=== PATIENT | female | born 1960 | race Caucasian/White ===

== ENCOUNTER 2022-10-01 21:55 | Outpatient (OUT) | payer BC, SELFPAY ==
[2022-10-05 15:10] LABS: Age Gdln ACOG Testing Note (.); HPV Aptima Negative (Negative); IGP, Aptima HPV, rfx 16/18,45 Note (.)
== END 2022-10-01 21:56 | disposition home or self-care (01) ==
LOC: LAB 21:59
PROVIDERS: Visit Provider Obstetrics & Gynecology
DX: Z12.4 Encounter for screening for malignant neoplasm of cervix (principal); Z11.51 Encounter for screening for human papillomavirus (HPV)
CPT/HCPCS: 87624; G0145

== ENCOUNTER 2022-10-26 11:58 | Outpatient (OUT) | payer BC, SELFPAY ==
--- NOTE | 2022-10-26 12:52 | XR_ITS ---
The [address] [address] Patient Name: RUBÉN APARICIO MRN: [id number] date: 1960 Sex: F Assigned Patient Location: [facility] Current Patient Location: [facility] Accession/Order Number: [id number] Exam Date: 10/26/2022 13:15 Report Date: 10/26/2022 13:29 At the request of: THOMAS MUNOZ Procedure: XR chest 2V EXAM: XR chest 2V HISTORY: PRE OP EXAM COMPARISON: None. TECHNIQUE: PA and lateral views of the chest. FINDINGS: The cardiomediastinal silhouette is normal. No focal consolidation is identified. There is no pneumothorax. No pleural effusion is noted. The osseous structures are intact. XR/XR chest 2V IMPRESSION: No acute cardiopulmonary process. Electronically authenticated by: LEXIE GARCIA Date: 10/26/2022 13:29
--- NOTE | 2022-10-26 12:52 | ECG_ITS ---
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
[2022-10-26 13:28] LABS: Basophils Absolute Auto 0.1 10^3/uL (0.0-0.1); Basophils Percent Auto 0.7 % (0.2-2.0); Eosinophils Absolute Auto 0.2 10^3/uL (0.0-0.7); Eosinophils Percent Auto 2.4 % (0.9-7.0); Hematocrit 40.9 % (36.0-48.0); Hemoglobin 13.7 g/dL (12.0-16.0); Immature Granulocytes Abs Auto 0.02 10^3/uL (0.00-0.03); Immature Granulocytes Pct Auto 0.2 % (0.0-0.5); Lymphocytes Absolute Auto 3.8 10^3/uL (1.2-3.8); Lymphocytes Percent Auto 45.9 % (20.5-60.0); Mean Corpuscular HGB Conc 33.5 g/dL (29.9-35.2); Mean Corpuscular Hemoglobin 32.9 pg (26.7-34.0); Mean Corpuscular Volume 98.3 fL (81.0-99.0); Mean Platelet Volume 9.3 fL (9.5-13.5); Monocytes Absolute Auto 0.6 10^3/uL (0.3-0.8); Monocytes Percent Auto 7.5 % (1.7-12.0); Neutrophils Absolute Auto 3.5 10^3/uL (1.4-6.5); Neutrophils Percent Auto 43.3 % (43.0-75.0); Platelet Count 286 10^3/uL (150-450); Red Blood Count 4.16 10^6/uL (4.20-5.40); Red Cell Distribution Width 13.1 % (11.0-15.0); White Blood Count 8.2 10^3/uL (4.0-11.0)
[2022-10-26 13:42] LABS: Anion Gap 11.1; BUN Creatinine Ratio 21.1; Calcium 8.6 mg/dL (8.5-10.1); Chloride 105 mmol/L (98-107); Estimated GFR (African America >60 (>=60); Estimated GFR (Non-African Ame >60 (>=60); Glucose 89 mg/dL (74-106); Potassium 4.1 mmol/L (3.5-5.1); Sodium 142 mmol/L (136-145)
[2022-10-26 13:45] LABS: INR 0.97; Partial Thromboplastin Time 27.9 sec (22.3-36.2); Prothrombin Time 10.3 sec (9.0-11.6)
== END 2022-10-26 11:59 | disposition home or self-care (01) ==
PROVIDERS: PCP Family Medicine; Visit Provider Obstetrics & Gynecology
DX: Z01.810 Encounter for preprocedural cardiovascular examination (principal); Z01.812 Encounter for preprocedural laboratory examination; Z01.811 Encounter for preprocedural respiratory examination; R87.613 High grade squamous intraepithelial lesion on cytologic smear of cervix (HGSIL); Z79.01 Long term (current) use of anticoagulants; D64.9 Anemia, unspecified; J44.9 Chronic obstructive pulmonary disease, unspecified
CPT/HCPCS: 71046; 80048; 85025; 85610; 85730; 93005

== ENCOUNTER 2022-11-09 06:03 | Day surgery (SDC) | payer BC, SELFPAY ==
[2022-10-26 12:49] VITALS: BP 147/77; PULSE 74; RESP 16; TEMP 36.2; O2SAT 97; BMI 26.0
[2022-11-09] VITALS (10 sets, daily range): BP systolic 134–169; BP diastolic 75–105; PULSE 76–93; RESP 12–20; TEMP 36.1–36.6; O2SAT 90–97
[2022-11-09 06:24] LABS: Basophils Absolute Auto 0.1 10^3/uL (0.0-0.1); Basophils Percent Auto 0.7 % (0.2-2.0); Eosinophils Absolute Auto 0.2 10^3/uL (0.0-0.7); Eosinophils Percent Auto 2.5 % (0.9-7.0); Hematocrit 43.3 % (36.0-48.0); Hemoglobin 14.4 g/dL (12.0-16.0); Immature Granulocytes Abs Auto 0.03 10^3/uL (0.00-0.03); Immature Granulocytes Pct Auto 0.3 % (0.0-0.5); Lymphocytes Absolute Auto 3.3 10^3/uL (1.2-3.8); Lymphocytes Percent Auto 36.3 % (20.5-60.0); Mean Corpuscular HGB Conc 33.3 g/dL (29.9-35.2); Mean Corpuscular Hemoglobin 33.2 pg (26.7-34.0); Mean Corpuscular Volume 99.8 fL (81.0-99.0); Mean Platelet Volume 9.1 fL (9.5-13.5); Monocytes Absolute Auto 0.7 10^3/uL (0.3-0.8); Monocytes Percent Auto 7.3 % (1.7-12.0); Neutrophils Absolute Auto 4.9 10^3/uL (1.4-6.5); Neutrophils Percent Auto 52.9 % (43.0-75.0); Platelet Count 291 10^3/uL (150-450); Red Blood Count 4.34 10^6/uL (4.20-5.40); Red Cell Distribution Width 12.8 % (11.0-15.0); White Blood Count 9.2 10^3/uL (4.0-11.0)
[2022-11-09 06:40] LABS: HCG Quantitative <1 mIU/mL
[2022-11-09] MEDS: LACTATED RINGER'S SOLUTION 1,000 ML 50 ML IV (06:56)
[2022-11-09] MEDS: IODINE/POTASSIUM IODIDE 8 ML SOLUTION TOPICAL (07:56)
[2022-11-09] MEDS: FERRIC SUBSULFATE 8 ML SOLUTION TOPICAL (08:04)
--- NOTE | 2022-11-09 08:09 | P.ON_ITS ---
Brief Operative Note Date of procedure: 11/09/22 Pre-op diagnosis: cervical dysplasia Post-op diagnosis: same as pre-op Procedure: NAME OF PROCEDURE: [leep ] PROCEDURE: Patient was taken back to the Operating Room where she was given general anesthesia without difficulty. She was then placed in the dorsal lithotomy position. She was then prepped and draped in the normal sterile fashion. A weighted speculum was placed into the patient's vagina. The anterior lip of the cervix was identified and grasped with a single-tooth tenaculum. The patient's cervix was then copiously irrigated using vinegar.? Then, a Lugol Solution was also placed onto the patient's cervix which demonstrated increased uptake of the Lugol solution at the [?3 ] o?clock and [7? ] o?clock positions.? At that time, the LEEP portion of the procedure was performed, including both the [3? ] o?clock and [? 7] o?clock positions. [facility] performed The ectocervix and endocervical tissue was sent out to Pathology. The patient's cervix was then coagulated using suction cautery. Excellent hemostasis was assured.? Monsel Solution was then placed onto the patient's cervix to help maintain adequate hemostasis. All instruments were removed from the patient's vagina. The anterior lip of the cervix demonstrated excellent hemostasis.? The patient tolerated the procedure well. Sponge, lap, and needle counts were correct x 2. The patient was taken to Recovery Room in stable condition. Anesthesia: CANDYA Surgeon: Harvinder Marx Estimated blood loss (mL): 5 Pathology: other (endo and ectocervical tissue) Condition: stable Disposition: PACU
--- NOTE | 2022-11-09 09:32 | PC.NURSE ---
Up to bathroom and voided clear yellow without difficulty
== END 2022-11-09 09:25 ==
PROVIDERS: PCP Family Medicine; Visit Provider Obstetrics & Gynecology
PROC: (CPT 57522; principal; 2022-11-09 07:30)
DX: R87.613 High grade squamous intraepithelial lesion on cytologic smear of cervix (HGSIL) (principal); Z79.01 Long term (current) use of anticoagulants; D64.9 Anemia, unspecified; J44.9 Chronic obstructive pulmonary disease, unspecified; F17.210 Nicotine dependence, cigarettes, uncomplicated
CPT/HCPCS: 57522; 36415; 84702; 85025; 88305; J2704

== ENCOUNTER 2023-04-09 20:51 | Outpatient (REF) | payer BC, SELFPAY ==
[2023-04-12 17:08] LABS: HPV Aptima Negative (Negative); Pap IG (Image Guided) Note (.)
== END 2023-04-09 20:52 | disposition home or self-care (01) ==
LOC: LAB 20:51
PROVIDERS: PCP Family Medicine; Visit Provider Obstetrics & Gynecology
DX: R87.610 Atypical squamous cells of undetermined significance on cytologic smear of cervix (ASC-US) (principal); R87.613 High grade squamous intraepithelial lesion on cytologic smear of cervix (HGSIL)
CPT/HCPCS: 87624

== ENCOUNTER 2023-05-16 08:28 | Outpatient (OUT) | payer MEDICARE, BC, SELFPAY ==
--- OUTSIDE RECORDS SUMMARY | 2023-05-16 08:31 | XMS_ITS | CCD ---
Author Name Unknown Address [address] [place] [address] Organization [facility] Care Team Providers Care Newsroom Intern Name Role Phone PHYSICIAN, DEFAULT Unavailable Unavailable PHYSICIAN, DEFAULT Unavailable Unavailable Cesar Paulino Primary Care Provider Cesar Paulino MD Primary Care Provider [phone] CESAR PAULINO Primary Care Unavailable SAMY HUNTLEY Referring Unavailable CESAR PAULINO Primary Care Unavailable JEFFERSON ., DR GUERRERO Consulting Unavailable HOY ., DR GUERRERO Primary Care Unavailable HOY ., DR GUERRERO Admitting Unavailable HOY ., DR GUERRERO Attending Unavailable [place], DR RAMA Liang Consulting Unavailable HOY ., DR GUERRERO Consulting Unavailable HOY ., DR GUERRERO Primary Care Unavailable HOY ., DR GUERRERO Admitting Unavailable HOY ., DR GUERRERO Attending Unavailable HOY ., DR GUERRERO Primary Care Unavailable HAY ., DR GARCES Admitting Unavailable HAY ., DR GARCES Attending Unavailable HAY ., DR GARCES Consulting Unavailable HOY ., DR GUERRERO Consulting Unavailable HOY ., DR GUERRERO Primary Care Unavailable HOY ., DR GUERRERO Admitting Unavailable HOY ., DR GUERRERO Attending Unavailable HOY ., DR GUERRERO Consulting Unavailable HOY ., DR GUERRERO Primary Care Unavailable HOY ., DR GUERRERO Admitting Unavailable HOY ., DR GUERRERO Attending Unavailable THOMAS MUNOZ Attending Unavailable Medications Current Medications Medication Drug Class(es) Dates Sig (Normalized) Sig (Original) acetaminophen 325 mg oral tablet (2 sources) Start: 05-21-2019 650 mg, Rectal, EVERY 6 HOURS PRN, Pain Mild (1-3), Fever, For temp greater than 100.5 F (38 C), Starting [facility] 05/21/19 at 1312 Administer if oral route cannot be used. Start: 05-21-2019 650 mg, Oral, EVERY 6 HOURS PRN, Pain Mild (1-3), Fever, For temp greater than 100.5 F (38 C), Starting [facility] 05/21/19 at 1312 Maximum dose of acetaminophen is 4000 mg from all sources in 24 hours. acetaminophen 250 mg / aspirin 250 mg / caffeine 65 mg oral tablet (3 sources) Platelet Aggregation Inhibitor, Nonsteroidal Anti-inflammatory Drug, Central Nervous System Stimulant, Methylxanthine take 2 tablets by mouth every six hours as needed for headache jbwsrzw-vtomycxrpgsdj-xnpantck (EXCEDRIN MIGRAINE) 250-250-65 MG per tablet Take 2 tablets by mouth every 6 hours as needed for Headaches (Migraine) 0 Active acetaminophen 300 mg / codeine phosphate 30 mg oral tablet (3 sources) Opioid Agonist take 1 tablet by mouth every six hours as needed for pain acetaminophen-codeine (TYLENOL/CODEINE #3) 300-30 MG per tablet Take 1 tablet by mouth every 6 hours as needed for Pain.. 0 Active ARIPiprazole 5 mg oral tablet (4 sources) Atypical Antipsychotic Sta rt: 0 take 5 mg by mouth once daily 5 mg, Oral, DAILY, First dose on Sat05/22/19 at 0900 aspirin 81 mg chewable tablet (5 sources) Platelet Aggregation Inhibitor, Nonsteroidal Anti-inflammatory Drug Sta rt: 0 take 1 tablet by mouth once daily aspirin 81 MG chewable tablet Take 1 tablet by mouth daily 30 tablet 3 05/23/2019 Active Start: 05-21-2019 aspirin tablet 325 mg atorvastatin 40 mg oral tablet (4 sources) HMG-CoA Reductase Inhibitor Start: 05-21-2019 take 1 tablet by mouth once daily atorvastatin (LIPITOR) 40 MG tablet Take 1 tablet by mouth nightly 30 tablet 3 05/22/2019 Active 24 hr desvenlafaxine succinate 25 mg extended release oral tablet (4 sources) Serotonin and Norepinephrine Reuptake Inhibitor Start: 05-22-2019 take 25 mg by mouth once daily 25 mg, Oral, DAILY, First dose on Sat05/22/19 at 0900 Do not crush or break. 0.4 ml enoxaparin sodium 100 mg/ml prefilled syringe (1 source) Low Molecular Weight Heparin Start: 05-21-2019 inject 40 mg by subcutaneous injection once daily 40 mg, Subcutaneous, DAILY, First dose on [facility] 05/21/19 at 1330 famotidine 10 mg oral tablet (1 source) Histamine-2 Receptor Antagonist Start: 05-21-2019 take 20 mg by mouth twice daily 20 mg, Oral, 2 TIMES DAILY, First dose on [facility] 05/21/19 at 2100 meclizine hydrochloride 25 mg oral tablet (1 source) Antiemetic Start: 11-11-2020 End: 11-21-2020 take 1 tablet by mouth three times daily as needed for dizziness meclizine (ANTIVERT) 25 MG tablet Take 1 tablet by mouth 3 times daily as needed for Dizziness 15 tablet 0 11/11/2020 11/21/2020 Active metoprolol tartrate 25 mg oral tablet (4 sources) beta-Adrenergic Vijay Start: 05-21-2019 take 1 tablet by mouth twice daily metoprolol tartrate (LOPRESSOR) 25 MG tablet Take 1 tablet by mouth 2 times daily 60 tablet 3 05/22/2019 Active 24 hr nicotine 0.875 mg/hr transdermal system (1 source) Cholinergic Nicotinic Agonist Start: 05-21-2019 nicotine (NICODERM CQ) 21 MG/24HR 1 patch nitroglycerin 0.4 mg sublingual tablet (1 source) Nitrate Vasodilator Start: 05-21-2019 0.4 mg, Sublingual, EVERY 5 MIN PRN, Chest pain, Starting [facility] 05/21/19 at 1312, For [address] 1 tablet under tongue upon chest pain, wait 5 minutes and may repeat up to 3 doses in 15 minutes. Do not crush or break. omeprazole 20 mg delayed release oral capsule (3 sources) Proton Pump Inhibitor Start: 05-22-2019 take 1 capsule by mouth twice daily before mealtime omeprazole (PRILOSEC) 20 MG delayed release capsule Take 1 capsule by mouth 2 times daily (before meals) 60 capsule 5 05/22/2019 Active polyethylene glycol 3350 18533 mg powder for oral solution (1 source) Osmotic Laxative Start: 05-21-2019 17 g, Oral, DAILY PRN, Constipation, Starting [facility] 05/21/19 at 1312 First line therapy for constipation promethazine hydrochloride 25 mg oral tablet (1 source) Phenothiazine Start: 05-21-2019 take 12.5 mg by mouth every six hours as needed for nausea 12.5 mg, Oral, EVERY 6 HOURS PRN, Nausea, Vomiting, Starting [facility] 05/21/19 at 1312 1000 ml sodium chloride 9 mg/ml injection (5 sources) Start: 11-11-2020 0.9 % sodium chloride infusion Start: 05-21-2019 10 mL, Intrave nous, EVERY 12 HOURS SCHEDULED (2 times per day), First dose on [facility] 05/21/19 at 2100 Start: 05-21-2019 Intravenous, a t 75 mL/hr, CONTINUOUS, Starting [facility] 05/21/19 at 1330 Start: 05-21-2019 take 10 mL intraveno us route once as needed 10 mL, Intravenous, PRN, Line Care, After every IV line use, Starting [facility] 05/21/19 at 1312 Start: 05-21-2019 End: 05-21-2019 0.9 % sodium chloride bolus Completed/Discontinued Medications Medication Drug Class(es) Dates Sig (Normalized) Sig (Original) aluminum & magnesium hydroxide-simethicone (MAALOX) 30 mL, lidocaine viscous hcl (XYLOCAINE) 5 mL (GI COCKTAIL) (1 source) Start: 05-21-2019 End: 05-21-2019 aluminum & magnesium hydroxide-simethic one (MAALOX) 30 mL, lidocaine viscous hcl (XYLOCAINE) 5 mL (GI COCKTAIL) diazePAM 5 mg oral tablet (1 source) Benzodiazepine Start: 11-11-2020 End: 11-11-2020 diazePAM (VALIUM) tablet 5 mg iopamidol (ISOVUE-370) 76 % injection 75 mL (1 source) Start: 11-11-2020 End: 11-11-2020 iopamidol (ISOVUE-370) 76 % injection 75 mL loperamide hydrochloride 2 mg oral capsule (1 source) Opioid Agonist Start: 05-22-2019 End: 05-22-2019 loperamide (IMODIUM) capsule 2 mg Start: 05-22-2019 End: 05-22-2019 loperamide (IMODIUM) capsule 2 mg 2 ml ondansetron 2 mg/ml injection (2 sources) Serotonin-3 Receptor Antagonist Start: 11-11-2020 End: 11-11-2020 ondansetron (ZOFRAN) injection 4 mg Start: 05-21-2019 take 4 mg by mouth e very six hours as needed for nausea 4 mg, Intravenous, EVERY 6 HOURS PRN, Nausea, Vomiting, Starting [facility] 05/21/19 at 1312 Administer if oral route cannot be used. technetium sestamibi (CARDIOLITE) injection 10 millicurie (1 source) Start: 05-22-2019 End: 05-22-2019 technetium sestamibi (CARDIOLITE) injection 10 millicurie technetium sestamibi (CARDIOLITE) injection 30 millicurie (1 source) Start: 05-22-2019 End: 05-22-2019 technetium sestamibi (CARDIOLITE) injection 30 millicurie Problems Active Problems Problem Classification Problem Date Documented Da te Episodic/Chronic Coronary atherosclerosis and other heart disease (4 sources) Acute coronary syndrome; Translations: [Acute ischemic heart disease, unspecified] Onset: 05-21-2019 05-21-2019 Chronic Mood disorders (4 sources) Depressive disorder; Translations: [Major depressive disorder, single episode, unspecified] Onset: 05-21-2019 05-21-2019 Chronic Nonspecific chest pain (2 sources) Chest pain; Translations: [Chest pain, unspecified] 05-22-2019 Episodic Nutritional deficiencies (1 source) Vitamin D deficiency, unspecified; Translations: [VITAMIN D DEFICIENCY UNSPECIFIED] Onset: 09-20-2021 Chronic Residual codes; unclassified (2 sources) Tobacco user; Translations: [Tobacco abuse disorder] Onset: 05-21-2019 05-21-2019 Chronic Viral infection (1 source) COVID-19; Translations: [COVID-19] Onset: 09-18-2021 Past or Other Problems Problem Classification Problem Date Documented Da te Episodic/Chronic Abdominal pain (4 sources) Epigastric pain; Translations: [Epigastric pain] Onset: 05-21-2019 05-21-2019 Episodic Conditions associated with dizziness or vertigo (5 sources) Vertigo; Translations: [Dizziness and giddiness] Onset: 09-17-2021 Episodic E Codes: Natural/environment (1 source) Bitten or stung by nonvenomous insect and other nonvenomous arthropods, initial encounter; Translations: [BITTEN NONVENOM INSCT OTH ARTH INIT] Onset: 09-18-2021 Episodic Fever of unknown origin (1 source) Fever, unspecified; Translations: [FEVER UNSPECIFIED] Onset: 09-18-2021 Episodic Other aftercare (2 sources) Post-discharge follow-up; Translations: [Encounter for follow-up examination after completed treatment for conditions other than malignant neoplasm] Onset: 06-15-2019 Resolved: 07-15-2019 07-15-2019 Episodic Other aftercare (1 source) 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; Translations: [[employer] CURRENT DRUG THERAPY] Onset: 09-20-2021 Episodic Other injuries and conditions due to external causes (1 source) Other injury of unspecified body region, initial encounter; Translations: [OTHER INJURY UNS BODY REGION INIT] Onset: 09-18-2021 Episodic Other screening for suspected conditions (not mental disorders or infectious disease) (8 sources) Encounter for screening for malignant neoplasm of cervix; Translations: [Encounter for screening mammogram for malignant neoplasm of breast] Onset: 12-29-2021 Episodic Residual codes; unclassified (2 sources) Tobacco user; Translations: [Tobacco use] Onset: 05-21-2019 05-21-2019 Episodic Results Test Name Value Interpretation Reference Range Facility CBC AUTO DIFFon 08-21-2022 BASO # 0.1 103/ul Normal 0.0-0.1 [facility] Comment on above: Performed By: #### C BC #### [facility] [address] [place] [address] Dr. Georgia Rhoades Basophils/100 WBC (Bld) 0.8 % Normal 0.2-2.0 [facility] Comment on above: Performed By: #### C BC #### [facility] [address] [place] [address] Dr. Georgia Rhoades EO # 0.3 103/ul Normal 0.0-0.7 [facility] Comment on above: Performed By: #### C BC #### [facility] [address] [place] [address] Dr. Georgia Rhoades Eosinophils/100 WBC (Bld) 3.1 % Normal 0.9-7.0 [facility] Comment on above: Performed By: #### C BC #### [facility] [address] [place] [address] Dr. Georgia Rhoades Erythrocyte distribution width (RBC) [Ratio] 13.2 % Normal 11.0-15.0 [facility] Comment on above: Performed By: #### C BC #### [facility] [address] [place] [address] Dr. Georgia Rhoades Hematocrit (Bld) [Volume fraction] 45.8 % Normal 36.0-48.0 [facility] Comment on above: Performed By: #### C BC #### [facility] [address] [place] [address] Dr. Georgia Rhoades Hemoglobin (Bld) [Mass/Vol] 15.1 g/dL Normal 12.0-16.0 [facility] Comment on above: Performed By: #### C BC #### [facility] [address] [place] [address] Dr. Georgia Rhoades IG # 0.02 10e3/ul Normal 0.00-0.03 [facility] Comment on above: Performed By: #### C BC #### [facility] [address] [place] [address] Dr. Georgia Rhoades IG % 0.2 % Normal 0.0-0.5 [facility] Comment on above: Performed By: #### C BC #### [facility] [address] [place] [address] Dr. Georgia Rhoades LYMPH # 3.6 103/ul Normal 1.2-3.8 [facility] Comment on above: Performed By: #### C BC #### [facility] [address] [place] [address] Dr. Georgia Rhoades Lymphocytes/100 WBC (Bld) 37.1 % Normal 20.5-60.0 [facility] Comment on above: Performed By: #### C BC #### [facility] [address] [place] [address] Dr. Georgia Rhoades MANUAL DIFF REQ NO Normal [facility] Comment on above: Performed By: #### C BC #### [facility] [address] [place] [address] Dr. Georgia Rhoades MCH (RBC) [Entitic mass] 32.8 pg Normal 26.7-34.0 [facility] Comment on above: Performed By: #### C BC #### [facility] [address] [address] [address] Georgia Rhoades MCHC (RBC) [Mass/Vol] 33.0 g/dL Normal 29.9-35.2 [facility] Comment on above: Performed By: #### C BC #### [facility] [address] [address] [address] Georgia Rhoades MCV (RBC) [Entitic vol] 99.3 fL Critically high 81.0-99.0 [facility] Comment on above: Performed By: #### C BC #### [facility] [address] [address] [address] Georgia Rhoades MONO # 0.8 103/ul Normal 0.3-0.8 [facility] Comment on above: Performed By: #### C BC #### [facility] [address] [place] [address] Dr. Georgia Rhoades Monocytes/100 WBC (Bld) 8.3 % Normal 1.7-12.0 [facility] Comment on above: Performed By: #### C BC #### [facility] [address] [place] [address] Dr. Georgia Rhoades NEUT # 4.9 103/ul Normal 1.4-6.5 [facility] Comment on above: Performed By: #### C BC #### [facility] [address] [place] [address] Dr. Georgia Rhoades Neutrophils/100 WBC (Bld) 50.5 % Normal 43.0-75.0 [facility] Comment on above: Performed By: #### C BC #### [facility] [address] [place] [address] Dr. Georgia Rhoades Platelet mean volume (Bld) [Entitic vol] 9.3 fL Critically low 9.5-13.5 [facility] Comment on above: Performed By: #### C BC #### [facility] [address] [place] [address] Dr. Georgia Rhoades PLT 313 103/ul Normal 150-450 [facility] Comment on above: Performed By: #### C BC #### [facility] [address] [address] [address] Georgia Rhoades RBC 4.61 106/ul Normal 4.20-5.40 [facility] Comment on above: Performed By: #### C BC #### [facility] [address] [address] [address] Georgia Rhoades WBC 9.7 103/ul Normal 4.0-11.0 [facility] Comment on above: Performed By: #### C BC #### [facility] [address] [address] [address] Georgia Rhoades FREE T3on 08-21-2022 FREE T3 2.96 pg/mlL Normal 2.18-3.98 [facility] Comment on above: Performed By: #### F T3, CMP, T4, TSH, LIPID ####[facility] [address] [address]DrMalorie Rhoades GLYCOHEMOGLOBIN A1Con 2022 ADA RECOMMENDATION SEE BELOW Normal [facility] Comment on above: Result Comment: ADA RECOMMENDED LIMIT 4.0 - 6.0 ADA THERAPEUTIC TARGET < 7.0 ACTION SUGGESTED > 7.0 Performed By: #### A 1C ####[facility] [address] [address]Dr. Georgia Rhoades Glucose [Mass/Vol] 114 mg/dL Normal [facility] Comment on above: Performed By: #### A 1C ####[facility] [address] [address]DrMalorie Rhoades HbA1c (Bld) [Mass fraction] 5.6 % Normal 4.5-6.2 [facility] Comment on above: Performed By: #### A 1C ####[facility] [address] [address]Dr. Georgia Rhoades IRONon 08-21-2022 Iron [Mass/Vol] 66.0 ug/dL Normal 50.0-170.0 [facility] Comment on above: Performed By: #### V ITAD, IRON #### [facility] [address] [address] [address] Georgia Rhoades LIPID PROFILEon 08-21-2022 CHOL-HDL RATIO NORM SEE BELOW Normal [facility] Comment on above: Result Comment: 3.3 - 4.4 LOW RISK 4.4 - 7.1 AVERAGE RISK 7.1 - 11.0 MODERATE RISK >11.0 HIGH RISK Performed By: #### F T3, CMP, T4, TSH, LIPID ####[facility] [address] [address]Dr. Georgia Rhoades Cholesterol [Mass/Vol] 120 mg/dL Normal <=200 [facility] Comment on above: Performed By: #### F T3, CMP, T4, TSH, LIPID ####[facility] [address] [address]Dr. Georgia Rhoades Cholesterol in HDL [Mass/Vol] 57 mg/dL Normal 40-60 [facility] Comment on above: Performed By: #### F T3, CMP, T4, TSH, LIPID ####[facility] [address] [address]Dr. Georgia Rhoades Cholesterol in LDL [Mass/Vol] 46.2 mg/dL Normal [facility] Comment on above: Performed By: #### F T3, CMP, T4, TSH, LIPID ####[facility] [address] [address]Dr. Georgia Rhoades Cholesterol.total/Chol esterol in HDL [Mass ratio] 2.1 {ratio} Normal [facility] Comment on above: Performed By: #### F T3, CMP, T4, TSH, LIPID ####[facility] [address] [address]Dr. Georgia Rhoades HDL NORMAL > or = 60 mg/dl - LO W CARDIOVASCULAR RISK <40 mg/dl - HIGH CARDIOVASCULAR RISK Normal [facility] Comment on above: Performed By: #### F T3, CMP, T4, TSH, LIPID ####[facility] [address] [address]Dr. Georgia Rhoades LDL CALC NORMAL SEE BELOW Normal [facility] Comment on above: Result Comment: <100 mg/dl OPTIMAL 100 - 129 mg/dl NEAR OR ABOVE OPTIMAL 130 - 159 mg/dl BORDERLINE HIGH 160 - 189 mg/dl HIGH >190 mg/dl VERY HIGH Performed By: #### F T3, CMP, T4, TSH, LIPID ####[facility] [address] [address]Dr. Georgia Rhoades Triglyceride [Mass/Vol] 84 mg/dL Normal <=150 [facility] Comment on above: Performed By: #### F T3, CMP, T4, TSH, LIPID ####[facility] [address] [address]Dr. Georgia Rhoades VLDL CALC 16.8 mg/dL Normal [facility] Comment on above: Performed By: #### F T3, CMP, T4, TSH, LIPID ####[facility] [address] [address]Dr. Georgia Rhoades PROF 14(COMP METB)on 023 Albumin [Mass/Vol] 3.9 g/dL Normal 3.4-5.0 [facility] Comment on above: Performed By: #### F T3, CMP, T4, TSH, LIPID ####[facility] [address] [address]Dr. Georgia Rhoades Albumin/Globulin [Mass ratio] 1.1 {ratio} Normal [facility] Comment on above: Performed By: #### F T3, CMP, T4, TSH, LIPID ####[facility] [address] [address]Dr. Georgia Rhoades ALP [Catalytic activity/Vol] 44 U/L Critically low 46-116 [facility] Comment on above: Performed By: #### F T3, CMP, T4, TSH, LIPID ####[facility] [address] [address]Dr. Georgia Rhoades ALT [Catalytic activity/Vol] 35 U/L Normal 14-59 [facility] Comment on above: Performed By: #### F T3, CMP, T4, TSH, LIPID ####[facility] [address] [address]Dr. Georgia Rhoades Anion gap [Moles/Vol] 12.6 mmol/L Normal [facility] Comment on above: Performed By: #### F T3, CMP, T4, TSH, LIPID ####[facility] [address] [address]Dr. Georgia Rhoades AST [Catalytic activity/Vol] 18 U/L Normal 15-37 [facility] Comment on above: Performed By: #### F T3, CMP, T4, TSH, LIPID ####[facility] [address] [address]Dr. Georgia Rhoades Bilirubin [Mass/Vol] 0.3 mg/dL Normal 0.2-1.0 [facility] Comment on above: Performed By: #### F T3, CMP, T4, TSH, LIPID ####[facility] [address] [address]Dr. Georgia Rhoades Calcium [Mass/Vol] 8.9 mg/dL Normal 8.5-10.1 [facility] Comment on above: Performed By: #### F T3, CMP, T4, TSH, LIPID ####[facility] [address] [address]Dr. Georgia Rhoades Chloride [Moles/Vol] 105 mmol/L Normal 98-107 [facility] Comment on above: Performed By: #### F T3, CMP, T4, TSH, LIPID ####[facility] [address] [address]Dr. Georgia Rhoades CO2 [Moles/Vol] 29.3 mmol/L Normal 21.0-32.0 [facility] Comment on above: Performed By: #### F T3, CMP, T4, TSH, LIPID ####[facility] [address] [address]Dr. Georgia Rhoades Creatinine [Mass/Vol] 0.88 mg/dL Normal 0.55-1.02 [facility] Comment on above: Performed By: #### F T3, CMP, T4, TSH, LIPID ####[facility] [address] [address]Dr. Georgia Rhoades EGFR-AF LATVIAN >60 Normal >=60 [facility] Comment on above: Performed By: #### F T3, CMP, T4, TSH, LIPID ####[facility] [address] [address]Dr. Georgia Rhoades EGFR-NON AF LATVIAN >60 Normal >=60 [facility] Comment on above: Performed By: #### F T3, CMP, T4, TSH, LIPID ####[facility] [address] [address]Dr. Georgia Rhoades Globulin (S) [Mass/Vol] 3.5 g/dL Normal [facility] Comment on above: Performed By: #### F T3, CMP, T4, TSH, LIPID ####[facility] [address] [address]Dr. Georgia Rhoades Glucose [Mass/Vol] 95 mg/dL Normal 74-106 [facility] Comment on above: Performed By: #### F T3, CMP, T4, TSH, LIPID ####[facility] [address] [place], [place] [address]Dr. Georgia Rhoades Potassium [Moles/Vol] 3.9 mmol/L Normal 3.5-5.1 [facility] Comment on above: Performed By: #### F T3, CMP, T4, TSH, LIPID ####[facility] [address] [address]Dr. Georgia Rhoades Protein [Mass/Vol] 7.4 g/dL Normal 6.4-8.2 [facility] Comment on above: Performed By: #### F T3, CMP, T4, TSH, LIPID ####[facility] [address] [address]Dr. Georgia Rhoades Sodium [Moles/Vol] 143 mmol/L Normal 136-145 [facility] Comment on above: Performed By: #### F T3, CMP, T4, TSH, LIPID ####[facility] [address] [place], [place] [address]Dr. Georgia Rhoades Urea nitrogen [Mass/Vol] 16.0 mg/dL Normal 7.0-18.0 [facility] Comment on above: Performed By: #### F T3, CMP, T4, TSH, LIPID ####[facility] [address] [place], [place] [address]Dr. Yilan Rhoades Urea nitrogen/Creatinine [Mass ratio] 18.2 mg/mg Normal [facility] Comment on above: Performed By: #### F T3, CMP, T4, TSH, LIPID ####[facility] [address] [address]Dr. Georgia Rhoades T4on 08-21-2022 T4 [Mass/Vol] 7.30 ug/dL Normal 4.80-13.90 [facility] Comment on above: Performed By: #### F T3, CMP, T4, TSH, LIPID ####[facility] [address] [address]Dr. Georgia Rhoades TSHon 08-21-2022 TSH 1.824 uIU/mL Normal 0.358-3.740 [facility] Comment on above: Performed By: #### F T3, CMP, T4, TSH, LIPID ####[facility] [address] [place] [address]DrMalorie Rhoades VITAMIN D 25 OHon 08-21-2022 VIT D 25-OH 35.9 ng/mL Normal [facility] Comment on above: Performed By: #### V BINU, IRON #### [facility] [address] [place] [address] Dr. Georgia Rhoades VIT D RANGES SEE BELOW [facility] Comment on above: Result Comment: <20 ng/mL Vit D deficient 20 - <30 ng/mL Vit D insufficient 30 - 100 ng/mL Vit D sufficient >100 ng/mL Potential Toxicity Performed By: #### V BINU, IRON #### [facility] [address] [place] [address] Dr. Georgia Rhoades PAP ACOG PANEL 2: 30 to 65on 01-19-2022 . . Normal [facility] Comment on above: Result Comment: Perf ormed at: WB Performed By: #### [id number] ####[facility] [address] [address]DrMalorie Rhoades Age Gdln ACOG Testing 30-65 Normal [facility] Comment on above: Performed By: #### 4 [id number] ####[facility] [address] [place], [place] [id number]. Georgia Rhoades DIAGNOSIS: Comment Abnormal [facility] Comment on above: Result Comment: EPIT HELIAL CELL ABNORMALITY. ATYPICAL SQUAMOUS CELLS OF UNDETERMINED SIGNIFICANCE (ASC-US). Performed at: WB Performed By: #### [id number] ####[facility] [address] [place] [id number]. Georgia Rhoades Electronically signed by: Comment Normal [facility] Comment on above: Result Comment: Humera Bingham MD, Pathologist Performed at: WB Performed By: #### 4 [id number] ####[facility] [address] [place], [place] [address]Dr. Georgia Rhoades HPV Aptima Positive Abnormal Negative [facility] Comment on above: Result Comment: This nucleic acid amplification test detects fourteen high-risk HPV types (16,18,31,33,35,39,45,51,52,56,58,59,66,68) without differentiation. Performed at: =G Performed By: #### 4 [id number] ####[facility] [address] [place], [place] [address]Dr. Georgia Rhoades HPV Genotype Reflex Comment Normal [facility] Comment on above: Result Comment: Crit erarcadio not met, HPV Genotype not performed. Performed at: WB Performed By: #### 4 [id number] ####[facility] [address] [place], [place] [id number]. Georgia Rhoades Methodology: Comment Normal [facility] Comment on above: Result Comment: This liquid based ThinPrep(R) pap test was screened with the use of an image guided system. Performed at: WB Performed By: #### [id number] ####[facility] [address] [place], [place] [id number]. Georgia Rhoades Note: Comment Normal [facility] Comment on above: Result Comment: The Pap smear is a screening test designed to aid in the detection of premalignant and malignant conditions of the uterine cervix. It is not a diagnostic procedure and should not be used as the sole means of detecting cervical cancer. Both false-positive and false-negative reports do occur. . Performed at: WB Performed By: #### [id number] ####[facility] [address] [address]Dr. Georgia Rhoades Pathologist Provided ICD10 Comment Normal [facility] Comment on above: Result Comment: [id number]. [id number] Performed at: WB Performed By: #### 4 [id number] ####[facility] [address] [address]Dr. Georgia Rhoades Performed by: Comment Normal [facility] Comment on above: Result Comment: Kandice Patten, Eyeletter (ASCP) Performed at: WB Performed By: #### 4 [id number] ####[facility] [address] [address]Dr. Georgia Rhoades Recommendation: Comment Abnormal [facility] Comment on above: Result Comment: Sugg est follow up as clinically appropriate. Performed at: WB Performed By: #### 4 [id number] ####[facility] [address] [address]Dr. Georgia Rhoades Specimen adequacy: Comment Normal [facility] Comment on above: Result Comment: Sati sfactory for evaluation. Endocervical and/or squamous metaplastic cells (endocervical component) are present. Performed at: WB Performed By: #### 4 [id number] ####[facility] [address] [place] [address]Dr. Georgia Rhoades MG MAMM SCREEN 3D SHELLY CADon 12-29-2021 MG MAMM SCREEN 3D SHELLY CAD Patient: RUBÉN APARICIO Exam Date: 12/29/2021 : 1960 Gender:F Ordering : DR CESAR PAULINO . Admission #: [id number] Family : Order #: [id number] CLICK HERE TO VIEW EXAM RADIOLOGY REPORT PROCEDURE: MAMMOGRAM SCREENING 3D BILATERAL CAD COMPARISON: None. INDICATIONS: Screening mammography Calculator Name NCI Breast Cancer Risk Assessment Tool 5 Year Breast Cancer Risk 1.00% Lifetime Breast Cancer Risk 4.40% Personal Breast Cancer No Personal Ovarian Cancer No Treatments None Family Cancers None LOCATION: [facility] BREAST COMPOSITION: Scattered areas fibroglandular density. FINDINGS: DIAGNOSTIC CATEGORY 2--BENIGN FINDING: Scattered benign-appearing calcifications are present. RIGHT BREAST: No significant suspicious finding. LEFT BREAST: No significant suspicious finding. RECOMMENDATIONS: ROUTINE MAMMOGRAM AND CLINICAL EVALUATION IN 12 MONTHS. PLEASE NOTE: A NORMAL MAMMOGRAM DOES NOT EXCLUDE THE POSSIBILITY OF BREAST CANCER. A CLINICALLY SUSPICIOUS PALPABLE LUMP SHOULD BE BIOPSIED. Dictated by: Rama Coleman MD on 12/29/2021 at 09:20 Approved by: Rama Coleman MD on 12/29/2021 at 09:21 Normal [facility] Covid-19 PCR (CVDTBH)on 08-24 SARS-CoV-2 (COVID-19) RNA YAMINI+probe Ql (Unsp spec) Detected Critically abnormal NOT DETECTED [facility] Comment on above: Result Comment: This test is not yet approved or cleared by the [place] FDA. When there are no FDA-approved or cleared tests available, and other criteria are met, FDA can make tests available under an emergency access mechanism called an Emergency Use Authorization (EUA). The EUA for this test is supported by the Vice President Education of Health and Human Service's declaration that circumstances exist to justify the emergency use of in vitro diagnostics for the detection and/or diagnosis of the virus that causes COVID-19. This EUA will remain in effect for the duration of the COVID-19 declaration justifying emergency of IVDs, unless it is terminated or revoked by the FDA (after which the test may no longer be used). Performed By: #### C VDTBH #### [facility] [address] [place] [address] Dr. Georgia Rhoades CBC AUTO DIFFon 09-16-2021 BASO # 0.1 103/ul Normal 0.0-0.1 [facility] Comment on above: Performed By: #### C BC #### [facility] [address] [place] [address] Dr. Georgia Rhoades Basophils/100 WBC (Bld) 0.7 % Normal 0.2-2.0 [facility] Comment on above: Performed By: #### C BC #### [facility] [address] [place] [address] Dr. Georgia Rhoades EO # 0.3 103/ul Normal 0.0-0.7 [facility] Comment on above: Performed By: #### C BC #### [facility] [address] [place] [address] Dr. Georgia Rhoades Eosinophils/100 WBC (Bld) 2.8 % Normal 0.9-7.0 [facility] Comment on above: Performed By: #### C BC #### [facility] [address] [place] [address] Dr. Georgia Rhoades Erythrocyte distribution width (RBC) [Ratio] 13.0 % Normal 11.0-15.0 [facility] Comment on above: Performed By: #### C BC #### [facility] [address] [place] [address] Dr. Georgia Rhoades Hematocrit (Bld) [Volume fraction] 42.3 % Normal 36.0-48.0 [facility] Comment on above: Performed By: #### C BC #### [facility] [address] [place] [address] Dr. Georgia Rhoades Hemoglobin (Bld) [Mass/Vol] 13.9 g/dL Normal 12.0-16.0 [facility] Comment on above: Performed By: #### C BC #### [facility] [address] [place] [address] Dr. Georgia Rhoades IG # 0.03 10e3/ul Normal 0.00-0.03 [facility] Comment on above: Performed By: #### C BC #### [facility] [address] [place] [address] Dr. Georgia Rhoades IG % 0.3 % Normal 0.0-0.5 [facility] Comment on above: Performed By: #### C BC #### [facility] [address] [place] [address] Dr. Georgia Rhoades LYMPH # 2.4 103/ul Normal 1.2-3.8 [facility] Comment on above: Performed By: #### C BC #### [facility] [address] [place] [address] Dr. Georgia Rhoades Lymphocytes/100 WBC (Bld) 24.2 % Normal 20.5-60.0 [facility] Comment on above: Performed By: #### C BC #### [facility] [address] [place] [address] Dr. Georgia Rhoades MANUAL DIFF REQ NO Normal [facility] Comment on above: Performed By: #### C BC #### [facility] [address] [place] [address] Dr. Georgia Rhoades MCH (RBC) [Entitic mass] 33.1 pg Normal 26.7-34.0 [facility] Comment on above: Performed By: #### C BC #### [facility] [address] [place] [address] Dr. Georgia Rhoades MCHC (RBC) [Mass/Vol] 32.9 g/dL Normal 29.9-35.2 [facility] Comment on above: Performed By: #### C BC #### [facility] [address] [place] [address] Dr. Georgia Rhoades MCV (RBC) [Entitic vol] 100.7 fL Critically high 81.0-99.0 [facility] Comment on above: Performed By: #### C BC #### [facility] [address] [place] [address] Dr. Georgia Rhoades MONO # 0.7 103/ul Normal 0.3-0.8 [facility] Comment on above: Performed By: #### C BC #### [facility] [address] [place] [address] Dr. Georgia Rhoades Monocytes/100 WBC (Bld) 7.3 % Normal 1.7-12.0 [facility] Comment on above: Performed By: #### C BC #### [facility] [address] [place] [address] Dr. Georgia Rhoades NEUT # 6.3 103/ul Normal 1.4-6.5 [facility] Comment on above: Performed By: #### C BC #### [facility] [address] [place] [address] Dr. Georgia Rhoades Neutrophils/100 WBC (Bld) 64.7 % Normal 43.0-75.0 [facility] Comment on above: Performed By: #### C BC #### [facility] [address] [place] [address] Dr. Georgia Rhoades Platelet mean volume (Bld) [Entitic vol] 9.1 fL Critically low 9.5-13.5 [facility] Comment on above: Performed By: #### C BC #### [facility] [address] [place] [address] Dr. Georgia Rhoades PLT 269 103/ul Normal 150-450 [facility] Comment on above: Performed By: #### C BC #### [facility] [address] [address] [address] Georgia Rhoades RBC 4.20 106/ul Normal 4.20-5.40 [facility] Comment on above: Performed By: #### C BC #### [facility] [address] [place] [address] Dr. Georgia Rhoades WBC 9.8 103/ul Normal 4.0-11.0 [facility] Comment on above: Performed By: #### C BC #### [facility] [address] [place] [address] Dr. Georgia Rhoades FREE T3on 09-16-2021 FREE T3 2.90 pg/mlL Normal 2.18-3.98 [facility] Comment on above: Performed By: #### T 4, LIPID, FT3, TSH, CMP #### [facility] [address] [place] [address] Dr. Georgia Rhoades GLYCOHEMOGLOBIN A1Con 2021 ADA RECOMMENDATION SEE BELOW Normal [facility] Comment on above: Result Comment: ADA RECOMMENDED LIMIT 4.0 - 6.0 ADA THERAPEUTIC TARGET < 7.0 ACTION SUGGESTED > 7.0 Performed By: #### A 1C ####[facility] [address] [place] [address]Dr. Georgia Rhoades Glucose [Mass/Vol] 117 mg/dL Normal [facility] Comment on above: Performed By: #### A 1C ####[facility] [address] [place] [address]Dr. Georgia Rhoades HbA1c (Bld) [Mass fraction] 5.7 % Normal 4.5-6.2 [facility] Comment on above: Performed By: #### A 1C ####[facility] [address] [place] [address]Dr. Georgia Rhoades LIPID PROFILEon 09-16-2021 CHOL-HDL RATIO NORM SEE BELOW Normal [facility] Comment on above: Result Comment: 3.3 - 4.4 LOW RISK 4.4 - 7.1 AVERAGE RISK 7.1 - 11.0 MODERATE RISK >11.0 HIGH RISK Performed By: #### T 4, LIPID, FT3, TSH, CMP #### [facility] [address] [address] [address] Georgia Rhoades Cholesterol [Mass/Vol] 116 mg/dL Normal <=200 Th [facility] Comment on above: Performed By: #### T 4, LIPID, FT3, TSH, CMP #### [facility] [address] [address] [address] Georgia Rhoades Cholesterol in HDL [Mass/Vol] 55 mg/dL Normal 40-60 [facility] Comment on above: Performed By: #### T 4, LIPID, FT3, TSH, CMP #### [facility] [address] [address] [address] Georgia Rhoades Cholesterol in LDL [Mass/Vol] 45.8 mg/dL Normal [facility] Comment on above: Performed By: #### T 4, LIPID, FT3, TSH, CMP #### [facility] [address] [address] [address] Georgia Rhoades Cholesterol.total/Chol esterol in HDL [Mass ratio] 2.1 {ratio} Normal [facility] Comment on above: Performed By: #### T 4, LIPID, FT3, TSH, CMP #### [facility] [address] [address] [address] Georgia Rhoades HDL NORMAL > or = 60 mg/dl - LO W CARDIOVASCULAR RISK <40 mg/dl - HIGH CARDIOVASCULAR RISK Normal [facility] Comment on above: Performed By: #### T 4, LIPID, FT3, TSH, CMP #### [facility] [address] [address] [address] Georgia Rhoades LDL CALC NORMAL SEE BELOW Normal [facility] Comment on above: Result Comment: <100 mg/dl OPTIMAL 100 - 129 mg/dl NEAR OR ABOVE OPTIMAL 130 - 159 mg/dl BORDERLINE HIGH 160 - 189 mg/dl HIGH >190 mg/dl VERY HIGH Performed By: #### T 4, LIPID, FT3, TSH, CMP #### [facility] [address] [place] [address] Dr. Georgia Rhoades Triglyceride [Mass/Vol] 76 mg/dL Normal <=150 [facility] Comment on above: Performed By: #### T 4, LIPID, FT3, TSH, CMP #### [facility] [address] [address] [address] Georgia Rhoades VLDL CALC 15.2 mg/dL Normal [facility] Comment on above: Performed By: #### T 4, LIPID, FT3, TSH, CMP #### [facility] [address] [place] [address] Dr. Georgia Rhoades PROF 14(COMP METB)on 022 Albumin [Mass/Vol] 3.7 g/dL Normal 3.4-5.0 [facility] Comment on above: Performed By: #### T 4, LIPID, FT3, TSH, CMP #### [facility] [address] [place] [address] Dr. Georgia Rhoades Albumin/Globulin [Mass ratio] 1.2 {ratio} Normal [facility] Comment on above: Performed By: #### T 4, LIPID, FT3, TSH, CMP #### [facility] [address] [place] [address] Dr. Georgia Rhoades ALP [Catalytic activity/Vol] 54 U/L Normal 46-116 [facility] Comment on above: Performed By: #### T 4, LIPID, FT3, TSH, CMP #### [facility] [address] [place] [address] Dr. Georgia Rhoades ALT [Catalytic activity/Vol] 52 U/L Normal 14-59 [facility] Comment on above: Performed By: #### T 4, LIPID, FT3, TSH, CMP #### [facility] [address] [place] [address] Dr. Georgia Rhoades Anion gap [Moles/Vol] 10.7 mmol/L Normal Th e [facility] Comment on above: Performed By: #### T 4, LIPID, FT3, TSH, CMP #### [facility] [address] [place] [address] Dr. Georgia Rhoades AST [Catalytic activity/Vol] 21 U/L Normal 15-37 [facility] Comment on above: Performed By: #### T 4, LIPID, FT3, TSH, CMP #### [facility] [address] [place] [address] Dr. Georgia Rhoades Bilirubin [Mass/Vol] 0.4 mg/dL Normal 0.2-1.0 [facility] Comment on above: Performed By: #### T 4, LIPID, FT3, TSH, CMP #### [facility] [address] [place] [address] Dr. Georgia Rhoades Calcium [Mass/Vol] 8.8 mg/dL Normal 8.5-10.1 [facility] Comment on above: Performed By: #### T 4, LIPID, FT3, TSH, CMP #### [facility] [address] [place] [address] Dr. Georgia Rhoades Chloride [Moles/Vol] 104 mmol/L Normal 98-107 [facility] Comment on above: Performed By: #### T 4, LIPID, FT3, TSH, CMP #### [facility] [address] [place] [address] Dr. Georgia Rhoades CO2 [Moles/Vol] 30.5 mmol/L Normal 21.0-32.0 [facility] Comment on above: Performed By: #### T 4, LIPID, FT3, TSH, CMP #### [facility] [address] [place] [address] Dr. Georgia Rhoades Creatinine [Mass/Vol] 0.81 mg/dL Normal 0.55-1.02 [facility] Comment on above: Performed By: #### T 4, LIPID, FT3, TSH, CMP #### [facility] [address] [place] [address] Dr. Georgia Rhoades EGFR-AF LATVIAN >60 Normal >=60 [facility] Comment on above: Performed By: #### T 4, LIPID, FT3, TSH, CMP #### [facility] [address] [place] [address] Dr. Georgia Rhoades EGFR-NON AF LATVIAN >60 Normal >=60 [facility] Comment on above: Performed By: #### T 4, LIPID, FT3, TSH, CMP #### [facility] [address] [place] [address] Dr. Georgia Rhoades Globulin (S) [Mass/Vol] 3.0 g/dL Normal [facility] Comment on above: Performed By: #### T 4, LIPID, FT3, TSH, CMP #### [facility] [address] [place] [address] Dr. Georgia Rhoades Glucose [Mass/Vol] 95 mg/dL Normal 74-106 [facility] Comment on above: Performed By: #### T 4, LIPID, FT3, TSH, CMP #### [facility] [address] [place] [address] Dr. Georgia Rhoades Potassium [Moles/Vol] 4.2 mmol/L Normal 3.5-5.1 [facility] Comment on above: Performed By: #### T 4, LIPID, FT3, TSH, CMP #### [facility] [address] [place] [address] Dr. Georgia Rhoades Protein [Mass/Vol] 6.7 g/dL Normal 6.4-8.2 [facility] Comment on above: Performed By: #### T 4, LIPID, FT3, TSH, CMP #### [facility] [address] [place] [address] Dr. Georgia Rhoades Sodium [Moles/Vol] 141 mmol/L Normal 136-145 [facility] Comment on above: Performed By: #### T 4, LIPID, FT3, TSH, CMP #### [facility] [address] [place] [address] Dr. Georgia Rhoades Urea nitrogen [Mass/Vol] 16.0 mg/dL Normal 7.0-18.0 [facility] Comment on above: Performed By: #### T 4, LIPID, FT3, TSH, CMP #### [facility] [address] [address] [address] Georgia Rhoades Urea nitrogen/Creatinine [Mass ratio] 19.8 mg/mg Normal [facility] Comment on above: Performed By: #### T 4, LIPID, FT3, TSH, CMP #### [facility] [address] [address] [address] Georgia Rhoades T4on 09-16-2021 T4 [Mass/Vol] 8.50 ug/dL Normal 4.80-13.90 [facility] Comment on above: Performed By: #### T 4, LIPID, FT3, TSH, CMP ####[facility] [address] [place] [address]Dr. Georgia Rhoades TSHon 09-16-2021 TSH 1.011 uIU/mL Normal 0.358-3.740 [facility] Comment on above: Performed By: #### T 4, LIPID, FT3, TSH, CMP #### [facility] [address] [address] [address] Georgia Rhoades VITAMIN D 25 OHon 09-16-2021 VIT D 25-OH 40.1 ng/mL Normal [facility] Comment on above: Performed By: #### V ITAD ####[facility] [address] [place] [address]Dr. Georgia Rhoades VIT D RANGES SEE BELOW Normal [facility] Comment on above: Result Comment: <20 ng/mL Vit D deficient 20 - <30 ng/mL Vit D insufficient 30 - 100 ng/mL Vit D sufficient >100 ng/mL Potential Toxicity Performed By: #### V ITAD ####[facility] [address] [place] [address]DrMalorie Rhoades CBC Auto DifferentialOrdered By: Abimael Peace on 11-11-2020 Absolute Eos # 0.08 [employer] Phone: Absolute Immature Granulocyte 0.04 [employer] Phone: Absolute Lymph # 1.96 [employer] Phone: Absolute [place] # 0.37 [employer] Phone: Basophils (Bld) [#/Vol] 0.07 10*3/uL [employer] Phone: Basophils/100 WBC (Bld) 1 % 0 - 2 % [employer] Phone: Differential Type NOT REPORTED [employer] Phone: Eosinophils/100 WBC (Bld) 1 % 1 - 4 % [employer] Phone: Hematocrit (Bld) [Volume fraction] 45.4 % 36.3 - 47.1 % [employer] Phone: Hemoglobin.gastrointes tinal spec 1 Ql (Stl) 14.5 g/dL 11.9 - 15.1 g/dL [employer] Phone: Immature granulocytes/100 WBC (Bld) 0 % 0 [employer] Phone: Interpretation and review of laboratory results Abnormal [employer] Phone: Lymphocytes/100 WBC (Bld) 21 % Low 24 - 43 % [employer] Phone: MCH (RBC) [Entitic mass] 32.0 pg 25.2 - 33.5 pg [employer] Phone: MCHC (RBC) [Mass/Vol] 31.9 g/dL 28.4 - 34.8 g/dL [employer] Phone: MCV (RBC) [Entitic vol] 100.2 fL 82.6 - 102.9 fL [employer] Phone: Monocytes/100 WBC (Bld) 4 % 3 - 12 % [employer] Phone: NRBC Automated 0.0 0.0 per 100 WBC [employer] Phone: Platelet distribution width (Bld) [Ratio] 13.0 % 11.8 - 14.4 % [employer] Phone: Platelet Estimate NOT REPORTED [employer] Phone: Platelet mean volume (Bld) [Entitic vol] 9.1 fL 8.1 - 13.5 fL [employer] Phone: Platelets (Bld) [#/Vol] 339 10*3/uL [employer] Phone: RBC (Bld) [#/Vol] 4.53 10*6/uL 3.95 - 5.1 1 m/uL [employer] Phone: RBC (Bld) [#/Vol] NOT REPORTED [employer] Phone: Segmented neutrophils/100 WBC (Bld) 73 % High 36 - 65 % [employer] Phone: Segs Absolute 7.03 [employer] Phone: WBC (Bld) [#/Vol] 9.6 10*3/uL [employer] Phone: WBC (Bld) [#/Vol] NOT REPORTED [employer] Phone: [employer] Phone: CBC with Diffon 11-11-2020 Abs. Basophil 0.07 k/uL Normal 0.00-0.[address] [facility] Comment on above: Performed By: #### C AKI WALTERS, TROPI #### [facility] [address] [place] [address] [place] [address] Biomedical Analytical Scientist: Rama Givens MD Abs.Imm.Granulocyte 0.04 k/uL Normal 0.00-0.[address] [facility] Comment on above: Performed By: #### C AKI WALTERS, TROPI #### [facility] [address] [place] [address] Biomedical Analytical Scientist: Rama Givens MD Abs.Neutrophil (Seg) 7.03 k/uL Normal 1.50-8.10 [facility] Comment on above: Performed By: #### C DP, CP, TROPI #### [facility] [address] [place] [address] Dr. [place], [place] [address] Biomedical Analytical Scientist: Rama Givens MD Basophils/100 WBC (Bld) 1 % Normal 0-[address] [facility] Comment on above: Performed By: #### C DP, CP, TROPI #### [address] [place], [place] [address] Biomedical Analytical Scientist: Rama Givens MD Eosinophils (Bld) [#/Vol] 0.08 10*3/uL Normal 0.00-0.[address] [facility] Comment on above: Performed By: #### C DP, CP, TROPI #### [address] [place] [address] Biomedical Analytical Scientist: Rama Givens MD Eosinophils/100 WBC (Bld) 1 % Normal 1-[address] [facility] Comment on above: Performed By: #### C DP, CP, TROPI #### [address] [place], [place] [address] Biomedical Analytical Scientist: Rama Givens MD Erythrocyte distribution width (RBC) [Ratio] 13.0 % Normal 11.8-14.[address] [facility] Comment on above: Performed By: #### C DP, CP, TROPI #### [address] [place], [place] [address] Biomedical Analytical Scientist: Rama Givens MD Hematocrit (Bld) [Volume fraction] 45.4 % Normal 36.3-47.[address] [facility] Comment on above: Performed By: #### C DP, CP, TROPI #### [address] [place], [facility] Biomedical Analytical Scientist: Rama Givens MD Hemoglobin (Bld) [Mass/Vol] 14.5 g/dL Normal 11.9-15.[address] [facility] Comment on above: Performed By: #### C DP, CP, TROPI #### [address] [place], [place] [address] Biomedical Analytical Scientist: Rama Givens MD Immature granulocytes/100 WBC (Bld) 0 % Normal [address] [facility] Comment on above: Performed By: #### C DP, CP, TROPI #### [address] [place], [place] [address] Biomedical Analytical Scientist: Rama Givens MD Lymphocytes (Bld) [#/Vol] 1.96 10*3/uL Normal 1.10-3.[address] [facility] Comment on above: Performed By: #### C DP CP, TROPI #### [address] [place] [address] Biomedical Analytical Scientist: Rama Givens MD Lymphocytes/100 WBC (Bld) 21 % Low 24-[address] [facility] Comment on above: Performed By: #### C DP, CP, TROPI #### [address] [place], [place] [address] Biomedical Analytical Scientist: Rama Givens MD MCH (RBC) [Entitic mass] 32.0 pg Normal 25.2-33.[address] [facility] Comment on above: Performed By: #### C DP CP, TROPI #### [address] [place], [place] [address] Biomedical Analytical Scientist: Rama Givens MD MCHC (RBC) [Mass/Vol] 31.9 g/dL Normal 28.4-34.8 [facility] Comment on above: Performed By: #### C DP, CP, TROPI #### [address] [place], [facility] Biomedical Analytical Scientist: Rama Givens MD MCV (RBC) [Entitic vol] 100.2 fL Normal 82.6-102.[address] [facility] Comment on above: Performed By: #### C DP, CP, TROPI #### [facility] [address] [place] [address] Biomedical Analytical Scientist: Rama Givens MD Monocytes (Bld) [#/Vol] 0.37 10*3/uL Normal 0.10-1.[address] [facility] Comment on above: Performed By: #### C DP, CP, TROPI #### [facility] [address] [place] [address] Biomedical Analytical Scientist: Rama Givens MD Monocytes/100 WBC (Bld) 4 % Normal 3-[address] [facility] Comment on above: Performed By: #### C DP, CP, TROPI #### [address] [place], [facility] Biomedical Analytical Scientist: Rama Givens MD Neutrophil (Seg) 73 % High 36-[address] [facility] Comment on above: Performed By: #### C DP, CP, TROPI #### [address] [place] [address] Biomedical Analytical Scientist: Rama Givens MD NRBC Automated 0.0 per 100 WBC Normal 0.[address] [facility] Comment on above: Performed By: #### C DP, CP, TROPI #### [address] [place], [facility] Biomedical Analytical Scientist: Rama Givens MD Platelet mean volume (Bld) [Entitic vol] 9.1 fL Normal 8.1-13.[address] [facility] Comment on above: Performed By: #### C DP, CP, TROPI #### [address] [place], [place] [address] Biomedical Analytical Scientist: Rama Givens MD Platelets (Bld) [#/Vol] 339 10*3/uL Normal 138-[address] [facility] Comment on above: Performed By: #### C DP, CP, TROPI #### [address] [place] [address] Biomedical Analytical Scientist: Rama Givens MD RBC (Bld) [#/Vol] 4.53 10*6/uL Normal 3.95-5.[address] [facility] Comment on above: Performed By: #### C DP, CP, TROPI #### [address] [place], [place] [id number] Biomedical Analytical Scientist: Rama Givens MD WBC (Bld) [#/Vol] 9.6 10*3/uL Normal 3.5-11.[address] [facility] Comment on above: Performed By: #### C DP, CP, TROPI #### [address] [place], [place] [id number] Biomedical Analytical Scientist: Rama Givens MD Auto Diff Performed NOT REPORTED Normal [facility] Comment on above: Performed By: #### C DP, CP, TROPI #### [address] [place], [place] [address]483 Biomedical Analytical Scientist: Rama Givens MD Platelet Estimate NOT REPORTED Normal [facility] Comment on above: Performed By: #### C DP, CP, TROPI #### [address] [place], [place] [address]83 Biomedical Analytical Scientist: Rama Givens MD RBC morphology finding Nom (Bld) NOT REPORTED Normal [facility] Comment on above: Performed By: #### C DP, CP, TROPI #### [address] [place], [place] [address]83 Biomedical Analytical Scientist: Rama Givens MD WBC Morphology NOT REPORTED Normal [facility] Comment on above: Performed By: #### C DP, CP, TROPI #### [address] [place], [place] [id number] Biomedical Analytical Scientist: Rama Givens MD CT HEAD WO CONTRASTon 2020 CT HEAD WO CONTRAST EXAMINATION: CT OF THE HEAD WITHOUT CONTRAST 11/11/2020 12:24 pm TECHNIQUE: CT of the head was performed without the administration of intravenous contrast. Dose modulation, iterative reconstruction, and/or weight based adjustment of the mA/kV was utilized to reduce the radiation dose to as low as reasonably achievable. COMPARISON: None. HISTORY: ORDERING SYSTEM PROVIDED HISTORY: dizziness TECHNOLOGIST PROVIDED HISTORY: dizziness Decision Support Exception - unselect if not a suspected or confirmed emergency medical condition->Emergency Medical Condition (MA) FINDINGS: BRAIN/VENTRICLES: There is no acute intracranial hemorrhage, mass effect or midline shift. No abnormal extra-axial fluid collection. The blanco-white differentiation is maintained without evidence of an acute infarct. Ill-defined hypodensity in the left frontal lobe is suggestive of a subacute to remote infarct. Old infarct is noted in the left thalamus and adjacent centrum semiovale. There is no evidence of hydrocephalus. ORBITS: The bilateral globes are intact. SINUSES: Paranasal sinuses and mastoid air cells are clear. SOFT TISSUES/SKULL: No acute abnormality of the visualized skull or soft tissues. IMPRESSION: No acute intracranial hemorrhage. Findings suggestive of subacute to remote infarct involving the left frontal lobe. MRI may be obtained for further evaluation if clinically indicated. 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 Interpreted by: Mohinder Gonzalez MD Signed by: Mohinder Gonzalez MD 11/11/20 Final result Normal [facility] CT Head WO ContrastOrdered B y: Jose Iqbal on 11-11-2020 No acute intracrania l hemorrhage. Findings suggestive of subacute to remote infarct involving the left frontal lobe. MRI may be obtained for further evaluation if clinically indicated. 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 [facility] Work Phone: EXAMINATION: CT OF T HE HEAD WITHOUT CONTRAST 11/11/2020 12:24 pm TECHNIQUE: CT of the head was performed without the administration of intravenous contrast. Dose modulation, iterative reconstruction, and/or weight based adjustment of the mA/kV was utilized to reduce the radiation dose to as low as reasonably achievable. COMPARISON: None. HISTORY: ORDERING SYSTEM PROVIDED HISTORY: dizziness TECHNOLOGIST PROVIDED HISTORY: dizziness Decision Support Exception - unselect if not a suspected or confirmed emergency medical condition->Emergency Medical Condition (MA) FINDINGS: BRAIN/VENTRICLES: There is no acute intracranial hemorrhage, mass effect or midline shift. No abnormal extra-axial fluid collection. The blanco-white differentiation is maintained without evidence of an acute infarct. Ill-defined hypodensity in the left frontal lobe is suggestive of a subacute to remote infarct. Old infarct is noted in the left thalamus and adjacent centrum semiovale. There is no evidence of hydrocephalus. ORBITS: The bilateral globes are intact. SINUSES: Paranasal sinuses and mastoid air cells are clear. SOFT TISSUES/SKULL: No acute abnormality of the visualized skull or soft tissues. [employer] Phone: Levon, pn Incoming R adiant Results From [employer] - 11/11/2020 12:54 PM EDT EXAMINATION: CT OF THE HEAD WITHOUT CONTRAST 11/11/2020 12:24 pm TECHNIQUE: CT of the head was performed without the administration of intravenous contrast. Dose modulation, iterative reconstruction, and/or weight based adjustment of the mA/kV was utilized to reduce the radiation dose to as low as reasonably achievable. COMPARISON: None. HISTORY: ORDERING SYSTEM PROVIDED HISTORY: dizziness TECHNOLOGIST PROVIDED HISTORY: dizziness Decision Support Exception - unselect if not a suspected or confirmed emergency medical condition->Emergency Medical Condition (MA) FINDINGS: BRAIN/VENTRICLES: There is no acute intracranial hemorrhage, mass effect or midline shift. No abnormal extra-axial fluid collection. The blanco-white differentiation is maintained without evidence of an acute infarct. Ill-defined hypodensity in the left frontal lobe is suggestive of a subacute to remote infarct. Old infarct is noted in the left thalamus and adjacent centrum semiovale. There is no evidence of hydrocephalus. ORBITS: The bilateral globes are intact. SINUSES: Paranasal sinuses and mastoid air cells are clear. SOFT TISSUES/SKULL: No acute abnormality of the visualized skull or soft tissues. IMPRESSION: No acute intracranial hemorrhage. Findings suggestive of subacute to remote infarct involving the left frontal lobe. MRI may be obtained for further evaluation if clinically indicated. 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 [employer] Phone: [employer] Phone: CTA HEAD NECK W CONTRASTon 0 11-11-2020 CTA HEAD NECK W CONTRAST EXAMINATION: CTA OF THE HEAD AND NECK WITH CONTRAST 11/11/2020 12:22 pm: TECHNIQUE: CTA of the head and neck was performed with the administration of intravenous contrast. Multiplanar reformatted images are provided for review. MIP images are provided for review. Stenosis of the internal carotid arteries measured using NASCET criteria. Dose modulation, iterative reconstruction, and/or weight based adjustment of the mA/kV was utilized to reduce the radiation dose to as low as reasonably achievable. COMPARISON: 07/17/2018 HISTORY: ORDERING SYSTEM PROVIDED HISTORY: dizziness and vomiting, had recent cva TECHNOLOGIST PROVIDED HISTORY: dizziness and vomiting, had recent cva Decision Support Exception - unselect if not a suspected or confirmed emergency medical condition->Emergency Medical Condition (MA) Initial evaluation FINDINGS: CTA NECK: AORTIC ARCH/ARCH VESSELS: There is mild atherosclerotic calcification in the region of the aortic arch. There is no abnormality of the vessels as they originate from the aortic arch. CAROTID ARTERIES: The right common carotid artery is patent bilaterally without any narrowing or stenosis. There is mild calcification near the origin of the left common carotid artery without any significant stenosis. The left common carotid artery is patent. There is minimal atherosclerotic calcification near the right internal carotid artery bulb without any significant narrowing of the vessel. The right internal carotid artery is patent through the skull base. The left internal carotid artery is patent without narrowing or stenosis. VERTEBRAL ARTERIES: The right vertebral artery is dominant and patent in its visualized course without narrowing or stenosis. The left vertebral artery is congenitally smaller in caliber but patent in its visualized course. SOFT TISSUES: There is no acute abnormality of the soft tissues of the neck. 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 There are few small nodules in the thyroid. These are unchanged from the prior study. BONES: No acute osseous abnormality. CTA HEAD: ANTERIOR CIRCULATION: There is mild atherosclerotic calcification in the region of the cavernous carotid arteries bilaterally without any significant narrowing of the vessels. There is a small aneurysm versus infundibulum off the inferior surface of the left internal carotid artery distally. This is similar to the prior study. There is no other abnormality of the intracranial circulation. The anterior communicating artery is not well visualized. POSTERIOR CIRCULATION: The distal vertebral arteries are patent. The basilar artery is patent. Posterior cerebral arteries are patent bilaterally without narrowing or stenosis. No obvious aneurysm is identified. OTHER: No dural venous sinus thrombosis on this non-dedicated study. BRAIN: Refer to the CT head of the same date. IMPRESSION: No significant narrowing or stenosis in the neck. No significant atherosclerotic disease in the neck. No significant abnormality of the intracranial circulation. Interpreted by: Sondra Dixon MD Signed by: Sondra Dixon MD 11/11/20 Final result Normal [facility] Comp Metabolic Profon 2020 (cont.) Normal [facility] Comment on above: Result Comment: Aver age GFR for 60-69 years old: 85 mL/min/1.73sq m Chronic Kidney Disease: <60 mL/min/1.73sq m Kidney failure: <15 mL/min/1.73sq m eGFR calculated using average adult body mass. Additional eGFR calculator available at: http://www.WiDaPeople/multiple_crcl_2011.htm Performed By: #### C AKI WALTERS, TROPI #### [facility] [address] [place] [address] [place] [address] Biomedical Analytical Scientist: Rama Givens MD Albumin [Mass/Vol] 4.6 g/dL Normal 3.5-5.[address] [facility] Comment on above: Performed By: #### C AKI WALTERS, TROPI #### [address] [place], [place] [id number] Biomedical Analytical Scientist: Rama Givens MD Albumin/Glob Ratio 1.7 Normal 1.0-2.[address] [facility] Comment on above: Performed By: #### C AKI WALTERS, TROPI #### [facility] [address] [place], [place] [id number] Biomedical Analytical Scientist: Rama Givens MD Alkaline Phos 67 U/L Normal 35-[address] [facility] Comment on above: Performed By: #### C AKI WALTERS, TROPI #### [facility] [address] [place] [address] Biomedical Analytical Scientist: Rama Givens MD ALT [Catalytic activity/Vol] 18 U/L Normal 5-[address] [facility] Comment on above: Performed By: #### C DP, CP, TROPI #### [facility] [address] [place], [place] [id number] Biomedical Analytical Scientist: Rama Givens MD Anion gap [Moles/Vol] 11 mmol/L Normal 9-17 [facility] Comment on above: Performed By: #### C DP, CP, TROPI #### [facility] [address] [place], [place] [address] Biomedical Analytical Scientist: Rama Givens MD AST [Catalytic activity/Vol] 18 U/L Normal <[address] [facility] Comment on above: Performed By: #### C DP, CP, TROPI #### [facility] [address] [place], [place] [address]83 Biomedical Analytical Scientist: Rama Givens MD Bilirubin [Mass/Vol] 0.41 mg/dL Normal 0.3-1.2 [facility] Comment on above: Performed By: #### C DP, CP, TROPI #### [address] [place], [place] [address]83 Biomedical Analytical Scientist: Rama Givens MD BUN/CRE Ratio 29 High 9-[address] [facility] Comment on above: Performed By: #### C DP, CP, TROPI #### [address] [place], [place] [address]40283 Biomedical Analytical Scientist: Rama Givens MD Calcium [Mass/Vol] 9.5 mg/dL Normal 8.6-10.[address] [facility] Comment on above: Performed By: #### C DP, CP, TROPI #### [facility] [address] [place], [place] [address]83 Biomedical Analytical Scientist: Rama Givens MD Chloride [Moles/Vol] 104 mmol/L Normal 98-107 [facility] Comment on above: Performed By: #### C DP, CP, TROPI #### [facility] [address] [place], [place] [phone] Biomedical Analytical Scientist: Rama Givens MD CO2 [Moles/Vol] 26 mmol/L Normal 20-[address] [facility] Comment on above: Performed By: #### C DP, CP, TROPI #### [facility] [address] [place], [place] [address] Biomedical Analytical Scientist: Rama Givens MD Creatinine [Mass/Vol] 0.52 mg/dL Normal 0.50-0.90 [facility] Comment on above: Performed By: #### C DP, CP, TROPI #### [facility] [address] [place], [place] [address] Biomedical Analytical Scientist: Rama Givens MD GFR, Amer >60 Normal >[address] [facility] Comment on above: Performed By: #### C DP, CP, TROPI #### [facility] [address] [place], [place] [id number] Biomedical Analytical Scientist: Rama Givens MD GFR,non Amer >60 Normal >60 [facility] Comment on above: Performed By: #### C DP, CP, TROPI #### [facility] [address] [place], [place] [address] Biomedical Analytical Scientist: Rama Givens MD Glucose [Mass/Vol] 99 mg/dL Normal 70-[address] [facility] Comment on above: Performed By: #### C DP, CP, TROPI #### [facility] [address] [place], [place] [address] Biomedical Analytical Scientist: Rama Givens MD Potassium [Moles/Vol] 4.3 mmol/L Normal 3.7-5.3 [facility] Comment on above: Performed By: #### C DP, CP, TROPI #### [facility] [address] [place], [place] [phone] Biomedical Analytical Scientist: Rama Givens MD Protein [Mass/Vol] 7.3 g/dL Normal 6.4-8.[address] [facility] Comment on above: Performed By: #### C AKI WALTERS, TROPI #### [facility] [address] [place] [address] Biomedical Analytical Scientist: Rama Givens MD Sodium [Moles/Vol] 141 mmol/L Normal 135-[address] [facility] Comment on above: Performed By: #### C SELENA CP, TROPI #### [facility] [address] [place] [address] Biomedical Analytical Scientist: Rama Givens MD Staging: Normal [facility] Comment on above: Result Comment: Stag e 1: Some kidney damage normal GFR Stage 2: Mild kidney damage GFR 60-89 Stage 3: Moderate kidney damage GFR 30-59 Stage 4: Severe kidney damage GFR 15-29 Stage 5: Severe kidney damage GFR <15 ESRD - chronic treatment by dialysis or transplant Performed By: #### C AKI WALTERS, TROPI #### [facility] [address] [place] [address] Biomedical Analytical Scientist: Rama Givens MD Urea nitrogen [Mass/Vol] 15 mg/dL Normal 8-[address] [facility] Comment on above: Performed By: #### C AKI WALTERS, TROPI #### [facility] [address] [place] [address] Biomedical Analytical Scientist: Rama Givens MD Comprehensive Metabolic Pane lOrdered By: Abimael Peace on 11-11-2020 Albumin [Mass/Vol] 4.6 g/dL 3.5 - 5.2 g/dL [employer] [facility] [employer] Phone: Albumin/Globulin [Mass ratio] 1.7 {ratio} [employer] Phone: ALP (Bld) [Catalytic activity/Vol] 67 U/L 35 - 104 U/L [employer] Phone: ALT [Catalytic activity/Vol] 18 U/L 5 - 33 U/L [employer] Phone: Anion gap [Moles/Vol] 11 mmol/L 9 - 17 mmol/L [employer] Phone: AST [Catalytic activity/Vol] 18 U/L <32 [employer] Phone: Bilirubin [Mass/Vol] 0.41 mg/dL 0.3 - 1 .2 mg/dL [employer] Phone: Calcium [Mass/Vol] 9.5 mg/dL 8.6 - 10. 4 mg/dL [employer] Phone: Chloride [Moles/Vol] 104 mmol/L 98 - 10 7 mmol/L [employer] Phone: CO2 [Moles/Vol] 26 mmol/L 20 - 31 mmol/L [employer] Phone: Creatinine [Mass/Vol] 0.52 mg/dL 0.50 - 0.90 mg/dL [employer] Phone: Free PSA/Total PSA [Mass fraction] 7.3 g/dL 6.4 - 8.3 g/dL [employer] Phone: GFR >60 >60 mL/min [facility] Phone: GFR Non- >60 >60 mL/min [employer] Phone: Glucose [Mass/Vol] 99 mg/dL 70 - 99 mg/dL [employer] Phone: Interpretation and review of laboratory results Abnormal [employer] Phone: Potassium [Moles/Vol] 4.3 mmol/L 3.7 - 5.3 mmol/L [employer] Phone: Sodium [Moles/Vol] 141 mmol/L 135 - 144 mmol/L [employer] Phone: Urea nitrogen (BldV) [Mass/Vol] 15 mg/dL 8 - 23 mg/dL [employer] Phone: Urea nitrogen/Creatinine (Bld) [Mass ratio] 29 High [employer] Phone: [employer] Phone: EKG Rhythm StripOrdered By: Unknown Result on 11-11-2020 re-labeled to Sinus Rhythm [employer] Phone: [employer] Phone: Laboratory - Chemistry and C hemistry - challengeOrdered By: Abimael Peace on 11-11-2020 GFR/1.73 sq M.predicted MDRD (S/P/Bld) [Vol rate/Area] [employer] Phone: Comment on above: Average GFR for 60-6 9 years old: 85 mL/min/1.73sq m Chronic Kidney Disease: <60 mL/min/1.73sq m Kidney failure: <15 mL/min/1.73sq m eGFR calculated using average adult body mass. Additional eGFR calculator available at: http://www.[employer]DaPeople/multiple_crcl_2012.htm Stage 1: Some kidney damage normal GFR Stage 2: Mild kidney damage GFR 60-89 Stage 3: Moderate kidney damage GFR 30-59 Stage 4: Severe kidney damage GFR 15-29 Stage 5: Severe kidney damage GFR <15 ESRD - chronic treatment by dialysis or transplant Lactic Acidon 11-11-2020 Lactate [Moles/Vol] 0.8 mmol/L Normal 0.5-2.[address] [facility] Comment on above: Performed By: #### L AC #### [facility] [address] [place] [address] Biomedical Analytical Scientist: Rama Givens MD Lactic AcidOrdered By: Barney Iqbal on 11-11-2020 Lactate [Moles/Vol] 0.8 mmol/L 0.5 - 2. 2 mmol/L [employer] Phone: [employer] Phone: Microscopic UrinalysisOrdere d By: Jose Iqbal on 11-11-2020 - [employer] Phone: Amorphous, UA NOT REPORTED None [employer] Work Phone: Bacteria, UA NOT REPORTED None [employer] Work Phone: Casts UA NOT REPORTED /LPF [employer] Work Phone: Crystals, UA NOT REPORTED None /HPF [employer] Work Phone: Epithelial Cells UA None [employer] Work Phone: Mucus, UA NOT REPORTED None [employer] Work Phone: Other Observations UA NOT REPORTED NOT REQ. [facility] Work Phone: RBC, UA 0 TO 2 [employer] Work Phone: Renal Epithelial, UA NOT REPORTED 0 /HPF Me [facility] [employer] Work Phone: Trichomonas, UA NOT REPORTED None [employer] Work Phone: WBC, UA 0 TO 2 [employer] Work Phone: Yeast, UA NOT REPORTED None [employer] Phone: [employer] Phone: PTon 11-11-2020 INR Coag (PPP) [Relative time] 0.9 {INR} Normal [facility] Comment on above: Result Comment: Non-therapeutic Range: INR = 0.9-1.2 Therapeutic Range: Moderate Anticoagulant Intensity: INR = 2.0-3.0 High Anticoagulant Intensity: INR = 2.5-3.5 Performed By: #### P T #### [facility] [address] [place] [address] [place] [address] Biomedical Analytical Scientist: Rama Givens MD PT Coag (PPP) [Time] 12.4 s Normal 11.5-14.2 [facility] Comment on above: Performed By: #### P T #### [facility] [address] [place] [address] Biomedical Analytical Scientist: Rama Givens MD Protime-INROrdered By: Barney Iqbal on 11-11-2020 INR Coag (Bld) [Relative time] 0.9 {INR} [facility] Phone: Comment on above: Non-therapeutic Range: INR = 0.9-1.2 Therapeutic Range: Moderate Anticoagulant Intensity: INR = 2.0-3.0 High Anticoagulant Intensity: INR = 2.5-3.5 PT Coag (PPP) [Time] 12.4 s [facility] Phone: [facility] Phone: Troponinon 11-11-2020 Troponin, High Sens <6 Normal 0-[address] [facility] Comment on above: Result Comment: High Sensitivity Troponin values cannot be compared with other Troponin methodologies. Patients with high levels of Biotin oral intake (i.e >5mg/day) may have falsely decreased Troponin levels. Samples collected within 8 hours of biotin intake may require additional information for diagnosis. Performed By: #### C DP, CP, TROPI #### [facility] [address] [place] [address] [place] [address] Biomedical Analytical Scientist: Rama Givens MD Troponin Interp. NOT REPORTED Normal [facility] Comment on above: Performed By: #### C DP, CP, TROPI #### [facility] [address] [place] [address] [place] [address] Biomedical Analytical Scientist: Rama Givens MD Troponin T NOT REPORTED Normal <0.[address] [facility] Comment on above: Performed By: #### C DP, CP, TROPI #### [facility] [address] [place] [address] Biomedical Analytical Scientist: Rama Givens MD TroponinOrdered By: Abimael Peace on 11-11-2020 Troponin Interp NOT REPORTED [facility] Phone: Troponin T NOT REPORTED <0.03 ng/mL [facility] Phone: Troponin, High Sensitivity <6 0 - 14 ng/L [employer] [facility] [employer] Phone: Comment on above: High Sensitivity Troponin values cannot be compared with other Troponin methodologies. Patients with high levels of Biotin oral intake (i.e >5mg/day) may have falsely decreased Troponin levels. Samples collected within 8 hours of biotin intake may require additional information for diagnosis. [employer] Phone: UA w/Reflex Cultureon 2020 Bilirubin, SemiQt,Ur Negative Normal NEG [facility] Comment on above: Performed By: #### U AX, UMICAO #### [facility] [address] [place] [id number] Biomedical Analytical Scientist: Rama Givens MD Blood, Urine Negative Normal NEG [facility] Comment on above: Performed By: #### U AX, UMICAO #### [facility] [address] [place], [facility] Biomedical Analytical Scientist: Rama Givens MD Clarity (U) CLEAR Normal CLEAR [facility] Comment on above: Performed By: #### U AX, UMICAO #### [facility] [address] [place], [facility] Biomedical Analytical Scientist: Rama Givens MD Color (U) YELLOW Normal YEL [facility] Comment on above: Performed By: #### U AX, UMICAO #### [facility] [address] [place], [facility] Biomedical Analytical Scientist: Rama Givens MD Glucose Ql (U) Negative Normal NEG [facility] Comment on above: Performed By: #### U AX, UMICAO #### [facility] [address] [place] [address] Biomedical Analytical Scientist: Rama Givens MD Ketones Ql (U) Negative Normal NEG [facility] Comment on above: Performed By: #### U AX, UMICAO #### [facility] [address] [place], [facility] Biomedical Analytical Scientist: Rama Givens MD Leukocyte esterase Test strip Ql (U) Negative Normal NEG [facility] Comment on above: Performed By: #### U AX, UMICAO #### [facility] [address] [place], [place] [id number] Biomedical Analytical Scientist: Rama Givens MD Nitrite,Ur Negative Normal NEG [facility] Comment on above: Performed By: #### U AX, UMICAO #### [facility] [address] [place], [facility] Biomedical Analytical Scientist: Rama Givens MD PH,Ur 7.0 Normal 5.0-9.[address] [facility] Comment on above: Performed By: #### U AX, UMICAO #### [address] [place], [facility] Biomedical Analytical Scientist: Rama Givens MD Protein Ql (U) Negative Normal NEG [facility] Comment on above: Performed By: #### U AX, UMICAO #### [address] [place], [place] [address] Biomedical Analytical Scientist: Rama Givens MD Spec. [place],Ur <1.005 Low 1.010-1.[address] [facility] Comment on above: Performed By: #### U AX, UMICAO #### [facility] [address] [place], [place] [address] Biomedical Analytical Scientist: Rama Givens MD Urobilinogen,Ur Normal Normal NORM [facility] Comment on above: Performed By: #### U AX, UMICAO #### [facility] [address] [place], [facility] Biomedical Analytical Scientist: Rama Givens MD Comment NOT REPORTED Normal [facility] Comment on above: Performed By: #### U AX, UMICAO #### [facility] [address] [place] [address] Biomedical Analytical Scientist: aRma Givens MD Urinalysis Reflex to Culture Ordered By: Jose Iqbal on 11-11-2020 Bilirubin Urine Negative NEGATIVE [employer] Phone: Color, UA YELLOW YELLOW [employer] Phone: Glucose, Ur Negative NEGATIVE [employer] Phone: Interpretation and review of laboratory results Abnormal [employer] Phone: Ketones Ql (U) Negative NEGATIVE [employer] Phone: Leukocyte esterase Test strip Ql (U) Negative NEGATIVE [employer] Phone: Nitrite, Urine Negative NEGATIVE [employer] Phone: pH, UA 7.0 [facility] Phone: Protein, UA Negative NEGATIVE [employer] Phone: Specific [place], UA <1.005 Low [facility] Phone: Turbidity UA CLEAR CLEAR [employer] Phone: Urinalysis Comments NOT REPORTED [facility] [employer] Work Phone: Urine Hgb Negative NEGATIVE [employer] Phone: Urobilinogen, Urine Normal Normal [facility] Phone: [facility] Phone: Urinalysis,Microon 1 ----- Normal [facility] Comment on above: Performed By: #### U TRUNG DINERO #### [facility] [address] [place] [address] Biomedical Analytical Scientist: Rama Givens MD Epithelial cells LM Ql (Urine sed) None Normal 0-[address] [facility] Comment on above: Performed By: #### U TRUNG DINERO #### [facility] [address] [place] [address] Biomedical Analytical Scientist: Rama Givens MD Urine RBC's 0 TO 2 Normal 0-[address] [facility] Comment on above: Performed By: #### U AX, UMICAO #### [facility] [address] [place] [address] Biomedical Analytical Scientist: Rama Givens MD Urine WBC's 0 TO 2 Normal 0-[address] [facility] Comment on above: Performed By: #### U AX, UMICAO #### [facility] [address] [place] [address] Biomedical Analytical Scientist: Rama Givens MD Amorphous sediment LM Ql (Urine sed) NOT REPORTED Normal NONE [facility] Comment on above: Performed By: #### U AX, UMICAO #### [address] [place] [id number] Biomedical Analytical Scientist: Rama Givens MD Bacteria NOT REPORTED Normal NONE [facility] Comment on above: Performed By: #### U AX, UMICAO #### [address] [place] [address] Biomedical Analytical Scientist: Rama Givens MD Casts NOT REPORTED Normal [facility] Comment on above: Performed By: #### U AX, UMICAO #### [facility] [address] [place], [facility] Biomedical Analytical Scientist: Rama Givens MD Crystals LM Nom (Urine sed) NOT REPORTED Normal NONE [facility] Comment on above: Performed By: #### U AX, UMICAO #### [facility] [address] [place] [address] Biomedical Analytical Scientist: Rama Givens MD Epithelial, Renal NOT REPORTED Normal [address] [facility] Comment on above: Performed By: #### U AX, UMICAO #### [facility] [address] [place], [place] [id number] Biomedical Analytical Scientist: Rama Givens MD Mucus Strands NOT REPORTED Normal NONE [facility] Comment on above: Performed By: #### U AX, UMICAO #### [facility] [address] [place], [place] [id number] Biomedical Analytical Scientist: Rama Givens MD Other Observations NOT REPORTED Normal NREQ [facility] Comment on above: Performed By: #### U AX, UMICAO #### [facility] [address] [place], [place] [address]83 Biomedical Analytical Scientist: Rama Givens MD Trichomonas NOT REPORTED Normal NONE [facility] Comment on above: Performed By: #### U AX, UMICAO #### [facility] [address] [place], [place] [id number] Biomedical Analytical Scientist: Rama Givens MD Yeast NOT REPORTED Normal NONE [facility] Comment on above: Performed By: #### U AX, UMICAO #### [facility] [address] [place] [address] Biomedical Analytical Scientist: Rama Givens MD XR CHEST PORTABLEon 11-12-19 XR CHEST PORTABLE EXAMINATION: ONE XRAY VIEW OF THE CHEST 11/11/2020 11:56 am COMPARISON: May 21, 2019 chest examination HISTORY: ORDERING SYSTEM PROVIDED HISTORY: dizziness and vomiting TECHNOLOGIST PROVIDED HISTORY: dizziness and vomiting FINDINGS: Stable normal cardiopericardial silhouette/mild tortuosity of the thoracic aorta There is stable mild prominence of interstitial markings with minimal streaky bibasilar density stable findings suggest mild interstitial fibrosis. There are no acute pleural, parenchymal or mediastinal findings IMPRESSION: No acute cardiopulmonary findings Interpreted by: Fallon Weinstein MD Signed by: Fallon Weinstein MD 11/11/20 Final result Normal [facility] XR CHEST PORTABLEOrdered By: Jose Iqbal on 11-11-2020 No acute cardiopulmo nary findings [facility] Work Phone: EXAMINATION: ONE XRA Y VIEW OF THE CHEST 11/11/2020 11:56 am COMPARISON: May 21, 2019 chest examination HISTORY: ORDERING SYSTEM PROVIDED HISTORY: dizziness and vomiting TECHNOLOGIST PROVIDED HISTORY: dizziness and vomiting FINDINGS: Stable normal cardiopericardial silhouette/mild tortuosity of the thoracic aorta There is stable mild prominence of interstitial markings with minimal streaky bibasilar density stable findings suggest mild interstitial fibrosis. There are no acute pleural, parenchymal or mediastinal findings [employer] Phone: Levon, Mh[employer] Incoming R adiant Results From [employer] - 11/11/2020 12:06 PM EDT EXAMINATION: ONE XRAY VIEW OF THE CHEST 11/11/2020 11:56 am COMPARISON: May 21, 2019 chest examination HISTORY: ORDERING SYSTEM PROVIDED HISTORY: dizziness and vomiting TECHNOLOGIST PROVIDED HISTORY: dizziness and vomiting FINDINGS: Stable normal cardiopericardial silhouette/mild tortuosity of the thoracic aorta There is stable mild prominence of interstitial markings with minimal streaky bibasilar density stable findings suggest mild interstitial fibrosis. There are no acute pleural, parenchymal or mediastinal findings IMPRESSION: No acute cardiopulmonary findings [employer] Phone: [employer] Phone: Lipid PanelOrdered By: Samy Huntley on 09-20-2020 Cholesterol [Mass/Vol] 179 mg/dL <200 [facility] [employer] Phone: Comment on above: Cholesterol Guidelines: <200 Desirable 200-240 Borderline >240 Undesirable Cholesterol in HDL [Mass/Vol] 50 mg/dL >40 [employer] Phone: Comment on above: HDL Guidelines: <40 Undesirable 40-59 Borderline >59 Desirable Cholesterol in LDL [Mass/Vol] 112 mg/dL 0 - 130 mg/dL [employer] Phone: Comment on above: LDL Guidelines: <100 Desirable 100-129 Near to/above Desirable 130-159 Borderline >159 Undesirable Direct (measured) LDL and calculated LDL are not interchangeable tests. Cholesterol in VLDL [Mass/Vol] NOT REPORTED 1 - 30 mg/dL [employer] Phone: Cholesterol.total/Chol esterol in HDL [Mass ratio] 3.6 {ratio} <5 [facility] [employer] Phone: Triglyceride [Mass/Vol] 87 mg/dL <[facility] [employer] [facility] [employer] Phone: Comment on above: Triglyceride Guidelines: <150 Desirable 150-199 Borderline 200-499 High >499 Very high Based on AHA Guidelines for fasting triglyceride, December 2011. [employer] Phone: Lipid Profileon 09-20-2020 Cholesterol [Mass/Vol] 179 mg/dL Normal <200 [facility] Comment on above: Result Comment: Cholesterol Guidelines: <200 Desirable 200-240 Borderline >240 Undesirable Performed By: #### L IPR #### [facility] [employer] [address] [place] [address] [id number] Biomedical Analytical Scientist: Marv Gillis MD Cholesterol in HDL [Mass/Vol] 50 mg/dL Normal >[address] [facility] Comment on above: Result Comment: HDL Guidelines: <40 Undesirable 40-59 Borderline >59 Desirable Performed By: #### L IPR #### [facility] [employer] [address] [place] [id number] Biomedical Analytical Scientist: Marv Gillis MD Cholesterol in LDL [Mass/Vol] 112 mg/dL Normal 0-[address] [facility] Comment on above: Result Comment: LDL Guidelines: <100 Desirable 100-129 Near to/above Desirable 130-159 Borderline >159 Undesirable Direct (measured) LDL and calculated LDL are not interchangeable tests. Performed By: #### L IPR #### [facility] [employer] [address] [place] [id number] Biomedical Analytical Scientist: Marv Gillis MD Cholesterol.total/Chol esterol in HDL [Mass ratio] 3.6 {ratio} Normal <[address] [facility] Comment on above: Performed By: #### L IPR #### [facility] [employer] [address] [place] [address] [id number] Biomedical Analytical Scientist: Marv Gillis MD Triglyceride [Mass/Vol] 87 mg/dL Normal <[address] [facility] Comment on above: Result Comment: Triglyceride Guidelines: <150 Desirable 150-199 Borderline 200-499 High >499 Very high Based on AHA Guidelines for fasting triglyceride, December 2011. Performed By: #### L IPR #### [facility] [employer] [address] [place], [place] [id number] Biomedical Analytical Scientist: Marv Gillis MD Cholesterol,VLDL NOT REPORTED Normal 1-[address] [facility] Comment on above: Performed By: #### L IPR #### [facility] [employer] [address] [place], [place] [id number] Biomedical Analytical Scientist: Marv Gillis MD Provider Letteron 02-24-2020 Provider Letter (Inserted Image. Lynn ble to display) February 24, 2020 RUBÉN APARICIO [address] [place] [id number] RUBÉN APARICIO 1960 To Whom It May Concern, Please excuse above patient from work. Date of Illness: From: _01/11/2020 To: _03/05/2020 May Return to Work On: 03/05/2020 Restrictions: _ Comments: _ Sincerely, Abimael Mcdermott MD General Surgery Normal [facility] Ambulatory Clinical Summaryo n 02-16-2020 Ambulatory Clinical Summary {[id number]}CD: [id number] Normal [facility] General Surgery Office/Clini c Noteon 02-16-2020 General Surgery Office/Clinic Note Chief Complaint post operative follow up HPI Staff 4 week post operative follow up post robotic assisted epigastric hernia repair with mesh. Wearing abdominal binder. Has been experiencing nausea, vomiting and diarrhea as well as headache since yesterday. Believes this is stress related. Denies bleeding or drainage from incision sites. No pain or use of pain medication. History of Present Illness 5 weeks s/p robotic-assisted epigastric hernia repair with mesh; doing well; no problems with incisions; starting to increase activity, still wearing abdominal binder, no swelling at hernia site; some vague symptoms, discussed possible COVID; denies ill contacts; recommended testing/quarantine if symptoms persist. Review of Systems ROS - Provider Constitutional: no fever, no sweats, no weight loss. Eyes: no glasses, no blurred vision, no visual loss. ENMT: no dentures, no hoarseness, no swallowing difficulties, no hearing loss, no ear infection(s), no nose bleeds. Cardiovascular: normal blood pressure, no chest pain, regular heartbeat, no heart murmur. Respiratory: no shortness of breath, no cough, no asthma, no wheezing. Gastrointestinal: no nausea, no vomiting, no diarrhea, no constipation, no blood in stool, no change in bowel habits, no abdominal pain, no hepatitis. Genitourinary: no kidney stones, no urine infection, no dysuria. Musculoskeletal: no pain, no weakness. Skin: no changing moles, no rash, no skin lumps. Neurologic: no seizures, no epilepsy, no headache. Psychiatric: no emotional or psychiatric problem. Heme/Lymph: no bleeding problems, no anemia, no blood clots, no transfusions. Allergy/Immunologic: no swollen lymph nodes/glands, no IV drug abuse. Other: Additional ROS info: Except as noted in the above Review of Systems and in the History of Present Illness, all other systems have been reviewed and are negative or noncontributory. Physical Exam Vitals & Measurements T: 36.4 ?C (Tympanic) abd: soft, normal bs, nontender, nondistended, incisions well-healed; hernia site without seroma or induration. Assessment/Plan 1. Incarcerated epigastric hernia (K43.6: Other and unspecified ventral hernia with obstruction, without gangrene) doing well, gradually resume regular activities; wear binder for comfort or when lifting; return to work 03/07/20, call sooner if problems/questions. 2. Smoker (F17.200: Nicotine dependence, unspecified, uncomplicated) We strongly recommend to quit tobacco use. Cigarette smoking harms nearly every organ of the body, causes many diseases, and reduces the health of smokers in general. Quitting smoking lowers your risk for smoking-related diseases and can add years to your life. We encourage you to visit www.smokefree.gov access to helpful resources including free telephone support. If you decide on prescription treatment to help you quit, your family doctor would be happy to provide these. Follow-up With When Contact Information BALDEMAR GARZA, Abimael Celestin if needed [address] [place] [address]- Additional Instructions: Problem List/Past Medical History Ongoing Abdominal pain, right upper quadrant Anxiety and depression Cholelithiasis COPD type A Diarrhea Diastasis recti Epigastric pain Fibrocystic breast Hernia, epigastric Hiatal hernia IBS (irritable bowel syndrome) Incarcerated epigastric hernia Insomnia Nausea FRANCOIS (obstructive sleep apnea) Smoker Tobacco use Historical No qualifying data Procedure/Surgical History Repair of epigastric hernia using surgical mesh (01/11/2020), Skin lesion. Medications Abilify 10 mg Tab, 10 mg= 1 tab(s), Oral, Daily alprazolam 0.25 mg Tab, 0.25 mg= 1 tab(s), Oral, TID, PRN aspirin 81 mg Chew Tab, 81 mg= 1 tab(s), Chewed, Daily atorvastatin 40 mg Tab, 40 mg= 1 tab(s), Oral, Daily Carafate 1 gram Tab, 1 gm= 1 tab(s), Oral, QIDACHS Centrum Silver oral tablet, 1 tab(s), Oral, Daily desvenlafaxine 100 mg Tab-, 100 mg= 1 tab(s), Oral, Daily Excedrin Migraine, 2 tab(s), Oral, q6hr, PRN Levsin 0.125 mg SL Tab, 0.125 mg= 1 tab(s), Oral, q6hr, PRN Metoprolol tartrate 25 mg Tab, 25 mg= 1 tab(s), Oral, BID Prilosec OTC, 20 mg, Oral, Daily Protonix 40 mg Tab-DR, 40 mg= 1 tab(s), Oral, Daily Trelegy Ellipta, 1 puff(s), Inhalation, Daily Trokendi XR 25 mg oral capsule, extended release, 25 mg= 1 cap(s), Oral, Daily Ventolin HFA 90 mcg/inh Aerosol, 2 puff(s), Inhalation, QID, PRN Zofran 4 mg Tab, 4 mg= 1 tab(s), Oral, q6hr, PRN Allergies No Known Allergies No Known Medication Allergies Social History Alcohol - Denies Alcohol Use, 12/15/2019 Substance Abuse - Denies Substance Abuse, 12/15/2019 Tobacco - High Risk, 12/30/2019 10 or more cigarettes (1/2 pack or more)/day in last 30 days Tobacco Use:. Never Smokeless Tobacco Use:. Cigarettes, Ready to change: No. Household tobacco concerns: No. Yes, 02/02/2020 Family History Cardiac arrest: Mother and Father. Hyperlipidemia: Mother and Father. Stroke: Mother and Father. Normal [facility] Comment on above: Result Comment: Elec tronically Signed By: BALDEMAR GARZA, Abimael Metcalf\Date and Time Signed: 02/16/20 16:58 EST Ambulatory Clinical Summaryo n 02-02-2020 Ambulatory Clinical Summary {[id number]}CD: [id number] Normal [facility] General Surgery Office/Clini c Noteon 02-02-2020 General Surgery Office/Clinic Note HPI Staff 3 week post operative visit following robot assisted epigastric hernia repair. Denies incision drainage, fever or pain. History of Present Illness 3weeks s/p robotic-assisted epigastric hernia repair with mesh; doing well, denies pain, no drainage from incisions, wearing abdominal binder, no lifting. Review of Systems ROS - Provider Constitutional: no fever, no sweats, no weight loss. Eyes: no glasses, no blurred vision, no visual loss. ENMT: no dentures, no hoarseness, no swallowing difficulties, no hearing loss, no ear infection(s), no nose bleeds. Cardiovascular: normal blood pressure, no chest pain, regular heartbeat, no heart murmur. Respiratory: no shortness of breath, mild cough, no asthma, no wheezing. Gastrointestinal: no nausea, no vomiting, no diarrhea, no constipation, no blood in stool, no change in bowel habits, no abdominal pain, no hepatitis. Genitourinary: no kidney stones, no urine infection, no dysuria. Musculoskeletal: no pain, no weakness. Skin: no changing moles, no rash, no skin lumps. Neurologic: no seizures, no epilepsy, no headache. Psychiatric: no emotional or psychiatric problem. Heme/Lymph: no bleeding problems, no anemia, no blood clots, no transfusions. Allergy/Immunologic: no swollen lymph nodes/glands, no IV drug abuse. Other: Additional ROS info: Except as noted in the above Review of Systems and in the History of Present Illness, all other systems have been reviewed and are negative or noncontributory. Physical Exam Vitals & Measurements T: 36.0 ?C (Tympanic) RR: 12 BP: 126/72 HT: 152 cm HT: 152.0 cm WT: 60.3 kg WT: 60.3 kg BMI: 26.1 abd: soft, normal bs, incisions without erythema or drainage, no ecchymoses, no seroma at hernia site. Assessment/Plan 1. Incarcerated epigastric hernia (K43.6: Other and unspecified ventral hernia with obstruction, without gangrene) doing well, continue no lifting > 10 lbs for 1 week, then gradually increase activity; follow up in 2 weeks, call sooner if problems/questions. 2. Tobacco use (Z72.0: Tobacco use) We strongly recommend to quit tobacco use. Cigarette smoking harms nearly every organ of the body, causes many diseases, and reduces the health of smokers in general. Quitting smoking lowers your risk for smoking-related diseases and can add years to your life. We encourage you to visit www.smokefree.gov access to helpful resources including free telephone support. If you decide on prescription treatment to help you quit, your family doctor would be happy to provide these. Follow-up No qualifying data available Problem List/Past Medical History Ongoing Abdominal pain, right upper quadrant Anxiety and depression Cholelithiasis COPD type A Diarrhea Diastasis recti Epigastric pain Fibrocystic breast Hernia, epigastric Hiatal hernia IBS (irritable bowel syndrome) Incarcerated epigastric hernia Insomnia Nausea FRANCOIS (obstructive sleep apnea) Smoker Tobacco use Historical No qualifying data Procedure/Surgical History Repair of epigastric hernia using surgical mesh (01/11/2020), Skin lesion. Medications Abilify 10 mg Tab, 10 mg= 1 tab(s), Oral, Daily alprazolam 0.25 mg Tab, 0.25 mg= 1 tab(s), Oral, TID, PRN aspirin 81 mg Chew Tab, 81 mg= 1 tab(s), Chewed, Daily atorvastatin 40 mg Tab, 40 mg= 1 tab(s), Oral, Daily Carafate 1 gram Tab, 1 gm= 1 tab(s), Oral, QIDACHS Centrum Silver oral tablet, 1 tab(s), Oral, Daily desvenlafaxine 100 mg Tab-, 100 mg= 1 tab(s), Oral, Daily Excedrin Migraine, 2 tab(s), Oral, q6hr, PRN Levsin 0.125 mg SL Tab, 0.125 mg= 1 tab(s), Oral, q6hr, PRN Metoprolol tartrate 25 mg Tab, 25 mg= 1 tab(s), Oral, BID Prilosec OTC, 20 mg, Oral, Daily Protonix 40 mg Tab-DR, 40 mg= 1 tab(s), Oral, Daily Trelegy Ellipta, 1 puff(s), Inhalation, Daily Trokendi XR 25 mg oral capsule, extended release, 25 mg= 1 cap(s), Oral, Daily Ventolin HFA 90 mcg/inh Aerosol, 2 puff(s), Inhalation, QID, PRN Zofran 4 mg Tab, 4 mg= 1 tab(s), Oral, q6hr, PRN Allergies No Known Allergies No Known Medication Allergies Social History Alcohol - Denies Alcohol Use, 12/15/2019 Substance Abuse - Denies Substance Abuse, 12/15/2019 Tobacco - High Risk, 12/30/2019 10 or more cigarettes (1/2 pack or more)/day in last 30 days Tobacco Use:. Never Smokeless Tobacco Use:. Cigarettes, Ready to change: No. Household tobacco concerns: No. Yes, 02/02/2020 Family History Cardiac arrest: Mother and Father. Hyperlipidemia: Mother and Father. Stroke: Mother and Father. [facility] Comment on above: Result Comment: Elec tronically Signed By: BALDEMAR GARZA, Abimael Metcalf\Date and Time Signed: 02/02/20 14:01 EST [employer]son 01-22-2020 Forms [id number]:127 Normal [facility] Ambulatory Clinical Summaryo n 01-19-2020 Ambulatory Clinical Summary {[id number]}CD: [id number] [facility] General Surgery Office/Clini c Noteon 01-19-2020 General Surgery Office/Clinic Note Chief Complaint post operative follow up HPI Staff 8 day post operative follow up post robotic assisted epigastric hernia repair with mesh. Minimal discomfort. Minimal use of Dalton. Denies nausea or vomiting. Bowels moving well. Urinating without difficulty. No drainage from incision sites. Wearing abdominal binder. History of Present Illness 8 days s/p robotic-assisted epigastric hernia repair with mesh; doing well, mild soreness, no fevers, no N/V; no drainage from incisions; eating well, normal bms; taking occasional Dalton for pain. Physical Exam Vitals & Measurements T: 37.0 ?C (Tympanic) abd: soft, normal bs, nontender, nondistended; no seroma at hernia site; incisions healing well, glue intact; no erythema or drainage, minimal ecchymosis right lower port site. Assessment/Plan 1. Incarcerated epigastric hernia (K43.6: Other and unspecified ventral hernia with obstruction, without gangrene) doing well, continue to wear abdominal binder; no lifting > 10 lbs for at least 3 more weeks; follow up in 2 weeks; call sooner if problems/questions. Follow-up No qualifying data available Problem List/Past Medical History Ongoing Abdominal pain, right upper quadrant Anxiety and depression Cholelithiasis COPD type A Diarrhea Diastasis recti Epigastric pain Fibrocystic breast Hernia, epigastric Hiatal hernia IBS (irritable bowel syndrome) Incarcerated epigastric hernia Insomnia Nausea FRANCOIS (obstructive sleep apnea) Smoker Tobacco use Historical No qualifying data Procedure/Surgical History Repair of epigastric hernia using surgical mesh (01/11/2020), Skin lesion. Medications Abilify 10 mg Tab, 10 mg= 1 tab(s), Oral, Daily alprazolam 0.25 mg Tab, 0.25 mg= 1 tab(s), Oral, TID, PRN aspirin 81 mg Chew Tab, 81 mg= 1 tab(s), Chewed, Daily atorvastatin 40 mg Tab, 40 mg= 1 tab(s), Oral, Daily Carafate 1 gram Tab, 1 gm= 1 tab(s), Oral, QIDACHS Centrum Silver oral tablet, 1 tab(s), Oral, Daily desvenlafaxine 100 mg Tab-, 100 mg= 1 tab(s), Oral, Daily Excedrin Migraine, 2 tab(s), Oral, q6hr, PRN Levsin 0.125 mg SL Tab, 0.125 mg= 1 tab(s), Oral, q6hr, PRN Metoprolol tartrate 25 mg Tab, 25 mg= 1 tab(s), Oral, BID Prilosec OTC, 20 mg, Oral, Daily Protonix 40 mg Tab-DR, 40 mg= 1 tab(s), Oral, Daily Trelegy Ellipta, 1 puff(s), Inhalation, Daily Trokendi XR 25 mg oral capsule, extended release, 25 mg= 1 cap(s), Oral, Daily Ventolin HFA 90 mcg/inh Aerosol, 2 puff(s), Inhalation, QID, PRN Zofran 4 mg Tab, 4 mg= 1 tab(s), Oral, q6hr, PRN Allergies No Known Allergies No Known Medication Allergies Social History Alcohol - Denies Alcohol Use, 12/15/2019 Substance Abuse - Denies Substance Abuse, 12/15/2019 Tobacco - High Risk, 12/30/2019 10 or more cigarettes (1/2 pack or more)/day in last 30 days Tobacco Use:., 01/19/2020 Family History Cardiac arrest: Mother and Father. Hyperlipidemia: Mother and Father. Stroke: Mother and Father. [facility] Comment on above: Result Comment: Elec tronically Signed By: BALDEMAR GARZA, Abimael Alexandra\.br\Date and Time Signed: 01/19/20 13:45 EDT IntraOperative Documentson 1 IntraOperative Documents [id number]#1.00CD:127 [facility] Coding Summary.on 01-18-2020 Coding Summary. CODING DATE: 020 [facility] STATUS: Home (Routine DC) PAYOR: Yunier APC DESCRIPTION 7139 Level 1 Laparoscopy and Related Services ADMIT DX: REASON FOR VISIT DX: K43.6 Other and unspecified ventral hernia with obstruction, without gangrene FINAL DX: PRINCIPAL: K43.6 Other and unspecified ventral hernia with obstruction, without gangrene SECONDARY: M62.08 Separation of muscle (nontraumatic), other site F41.9 Anxiety disorder, unspecified F32.9 Major depressive disorder, single episode, unspecified G47.33 Obstructive sleep apnea (adult) (pediatric) F17.210 Nicotine dependence, cigarettes, uncomplicated PYMT PROC APC STAT DESCRIPTION DOCTOR NAME DATE 23696 0806 J1 Laparoscopy, surgical, Abimael MDCERMOTT MD 01/11/2020 repair, ventral, umbilical, spigelian or epigastric hernia (includes mesh insertion, when performed); incarcerated or strangulated 08604 Transversus abdominis Blaise Lee Jr., DO 01/11/2020 plane (TAP) block (abdominal plane block, rectus sheath block) bilateral; by injections (includes imaging guidance, when performed) XP Separate practitioner, a service that is distinct because it was performed by a different practitioner 83328 Anesthesia for hernia Blaise Lee Jr., DO 01/11/2020 repairs in upper abdomen; lumbar and ventral (incisional) hernias and/or wound dehiscence NOTE: The code number assigned matches the documented diagnosis and / or procedure in the patient's chart. However, the narrative phrase printed from the coding software may appear abbreviated, or result in slightly different terminology. Revised Coded By: Sharyn Rose Revised Date Saved: 01/14/2020 01:16 pm [facility] Main OR Intraoperative Recor don 01-18-2020 Main OR Intraoperative Record IntraOp Document Type FT Summary Primary Physician: Abimael MCDERMOTT MD Finalized Date/Time: 01/18/20 09:52:15 Pt. Name: RUBÉN APARICIO Guru /Sex: 1960 Female Med Rec #: [id number] Physician: Abimael MCDERMOTT MD Financial #: [id number] Pt. Type: A Room/Bed: [place] [address] Admit/Disch: 01/11/20 07:25:52 - 01/11/20 14:50:00 Institution: Case Times FT Entry 1 Patient Times In Room 01/11/20 09:44:00 Out Room 01/11/20 12:01:00 Procedure Times Start 01/11/20 10:21:00 Stop 01/11/20 11:57:00 Anesthesia Times Start 01/11/20 09:44:00 Stop 01/11/20 12:01:00 Block Timeout w/ 01/11/20 10:07:00 Anesthesia Last Modified By: Yosvany CONRAD, Osiel Albert 01/11/20 12:01:08 General Comments: 1007- bilateral rectus sheath block done by dr. lee while patient under anesthesia and in OR suite, used ultrasound and area prepped with chlorprep prior to block. BMalorie chan silver wrapper/sa assisting dr. lee with block and patient under constant observation. - terrell rn 1033- robot docked at bedside by this RN. - terrell rn 1039- surgeon back to surgeon console at this time. - terrell conrad 01/18/2020 Chart opened to review and send charges. Ervin rBaswell TIRE FABRIC IMPREGNATING RANGE TENDER. Case Attendance FT Entry 1 Entry 2 Entry 3 Case Attendee Rafita Aguirre DO, Blaise MCDERMOTT MD, Abimael Hammond TIRE F[employer]IC IMPREGNATING RANGE TENDER, Xiang Role Performed Anesthesiologist of Surgeon - Primary TIRE FABRIC IMPREGNATING RANGE TENDER/SA Record Time In 01/11/20 09:44:00 01/11/20 09:44:00 01/11/20 09:44:00 Time Out 01/11/20 12:00:00 01/11/20 12:00:00 01/11/20 12:00:00 Procedure HERNIA REPAIR, ROBOT HERNIA REPAIR, ROBOT HERNIA REPAIR, ROBOT ASSISTED(.) ASSISTED(.) ASSISTED(.) Comments Last Modified By: Yosvany CONRAD, Osiel Bar RN, Osiel Bar RN, Osiel Albert 01/11/20 12:01:02 01/11/20 12:01:02 01/11/20 12:01:02 Entry 4 Entry 5 Entry 6 Case Attendee Milton CONRDA, Melyssa Foster RN, Anum Simon Role Performed Waterway Traffic Checker - Primary Waterway Traffic Checker - Primary Scrub - Primary Time In 01/11/20 09:46:00 01/11/20 09:46:00 01/11/20 09:44:00 Time Out 01/11/20 11:33:00 01/11/20 11:33:00 01/11/20 12:00:00 Procedure HERNIA REPAIR, ROBOT HERNIA REPAIR, ROBOT HERNIA REPAIR, ROBOT ASSISTED(.) ASSISTED(.) ASSISTED(.) Comments orientation orientation - out fo room from [phone] Last Modified By: Yosvany CONRAD, Osiel Bar RN, Osiel Bar RN, Osiel Albert 01/11/20 12:01:02 01/11/20 12:03:57 01/11/20 12:03:57 Entry 7 Entry 8 Entry 9 Case Attendee Chan BROWN, Ivonne Montilla RN, Roxanna Braswell TIRE FABRIC IMPREGNATING RANGE TENDER, Cedric Henry Role Performed Scrub - Primary Waterway Traffic Checker - Relief Scrub - Relief Time In 01/11/20 09:44:00 01/11/20 09:44:00 01/11/20 10:57:00 Time Out 01/11/20 12:00:00 01/11/20 09:50:00 01/11/20 11:34:00 Procedure HERNIA REPAIR, ROBOT HERNIA REPAIR, ROBOT HERNIA REPAIR, ROBOT ASSISTED(.) ASSISTED(.) ASSISTED(.) Comments preceptor - out of room from [phone] Last Modified By: Yosvany CONRAD, Osiel Bar RN, Osiel Henry RN 01/11/20 12:01:02 01/11/20 12:01:02 01/11/20 12:01:02 Entry 10 Case Attendee Osiel Bar RN Role Performed Waterway Traffic Checker - Relief Time In 01/11/20 11:32:00 Time Out 01/11/20 12:00:00 Procedure HERNIA REPAIR, ROBOT ASSISTED(.) Comments Last Modified By: Osiel Bar RN 01/11/20 12:01:02 Perioperative Protocols FT Pre-Care Text: Implements protective measures prior to operative or invasive procedure, confirms identity before the operative or invasive procedure, verifies operative procedure, surgical site, and laterality Entry 1 Procedure(s) HERNIA REPAIR, ROBOT Patient Identity Birthday, ID Band ASSISTED(.) Verified (select at Check, Patient least 2): Participation Consents / H and P Anesthesia Consent, Operative Site N/A Verified HandP, Surgery/Procedure Marking Verified Consent, Transfusion Consent Surgical Site Yes Laterality Verified n/a Verified Procedure Verified Yes Correct Patient Yes Position Verified Availability Equipment, Implant, Prep Dry n/a Verified (If Medication Applicable) PreOp Antibiotic Yes Time Out Blaise Lee Jr., DO Given Participants GBALDEMAR MD, Chan Montilla CST, Milton Otoole RN, Cristian Salas RN, Faviola Craft Rachel L, Wilhelm CST, Ivonne Ruth Time Out Complete 01/11/20 10:19:00 Outcomes Met? Yes Last Modified By: Milton CONRAD, Melyssa Fernández 01/11/20 10:44:18 Post-Care Text: The patient is free from signs and symptoms of injury caused by extraneous objects Allergy Information FT Pre-Care Text: Verifies allergies Entry 1 Allergies Reviewed? Yes Allergies Reviewed Self/Patient With Outcomes Met? Yes Last Modified By: Melyssa Rose RN 01/11/20 10:44:34 Post-Care Text: The patient received appropriate medication(s) safely administered during the perioperative period Surgical Procedures FT Entry 1 Procedure Description Procedure HERNIA REPAIR, ROBOT Modifiers . ASSISTED Surgeon Description ROBOT ASSISTED EPIGASTRIC HERNIA REPAIR With MESH Primary Procedure Yes Primary Surgeon Abimael MCDERMOTT MD Start 01/11/20 10:21:00 Stop 01/11/20 11:57:00 Anesthesia Type General Surgical Service General Wound Class 1 - Clean Last Modified By: Osiel Bar RN 01/11/20 12:07:05 General Case Data FT Pre-Care Text: Classifies surgical wound, implements aseptic technique, initiates traffic control Entry 1 Case Information OR OR 6 FT Case Level Level 5 Wound Class 1 - Clean Specialty General ASA Class 3 Preop Diagnosis EPIGASTRIC HERNIA Postop Same As Preop Yes Postop Diagnosis EPIGASTRIC HERNIA Outcomes Met? Yes Last Modified By: Melyssa Rose RN 01/11/20 10:53:43 Post-Care Text: The patient is free from signs and symptoms of infection Skin Assessment (Pre Procedure) FT Pre-Care Text: Implements protective measures to prevent skin/ tissue injury due to thermal or mechanical sources Evaluates for signs and symptoms of physical injury to skin and tissue Entry 1 Skin Integrity Intact, Galliano, Warm, and Skin Abnormality No Dry Outcomes Met? Yes Last Modified By: Melyssa Rose RN 01/11/20 10:44:41 Post-Care Text: The patient is free from signs and symptoms of injury caused by extraneous objects Patient Positioning FT Pre-Care Text: Identifies physical alterations that require additional precautions for procedure-specific positioning, verifies presence of prosthetics or corrective devices, positions the patient, evaluates the patient for signs and symptoms of injury as a result of positioning Entry 1 Procedure HERNIA REPAIR, ROBOT Additional rolled sheet under ASSISTED(.) Information right hip per surgeon Body Position Supine Feet Uncrossed? Yes Left Arm Position Extended on Padded Arm Right Arm Position Extended on Padded Arm Board Board Left Leg Position Extended Right Leg Position Extended Positioning Device Safety Strap, Pillow Press Points Checked Yes Under Head Large, Other/See Comments By Melyssa Rose RN, Outcomes Met? Yes Rafita Aguirre DO, BALDEMAR Hand MD, Eladia Montilla RN, Chan Breen CST, Xiang Last Modified By: Melyssa Rose RN 01/11/20 10:45:22 Post-Care Text: The patient is free from signs and symptoms of injury related to positioning Patient Care Devices FT Pre-Care Text: Implements protective measures to prevent skin/ tissue injury due to thermal or mechanical sources Entry 1 Entry 2 Entry 3 Equipment Type CAUTERY UNIT[F] INSUFLATORS[F] INSUFLOW HEATER UNIT[F] Equipment Number davinci boom room 6 boom room 6 Equipment Setting Outcomes Met? Yes Yes Yes Last Modified By: Milton RNMelyssa RN, Melyssa Vegas RN 01/11/20 10:09:15 01/11/20 10:41:02 01/11/20 10:09:15 Entry 4 Entry 5 Entry 6 Equipment Type MISTRAL FORCED AIR SONOSITE ULTRASOUND MONITOR CHARGE SURGERY WARMING SYSTEM UNIT[F] UNIT[F] [F] Equipment Number m1 Equipment Setting Outcomes Met? Yes Yes Yes Last Modified By: Melyssa Rose RN, RN, Melyssa Vegas RN 01/11/20 10:09:15 01/11/20 10:09:15 01/11/20 10:09:15 Entry 7 Entry 8 Entry 9 Equipment Type VENA FLOW UNIT[F] GLIDESCOPE, BIS MONITOR[F] INTUBATING[F] Equipment Number Equipment Setting Outcomes Met? Yes Yes Yes Last Modified By: Melyssa Rose RN, RN, Melyssa Vegas RN 01/11/20 10:09:15 01/11/20 10:09:15 01/11/20 10:26:22 Entry 10 Equipment Type DAVINCI EQUIPMENT [F] Equipment Number Equipment Setting Outcomes Met? Yes Last Modified By: Melyssa Rose RN 01/11/20 10:26:22 Post-Care Text: The patient is free from signs and symptoms of injury caused by extraneous objects Transport To OR FT Pre-Care Text: Transports according to individual needs. Evaluates for signs and symptoms of skin and tissue injury as a result of transfer or transport Entry 1 Via Cart By Eladia CONRAD, Roxanna Padilla Safety Precautions Side Rails Up Outcomes Met? Yes Last Modified By: Melyssa Rose RN 01/11/20 10:45:54 Post-Care Text: The patient is free from signs and symptoms of injury related to transfer/transport Cautery FT Pre-Care Text: Implements protective measures to prevent injury due to electrical sources, and evaluates for signs and symptoms of electrical injury Entry 1 ESU Identification Equipment Number davinci ESU Settings Cut 2 Coag 4 Bipolar 2 ESU Grounding Pad Site Left Thigh Hair Removal Pad No Site Pre Pad Site Clear and Intact Post Pad Site Clear and Intact Condition Condition Grounding Pad Cristian CONRAD, Marija Lan Placed By Outcomes Met? Yes Last Modified By: Melyssa Rose RN 01/11/20 10:46:31 Post-Care Text: The patient if free from signs and symptoms of electrical injury Counts Verification FT Pre-Care Text: Performs required counts Entry 1 Entry 2 Entry 3 Procedure(s) HERNIA REPAIR, ROBOT HERNIA REPAIR, ROBOT HERNIA REPAIR, ROBOT ASSISTED(.) ASSISTED(.) ASSISTED(.) Type Initial Relief Final Items Instruments, Sponges, Sponges, Sharps, Sponges, Sharps, Sharps, Other/See Other/See Comments Other/See Comments Comments Status Correct Correct Correct Time 01/11/20 11:46:00 By Melyssa Rose RN, Ojeda, Coy RN, Faviola Salas Wilhelm CST, Ivonne Ruth, Anum Albert, Chan BROWN, Chan Aggarwal CST, Anum Salmeron Krupp Macie C Macie C, Barker CST, RN, Osiel Henry Outcomes Met? Yes Yes Yes Last Modified By: Melyssa Rose RN, RN, Melyssa Bar RN, Osiel Albert 01/11/20 10:47:32 01/11/20 11:00:44 01/11/20 11:47:04 Post-Care Text: The patient is free from signs and symptoms of injury caused by extraneous objects General Comments: other items counted: scissor pieces and microline tip. Cuca tejada rn Skin Prep FT Pre-Care Text: Performs skin preparations Entry 1 Procedure HERNIA REPAIR, ROBOT Prep Area abdomen ASSISTED(.) Prep Agents Betadine Scrub and Solution Hair Removal Methods Not Indicated By Melyssa Rose RN Outcomes Met? Yes Last Modified By: Melyssa Rose RN 01/11/20 10:47:43 Post-Care Text: The patient is free from signs and symptoms of infection Departure From OR FT Pre-Care Text: Transports according to individual needs. Evaluates for signs and symptoms of skin and tissue injury as a result of transfer or transport. Entry 1 Via Cart Safety Precautions Side Rails Up PostOp Destination PACU Transported By Osiel Bar RN Patient Status Stable Skin. Condition Other/See Comments Description abdominal incisions, other skin unchanged from previously Airway Maintenance Oxygen in Use? Yes Airway Device Simple Mask Flow Rate 8 L/min Outcomes Met? Yes Last Modified By: Osiel Bar RN 01/11/20 11:53:59 Post-Care Text: The patient is free from signs and symptoms of injury related to transfer/transport General Comments: report given to um rnMalorie rodriguez rn Dressing/Packing FT Pre-Care Text: Administers care to wound sites Entry 1 Entry 2 Type Dressing Immobilization Devices Items ADHESIVE SKIN AFFIX BINDER ABDOMINAL 3-PNL SURGICAL .4ML LG/XLG [[id number]][F] [[id number]][F] Site and Details skin affix to abdominal abdominal binder sites and 4x4's, opsite applied to abdomen and medipore tape to one port site on abdomen Outcomes Met? Yes Yes Last Modified By: Osiel Bar RN, RN, Andrea L 01/11/20 11:53:31 01/11/20 11:53:31 Post-Care Text: The patient is free from signs and symptoms of infection Medication Administration FT Pre-Care Text: Verifies allergies, administers prescribed medications and solutions, administers prescribed antibiotic therapy and immunizing agents as ordered, evaluates response to medications Administers prescribed medications and solutions Entry 1 Route of Admin Field Expiration Date Yes Verified Outcomes Met? Yes Last Modified By: Melyssa Rose RN 01/11/20 10:48:41 Post-Care Text: The patient received appropriate medication(s) safely administered during the perioperative period For Mast-Jose please see scanned medication reconcilliation form for medications used at the field during the procedure. 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 Yes Last Modified By: Melyssa Rose RN 01/11/20 10:57:23 Post-Care Text: The patient is free from signs and symptoms of injury caused by extraneous objects Urinary Catheter Pre-Care Text: Patient is prepped using sterile technique. Entry 1 Urinary Catheter TRAY URINE ROJELIO CATH Present Upon Arrival No Inserted LF 16FR [[id number]][F] Insertion Date/Time 01/11/20 10:00:00 Urine Residual 35 Insertion Site Uretheral Urine clear yellow urine Characteristics Inserted By Melyssa Rose RN Discontinued? Yes When was the Discontinued at end of DC'd By Xiang Hammond CST catheter case discontinued? Outcomes Met? Yes Last Modified By: Osiel Bar RN 01/11/20 11:57:05 Post-Care Text: The patient is free from signs of trauma. Cultures and Specimens FT Pre-Care Text: Manages specimen handling and disposition Manages culture specimen collection Entry 1 Cultures Ordered Yes Culture Disposition Designated OR Area Culture Source urine from patel Specimens Ordered No Frozen Section Times Outcomes Met? Yes Last Modified By: Melyssa Rose RN 01/11/20 10:49:45 Post-Care Text: The patient is free from signs and symptoms of injury caused by extraneous objects The patient is free from signs and symptoms of infection Temperature Control Entry 1 Temperature Control BLANKET MISTRAL AIR Quantity 1 Aid TORSO [[id number]][F] Fluid/Anna Unit Mistral warming system Setting high/43 Body Site Upper anterior torso Last Modified By: Melyssa Rose RN 01/11/20 10:50:28 Case Comments Finalized By: Cedric Braswell CST Document Signatures Signed By: Yosvany CONRAD Osiel L 01/11/20 12:07 Cedric Braswell CST 01/18/20 09:52 [facility] Coding Summary.on 01-13-2020 Coding Summary. CODING DATE: 020 FINAL [facility] STATUS: Home (Routine DC) PAYOR: [place] ADMIT DX: REASON FOR VISIT DX: Z01.810 Encounter for preprocedural cardiovascular examination FINAL DX: PRINCIPAL: Z01.810 Encounter for preprocedural cardiovascular examination SECONDARY: E78.5 Hyperlipidemia, unspecified F17.210 Nicotine dependence, cigarettes, uncomplicated G47.33 Obstructive sleep apnea (adult) (pediatric) I10 Essential (primary) hypertension J44.9 Chronic obstructive pulmonary disease, unspecified PYMT PROC APC STAT DESCRIPTION DOCTOR NAME DATE NOTE: The code number assigned matches the documented diagnosis and / or procedure in the patient's chart. However, the narrative phrase printed from the coding software may appear abbreviated, or result in slightly different terminology. Coded By: Sharyn Rose Date Saved: 01/13/2020 04:12 pm [facility] Consent for Anesthesiaon Consent for Anesthesia [id number]:127 [facility] Discharge Instructionson Discharge Instructions [id number]#1.00CD:127 [facility] IntraOperative Documentson 1 IntraOperative Documents [id number]#1.00CD:127 [facility] IntraOperative Documents [id number]#1.00CD:127 [facility] Preoperative Documentson Preoperative Documents [id number]:127 [facility] Preoperative Documents [id number]:127 Normal [facility] Stress EKG Tracingson 2019 Stress EKG Tracings [id number]:127 Normal [facility] Coding Summary.on 01-11-2020 Coding Summary. CODING DATE: 020 FINAL [facility] STATUS: Home (Routine DC) PAYOR: Yunier APC DESCRIPTION 5524 Level 4 Imaging without Contrast 5573 Level 3 Imaging with Contrast ADMIT DX: REASON FOR VISIT DX: R07.9 Chest pain, unspecified FINAL DX: PRINCIPAL: R07.9 Chest pain, unspecified SECONDARY: PYMT PROC APC STAT DESCRIPTION DOCTOR NAME DATE NOTE: The code number assigned matches the documented diagnosis and / or procedure in the patient's chart. However, the narrative phrase printed from the coding software may appear abbreviated, or result in slightly different terminology. Coded By: Tiffany Mckenzie CphT Date Saved: 01/11/2020 09:06 am [facility] Consent for Treatmenton 12-23 Consent for Treatment [id number]:127 Normal [facility] History and Physicalon 01-10 History and Physical Patient: RUBÉN APARICIO Age: 59 years Sex: Female : 1960 Associated Diagnoses: None Author: Abimael MCDERMOTT MD Subjective no changes to H & P Normal [facility] Comment on above: Result Comment: Elec tronically Signed By: Abimael MCDERMOTT MD\.br\Date and Time Signed: 01/11/20 09:18 EDT Inpatient Patient Summaryon 01-11-2020 Inpatient Patient Summary [place] [id number] [facility] Clinical Discharge Instructions PERSON INFORMATION Name: RUBÉN APARICIO PHYSICIANS Admitting Physician: Abimael MCDERMOTT MD Attending Physician: Abimael MCDERMOTT MD PCP: Jefferson GARZA, Cesar Discharge Diagnosis: Complicated incarcerated epigastric hernia Comment: PATIENT EDUCATION INFORMATION Instructions: How to Use an Incentive Spirometer; Post Op Patient Instructions - FT (CUSTOM) Medication Leaflets: Follow up: With: Address: When: Abimael MCDERMOTT [address], [address], [facility] [address] [place] [address] Business (1) Within 7 to 10 days MEDICATION LIST New Medications [address] [place], [place] [id number], [phone] acetaminophen-hydrocodone (Dalton 325 mg-5 mg oral tablet) 1 Tablets By Mouth every 4 hours as needed for pain. take with food or milk. Refills: 0. Medications to Continue with No Changes Other Medications albuterol (Ventolin HFA 90 mcg/inh Aerosol) 2 Puffs Inhalation 4 times a day as needed Shortness of breath or wheezing. alprazolam (alprazolam 0.25 mg Tab) 1 Tablets By Mouth 3 times a day as needed anxiety. APAP/ASA/caffeine (Excedrin Migraine) 2 Tablets By Mouth every 6 hours as needed Pain. aripiprazole (Abilify 10 mg Tab) 1 Tablets By Mouth every day. aspirin (aspirin 81 mg Chew Tab) 1 Tablets Chewed every day. atorvastatin (atorvastatin 40 mg Tab) 1 Tablets By Mouth every day. desvenlafaxine (desvenlafaxine 100 mg Tab-) 1 Tablets By Mouth every day. fluticasone/umeclidinium/v ilanterol (Trelegy Ellipta) 1 Puffs Inhalation every day. hyoscyamine (Levsin 0.125 mg SL Tab) 1 Tablets By Mouth every 6 hours as needed abdominal pain. metoprolol (Metoprolol tartrate 25 mg Tab) 1 Tablets By Mouth 2 times a day. multivitamin with minerals (Centrum Silver oral tablet) 1 Tablets By Mouth every day. omeprazole (Prilosec OTC) 20 Milligram By Mouth every day. ondansetron (Zofran 4 mg Tab) 1 Tablets By Mouth every 6 hours as needed Nausea. pantoprazole (Protonix 40 mg Tab-DR) 1 Tablets By Mouth every day. sucralfate (Carafate 1 gram Tab) 1 Tablets By Mouth four times a day (before meals and at bedtime)., stomach topiramate (Trokendi XR 25 mg oral capsule, extended release) 1 Capsules By Mouth every day. Comment: [facility] Main OR PACU I Recordon 12-23 Main OR PACU I Record PACU Phase I Docum ent Type FT Summary Primary Physician: Abimael MCDERMOTT MD Finalized Date/Time: 01/11/20 13:37:08 Pt. Name: RUBÉN APARICIO Guru /Sex: 1960 Female Med Rec #: [id number] Physician: Abimael MCDERMOTT MD Financial #: [id number] Pt. Type: A Room/Bed: Admit/Disch: 01/11/20 07:25:52 - Institution: Case Times PACU I FT Pre-Care Text: Identifies barriers to communication and implements measures to provide psychological support Develops individualized plan of care, and ensures continuity of care Maintains patient's dignity and privacy, and maintains patient confidentiality Identifies and reports philosophical, cultural, and spiritual beliefs and values Identifies individual values and wishes concerning care Implements aseptic technique, and administers prescribed antibiotic therapy and immunizing agents as ordered Evaluates postoperative tissue perfusion Implements thermoregulation measures, and monitors body temperature Evaluates postoperative respiratory status Evaluates postoperative cardiac status Evaluates postoperative neurological status Assesses pain control, collaborated in initiating patient-controlled analgesia and implements alternative methods of pain control Verifies allergies, administers prescribed medications and solutions, evaluates response to medications Entry 1 In PACU I 01/11/20 12:02:00 Discharge from PACU 01/11/20 12:51:00 I Outcomes Met? Yes Last Modified By: Lupe Muniz RN 01/11/20 13:36:12 Post-Care Text: The patient demonstrates knowledge of the expected response to the operative or invasive procedure The patient's care is consistent with the individualized perioperative plan of care The patient's right to privacy is maintained The patient's value system, lifestyle, ethnicity, and culture are considered, respected, and incorporated into the perioperative plan of care The patient participates in decisions affecting his or her perioperative plan of care The patient is free from signs and symptoms of infection The patient has wound/tissue perfusion consistent with or improved from baseline levels established preoperatively The patient is at or returning to normothermia at the conclusion of the immediate postoperative period The patient's respiratory function is consistent with or improved from baseline levels established preoperatively The patient's cardiovascular status is consistent with or improved from baseline levels established preoperatively The patient's cardiovascular status is consistent with or improved from baseline levels established preoperatively The patient demonstrates and/or reports adequate pain control throughout the perioperative period The patient received appropriate medication(s), safely administered during the perioperative period Acuity Level PACU I FT Entry 1 Start Time 01/11/20 12:02:00 Stop Time 01/11/20 12:51:00 Acuity Level Acuity Level I Last Modified By: Lupe Muniz RN 01/11/20 13:37:04 Finalized By: Lupe Muniz RN Document Signatures Signed By: Lupe Muniz RN 01/11/20 13:37 Normal [facility] Main OR PACU II Recordon Main OR PACU II Record PACU Phase II Doc ument Type FT Summary Primary Physician: Abimael MCDERMOTT MD Finalized Date/Time: 01/11/20 15:11:26 Pt. Name: RUBÉN APARICIO Guru WilsonB./Sex: 1960 Female Med Rec #: [id number] Physician: Abimael MCDERMOTT MD Financial #: [id number] Pt. Type: A Room/Bed: [facility] Admit/Disch: 01/11/20 07:25:52 - Institution: Case Times PACU II FT Pre-Care Text: Identifies barriers to communication and implements measures to provide psychological support and determines knowledge level Develops individualized plan of care, and ensures continuity of care Maintains patient's dignity and privacy, and maintains patient confidentiality Identifies and reports philosophical, cultural, and spiritual beliefs and values Identifies individual values and wishes concerning care administers prescribed antibiotic therapy and immunizing agents as ordered, Evaluates postoperative tissue perfusion Implements thermoregulation measures, and monitors body temperature Evaluates postoperative respiratory status Evaluates postoperative cardiac status Evaluates postoperative neurological status Assesses pain control, collaborated in initiating patient-controlled analgesia and implements alternative methods of pain control Verifies allergies, administers prescribed medications and solutions, evaluates response to medications Entry 1 In PACU II 01/11/20 12:55:00 Discharge from PACU 01/11/20 14:50:00 II Outcomes Met? Yes Last Modified By: Toma Rhodes RN 01/11/20 15:11:25 Post-Care Text: The patient demonstrates knowledge of the expected response to the operative or invasive procedure The patient's care is consistent with the individualized perioperative plan of care The patient's right to privacy is maintained The patient's value system, lifestyle, ethnicity, and culture are considered, respected, and incorporated into the perioperative plan of care The patient participates in decisions affecting his or her perioperative plan of care. The patient is free from signs and symptoms of infection The patient has wound/tissue perfusion consistent with or improved from baseline levels established preoperatively The patient is at or returning to normothermia at the conclusion of the immediate postoperative period The patient's respiratory function is consistent with or improved from baseline levels established preoperatively The patient's cardiovascular status is consistent with or improved from baseline levels established preoperatively The patient's neurological status is consistent with or improved from baseline levels established preoperatively The patient demonstrates and/or reports adequate pain control throughout the perioperative period The patient received appropriate medication(s), safely administered during the perioperative period Finalized By: Toma Rhodes RN Document Signatures Signed By: Toma Rhodes RN 01/11/20 15:11 Normal [facility] Main OR Preoperative Recordo n 01-11-2020 Main OR Preoperative Record PreOp Document Type FT Summary Primary Physician: Abimael MCDERMOTT MD Finalized Date/Time: 01/11/20 10:41:28 Pt. Name: RUBÉN APARICIO Guru /Sex: 1960 Female Med Rec #: [id number] Physician: Abimael MCDERMOTT MD Financial #: [id number] Pt. Type: A Room/Bed: [facility] Admit/Disch: 01/11/20 07:25:52 - Institution: Case Times PreOp FT Pre-Care Text: Verifies consent for planned procedure, identifies individual values and wishes concerning care, includes family members in perioperative teaching Entry 1 Patient Times. In Pre Surgery 01/11/20 07:30:00 Out Pre Surgery 01/11/20 09:42:00 Outcomes Met? Yes Last Modified By: Melyssa Rose RN 01/11/20 10:41:22 Post-Care Text: The patient participates in decisions affecting his or her perioperative plan of care Finalized By: Melyssa Rose RN Document Signatures Signed By: Melyssa Rose RN 01/11/20 10:41 Normal [facility] Monitor Recordon 01-11-2020 Monitor Record [id number]#[id number]:127 Normal [facility] Operative Reporton 0 Operative Report Date of Surgery: 01/11/2020 SURGEON: Abimael Mcdermott M.D. PREOPERATIVE DIAGNOSIS: Epigastric hernia POSTOPERATIVE DIAGNOSIS: Epigastric hernia with defects x 3 OPERATION: Robotic assisted epigastric herniorrhaphy with 9 cm Symbotex mesh insertion ANESTHESIA: General endotracheal ESTIMATED BLOOD LOSS: Less than 5 mL INDICATIONS AND CONSENT: The patient is a 59 year old female with history of worsening epigastric pain. Workup revealed evidence of incarcerated epigastric hernia that was tender to the touch and which was nonreducible. Indications, risks, benefits, alternatives of proceeding with robotic assisted epigastric herniorrhaphy were explained extensively to the patient including risk of bleeding, infection, scarring, pain, recurrence, blood clot, pulmonary embolus, heart attack, anesthetic complications, need for further surgery or open procedure. All of her questions were answered. Informed consent was obtained. PROCEDURE: The patient was brought to the Operating Room and placed in the supine position. General anesthesia was induced. Patel catheter was inserted using sterile technique. A rectus sheath block was performed by Dr. Lee. The patient was prepped and drpaed in the usual sterile fashion. The right subcostal port site incision was made with a scalpel blade and carried down through the subcutaneous tissue using blunt dissection. The fascia was grasped and incised. Two 0 Vicryl stay sutures were placed on either side of the midline fascia. The Deborah trocar was inserted and the abdomen was then insufflated with carbon dioxide to a pressure to a 15 mm Hg. The scope was inserted and the abdomen was visualized. 8 mm camera port was placed under direct visualization as well as additional port in the lower abdomen towards the midline on the right also under direct visualization. A #1 nonabsorbable V-Loc suture was then placed into the abdomen placed in the upper falciform ligament for safekeeping. The upper robot was then docked. Bipolar grasper was placed in the #2 arm and monopolar scissors in the #4 arm. I then broke scrub and went to the console. The peritoneum just to the right of the midline was incised and the preperitoneal fat and peritoneum was mobilized extending it towards the midline and then down towards the left. Approximately 2 cm defect was encountered where the main hernia was and then cephalad there were two other smaller defects. A large amount of preperitoneal fat herniated through the defects as well as some fat from the falciform ligament. A pocket was created so that it could accommodate the 9 cm Symbotex mesh. Once this was completed the scissors were brought in through the #2 arm and the suture was cut. It was then brought out under direct visualization through the Deborah trocar in the right upper quadrant. The mesh was then inserted along with three 2-0 absorbable V-Loc sutures. The mesh was then rolled so that the coated side was out. It was then secured circumferentially using the 2-0 V-Loc absorbable sutures. A third stitch was then used to close the peritoneum and preperitoneal fat over the repair. Scissors were then brought in through the #2 arm and all sutures were cut. They were then brought out under direct visualization through the Deborah trocar in the right upper quadrant. The additional needle funeral car driver was removed. The robot was undocked. I then scrubbed back into the field. I examined the repair. It was noted to be intact with good hemostasis. All port sites were examined. Upon withdrawal of the ports there was noted to be good hemostasis. The subxiphoid port site fascia was then closed with a 0 Vicryl [id number] sutures. All port sites were infiltrated with 0.5% Marcaine. The skin was then closed with interrupted 4-0 subcuticular Monocryl sutures. Skin glue, sterile pressure dressing was applied to the hernia site as well as an abdominal binder. Patel catheter was removed. The patient was extubated and sent to Recovery Room in good condition. Jerrica Moseley Dictated: 01/11/2020 #[id number] Typed: 01/11/2020 #[id number] cc: Jerrica Corrales M.D. Normal [facility] Comment on above: Result Comment: Elec tronically Signed By: BALDEMAR GARZA, Abimael Metcalf\Date and Time Signed: 01/11/20 13:37 EDT Operative Report Patient: Zohra APARICIO Age: 59 years Sex: Female : 1960 Associated Diagnoses: None Author: Blaise Lee Jr., DO Postoperative Information Date/ Time: 01/11/2020 10:10:00 Preoperative Diagnosis: Acute postoperative pain.. Postoperative Diagnosis: Acute postoperative pain. Procedure: Rectus sheath block. Anesthesia Method: GETA. Performed by: Blaise Lee Jr., DO. Medications: See Anesthesia Record. Complications: None. Notes: The patient was interviewed and examined prior to the planned operation. Anesthesia options were discussed including rectus sheath block for postoperative analgesia. This discussion included a description of the procedure, risks and benefits, as well as alternatives to the block. The patients questions were addressed and the patient elected to proceed with preoperative administration of local anesthetic agent bilaterally into the rectus sheath. After induction of general anesthesia, with the patient placed in a supine position and monitored with continuous pulse oximetry, non-invasive blood pressure, and electrocardiography and following time-out, the patient's pertinent anatomic landmarks were identified. The epigastric abdomen was prepped with chloroprep to the level of the umbilicus. Ultrasound guidance was employed with the probe placed in a transverse fashion in the supraumbilical region. The rectus abdominus muscles were identified. Lateral to the ultrasound probe, a 21 gauge x 110 mm needle was introduced and advanced under ultrasonic gudance medially. The needle was advanced obliquely through the right abdominus rectus muscle to the posteromedial rectus sheath space. With intermittent attempts for aspiration of blood, 25 cc of a mix of 0.25% plain Bupivacaine (15 mL) plus 1.3% liposomal Bupivaine (20 mL) diluted normal saline (35 mL) were injected. No signs of intravascular injection were elicited during the procedure. In similar fashion on the left, lateral to the ultrasound probe, the same needle was introduced and advanced under ultrasonic gudance medially. The needle was advanced obliquely through the left abdominus rectus muscle to the posteromedial rectus sheath space. The same mixture was introduced on this side with no signs of intravascular injection elicited. The patient tolerated the procedure well. Following the rectus sheath block, preparations continued for the proposed operation.. Normal [facility] Comment on above: Result Comment: Elec tronically Signed By: Blaise Lee Jr., DO.kayce\Date and Time Signed: 01/11/20 10:30 EDT Outpatient Surgery Discharge Instructionon 01-11-2020 Outpatient Surgery Discharge Instruction [place] [id number] Patient Discharge Instructions PERSON INFORMATION Name: RUBÉN APARICIO Date of : 1960 Current Date: 01/11/2020 13:09:51 PHYSICIANS Admitting Physician: Abimael MCDERMOTT MD Discharge Diagnosis: Complicated incarcerated epigastric hernia RUBÉN APARICIO has been given the following list of follow-up instructions, prescriptions, and patient education materials: PATIENT FOLLOW-UP INFORMATION Diet: Regular Discharge Activity: Arrange for a responsible adult supervision for 24 hours Discharge Restrictions: No driving, Do not make important decisions for 24 hours, Do not drink alcoholic beverages for 24 hours Call Your Doctor For: Persistent or heavy bleeding, Temperature above 101.5 degrees, Redness, swelling, or pus at operative site, Severe pain at the operative site, Persistent vomiting Wound Care Instructions: Keep incision dry, Remove dressing as instructed Remove Your Dressing In 1 Days Additional Instructions: may shower tomorrow, remove dressings and leave open to air, wear cotton t-shirt under binder,wear binder at all times no lifting > [address] while taking the [place] IF UNABLE TO CONTACT YOUR PHYSICIAN AND YOU FEEL IT IS AN EMERGENCY, GO TO THE NEAREST EMERGENCY ROOM OR CALL 911 IALESSANDRA DEBBIE S, have received the attached patient education materials/instructions and have verbalized understanding: May we do a follow up call? Yes No I was present when discharge instructions were given ____ Patient Signature _ Date Clinican/Nurse Signature Date Follow up: With: Address: When: Abimael MCDERMOTT [address], [address], [facility] [address] [place] [address] Business (1) Within 7 to 10 days Pharmacy Information: Thank you for choosing [facility] HERE ARE THE MEDICATION CHANGES THAT OCCURRED DURING YOUR HOSPITAL STAY New Medications [address]HA [address], [address] [place], [place] [id number], [phone] acetaminophen-hydrocodone (Dalton 325 mg-5 mg oral tablet) 1 Tablets By Mouth every 4 hours as needed for pain. take with food or milk. Refills: 0. Medications to Continue with No Changes Other Medications albuterol (Ventolin HFA 90 mcg/inh Aerosol) 2 Puffs Inhalation 4 times a day as needed Shortness of breath or wheezing. alprazolam (alprazolam 0.25 mg Tab) 1 Tablets By Mouth 3 times a day as needed anxiety. APAP/ASA/caffeine (Excedrin Migraine) 2 Tablets By Mouth every 6 hours as needed Pain. aripiprazole (Abilify 10 mg Tab) 1 Tablets By Mouth every day. aspirin (aspirin 81 mg Chew Tab) 1 Tablets Chewed every day. atorvastatin (atorvastatin 40 mg Tab) 1 Tablets By Mouth every day. desvenlafaxine (desvenlafaxine 100 mg Tab-) 1 Tablets By Mouth every day. fluticasone/umeclidinium/v ilanterol (Trelegy Ellipta) 1 Puffs Inhalation every day. hyoscyamine (Levsin 0.125 mg SL Tab) 1 Tablets By Mouth every 6 hours as needed abdominal pain. metoprolol (Metoprolol tartrate 25 mg Tab) 1 Tablets By Mouth 2 times a day. multivitamin with minerals (Centrum Silver oral tablet) 1 Tablets By Mouth every day. omeprazole (Prilosec OTC) 20 Milligram By Mouth every day. ondansetron (Zofran 4 mg Tab) 1 Tablets By Mouth every 6 hours as needed Nausea. pantoprazole (Protonix 40 mg Tab-DR) 1 Tablets By Mouth every day. sucralfate (Carafate 1 gram Tab) 1 Tablets By Mouth four times a day (before meals and at bedtime)., stomach topiramate (Trokendi XR 25 mg oral capsule, extended release) 1 Capsules By Mouth every day. PATIENT EDUCATION INFORMATION Instructions: How To Use an Incentive Spirometer An incentive spirometer is a tool that measures how well you are filling your lungs with each breath. Learning to take long, deep breaths using this tool can help you keep your lungs clear and active. This may help to reverse or lessen your chance of developing breathing (pulmonary) problems, especially infection. You may be asked to use a spirometer: ? After a surgery. ? If you have a lung problem or a history of smoking. ? After a long period of time when you have been unable to move or be active. If the spirometer includes an indicator to show the highest number that you have reached, your health care provider or respiratory therapist will help you set a goal. Keep a list (log) of your progress as told by your health care provider. What are the risks? ? Breathing too quickly may cause dizziness or cause you to pass out. Take your time so you do not get dizzy or light-headed. ? If you are in pain, you may need to take pain medicine before doing incentive spirometry. It is harder to take a deep breath if you are having pain. How to use your incentive spirometer 1. Sit up on the edge of your bed or on a chair. 2. Hold the incentive spirometer so that it is in an upright position. 3. Before you use the spirometer, breathe out normally. 4. Place the mouthpiece in your mouth. Make sure your lips are closed tightly around it. 5. Breathe in slowly and as deeply as you can through your mouth, causing the piston or the ball to rise toward the top of the chamber. 6. Hold your breath for 3?5 seconds, or for as long as possible. ? If the spirometer includes a athletic coach indicator, use this to guide you in breathing. Slow down your breathing if the indicator goes above the marked areas. 7. Remove the mouthpiece from your mouth and breathe out normally. The piston or ball will return to the bottom of the chamber. 8. Rest for a few seconds, then repeat the steps 10 or more times. ? Take your time and take a few normal breaths between deep breaths so that you do not get dizzy or light-headed. ? Do this every 1?2 hours when you are awake. 9. If the spirometer includes a goal marker to show the highest number you have reached (best effort), use this as a goal to work toward during each repetition. 10. After each set of 10 deep breaths, cough a few times. This will help to make sure that your lungs are clear. ? If you have an incision on your chest or abdomen from surgery, place a pillow or a rolled-up towel firmly against the incision when you cough. This can help to reduce pain from coughing. General tips ? When you become able to get out of bed, walk around often and continue to cough to help clear your lungs. ? Keep using the incentive spirometer until your health care provider says it is okay to stop using it. If you have been in the hospital, you may be told to keep using the spirometer at home. Contact a health care provider if: ? You are having difficulty using the spirometer. ? You have trouble using the spirometer as often as instructed. ? Your pain medicine is not giving enough relief for you to use the spirometer as told. ? You have a fever. ? You develop shortness of breath. Get help right away if: ? You develop a cough with bloody mucus from the lungs (bloody sputum). ? You have fluid or blood coming from an incision site after you cough. Summary ? An incentive spirometer is a tool that can help you learn to take long, deep breaths to keep your lungs clear and active. ? You may be asked to use a spirometer after a surgery, if you have a lung problem or a history of smoking, or if you have been inactive for a long period of time. ? Use your incentive spirometer as instructed every 1?2 hours while you are awake. ? If you have an incision on your chest or abdomen, place a pillow or a rolled-up towel firmly against your incision when you cough. This will help to reduce pain. This information is not intended to replace advice given to you by your health care provider. Make sure you discuss any questions you have with your health care provider. Document Released: 07/22/2007 Document Revised: 04/03/2018 Document Reviewed: 01/22/2018 Gertrude Patient Education ? 2019 [employer]. Normal [facility] Outside Recordson 01-11-2020 Outside Records [id number]:[id number] Normal [facility] Patient Education - Texton 1 Patient Education - Text Pulmonary Medicine How To Use an Incentive Spirometer An incentive spirometer is a tool that measures how well you are filling your lungs with each breath. Learning to take long, deep breaths using this tool can help you keep your lungs clear and active. This may help to reverse or lessen your chance of developing breathing (pulmonary) problems, especially infection. You may be asked to use a spirometer: ? After a surgery. ? If you have a lung problem or a history of smoking. ? After a long period of time when you have been unable to move or be active. If the spirometer includes an indicator to show the highest number that you have reached, your health care provider or respiratory therapist will help you set a goal. Keep a list (log) of your progress as told by your health care provider. What are the risks? ? Breathing too quickly may cause dizziness or cause you to pass out. Take your time so you do not get dizzy or light-headed. ? If you are in pain, you may need to take pain medicine before doing incentive spirometry. It is harder to take a deep breath if you are having pain. How to use your incentive spirometer 1. Sit up on the edge of your bed or on a chair. 2. Hold the incentive spirometer so that it is in an upright position. 3. Before you use the spirometer, breathe out normally. 4. Place the mouthpiece in your mouth. Make sure your lips are closed tightly around it. 5. Breathe in slowly and as deeply as you can through your mouth, causing the piston or the ball to rise toward the top of the chamber. 6. Hold your breath for 3?5 seconds, or for as long as possible. ? If the spirometer includes a athletic coach indicator, use this to guide you in breathing. Slow down your breathing if the indicator goes above the marked areas. 7. Remove the mouthpiece from your mouth and breathe out normally. The piston or ball will return to the bottom of the chamber. 8. Rest for a few seconds, then repeat the steps 10 or more times. ? Take your time and take a few normal breaths between deep breaths so that you do not get dizzy or light-headed. ? Do this every 1?2 hours when you are awake. 9. If the spirometer includes a goal marker to show the highest number you have reached (best effort), use this as a goal to work toward during each repetition. 10. After each set of 10 deep breaths, cough a few times. This will help to make sure that your lungs are clear. ? If you have an incision on your chest or abdomen from surgery, place a pillow or a rolled-up towel firmly against the incision when you cough. This can help to reduce pain from coughing. General tips ? When you become able to get out of bed, walk around often and continue to cough to help clear your lungs. ? Keep using the incentive spirometer until your health care provider says it is okay to stop using it. If you have been in the hospital, you may be told to keep using the spirometer at home. Contact a health care provider if: ? You are having difficulty using the spirometer. ? You have trouble using the spirometer as often as instructed. ? Your pain medicine is not giving enough relief for you to use the spirometer as told. ? You have a fever. ? You develop shortness of breath. Get help right away if: ? You develop a cough with bloody mucus from the lungs (bloody sputum). ? You have fluid or blood coming from an incision site after you cough. Summary ? An incentive spirometer is a tool that can help you learn to take long, deep breaths to keep your lungs clear and active. ? You may be asked to use a spirometer after a surgery, if you have a lung problem or a history of smoking, or if you have been inactive for a long period of time. ? Use your incentive spirometer as instructed every 1?2 hours while you are awake. ? If you have an incision on your chest or abdomen, place a pillow or a rolled-up towel firmly against your incision when you cough. This will help to reduce pain. This information is not intended to replace advice given to you by your health care provider. Make sure you discuss any questions you have with your health care provider. Document Released: 07/22/2007 Document Revised: 04/03/2018 Document Reviewed: 01/22/2018 Gertrude Patient Education ? 2019 [employer]. [facility] Progress Note-Physicianon Progress Note-Physician Patient: RUBÉN APARICIO Age: 59 years Sex: Female : 1960 Associated Diagnoses: None Author: Blaise Lee Jr., DO Postoperative Information Date/ Time: 01/11/2020 10:10:00 Preoperative Diagnosis: Acute postoperative pain.. Postoperative Diagnosis: Acute postoperative pain. Procedure: Rectus sheath block. Anesthesia Method: GETA. Performed by: Blaise Lee Jr., DO. Medications: See Anesthesia Record. Complications: None. Notes: The patient was interviewed and examined prior to the planned operation. Anesthesia options were discussed including rectus sheath block for postoperative analgesia. This discussion included a description of the procedure, risks and benefits, as well as alternatives to the block. The patients questions were addressed and the patient elected to proceed with preoperative administration of local anesthetic agent bilaterally into the rectus sheath. After induction of general anesthesia, with the patient placed in a supine position and monitored with continuous pulse oximetry, non-invasive blood pressure, and electrocardiography and following time-out, the patient's pertinent anatomic landmarks were identified. The epigastric abdomen was prepped with chloroprep to the level of the umbilicus. Ultrasound guidance was employed with the probe placed in a transverse fashion in the supraumbilical region. The rectus abdominus muscles were identified. Lateral to the ultrasound probe, a 21 gauge x 110 mm needle was introduced and advanced under ultrasonic gudance medially. The needle was advanced obliquely through the right abdominus rectus muscle to the posteromedial rectus sheath space. With intermittent attempts for aspiration of blood, 25 cc of a mix of 0.25% plain Bupivacaine (15 mL) plus 1.3% liposomal Bupivaine (20 mL) diluted normal saline (35 mL) were injected. No signs of intravascular injection were elicited during the procedure. In similar fashion on the left, lateral to the ultrasound probe, the same needle was introduced and advanced under ultrasonic gudance medially. The needle was advanced obliquely through the left abdominus rectus muscle to the posteromedial rectus sheath space. The same mixture was introduced on this side with no signs of intravascular injection elicited. The patient tolerated the procedure well. Following the rectus sheath block, preparations continued for the proposed operation.. Normal [facility] Comment on above: Result Comment: Elec tronically Signed By: Blaise Lee Jr., DO\.br\Date and Time Signed: 01/11/20 10:29 EDT Progress Note-Physician Patient: RUBÉN APARICIO Age: 59 years Sex: Female : 1960 Associated Diagnoses: None Author: Blaise Lee Jr., DO Preoperative Information Time patient last ate or drank:=== (NPO since midnight) Anesthesia history: Patient History: No prior problems with anesthesia.. Re-eval prior to induction: Inital eval reviewed: No significant interval change, Surgical H&P documented and on chart. Surgical consent signed and on chart.. Anesthesia results Review of Systems Cardiovascular: Negative except as documented in history of present illness. Respiratory: Negative. Neurologic: Negative. Health Status Allergies: Allergic Reactions (Selected) No Known Allergies No Known Medication Allergies, Allergies (2) Active Reaction No Known Allergies None Documented No Known Medication Allergies None Documented Current medications: (Selected) Inpatient Medications Ordered HYDROmorphone 1 mg/mL injectable solution: 0.2 mg = 0.2 mL, Injection, IV Push, q2min PRN Pain for 10 dose(s), Stop date Limited # of times, Routine, Start date 01/11/20 8:24:00 EDT Lactated Ringers IV Zee 1000 mL 1,000 mL: 1,000 mL, IV, 100 mL/hr, Routine, Start date 01/11/20 8:24:00 EDT, 10 hour(s), Total volume (mL): 1,000, 61 kg, 1.6, m2 Lactated Ringers IV Zee 1000 mL 1,000 mL: 1,000 mL, IV, 150 mL/hr, Routine, Start date 01/11/20 9:15:00 EDT, 6.7 hour(s), Total volume (mL): 1,000, 61 kg, 1.6, m2 Phenergan 25 mg/mL Injection: 6.25 mg = 0.25 mL, Injection, IV Push, q2min PRN Other (see comment) for 2 dose(s), Stop date Limited # of times, Routine, Start date 01/11/20 8:24:00 EDT cefazolin additive + Premix Dextrose 5% Diluent 50 mL: 2 gram = 50 mL, IV Piggyback, PREOP, Routine, Start date 01/11/20 9:15:00 EDT, 100 mL/hr, Infuse over 30 minute(s) Documented Medications Documented Abilify 10 mg Tab: 10 mg = 1 tab(s), Oral, Daily, Refills(s) 0, Depression Carafate 1 gram Tab: 1 gram = 1 tab(s), Oral, QIDACHS, Refills(s) 0, Other (see comment) Centrum Silver oral tablet: 1 tab(s), Oral, Daily, Prophylaxis Excedrin Migraine: 2 tab(s), Oral, q6hr Pain Levsin 0.125 mg SL Tab: 0.125 mg = 1 tab(s), Oral, q6hr, PRN abdominal pain, Refills(s) 0 Metoprolol tartrate 25 mg Tab: 25 mg = 1 tab(s), Oral, BID, High blood pressure Prilosec OTC: 20 mg, Oral, Daily, Control of stomach acid Protonix 40 mg Tab-DR: 40 mg = 1 tab(s), Oral, Daily, Refills(s) 0, Control of stomach acid Trelegy Ellipta: = 1 puff(s), Inhalation, Daily, Refills(s) 0, COPD Trokendi XR 25 mg oral capsule, extended release: 25 mg = 1 cap(s), Oral, Daily, Refills(s) 0, Migraine headache Ventolin HFA 90 mcg/inh Aerosol: 2 puff(s), Inhalation, QID Shortness of breath or wheezing, Refill(s) 0 Zofran 4 mg Tab: 4 mg = 1 tab(s), Oral, q6hr, PRN Nausea, Refills(s) 0 alprazolam 0.25 mg Tab: 0.25 mg = 1 tab(s), Oral, TID, PRN anxiety, Refills(s) 0, Anxiety aspirin 81 mg Chew Tab: 81 mg = 1 tab(s), Chewed, Daily, Refills(s) 0, Prophylaxis atorvastatin 40 mg Tab: 40 mg = 1 tab(s), Oral, Daily, Refills(s) 0, High cholesterol desvenlafaxine 100 mg Tab-: 100 mg = 1 tab(s), Oral, Daily, Depression Histories Past Medical History: No active or resolved past medical history items have been selected or recorded. Family History: Stroke Father Mother Hyperlipidemia Father Mother Cardiac arrest Father Mother Procedure history: Skin lesion ([id number]). Comments: 12/15/2019 13:32 EDT - Carmita Avery LPN right lower leg Social History Social & Psychosocial Habits Alcohol 12/15/2019 Risk Assessment: Denies Alcohol Use Substance Abuse 12/15/2019 Risk Assessment: Denies Substance Abuse Tobacco 12/24/2019 Tobacco Use: 10 or more cigarettes (12/30/2019 Risk Assessment: High Risk . Physical Examination Airway: Mallampati classification: II (soft palate, fauces, uvula visible). Respiratory: Lungs are clear to auscultation. Cardiovascular: Regular rhythm. Review / Management Results review: Lab results 01/04/2020 13:15 EDT SARS-CoV-2, YAMINI Not Detected 12/30/2019 13:01 EDT WBC 7.5 E9/L RBC 4.3 E12/L Hgb 14.2 gm/dL Hct 42.0 % MCV 97.1 fL MCH 32.9 pg MCHC 33.8 gm/dL RDW 13.7 % Platelet 336.0 E9/L MPV 7.7 fL Glucose Random 87 mg/dL BUN 14 mg/dL Creatinine 0.6 mg/dL eGFR >60 mL/min/1.73 m2 eGFR AA >60 mL/min/1.73 m2 Sodium Lvl 140 mmol/L Potassium Lvl 3.5 mmol/L Chloride 108 mmol/L CO2 24 mmol/L AGAP 12 mEq/L . Chest x-ray results * Final Report * Reason For Exam Pre Op POWERSCRIBE REPORT IMPRESSION: NO EVIDENCE OF ACTIVE CHEST DISEASE. CLINICAL HISTORY: Pre Op. COMMENT: The heart is normal in size. The mediastinum is unremarkable. The lungs appear hyperinflated. There is minimal atelectasis or fibrosis at the left lung base. No infiltration nor pleural effusion is evident. Signature Line FINAL REPORT Dictated: 01/01/2020 7:16 am Porter Wood M.D. Signed (Electronic Signature): 01/01/2020 7:16 am Signed by: Porter Wood M.D. Transcribed by: SELENA Technologist: ALICIA RAD REPORT This document has an image Result type: XR Chest 2 Views Result date: December 30, 2019 13:23 EDT Result status: Auth (Verified) Result title: XR Chest 2 Views Performed by: Porter Wood M.D. on January 01, 2020 7:16 EDT Verified by: Porter Wood M.D. on January 01, 2020 7:16 EDT Encounter info: [id number], [facility], Outpatient, 12/30/2019 - 12/30/2019 ECG interpretation: SINUS RHYTHM LEFT ATRIAL ENLARGEMENT LOW QRS VOLTAGE IN PRECORDIAL LEADS INFERIOR MYOCARDIAL INFARCTION, PROBABLY OLD. Coronary Artery Disease Additional Information: * Final Report * Reason For Exam CHEST PAIN Report Patient Height: 60 Patient Weight: 134# Blood Pressure: 127/85 1. LVIDd m(3.8-5.8cm)w(3.8-5.2cm) 3.5 cm 2. LVIDs m(2.1-3.9cm)w(2.2-3.5cm) 2.3 cm 3. IVSd m(0.6-1.0cm) 1.6 cm 4. LVPWd (0.6-1.0cm) 1.0 cm 5. LAs (2.7-4.0cm) 2.3 cm 6. LA Vol. Index (16-34 mL/m2) 21 mL/m2 7. AOd Root (3.0-3.4cm) 3.2 cm 8. AO Annulus (2.3-2.6cm) _ cm 9. AO Sinus of Valsalva (3.0-3.4cm) _ cm 10. AO Sinotubular Junction (2.6-2.9cm) _ cm 11. Ascending Aorta (2.7-3.0cm) 3.7 cm 12. RVIDd (2.0-3.0cm) 2.7 cm 13. AoV Peak Gradient _ mmHg 14. AoV Mean Gradient _ mmHg 15. LVOT Diam _ cm REASON FOR EXAM: Chest pain. EXAM PERFORMED: 2D echo with Doppler. M-MODE/2D/DOPPLER REPORT: 1. The patient has mild to moderate left ventricular hypertrophy, mostly of the septum, with no evidence of LV outflow tract obstruction. Patient's LVEF is approximately 65% with Stage I diastolic dysfunction. 2. The right ventricle is normal. 3. The left atrium is normal. 4. The right atrium is normal. 5. The aortic valve is trileaflet with a trivial amount of aortic insufficiency. No evidence of aortic stenosis. 6. Mitral valve is normal with again Stage I diastolic dysfunction. 7. Pulmonary valve is normal. 8. Tricuspid valve opens normally with mild tricuspid regurgitation. The RVSP is estimated to be 40 mm Hg consistent with at least mild pulmonary hypertension. 9. The pericardium is normal. 10. The interatrial septum is intact. 11. The aorta is mildly dilated at 3.7 cm. SUMMARY/CONCLUSION: 1. Mild eccentric left ventricular hypertrophy with no evidence of LV outflow tract obstruction. 2. Normal LV size and function with an EF around 60-65%. 3. Stage I diastolic dysfunction. 4. Trivial aortic insufficiency. 5. Mild tricuspid regurgitation with an RVSP of 40 mm Hg consistent with at least mild pulmonary hypertension. 6. Ascending aorta of 3.7 cm. 7. No old echocardiograms for comparison. Signature Line FINAL REPORT Signed (Electronic Signature): 01/08/2020 10:46 am Signed by: Marcel Barber MD Transcribed by: rody Technologist: KAYLEE RAD REPORT This document has an image Result type: Echo Transthoracic Complete Result date: January 08, 2020 8:39 EDT Result status: Auth (Verified) Result title: Echo Transthoracic Complete Performed by: Samantha Welch RDCS on January 08, 2020 8:39 EDT Verified by: Marcel Barber MD on January 08, 2020 10:46 EDT Encounter info: [id number], [facility], Outpatient, 01/08/2020 - 01/08/2020, * Final Report * Reason For Exam CHEST PAIN;Chest pain Report Patient Height: 60 Patient Weight: 134# REASON FOR PROCEDURE: Chest pain and preoperative evaluation. Resting EKG: The patient's resting EKG showed normal sinus rhythm, normal axis, and normal intervals, no evidence of previous myocardial infarction. Stress echocardiogram: The patient exercised according to a modified Samir protocol for 5 minutes and 45 seconds achieving a maximum workload of 89% and 3.4 METS. Resting heart rate was initially 94 beats a minute and steve to a maximum 142 beats a minute which represents 89% of the maximal age predicted heart rate. Resting blood pressure was 128/89 and steve to a maximum of 170/92. Test was terminated due to the attainment of target heart rate. During exercise the patient's heart rate increased as expected. The patient had no dynamic EKG changes to suggest ischemia. No arrhythmia is noted. Resting echocardiogram: Definity agent was used to enhance endocardial visualization. Baseline LVEF was 65% with no regional wall motion abnormalities noted. Stress echocardiogram: At maximum stress the patient had excellent augmentation of all regional koo. CONCLUSIONS: Normal, adequate, treadmill echocardiogram. Negative for ischemia by EKG and echocardiographic criteria. No anginal symptoms noted. No arrhythmias noted. Appropriate blood pressure response to exercise. Final LVEF of 75%. Patient tolerated the procedure well. No complications. Signature Line FINAL REPORT Signed (Electronic Signature): 01/08/2020 5:01 pm Signed by: Marcel Barber MD Transcribed by: rody Technologist: KAYLEE TIMMONS This document has an image Result type: EC Stress Echo Complete w/ Contrast Result date: January 08, 2020 11:06 EDT Result status: Auth (Verified) Result title: EC Stress Echo Complete w/ Contrast Performed by: Samantha Welch RDCS on January 08, 2020 11:06 EDT Verified by: Marcel Barber MD on January 08, 2020 17:01 EDT Encounter info: [id number], [facility], Outpatient, 01/08/2020 - 01/08/2020. Plan [place] [employer]hesi[employer] (ASA) physical status classification: Class III. Anesthetic Preoperative Plan Anesthesia: General. . Anesthetic plan, risks, benefits, and alternatives discussed with the patient and/or family. Patient verbalized understanding. Adverse reactions, complications, and alternatives discujssed. Consent signed and on chart.. Normal [facility] Comment on above: Result Comment: Elec tronically Signed By: Blaise Lee Jr., DO.br\Date and Time Signed: 01/11/20 09:10 EDT UA With Cult Reflexon 2019 Bacteria LM Ql (Urine sed) TRACE Normal Trace [facility] Comment on above: Performed By: #### 1 [id number] #### [facility] [address] [place] [address] Bilirubin Ql (U) Negative Normal Negative [facility] Comment on above: Performed By: #### 1 [id number] #### [facility] [address] [place] [address] Clarity (U) SL CLOUDY Abnormal Clear [facility] Comment on above: Performed By: #### 1 [id number] #### [facility] [address] [place] [address] Color (U) YELLOW Normal Yellow [facility] Comment on above: Performed By: #### 1 [id number] #### [facility] [address] [place] [address] Crystals LM Ql (Urine sed) Present Normal [facility] Comment on above: Performed By: #### 1 [id number] #### [facility] [address] [place] [address] Epithelial cells.squamous LM.HPF (Urine sed) [#/Area] 0-2 Normal 0-2 [facility] Comment on above: Performed By: #### 1 [id number] #### [facility] [address] [place] [address] Glucose Test strip (U) [Mass/Vol] Negative Normal Negative [facility] Comment on above: Performed By: #### 1 [id number] #### [facility] [address] [place] [address] Hemoglobin Ql (U) Negative Normal Negative [facility] Comment on above: Performed By: #### 1 [id number] #### [facility] [address] [place] [address] Ketones (U) [Mass/Vol] Negative Normal Negative [facility] Comment on above: Performed By: #### 1 [id number] #### [facility] [address] [place] [address] [place].plasma/[place] .RBC (Bld) [Mass ratio] 0-3 Normal 0-3 [facility] Comment on above: Performed By: #### 1 [id number] #### [facility] [address] [place] [address] Mucus Ql (Urine sed) TRACE Normal [facility] Comment on above: Performed By: #### 1 [id number] #### [facility] [address] [place] [address] Nitrite Ql (U) Negative Normal Negative [facility] Comment on above: Performed By: #### 1 [id number] #### [facility] [address] [place] [address] pH (U) 7.0 [pH] 5.0-9.0 [facility] Comment on above: Performed By: #### 1 [id number] #### [facility] [address] [place] [address] Protein (U) [Mass/Vol] Negative Normal Negative [facility] Comment on above: Performed By: #### 1 [id number] #### [facility] [address] [place] [address] Specific gravity (U) [Rel density] 1.020 1.005-1.030 [facility] Comment on above: Performed By: #### 1 [id number] #### [facility] [address] [place] [address] UA Spec Desc Patel Normal [facility] Comment on above: Performed By: #### 1 [id number] #### [facility] [address] [place] [address] Urobilinogen Qn (U) 1.0 {Zheng'U}/dL Normal 0.0-1.0 [facility] Comment on above: Performed By: #### 1 [id number] #### [facility] [address] [place] [address] WBC Auto Ql (U) Negative Normal Negative [facility] Comment on above: Performed By: #### 1 [id number] #### [facility] [address] [place] [address] WBC LM.HPF (Urine sed) [#/Area] 0-5 Normal 0-5 [facility] Comment on above: Performed By: #### 1 [id number] #### [facility] [address] [place] [address] Consent for Treatmenton 12-23 Consent for Treatment [id number]:127 Normal [facility] Consultation Noteon 01-08-20 Consultation Note [id number]:127 Normal [facility] Echo Transthoracic Completeo n 01-08-2020 Echo Transthoracic Complete Echocardiology Procedure Exam Date/Time Accession # Ordering Echo Transthoracic 01/08/2020 08:39 EDT [id number] Marcel Barber MD Complete CPT code 34239 Reason for Exam (Echo Transthoracic Complete) CHEST PAIN Report Patient Height: 60 Patient Weight: 134# Blood Pressure: 127/85 1. LVIDd m(3.8-5.8cm)w(3.8-5.2cm) 3.5 cm 2. LVIDs m(2.1-3.9cm)w(2.2-3.5cm) 2.3 cm 3. IVSd m(0.6-1.0cm) 1.6 cm 4. LVPWd (0.6-1.0cm) 1.0 cm 5. LAs (2.7-4.0cm) 2.3 cm 6. LA Vol. Index (16-34 mL/m2) 21 mL/m2 7. AOd Root (3.0-3.4cm) 3.2 cm 8. AO Annulus (2.3-2.6cm) _ cm 9. AO Sinus of Valsalva (3.0-3.4cm) _ cm 10. AO Sinotubular Junction (2.6-2.9cm) _ cm 11. Ascending Aorta (2.7-3.0cm) 3.7 cm 12. RVIDd (2.0-3.0cm) 2.7 cm 13. AoV Peak Gradient _ mmHg 14. AoV Mean Gradient _ mmHg 15. LVOT Diam _ cm REASON FOR EXAM : Chest pain. EXAM PERFORMED : 2D echo with Doppler. M-MODE/2D/DOPPLER REPORT : 1. The patient has mild to moderate left ventricular hypertrophy, mostly of the septum, with no evidence of LV outflow tract obstruction. Patient's LVEF is approximately 65% with Stage I diastolic dysfunction. 2. The right ventricle is normal. 3. The left atrium is normal. 4. The right atrium is normal. 5. The aortic valve is trileaflet with a trivial amount of aortic insufficiency. No evidence of aortic stenosis. 6. Mitral valve is normal with again Stage I diastolic dysfunction. 7. Pulmonary valve is normal. Echocardiology Report 8. Tricuspid valve opens normally with mild tricuspid regurgitation. The RVSP is estimated to be 40 mm Hg consistent with at least mild pulmonary hypertension. 9. The pericardium is normal. 10. The interatrial septum is intact. 11. The aorta is mildly dilated at 3.7 cm. SUMMARY/CONCLUSION : 1. Mild eccentric left ventricular hypertrophy with no evidence of LV outflow tract obstruction. 2. Normal LV size and function with an EF around 60-65%. 3. Stage I diastolic dysfunction. 4. Trivial aortic insufficiency. 5. Mild tricuspid regurgitation with an RVSP of 40 mm Hg consistent with at least mild pulmonary hypertension. 6. Ascending aorta of 3.7 cm. 7. No old echocardiograms for comparison. FINAL REPORT Signed (Electronic Signature): 01/08/2020 10:46 am Signed by: Marcel Barber MD Transcribed by: rody Technologist: KAYLEE Mast [facility] Referral Authorizationson Referral Authorizations [id number]:127 Normal [facility] Coding Summary.on 01-07-2020 Coding Summary. CODING DATE: 020 FINAL [facility] STATUS: Home (Routine DC) PAYOR: Yunier ADMIT DX: REASON FOR VISIT DX: Z01.812 Encounter for preprocedural laboratory examination FINAL DX: PRINCIPAL: Z01.812 Encounter for preprocedural laboratory examination SECONDARY: Z11.59 Encounter for screening for other viral diseases PYMT PROC APC STAT DESCRIPTION DOCTOR NAME DATE NOTE: The code number assigned matches the documented diagnosis and / or procedure in the patient's chart. However, the narrative phrase printed from the coding software may appear abbreviated, or result in slightly different terminology. Coded By: Tiffany Mckenzie CphT Date Saved: 01/07/2020 05:21 pm [facility] Consent for Treatmenton 12-23 Consent for Treatment [id number]:127 Normal [facility] Heart and Vascular Office/Cl inic Noteon 01-06-2020 Heart and Vascular Office/Clinic Note History of Present Illness Ms. Graves is a very pleasant 59-year-old female with a history of obstructive sleep apnea, hiatal hernia, hyperlipidemia, hypertension, and tobacco use as well as COPD on inhaler therapy. Patient was referred to our office for preoperative stratification for hiatal hernia surgery as well as abnormal EKG indicating a possible old inferior wall myocardial infarction. Patient is a nondiabetic, with ongoing tobacco use of less than 1 pack of cigarettes per day for the past 4 years was found to have a hiatal hernia which is been getting worse over the last 2 to 3 months. In addition the patient has complained of exertional chest pressure and heaviness worse with exertion and better with rest which is different than her hiatal hernia pain. Patient apparently sought medical attention about 1 year ago and had a stress test at [facility] however we do not have those results. She has never undergone a catheterization. On further history her mother had coronary disease but no stents or bypass and father had multiple CVAs and a possible myocardial infarction. In addition the patient complains of dyspnea on exertion and shortness of breath but appears to improve with inhaler therapy. She has never had a CVA. Review of Systems Constitutional: no fever, no sweats, no weakness Skin: no rash, no lesions, nobruising/petechiae ENMT: no sore throat, no congestion, no hoarseness Respiratory: mild shortness of breath, no cough, no orthopnea, no wheezing Cardiovascular: mild chest pain, no palpitations, no edema Gastrointestinal: no nausea, no vomiting, no diarrhea, no GI bleeding Genitourinary: no anuria/oliguria no hematuria Musculoskeletal: no back pain, no trauma Neurologic: no headache, no dizziness, no numbness, no weakness Psychiatric: no sleeping problems, no irritability, no anxiety/depression. Heme/Lymph: no bleeding tendency, no bruising tendency Allergy/Immunologic: no recurrent infections, no impaired immunity Additional ROS info: Except as noted in the above Review of Systems and in the History of Present Illness all other systems have been reviewed and are negative or noncontributory. Physical Exam General: alert, no acute distress Skin: warm, dry intact Head: atraumatic, normocephalic Neck: Trachea midline, no JVD, no bruit Eye: normal conjunctiva, sclera clear ENMT: oral mucosa moist Cardiovascular: regular rate and rhythm, nomurmur normal peripheral perfusion Respiratory: Lungs CTA, respirations non labored Chest wall: no deformity. Gastrointestinal: soft, non distended, no tenderness, no guarding. Back: No tenderness, Normal ROM, Normal alignment. Extremities: no edema, no deformity, no trauma Neurological: oriented x 4, LOC appropriate for agesensation equal & normal bilaterally, speech normal Psychiatric: cooperative, affect appropriate for age, normal judgement, normal psychiatric thoughts. EKG dated 12/30/2019 shows normal sinus rhythm, left atrial enlargement, possible old inferior wall myocardial infarction. No old echocardiograms for comparison. Assessment/Plan 59-year-old smoking female with hypertension, unknown cholesterol, reports hiatal hernia surgery in the near future and was found to have an abnormal EKG consistent with possible old inferior wall myocardial infarction, superimposed on exertional chest pain symptoms and dyspnea on exertion over the last several months to a year. 1. Preoperative stratification: Given the patient's risk factors and age, family history, smoking, hypertension, unknown cholesterol, abnormal EKG and exertional chest pain symptoms and the need for hiatal hernia surgery, recommended that we re-stratify her with a 2D echo with Doppler to evaluate her LV function, pulmonary pressures, and valvular status. In addition I recommended that she undergo a modified Samir treadmill echocardiogram to evaluate for possible ischemia. If this is grossly abnormal, the patient may require diagnostic coronary angiogram prior to her hiatal hernia surgery. The meantime she will continue her current dose of baby aspirin and PPI therapy. Is difficult to know whether her chest pain is cardiac related versus hiatal hernia related. We will make every attempt to accomplish her preoperative stratification echocardiogram and stress test prior to her scheduled surgery date of 01/11/2020. 2. Hyperlipidemia: We will obtain a fasting profile. Recommend her LDL be less than 100. Continue Lipitor therapy. 3. Tobacco abuse: I strongly recommended the patient discontinue all tobacco products, and the patient will try her best. 4. The patient stress test and echo are negative, she will be deemed at low risk for noncardiac surgery and may proceed with hiatal hernia surgery. 5. Thank you very much for the opportunity to participate in cardiac care of your patient. Follow-up No qualifying data available Problem List/Past Medical History Ongoing Abdominal pain, right upper quadrant Anxiety and depression Cholelithiasis COPD type A Diarrhea Diastasis recti Epigastric pain Fibrocystic breast Hernia, epigastric Hiatal hernia IBS (irritable bowel syndrome) Incarcerated epigastric hernia Insomnia Nausea FRANCOIS (obstructive sleep apnea) Smoker Tobacco use Historical No qualifying data Procedure/Surgical History Skin lesion. Medications Abilify 10 mg Tab, 10 mg= 1 tab(s), Oral, Daily alprazolam 0.25 mg Tab, 0.25 mg= 1 tab(s), Oral, TID, PRN aspirin 81 mg Chew Tab, 81 mg= 1 tab(s), Chewed, Daily atorvastatin 40 mg Tab, 40 mg= 1 tab(s), Oral, Daily Carafate 1 gram Tab, 1 gram= 1 tab(s), Oral, QIDACHS Centrum Silver oral tablet, 1 tab(s), Oral, Daily desvenlafaxine 100 mg Tab-, 100 mg= 1 tab(s), Oral, Daily Excedrin Migraine, 2 tab(s), Oral, q6hr, PRN Levsin 0.125 mg SL Tab, 0.125 mg= 1 tab(s), Oral, q6hr, PRN Metoprolol tartrate 25 mg Tab, 25 mg= 1 tab(s), Oral, BID Prilosec OTC, 20 mg, Oral, Daily Protonix 40 mg Tab-DR, 40 mg= 1 tab(s), Oral, Daily Trelegy Ellipta, 1 puff(s), Inhalation, Daily Trokendi XR 25 mg oral capsule, extended release, 25 mg= 1 cap(s), Oral, Daily Ventolin HFA 90 mcg/inh Aerosol, 2 puff(s), Inhalation, QID, PRN Zofran 4 mg Tab, 4 mg= 1 tab(s), Oral, q6hr, PRN Allergies No Known Allergies No Known Medication Allergies Social History Alcohol - Denies Alcohol Use, 12/15/2019 Substance Abuse - Denies Substance Abuse, 12/15/2019 Tobacco - High Risk, 12/30/2019 10 or more cigarettes (1/2 pack or more)/day in last 30 days Tobacco Use:., 12/24/2019 Family History Cardiac arrest: Mother and Father. Hyperlipidemia: Mother and Father. Stroke: Mother and Father. Normal [facility] Comment on above: Result Comment: Elec tronically Signed By: Sunil GARZA, Marcel Lynch\.br\Date and Time Signed: 01/06/20 13:45 EDT History and Physicalon 01-04 History and Physical [id number]#[id number]:127 Normal [facility] Priority Order-Gabino 2019 Priority Order-STAT Comment Zurdoe r [facility] Comment on above: Result Comment: Rece ived Performed at: [facility] [address] [facility] [place] [id number] MD Naomi Raymond Performed By: #### 2 [id number], SARS-CoV-2, YAMINI ####[facility] [address] [place] [address] SARS-CoV-2, NAAon 01-05-2020 SARS CORONAVIRUS 2 RNA:PRTHR:PT:RESPIRATO RY:ORD:PROBE.AMP.TAR Not Detected Not Detected [facility] Comment on above: Result Comment: This nucleic acid amplification test was developed and its performance characteristics determined by [employer]. Nucleic acid amplification tests include PCR and TMA. This test has not been FDA cleared or approved. This test has been authorized by FDA under an Emergency Use Authorization (EUA). This test is only authorized for the duration of time the declaration that circumstances exist justifying the authorization of the emergency use of in vitro diagnostic tests for detection of SARS-CoV-2 virus and/or diagnosis of COVID-19 infection under section 564(b)(1) of the Act, 21 U.S.C. 360bbb-3(b) (1), unless the authorization is terminated or revoked sooner. When diagnostic testing is negative, the possibility of a false negative result should be considered in the context of a patient's recent exposures and the presence of clinical signs and symptoms consistent with COVID-19. An individual without symptoms of COVID-19 and who is not shedding SARS-CoV-2 virus would expect to have a negative (not detected) result in this assay. Performed at: [facility] [address] [facility] [place] [id number] MD Naomi Raymond Performed By: #### 2 [id number], SARS-CoV-2, YAMINI ####[facility] [address] [place] [address] XR Chest 2 Viewson 0 XR Chest 2 Views Exam Date/Time: 12/30/2019 13:23 EDT Reason for Exam: Pre Op Report IMPRESSION: NO EVIDENCE OF ACTIVE CHEST DISEASE. CLINICAL HISTORY: Pre Op. COMMENT: The heart is normal in size. The mediastinum is unremarkable. The lungs appear hyperinflated. There is minimal atelectasis or fibrosis at the left lung base. No infiltration nor pleural effusion is evident. FINAL REPORT Dictated: 01/01/2020 7:16 am Porter Wood M.D. Signed (Electronic Signature): 01/01/2020 7:16 am Signed by: Porter Wood M.D. Transcribed by: SELENA Technologist: ALICIA Martin [facility] Coding Summary.on 12-31-2019 Coding Summary. CODING DATE: 020 FINAL [facility] STATUS: Home (Routine DC) PAYOR: Yunier APC DESCRIPTION 5521 Level 1 Imaging without Contrast ADMIT DX: REASON FOR VISIT DX: Z01.818 Encounter for other preprocedural examination FINAL DX: PRINCIPAL: Z01.818 Encounter for other preprocedural examination SECONDARY: PYMT PROC APC STAT DESCRIPTION DOCTOR NAME DATE NOTE: The code number assigned matches the documented diagnosis and / or procedure in the patient's chart. However, the narrative phrase printed from the coding software may appear abbreviated, or result in slightly different terminology. Coded By: Tiffany Mckenzie CphT Date Saved: 12/31/2019 01:49 pm Normal [facility] BUNon 12-30-2019 Urea nitrogen [Mass/Vol] 14 mg/dL Normal 5-21 [facility] Comment on above: Performed By: #### 2 971954, 7442581, 1010930, 1529823, 7621642, 59935371 ####[facility] [address] [place] [address] CBC w/Indiceson 12-30-2019 Erythrocyte distribution width (RBC) [Ratio] 13.7 % Normal 10.9-14.2 [facility] Comment on above: Performed By: #### 2 614807, 3529273, 0340227, 1501236, 1835524, 44002012 ####[facility] [address] [place] [address] Hematocrit (Bld) [Volume fraction] 42.0 % Normal 34.0-46.0 [facility] Comment on above: Performed By: #### 2 851628, 1860416, 2857291, 0060414, 6878066, 78101979 ####[facility] [address] [place] [address] Hemoglobin (Bld) [Mass/Vol] 14.2 g/dL Normal 12.0-16.0 [facility] Comment on above: Performed By: #### 2 568918, 3618054, 3987426, 8806655, 9065574, 73853245 ####[facility] [address] [place] [address] MCH (RBC) [Entitic mass] 32.9 pg Normal 27.0-34.0 [facility] Comment on above: Performed By: #### 2 236334, 2330475, 7403586, 1104615, 1143330, 93742926 ####[address] [address] MCHC (RBC) [Mass/Vol] 33.8 g/dL Normal 31.4-36.0 [facility] Comment on above: Performed By: #### 2 309895, 5698945, 9530621, 5762475, 1186769, 94714695 ####[address] [address] MCV (RBC) [Entitic vol] 97.1 fL Normal 80.0-100.0 [facility] Comment on above: Performed By: #### 2 124862, 7962476, 6038780, 3296733, 1836143, 73632215 ####[address] [address] Platelet mean volume (Bld) [Entitic vol] 7.7 fL Normal 6.4-10.8 [facility] Comment on above: Performed By: #### 2 543846, 2537208, 7656455, 3669602, 6402615, 53713664 ####[address] [address] Platelets (Bld) [#/Vol] 336.0 E9/L Normal 150.0-500.0 [facility] Comment on above: Performed By: #### 2 643815, 4159367, 0982896, 1824594, 5536647, 22684184 ####[address] [address] RBC (Bld) [#/Vol] 4.3 E12/L Normal 4.3-5.9 [facility] Comment on above: Performed By: #### 2 837283, 3234568, 6351391, 6413107, 9265207, 29189462 ####[address] [place] [address] WBC corrected for nucl RBC Auto (Bld) [#/Vol] 7.5 E9/L Normal 4.0-11.0 [facility] Comment on above: Performed By: #### 2 307468, 8750746, 3577311, 1977040, 5217237, 91817621 ####[facility] [address] [place] [address] Consent for Treatmenton Consent for Treatment [id number]:127 Normal [facility] Creatinineon 12-30-2019 Creatinine [Mass/Vol] 0.6 mg/dL Normal 0.5-1.3 [facility] Comment on above: Performed By: #### 2 119923, 6708443, 5669563, 0564664, 9935394, 37908312 ####[facility] [address] [place] [address] Glucoseon 12-30-2019 Glucose [Mass/Vol] 87 mg/dL Normal 55-199 [facility] Comment on above: Performed By: #### 2 782382, 0343195, 7561176, 0509073, 1511687, 48135687 ####[facility] [address] [place] [address] Lyteson 12-30-2019 Anion gap [Moles/Vol] 12 mmol/L Normal 6-16 [facility] Comment on above: Performed By: #### 2 702081, 9172739, 7017655, 7616247, 3981219, 35093360 ####[facility] [address] [place] [address] Chloride [Moles/Vol] 108 mmol/L Normal 101-111 [facility] Comment on above: Performed By: #### 2 163488, 0096383, 8189888, 3340443, 5153610, 44661640 ####[facility] [address] [place] [address] CO2 [Moles/Vol] 24 mmol/L Normal 21-31 [facility] Comment on above: Performed By: #### 2 442931, 5217789, 5494141, 4929143, 5975545, 73214827 ####[facility] [address] [place] [address] Potassium [Moles/Vol] 3.5 mmol/L Normal 3.5-5.3 [facility] Comment on above: Performed By: #### 2 311870, 1863247, 7904707, 0162316, 0376425, 51080116 ####[facility] [address] [place] [address] Sodium [Moles/Vol] 140 mmol/L Normal 135-145 [facility] Comment on above: Performed By: #### 2 988462, 9685197, 1137417, 9125426, 8127972, 46896919 ####[facility] [address] [place] [address] eGFRon 12-30-2019 GFR/1.73 sq M predicted among blacks MDRD (S/P/Bld) [Vol rate/Area] mL/min/{1.73_m2} Normal >=59 [facility] Comment on above: Order Comment: Order added by Discern Expert. Result Comment: eGFR is race adjusted. AA=. Performed By: #### 2 506236, 2079769, 2051899, 4264034, 9687124, 18002220 ####[facility] [address] [place] [address] GFR/1.73 sq M predicted among non-blacks MDRD (S/P/Bld) [Vol rate/Area] mL/min/{1.73_m2} Normal >=59 [facility] Comment on above: Order Comment: Order added by Discern Expert. Result Comment: Program Engineer kailash kidney disease could be indicated at eGFR's of less than 60 mL/min/1.73m2. Kidney failure is indicated at less than 15 mL/min/1.73m2. Performed By: #### 2 068440, 3808229, 6958219, 9300640, 1827362, 58653055 ####[facility] [address] [place] [address] Consent for Procedure/Surger yon 12-28-2019 Consent for Procedure/Surgery [id number]:127 Normal [facility] Physician Orderon 12-25-2019 Physician Order [id number]:127 Normal [facility] Ambulatory Clinical Summaryo n 12-24-2019 Ambulatory Clinical Summary {[id number]}CD: [id number] Normal [facility] General Surgery Office/Clini c Noteon 12-24-2019 General Surgery Office/Clinic Note Chief Complaint follow up after US and labs HPI Staff Presents to follow up after GB US and labs completed 12/17. Labs with mild elevated ALT at 66. US with cholelithiasis and slightly thickened wall and dilated CBD. Continues to experience nausea, abdominal cramping, loose stools and gas. History of Present Illness 59 yo female with COPD and sleep apnea, follow up for epigastric pain, sore to touch, worse with bending and lifting; no changes with eating, no N/V; no fatty food intolerance; abd/pelvic ct scan with 4 cm epigastric hernia, containing fat and fluid, 8mm defect; patient also has gallstones; no inflammatory changes or typical biliary colic symptoms; no previous abdominal operations, on baby asa daily, no NSAIDs; smokes less than 1/2 ppd; no bowel changes. Review of Systems ROS - Provider Constitutional: no fever, no sweats, no weight loss. Eyes: no glasses, no blurred vision, no visual loss. ENMT: no dentures, no hoarseness, no swallowing difficulties, no hearing loss, no ear infection(s), no nose bleeds. Cardiovascular: normal blood pressure, no chest pain, regular heartbeat, no heart murmur. Respiratory: no shortness of breath, no cough, no asthma, no wheezing. Gastrointestinal: no nausea, no vomiting, no diarrhea, no constipation, no blood in stool, no change in bowel habits, yes abdominal pain, no hepatitis. Genitourinary: no kidney stones, no urine infection, no dysuria. Musculoskeletal: no pain, no weakness. Skin: no changing moles, no rash, no skin lumps. Neurologic: no seizures, no epilepsy, no headache. Psychiatric: no emotional or psychiatric problem. Heme/Lymph: no bleeding problems, no anemia, no blood clots, no transfusions. Allergy/Immunologic: no swollen lymph nodes/glands, no IV drug abuse. Other: Additional ROS info: Except as noted in the above Review of Systems and in the History of Present Illness, all other systems have been reviewed and are negative or noncontributory. Physical Exam Vitals & Measurements T: 36.7 ?C (Tympanic) HEENT: normal conjunctiva, sclera clear, no scleral icterus, EOM intact, PERRLA. oral mucosa moist without lesions Neck: trachea midline , no mass, symmetric, no thyromegaly or nodules. no adenopathy Respiratory: lungs CTA, respirations non labored. Cardiovascular: regular rate and rhythm, no murmur, , no pedal edema or varicosities. Gastrointestinal: soft, non distended, moderate tenderness, epigastrium, over epigastric hernia sac, approx 4 cm, partially reducible, no skin changes; no masses, diastasis recti yes, no hepatosplenomegaly. normal bs Lymphatic: no cervical adenopathy, no axillary adenopathy, Musculoskeletal: normalgait, digits and nails without infection, nodes, cyanosis, clubbing. Skin: no rashes, no lesions, no ulcers, no subcutaneous nodules, induration. Psychiatric/Neuro: oriented to time, place, person, judgement normal, affect appropriate for age, insight intact, no focal deficits. Tests: labs reviewed, x-rays reviewed, review of old records completed, Discussed surgical options, risks, and possible complications with patient. Assessment/Plan 1. Incarcerated epigastric hernia (K43.6: Other and unspecified ventral hernia with obstruction, without gangrene) with component of strangulation; plan robotic-assisted epigastric hernia repair with mesh insertion; informed consent obtained. recommend decreasing, or ideally complete smoking cessation, in the perioperative period to minimize pulmonary complications, wound infection and hernia recurrence; patient understands. patient understands the risks associated with COVID-19, and the need for preoperative testing with self-isolation until the procedure. Ancef 2 gms IV prior to OR SCDs 2. Epigastric pain (R10.13: Epigastric pain) see # 1 3. Tobacco use (Z72.0: Tobacco use) We strongly recommend to quit tobacco use. Cigarette smoking harms nearly every organ of the body, causes many diseases, and reduces the health of smokers in general. Quitting smoking lowers your risk for smoking-related diseases and can add years to your life. We encourage you to visit www.smokefree.gov access to helpful resources including free telephone support. If you decide on prescription treatment to help you quit, your family doctor would be happy to provide these. 4. Diastasis recti (M62.08: Separation of muscle (nontraumatic), other site) see # 1 Follow-up No qualifying data available Patient Education Laparoscopic Hernia Repair Problem List/Past Medical History Ongoing Abdominal pain, right upper quadrant Anxiety and depression Cholelithiasis COPD type A Diarrhea Diastasis recti Epigastric pain Fibrocystic breast Hernia, epigastric Hiatal hernia IBS (irritable bowel syndrome) Incarcerated epigastric hernia Insomnia Nausea FRANCOIS (obstructive sleep apnea) Tobacco use Historical No qualifying data Procedure/Surgical History Skin lesion. Medications Abilify 10 mg Tab, 10 mg= 1 tab(s), Oral, Daily alprazolam 0.25 mg Tab, 0.25 mg= 1 tab(s), Oral, TID, PRN aspirin 81 mg Chew Tab, 81 mg= 1 tab(s), Chewed, Daily atorvastatin 40 mg Tab, 40 mg= 1 tab(s), Oral, Daily Carafate 1 gram Tab, 1 gram= 1 tab(s), Oral, QIDACHS desvenlafaxine 100 mg Tab-, 100 mg= 1 tab(s), Oral, Daily Levsin 0.125 mg SL Tab, 0.125 mg= 1 tab(s), Oral, q6hr, PRN Metoprolol tartrate 25 mg Tab, 25 mg= 1 tab(s), Oral, BID Protonix 40 mg Tab-DR, 40 mg= 1 tab(s), Oral, Daily Trelegy Ellipta, 1 puff(s), Inhalation, Daily Trokendi XR 25 mg oral capsule, extended release, 25 mg= 1 cap(s), Oral, Daily Ventolin HFA 90 mcg/inh Aerosol, 2 puff(s), Inhalation, QID, PRN Zofran 4 mg Tab, 4 mg= 1 tab(s), Oral, q6hr Allergies No Known Allergies No Known Medication Allergies Social History Alcohol - Denies Alcohol Use, 12/15/2019 Substance Abuse - Denies Substance Abuse, 12/15/2019 Tobacco 10 or more cigarettes (1/2 pack or more)/day in last 30 days Tobacco Use:., 12/24/2019 Family History Cardiac arrest: Mother and Father. Hyperlipidemia: Mother and Father. Stroke: Mother and Father. Normal [facility] Comment on above: Result Comment: Elec tronically Signed By: BALDEMAR GARZA, Abimael Metcalf\Date and Time Signed: 12/24/19 13:27 EDT Patient Educationon 12-24-19 Patient Education Procedures Hernia Repair with Laparoscope A hernia occurs when an internal organ pushes out through a weak spot in the belly (abdominal ) wall muscles. Hernias most commonly occur in the groin and around the navel. Hernias can also occur through a cut by the surgeon (incision ) after an abdominal operation. A hernia may be caused by: ? Lifting heavy objects. ? Prolonged coughing. ? Straining to move your bowels. Hernias can often be pushed back into place (reduced ). Most hernias tend to get worse over time. Problems occur when abdominal contents get stuck in the opening and the blood supply is blocked or impaired (incarcerated hernia ). Because of these risks, you require surgery to repair the hernia. Your hernia will be repaired using a laparoscope. Laparoscopic surgery is a type of minimally invasive surgery. It does not involve making a typical surgical cut (incision ) in the skin. A laparoscope is a telescope-like juaquin and lens system. It is usually connected to a video camera and a light source so your caregiver can clearly see the operative area. The instruments are inserted through ? to ? inch (5 mm or 10 mm) openings in the skin at specific locations. A working and viewing space is created by blowing a small amount of carbon dioxide gas into the abdominal cavity. The abdomen is essentially blown up like a balloon (insufflated ). This elevates the abdominal wall above the internal organs like a dome. The carbon dioxide gas is common to the human body and can be absorbed by tissue and removed by the respiratory system. Once the repair is completed, the small incisions will be closed with either stitches (sutures ) or panchito (just like a paper stapler only this staple holds the skin together). LET YOUR CAREGIVERS KNOW ABOUT: ? Allergies. ? Medications taken including herbs, eye drops, over the counter medications, and creams. ? Use of steroids (by mouth or creams). ? Previous problems with anesthetics or Novocaine. ? Possibility of , if this applies. ? History of blood clots (thrombophlebitis ). ? History of bleeding or blood problems. ? Previous surgery. ? Other health problems. BEFORE THE PROCEDURE Laparoscopy can be done either in a hospital or out-patient clinic. You may be given a mild sedative to help you relax before the procedure. Once in the operating room, you will be given a general anesthesia to make you sleep (unless you and your caregiver choose a different anesthetic). AFTER THE PROCEDURE After the procedure you will be watched in a recovery area. Depending on what type of hernia was repaired, you might be admitted to the hospital or you might go home the same day. With this procedure you may have less pain and scarring. This usually results in a quicker recovery and less risk of infection. HOME CARE INSTRUCTIONS ? Bed rest is not required. You may continue your normal activities but avoid heavy lifting (more than 10 pounds) or straining. ? Cough gently. If you are a smoker it is best to stop, as even the best hernia repair can break down with the continual strain of coughing. ? Avoid driving until given the OK by your surgeon. ? There are no dietary restrictions unless given otherwise. ? TAKE ALL MEDICATIONS DIRECTED. ? Only take [id number] or prescription medicines for pain, discomfort, or fever as directed by your caregiver. SEEK MEDICAL CARE IF: ? There is increasing abdominal pain or pain in your incisions. ? There is more bleeding from incisions, other than minimal spotting. ? You feel light headed or faint. ? You develop an unexplained fever, chills, and/or an oral temperature above 102? F (38.9? C). ? You have redness, swelling, or increasing pain in the wound. ? Pus coming from wound. ? A foul smell coming from the wound or dressings. SEEK IMMEDIATE MEDICAL CARE IF: ? You develop a rash. ? You have difficulty breathing. ? You have any allergic problems. MAKE SURE YOU: ? Understand these instructions. ? Will watch your condition. ? Will get help right away if you are not doing well or get worse. Document Released: 03/11/2006 Document Revised: 06/02/2012 Document Reviewed: 02/08/2010 ExitCare? Patient Information ?2013 [employer] [facility] Provider Letter FTMCon 12-23 [place] [facility]ed [place]. Un able to display) December 24, 2019 RUBÉN APARICIO [address] [address] RUBÉN APARICIO 1960 To Whom It May Concern, Please excuse above patient from work on 12/24/2019 due to an appointment. Sincerely, Abimael Mcdermott MD General Surgery [facility] Lab Reportson 12-21-2019 Lab Reports [id number]:127 [facility] Lab Reports [id number]:127 [facility] RAD - Ultrasound Reporton RAD - Ultrasound Report [id number]:127 [facility] Provider Letter FTMCon 12-16 Provider [place] [facility] [place]ed Image. Un able to display) Cesar [address] [place] [address] Re: RUBÉN APARICIO Date of : 1960 Thank you for your referral of Rubén Aparicio who was seen on consultation on 12/15/2019 for cholelithiasis and abdominal pain. I have enclosed my consultation notes for your review. Sincerely, Abimael Mcdermott MD General Surgery [facility] Facesheeton 12-16-2019 Facesheet [id number]:127 [facility] Ambulatory Clinical Summaryo n 12-15-2019 Ambulatory Clinical Summary {[id number]}CD: [id number] Normal [facility] General Surgery Office/Clini c Noteon 12-15-2019 General Surgery Office/Clinic Note Chief Complaint referral for cholelithiasis HPI Staff 59 year old female presents on consultation from Carmen Mendez NP for cholelithiasis. Complains of RUQ tenderness and epigastric pain with nausea, bloating and diarrhea for several months. Denies vomiting. CT ABD 12/03 with cholelithiasis, gallbladder wall thickening and ventral hernia. Never has GB US. History of Present Illness 59 yo female with h/o COPD, sleep apnea, reports several month h/o upper abdominal pain, ache, epigastrium and RUQ, some associated nausea, no emesis, frequent loose stools no blood, worse with bending over; some radiation to her chest and pack; improved with prilosec, no fatty food intolerance; no fevers, no h/o jaundice or pancreatitis, no previous abdominal operations; no fmhx of GI malignancy or IBD. does report some mild wt gain; recent abd/pelvic ct scan with cholelithiasis, some gallbladder wall thickening; small epigastric, fat-containing epigastric hernia; on Protonix and Carafate for several months with mild relief; no previous abdominal US; no dysphagia or early satiety; remote EGD over 20 years ago, she was told that she had a hiatal hernia. Review of Systems ROS - Provider Constitutional: no fever, no sweats, no weight loss. Eyes: no glasses, no blurred vision, no visual loss. ENMT: no dentures, no hoarseness, no swallowing difficulties, no hearing loss, no ear infection(s), no nose bleeds. Cardiovascular: normal blood pressure, no chest pain, regular heartbeat, no heart murmur. Respiratory: no shortness of breath, no cough, no asthma, no wheezing. Gastrointestinal: yes nausea, no vomiting, yes diarrhea, no constipation, no blood in stool, no change in bowel habits, moderate abdominal pain, no hepatitis. Genitourinary: no kidney stones, no urine infection, no dysuria. Musculoskeletal: no pain, no weakness. Skin: no changing moles, no rash, no skin lumps. Neurologic: no seizures, no epilepsy, no headache. Psychiatric: no emotional or psychiatric problem. Heme/Lymph: no bleeding problems, no anemia, no blood clots, no transfusions. Allergy/Immunologic: no swollen lymph nodes/glands, no IV drug abuse. Other: Additional ROS info: Except as noted in the above Review of Systems and in the History of Present Illness, all other systems have been reviewed and are negative or noncontributory. Physical Exam Vitals & Measurements T: 36.4 ?C (Tympanic) HR: 74(Peripheral) RR: 16 BP: 116/80 HT: 152.4 cm HT: 152.4 cm WT: 61.23 kg WT: 61.2 kg BMI: 26.36 HEENT: normal conjunctiva, sclera clear, no scleral icterus, EOM intact, PERRLA. oral mucosa moist without lesions Neck: trachea midline , no mass, symmetric, no thyromegaly or nodules. no adenopathy Respiratory: lungs expiratory wheezes, respirations non labored. Cardiovascular: regular rate and rhythm, no murmur, , no pedal edema or varicosities. Gastrointestinal: soft, non distended, mild tenderness, epigastrium and RUQ, no peritoneal signs; no masses, small epigastric hernias, partially reducible; nontender; diastasis recti yes, no hepatosplenomegaly. normal bs Lymphatic: no cervical adenopathy, no axillary adenopathy, Musculoskeletal: normalgait, digits and nails without infection, nodes, cyanosis, clubbing. Skin: no rashes, no lesions, no ulcers, no subcutaneous nodules, induration. Psychiatric/Neuro: oriented to time, place, person, judgement normal, affect appropriate for age, insight intact, no focal deficits. Tests: , x-rays reviewed, review of old records completed, Discussed surgical options, risks, and possible complications with patient. Assessment/Plan 1. Cholelithiasis (K80.20: Calculus of gallbladder without cholecystitis without obstruction) atypical symptoms for biliary colic, may be chronic cholecystitis verses worsening GERD/ulcer disease; recommend GB US, hepatic function panel, lipase; low fat diet; continue Protonix and Carafate; will call patient with results; call sooner if problems/questions; discussed procedure of LS cholecystectomy, possible open procedure; may need EGD and/or colonoscopy prior to surgery, depending on labs/US results. Ordered: Hepatic Function Panel Lipase Level US Gallbladder 2. Epigastric pain (R10.13: Epigastric pain) see # 1 Ordered: Hepatic Function Panel Lipase Level US Gallbladder 3. Abdominal pain, right upper quadrant (R10.11: Right upper quadrant pain) see # 1 Ordered: Hepatic Function Panel Lipase Level US Gallbladder 4. Nausea (R11.0: Nausea) see #1 Ordered: Hepatic Function Panel Lipase Level US Gallbladder 5. Diarrhea (R19.7: Diarrhea, unspecified) see # 1 Ordered: Hepatic Function Panel Lipase Level US Gallbladder Orders: Most recent diastolic blood pressure 80-89 mm Hg 3079F Systolic BP <130 mm Hg (Most Recent) 3074F Follow-up No qualifying data available Problem List/Past Medical History Ongoing Abdominal pain, right upper quadrant Anxiety and depression Cholelithiasis COPD type A Diarrhea Epigastric pain Fibrocystic breast Hiatal hernia IBS (irritable bowel syndrome) Insomnia Nausea FRANCOIS (obstructive sleep apnea) Historical No qualifying data Procedure/Surgical History Skin lesion. Medications Abilify 10 mg Tab, 10 mg= 1 tab(s), Oral, Daily alprazolam 0.25 mg Tab, 0.25 mg= 1 tab(s), Oral, TID, PRN aspirin 81 mg Chew Tab, 81 mg= 1 tab(s), Chewed, Daily atorvastatin 40 mg Tab, 40 mg= 1 tab(s), Oral, Daily Carafate 1 gram Tab, 1 gram= 1 tab(s), Oral, QIDACHS desvenlafaxine 100 mg Tab-, 100 mg= 1 tab(s), Oral, Daily Levsin 0.125 mg SL Tab, 0.125 mg= 1 tab(s), Oral, q6hr, PRN Metoprolol tartrate 25 mg Tab, 25 mg= 1 tab(s), Oral, BID Protonix 40 mg Tab-DR, 40 mg= 1 tab(s), Oral, Daily Trelegy Ellipta, 1 puff(s), Inhalation, Daily Trokendi XR 25 mg oral capsule, extended release, 25 mg= 1 cap(s), Oral, Daily Ventolin HFA 90 mcg/inh Aerosol, 2 puff(s), Inhalation, QID, PRN Zofran 4 mg Tab, 4 mg= 1 tab(s), Oral, q6hr Allergies No Known Allergies No Known Medication Allergies Social History Alcohol - Denies Alcohol Use, 12/15/2019 Substance Abuse - Denies Substance Abuse, 12/15/2019 Tobacco 10 or more cigarettes (1/2 pack or more)/day in last 30 days Tobacco Use:., 12/15/2019 Family History Cardiac arrest: Mother and Father. Hyperlipidemia: Mother and Father. Stroke: Mother and Father. Normal [facility] Comment on above: Result Comment: Elec tronically Signed By: BALDEMAR GARAZ, Abimael Metcalf\Date and Time Signed: 12/15/19 16:56 EDT Physician Referralon 020 Physician Referral [id number]:127 Normal [facility] CBCon 05-22-2019 Erythrocyte distribution width (RBC) [Ratio] 13.0 % 11.8 - 14.4 % [place], [place] Hematocrit (Bld) [Volume fraction] 42.7 % 36.3 - 47.1 % [place] Hemoglobin (Bld) [Mass/Vol] 13.1 g/dL 11.9 - 15.1 g/dL [place] Interpretation and review of laboratory results Abnormal [place], [place] MCH (RBC) [Entitic mass] 32.3 pg 25.2 - 33.5 pg [place] MCHC (RBC) [Mass/Vol] 30.7 g/dL 28.4 - 34.8 g/dL [place] MCV (RBC) [Entitic vol] 105.4 fL High 82.6 - 102.9 fL [place] Platelet mean volume (Bld) [Entitic vol] 8.8 fL 8.1 - 13.5 fL [place] Platelets (Bld) [#/Vol] 323 10*3/uL [place] RBC (Bld) [#/Vol] 4.05 10*6/uL 3.95 - 5.1 1 m/uL [place] WBC (Bld) [#/Vol] 0.0 10*3/uL 0.0 per 10 0 WBC [place], [place] WBC (Bld) [#/Vol] 8.1 10*3/uL [facility] [place], [place] Echocardiogram complete 2D w ith doppler with coloron 05-22-2019 [facility] [place] Transthoracic Echocardiography Report (TTE) Patient Name ALESSANDRA Date of Study 05/22/2019 RUBÉN Garvey Date of 1960 Gender Female Age 59 year(s) Race Room Number 0303 Height: 60 inch, 152.4 cm Corporate ID [id number] Weight: 123 pounds, 55.8 kg # Patient Acct [id number] BSA: 1.52 m^2 BMI: 24.02 # kg/m^2 MR # [id number] Implementation Consultant Marleny Viveros Interpreting Physician Jose Caldera Fellow Referring Nurse Deidre Garza CNP Practitioner Interpreting Referring Physician Fellow Type of Study TTE procedure:2D Echocardiogram, M-Mode, Doppler, Color Doppler. Procedure Date Date: 05/22/2019 Start: 08:59 AM Study Location: [facility] Indications:Chest pain. Patient Status: Inpatient Height: 60 inches Weight: 123 pounds BSA: 1.52 m^2 BMI: 24.02 kg/m^2 BP: 132/78 mmHg CONCLUSIONS Summary Global left ventricular systolic function appears preserved with an estimated ejection fraction of 60%. Mildly increased left ventricular wall thickness with a normal left ventricular cavity size. Normal aortic valve structure with mild aortic regurgitation. Normal mitral valve structure with mild mitral regurgitation. Mild pulmonary hypertension with an estimated right ventricular systolic pressure of 32 mmHg. Mild tricuspid regurgitation. Evidence of mild diastolic dysfunction is seen. No previous studies were available for comparison. No significant cardiac cause of chest pain was identified from this study. Signature FINDINGS Left Atrium Left atrium is normal in size. Left Ventricle Global left ventricular systolic function appears preserved with an estimated ejection fraction of 60%. Mildly increased left ventricular wall thickness with a normal left ventricular cavity size. Right Atrium Right atrium is normal in size. Right Ventricle Normal right ventricular size and function. Mitral Valve Normal mitral valve structure with mild mitral regurgitation. Aortic Valve Normal aortic valve structure with mild aortic regurgitation. Tricuspid Valve Mild pulmonary hypertension with an estimated right ventricular systolic pressure of 32 mmHg. Mild tricuspid regurgitation. Pulmonic Valve The pulmonic valve is normal in structure. Pericardial Effusion No significant pericardial effusion is seen. Miscellaneous Evidence of mild diastolic dysfunction is seen. Normal aortic root dimension. M-mode / 2D Measurements & Calculations: LVIDd:4.1 cm(3.7 - 5.6 cm) Diastolic Volume:66.58 ml LVIDs:2.54 cm(2.2 - 4.0 cm) Systolic Volume:23.9 ml IVSd:0.93 cm(0.6 - 1.1 cm) Aortic Root:3.41 cm(2.0 - 3.7 cm) LVPWd:0.89 cm(0.6 - 1.1 cm) LA Dimension: 2.88 cm(1.9 - 4.0 cm) Fractional Shortenin.05 % LA volume/Index: 34.7 ml /23m^2 Calculated LVEF (%): 64.1 % AV Cusp Separation: 1.88 cm Mitral: Aortic Valve Area (P1/2-Time): 3.89 cm^2 Peak Velocity: 1.21 m/s Peak E-Wave: 0.80 m/s Mean Velocity: 0.78 m/s Peak A-Wave: 1.00 m/s Peak Gradient: 5.82 mmHg E/A Ratio: 0.8 Mean Gradient: 2.75 mmHg Peak Gradient: 2.57 mmHg Acceleration Time: 60.78 msec P1/2t: 56.61 msec AV VTI: 20.13 cm Tricuspid: Pulmonic: Estimated RVSP: 32.59 mmHg Peak TR Velocity: 2.72 m/s Peak TR Gradient: 29.5936 mmHg Estimated RA Pressure: 3 mmHg Estimated PASP: 32.59 mmHg Diastology / Tissue Doppler Lateral Wall E' velocity:0.09 m/s Lateral Wall E/E':8.89 [facility] [place], [place] Levon, Mhpn Incoming C ardio Results From [facility] - 05/22/2019 1:49 PM EST [facility] Transthoracic Echocardiography Report (TTE) Patient Name ALESSANDRA Date of Study 05/22/2019 RUBÉN S Date of 1960 Gender Female Age 59 year(s) Race Room Number 0303 Height: 60 inch, 152.4 cm Corporate ID [id number] Weight: 123 pounds, 55.8 kg # Patient Acct [id number] BSA: 1.52 m^2 BMI: 24.02 # kg/m^2 MR # [id number] Implementation Consultant [facility],[place] Interpreting Physician Jose Caldera Fellow Referring Nurse Deidre Garza CNP Practitioner Interpreting Referring Physician Fellow Type of Study TTE procedure:2D Echocardiogram, M-Mode, Doppler, Color Doppler. Procedure Date Date: 05/22/2019 Start: 08:59 AM Study Location: [facility] Indications:Chest pain. Patient Status: Inpatient Height: 60 inches Weight: 123 pounds BSA: 1.52 m^2 BMI: 24.02 kg/m^2 BP: 132/78 mmHg CONCLUSIONS Summary Global left ventricular systolic function appears preserved with an estimated ejection fraction of 60%. Mildly increased left ventricular wall thickness with a normal left ventricular cavity size. Normal aortic valve structure with mild aortic regurgitation. Normal mitral valve structure with mild mitral regurgitation. Mild pulmonary hypertension with an estimated right ventricular systolic pressure of 32 mmHg. Mild tricuspid regurgitation. Evidence of mild diastolic dysfunction is seen. No previous studies were available for comparison. No significant cardiac cause of chest pain was identified from this study. Signature - - - - FINDINGS Left Atrium Left atrium is normal in size. Left Ventricle Global left ventricular systolic function appears preserved with an estimated ejection fraction of 60%. Mildly increased left ventricular wall thickness with a normal left ventricular cavity size. Right Atrium Right atrium is normal in size. Right Ventricle Normal right ventricular size and function. Mitral Valve Normal mitral valve structure with mild mitral regurgitation. Aortic Valve Normal aortic valve structure with mild aortic regurgitation. Tricuspid Valve Mild pulmonary hypertension with an estimated right ventricular systolic pressure of 32 mmHg. Mild tricuspid regurgitation. Pulmonic Valve The pulmonic valve is normal in structure. Pericardial Effusion No significant pericardial effusion is seen. Miscellaneous Evidence of mild diastolic dysfunction is seen. Normal aortic root dimension. M-mode / 2D Measurements & Calculations: LVIDd:4.1 cm(3.7 - 5.6 cm) Diastolic Volume:66.58 ml LVIDs:2.54 cm(2.2 - 4.0 cm) Systolic Volume:23.9 ml IVSd:0.93 cm(0.6 - 1.1 cm) Aortic Root:3.41 cm(2.0 - 3.7 cm) LVPWd:0.89 cm(0.6 - 1.1 cm) LA Dimension: 2.88 cm(1.9 - 4.0 cm) Fractional Shortenin.05 % LA volume/Index: 34.7 ml /23m^2 Calculated LVEF (%): 64.1 % AV Cusp Separation: 1.88 cm Mitral: Aortic Valve Area (P1/2-Time): 3.89 cm^2 Peak Velocity: 1.21 m/s Peak E-Wave: 0.80 m/s Mean Velocity: 0.78 m/s Peak A-Wave: 1.00 m/s Peak Gradient: 5.82 mmHg E/A Ratio: 0.8 Mean Gradient: 2.75 mmHg Peak Gradient: 2.57 mmHg Acceleration Time: 60.78 msec P1/2t: 56.61 msec AV VTI: 20.13 cm Tricuspid: Pulmonic: Estimated RVSP: 32.59 mmHg Peak TR Velocity: 2.72 m/s Peak TR Gradient: 29.5936 mmHg Estimated RA Pressure: 3 mmHg Estimated PASP: 32.59 mmHg Diastology / Tissue Doppler Lateral Wall E' velocity:0.09 m/s Lateral Wall E/E':8.89 [place] Lipid panel - fastingon 04-26 Cholesterol [Mass/Vol] 154 mg/dL <200 [place], [place] Comment on above: Cholesterol Guidelines: <200 Desirable 200-240 Borderline >240 Undesirable Cholesterol in HDL [Mass/Vol] 51 mg/dL >40 [place] Comment on above: HDL Guidelines: <40 Undesirable 40-59 Borderline >59 Desirable Cholesterol in LDL [Mass/Vol] 82 mg/dL 0 - 130 mg/dL [place] Comment on above: LDL Guidelines: <100 Desirable 100-129 Near to/above Desirable 130-159 Borderline >159 Undesirable Direct (measured) LDL and calculated LDL are not interchangeable tests. Cholesterol in VLDL [Mass/Vol] NOT REPORTED 1 - 30 mg/dL [place] Cholesterol.total/Chol esterol in HDL [Mass ratio] 3 {ratio} <5 [place] Triglyceride [Mass/Vol] 106 mg/dL <150 [place] Comment on above: Triglyceride Guidelines: <150 Desirable 150-199 Borderline 200-499 High >499 Very high Based on AHA Guidelines for fasting triglyceride, December 2011. Brain Natriuretic Peptideon 05-21-2019 Natriuretic peptide B (Bld) [Mass/Vol] 152 pg/mL <300 [place], [place] Comment on above: Pro-BNP results moe ot be compared to BNP results. Natriuretic peptide B (Bld) [Mass/Vol] Pro-BNP Reference Range: [place], [place] Comment on above: Rule Out: <300 Paez Zone: Age <50 300-450 Age 50-75 300-900 Age >75 300-1800 Usually represents mild to moderate HF but other cardiopulmonary causes cannot be ruled out. Rule In: Age <50 >450 Age 50-75 >900 Age >75 >1800 CBC Auto Differentialon 04-26 Basophils (Bld) [#/Vol] 0.09 10*3/uL [place] Basophils/100 WBC (Bld) 1 % 0 - 2 % [place] Differential Type NOT REPORTED [place] Eosinophils (Bld) [#/Vol] 0.27 10*3/uL [place] Eosinophils/100 WBC (Bld) 3 % 1 - 4 % [place] Erythrocyte distribution width (RBC) [Ratio] 12.9 % 11.8 - 14.4 % [place] Hematocrit (Bld) [Volume fraction] 44.2 % 36.3 - 47.1 % [place] Hemoglobin (Bld) [Mass/Vol] 14.2 g/dL 11.9 - 15.1 g/dL [place] Immature granulocytes (Bld) [#/Vol] 10*3/uL [place] Immature granulocytes (Bld) [#/Vol] 0 % 0 [place] Lymphocytes (Bld) [#/Vol] 2.46 10*3/uL [place] Lymphocytes/100 WBC (Bld) 28 % 24 - 43 % [place] MCH (RBC) [Entitic mass] 32.7 pg 25.2 - 33.5 pg [place] MCHC (RBC) [Mass/Vol] 32.1 g/dL 28.4 - 34.8 g/dL [place] MCV (RBC) [Entitic vol] 101.8 fL 82.6 - 102.9 fL [place] Monocytes (Bld) [#/Vol] 0.76 10*3/uL [place] Monocytes/100 WBC (Bld) 9 % 3 - 12 % [place] Platelet mean volume (Bld) [Entitic vol] 8.9 fL 8.1 - 13.5 fL [place] Platelets (Bld) [#/Vol] 354 10*3/uL [place] Platelets (Bld) [#/Vol] NOT REPORTED [place] RBC (Bld) [#/Vol] 4.34 10*6/uL 3.95 - 5.1 1 m/uL [place] RBC morphology finding Nom (Bld) NOT REPORTED [place] Segmented neutrophils/100 WBC (Bld) 59 % 36 - 65 % [place] Segs Absolute 5.19 [place] WBC (Bld) [#/Vol] 8.8 10*3/uL [place] WBC (Bld) [#/Vol] 0.0 10*3/uL 0.0 per 10 0 WBC [place] WBC Morphology NOT REPORTED [place] Comprehensive Metabolic Pane l w/ Reflex to MGon 05-21-2019 Albumin [Mass/Vol] 4.4 g/dL 3.5 - 5.2 g/dL [place] Albumin/Globulin [Mass ratio] 1.7 {ratio} [place] ALP [Catalytic activity/Vol] 59 U/L 35 - 104 U/L [place] ALT [Catalytic activity/Vol] 16 U/L 5 - 33 U/L [place] Anion gap [Moles/Vol] 15 mmol/L 9 - 17 mmol/L [place] AST [Catalytic activity/Vol] 21 U/L <32 [place] Bilirubin Ql (U) 0.20 mg/dL Low 0.3 - 1.2 mg/dL [place] Bun/Cre Ratio 28 High [place] Calcium [Mass/Vol] 8.8 mg/dL 8.6 - 10. 4 mg/dL [place] Chloride [Moles/Vol] 104 mmol/L 98 - 10 7 mmol/L [place] CO2 [Moles/Vol] 24 mmol/L 20 - 31 mmol/L [place] Creatinine [Mass/Vol] 0.54 mg/dL 0.5 - 0.9 mg/dL [place] GFR >60 >60 mL/min [place] GFR Non- >60 >60 mL/min [place] Glucose [Mass/Vol] 123 mg/dL High 70 - 99 mg/dL [place] Interpretation and review of laboratory results Abnormal [place] Potassium [Moles/Vol] 3.7 mmol/L 3.7 - 5.3 mmol/L [place] Protein [Mass/Vol] 7.0 g/dL 6.4 - 8.3 g/dL [place] Sodium [Moles/Vol] 143 mmol/L 135 - 144 mmol/L [place] Urea nitrogen [Mass/Vol] 15 mg/dL 8 - 23 mg/dL [place] D-Dimer, Quantitativeon 04-26 D-Dimer, Quant 0.26 [place] Comment on above: Elevated levels of D dimer can be seen in any state of coagulation activation including DVT, PE, arterial thrombosis, DIC, inflamatory disease, trauma, malignancy, sepsis, infection, hematoma, liver disease, post surgical state, , atherosclerosis, old age. When combined with a low clinical probability, a D dimer value of <0.50 mg/L is considered negative for DVT and PE (negative predictive value of 98%). EKG 12 Leadon 05-21-2019 Atrial Rate 110 BPM [place], [place] P [place] 65 degrees [place] P-R Interval 132 ms [place] Q-T Interval 338 ms [place] QRS Duration 72 ms [place] QTc Calculation (Bazett) 457 ms [place] R [place] 15 degrees [facility] T [place] 53 degrees [place] Ventricular Rate 110 BPM [place] Levon, Mhpn Incoming E kg Results From [facility] [place] - 05/21/2019 11:57 AM EST Sinus tachycardia Possible Left atrial enlargement Borderline ECG When compared with ECG of 08-AUG-2018 16:00, Criteria for Inferior infarct are no longer Present Confirmed by LEXIE PEREZ ([id number]) on 05/21/2019 11:56:54 AM [place] Sinus tachycardia Po ssible Left atrial enlargement Borderline ECG When compared with ECG of 08-AUG-2018 16:00, Criteria for Inferior infarct are no longer Present Confirmed by LEXIE PEREZ ([id number]) on 05/21/2019 11:56:54 AM [place] Lipaseon 05-21-2019 Lipase [Catalytic activity/Vol] 19 U/L 13 - 60 U/L [place] Metabolic Panelon 05-21-2019 GFR/1.73 sq M predicted among non-blacks MDRD (S/P/Bld) [Vol rate/Area] [place], [place] Comment on above: Average GFR for 60-6 9 years old: 85 mL/min/1.73sq m Chronic Kidney Disease: <60 mL/min/1.73sq m Kidney failure: <15 mL/min/1.73sq m eGFR calculated using average adult body mass. Additional eGFR calculator available at: http://www.[employer].Magnetecs/multiple_crcl_2012.htm Stage 1: Some kidney damage normal GFR Stage 2: Mild kidney damage GFR 60-89 Stage 3: Moderate kidney damage GFR 30-59 Stage 4: Severe kidney damage GFR 15-29 Stage 5: Severe kidney damage GFR <15 ESRD - chronic treatment by dialysis or transplant Microscopic Urinalysison Amorphous, UA NOT REPORTED None [place] Bacteria, UA NOT REPORTED None [place] Casts UA NOT REPORTED /LPF [place] Crystals, UA NOT REPORTED None /HPF [place] Epithelial Cells UA 0 TO 2 [place] Mucus, UA NOT REPORTED None [place] Other Observations UA NOT REPORTED NOT REQ. M [place] RBC (U) [#/Vol] None [place] Renal Epithelial, UA NOT REPORTED 0 /HPF [place] Trichomonas, UA NOT REPORTED None [place] WBC, UA 0 TO 2 [place] Yeast, UA NOT REPORTED None [place] - [place] Protime-INRon 05-21-2019 INR Coag (PPP) [Relative time] 1.0 {INR} [place] PT Coag (PPP) [Time] 10 s [place] Troponinon 05-21-2019 Interpretation and review of laboratory results Abnormal [place] Troponin I.cardiac [Mass/Vol] NOT REPORTED [place] Troponin T.cardiac [Mass/Vol] NOT REPORTED <0.03 ng/mL [place] Troponin, High Sensitivity 66 ng/L Critically high 0 - 14 ng/L [place] Comment on above: High Sensitivity Troponin values cannot be compared with other Troponin methodologies. Patients with high levels of Biotin oral intake (i.e >5mg/day) may have falsely decreased Troponin levels. Samples collected within 8 hours of biotin intake may require additional information for diagnosis. RESULTS CONFIRMED BY REPEAT TESTING Interpretation and review of laboratory results Abnormal [place] Troponin I.cardiac [Mass/Vol] NOT REPORTED [place] Troponin T.cardiac [Mass/Vol] NOT REPORTED <0.03 ng/mL [place] Troponin, High Sensitivity 67 ng/L Critically high 0 - 14 ng/L [place] Comment on above: High Sensitivity Troponin values cannot be compared with other Troponin methodologies. Patients with high levels of Biotin oral intake (i.e >5mg/day) may have falsely decreased Troponin levels. Samples collected within 8 hours of biotin intake may require additional information for diagnosis. Urinalysis Reflex to Culture on 05-21-2019 Bilirubin Urine Negative NEGATIVE [place] Color, UA YELLOW YELLOW [place] Glucose, Ur Negative NEGATIVE [place] Ketones Ql (U) Negative NEGATIVE [place] Leukocyte esterase Test strip Ql (U) Negative NEGATIVE [place] Nitrite, Urine Negative NEGATIVE [place] pH, UA 6.0 [place] Protein (U) [Mass/Vol] Negative NEGATIVE [place] Specific [place], UA 1.020 [place], [place] Turbidity UA CLEAR CLEAR [place] Urinalysis Comments NOT REPORTED [place] Urine Hgb Negative NEGATIVE [place] Urobilinogen, Urine Normal Normal [place] XR CHEST PORTABLEon 05-21-19 20 No acute cardiopulmo nary process. Chronic interstitial change, relatively stable. [place] EXAMINATION: ONE XRA Y VIEW OF THE CHEST 05/21/2019 8:52 am COMPARISON: None. HISTORY: ORDERING SYSTEM PROVIDED HISTORY: CP TECHNOLOGIST PROVIDED HISTORY: CP FINDINGS: AP portable view of the chest time stamped at 851 hours demonstrates overlying cardiac monitoring electrodes. Heart size is normal. No vascular congestion, focal consolidation, effusion, or pneumothorax is noted. Mild chronic interstitial changes noted. The patient has scoliotic curvature in the dorsal spine and degenerative changes. Mediastinal contours are unremarkable. [place] Levon, Mhpn Incoming R adiant Results From [facility] - 05/21/2019 9:28 AM EST EXAMINATION: ONE XRAY VIEW OF THE CHEST 05/21/2019 8:52 am COMPARISON: None. HISTORY: ORDERING SYSTEM PROVIDED HISTORY: CP TECHNOLOGIST PROVIDED HISTORY: CP FINDINGS: AP portable view of the chest time stamped at 851 hours demonstrates overlying cardiac monitoring electrodes. Heart size is normal. No vascular congestion, focal consolidation, effusion, or pneumothorax is noted. Mild chronic interstitial changes noted. The patient has scoliotic curvature in the dorsal spine and degenerative changes. Mediastinal contours are unremarkable. IMPRESSION: No acute cardiopulmonary process. Chronic interstitial change, relatively stable. [facility] [place] Vital Signs Date Time Vital Sign Value Performing Clinician Jose masters 11-11-2020 13:45-0400 Diastolic blood pressure 82 mm[Hg] Cesar Paulino MD Work Phone: [employer] Work Phone: 11-11-2020 13:45-0400 Heart rate 95 /min Cesar Paulino MD Work Phone: [employer] Work Phone: 11-11-2020 13:45-0400 Respiratory rate 19 /min Cesar Paulino MD Work Phone: [facility] Work Phone: 11-11-2020 13:45-0400 SaO2% (BldA) [Mass fraction] 93 % Cesar Paulino MD Work Phone: [facility] Work Phone: 11-11-2020 13:45-0400 Systolic blood pressure 136 mm[Hg] Cesar Pualino MD Work Phone: [facility] Work Phone: 11-11-2020 10:59-0400 Body height 152.4 cm Cesar Paulino MD Work Phone: [facility] Work Phone: 11-11-2020 10:59-0400 Body mass index (BMI) [Ratio] 23.44 kg/m2 Cesar Paulino MD Work Phone: [facility] Work Phone: 11-11-2020 10:59-0400 Body temperature 96.4 [degF] Cesar Paulino MD Work Phone: [employer] Work Phone: 11-11-2020 10:59-0400 Body weight 54.43 kg Cesar Paulino MD Work Phone: [facility] Work Phone: 05-22-2019 08:00-0500 Body Temperature 97.81 [degF] [facility] [place] 05-22-2019 08:00-0500 BP Diastolic 79 mm[Hg] [facility] [place] 05-22-2019 08:00-0500 BP Systolic 127 mm[Hg] [place] 05-22-2019 08:00-0500 Pulse (Heart Rate) 86 /min [place] 05-22-2019 08:00-0500 Respiratory Rate 20 /min [place] 05-22-2019 06:57-0500 Height 152.4 cm [place] 05-22-2019 04:58-0500 BMI (Body Mass Index) 24.74 kg/m2 [place] 05-22-2019 04:58-0500 Body weight 57.47 kg [place] 05-21-2019 23:51-0500 Pulse Oximetry 95 % [place] Encounters Encounter Date Encounter Type Care Provider Facility Start: 04-09-2023 End: 04-09-2023 ambulatory THOMAS MUNOZ Not Available Start: 08-21-[address] CESAR PAULINO . Facili ty:[facility] Start: 01-13-2022 End: 01-13-[address] CESAR PAULINO . Facility:[facility] Start: 12-29-2021 End: 12-30-[address] CESAR PAULINO . Facility:[facility] Start: 09-20-2021 Encounter for genera l adult medical examination without abnormal findings DR CESAR PAULINO . [facility] Start: 09-17-2021 End: 09-17-[address] CESAR PAULINO . Facility:[facility] Start: 09-16-2021 End: 09-17-[address] CESAR PAULINO . Facility:[facility] Start: 09-16-2021 End: 09-17-2021 Encounter for general adult medical examination without abnormal findings DR CESAR PAULINO . Facility: Start: 11-11-2020 Emergency department patient visit CESAR [facility] Start: 11-11-2020 End: 11-11-2020 Emergency department patient visit Cesar Paulino MD Work Phone: [facility] ED Comment on above: Vertigo (Primary Dx) Start: 09-20-2020 End: 09-21-2020 ambulatory CESAR [facility] Start: 09-20-2020 End: 09-20-2020 Subsequent hospital visit by physician Cesar Paulino MD Work Phone: [facility] Start: 05-21-2019 End: 05-22-2019 Evaluation and management of inpatient Jesus Bond Work Phone: [facility] Start: 01-22-2017 End: 01-23-2017 Ambulatory DEFAULT PHYSICIAN Facility:[facility] Procedures Date Procedure Procedure Detail Performing Clinician Start: 11-11-2020 Urinalysis microscop ic only Jose Gallardoiss PA-C Work Phone: Start: 11-11-2020 Urnls dip stick/tabl et rgnt auto w/o microscopy Jose العلي Farida PA-C Work Phone: Start: 11-11-2020 Ct angiography neck w/contrast/noncontrast Jose العلي Farida PA-C Work Phone: Start: 11-11-2020 Ct head/brain w/o co ntrast material Jose العلي Farida PA-C Work Phone: Start: 11-11-2020 Lactate [Moles/volum e] in Serum or Plasma Jose العلي Farida PA-C Work Phone: Start: 11-11-2020 Radiologic exam ches t single view Jose العلي Farida PA-C Work Phone: Start: 11-11-2020 Comprehensive metabo lic panel Abimael Peace MD Start: 11-11-2020 End: 11-11-2020 Ecg routine ecg w/least 12 lds w/i&r Abimael Peace MD Start: 09-20-2020 Lipid panel Samy العلي MD Work Phone: Start: 05-22-2019 Echo tthrc r-t 2d w/wom-mode compl spec&colr d Deidre Garza Work Phone: Start: 05-22-2019 Blood count complete automated Deidre Garza Work Phone: Start: 05-22-2019 Lipid panel Deidre Garza Work Phone: Start: 05-21-2019 PULSE OXIMETRY SPOT CHECK Deidre Garza Work Phone: Start: 05-21-2019 Assay of troponin quantitative Jesus Bond Work Phone: Start: 05-21-2019 Radiologic exam ches t single view Jesus Bond Work Phone: Start: 05-21-2019 Urinalysis microscop ic only Jesus Bond Work Phone: Start: 05-21-2019 Urnls dip stick/tabl et rgnt auto w/o microscopy Jesus Bond Work Phone: Start: 05-21-2019 Assay of lipase Jseus langleyse Work Phone: Start: 05-21-2019 Assay of troponin quantitative Jesus Ronda Work Phone: Start: 05-21-2019 Blood count complete auto&auto difrntl wbc Jesus Ronda Work Phone: Start: 05-21-2019 Fibrin dgradj produc ts d-dimer quantitative Jesus Ronda Work Phone: Start: 05-21-2019 Natriuretic peptide Tyl er Ronda Work Phone: Start: 05-21-2019 Prothrombin time Jesus Ronda Work Phone: Start: 05-21-2019 Ecg routine ecg w/le ast 12 lds i&r only Jesus Bond Work Phone: Start: 05-21-2019 EKG REPORT Hpf Scanni ng Plan of Treatment Date Care Activity Detail Author Start: 09-20-2021 Lipid panel Lipid screen [facility] Phone: Start: 11-23-2020 Influenza vaccination [facility] Phone: Start: 05-22-2020 Lipid panel Lipid screen [facility] Phone: Start: 07-18-2019 Screening for malign ant neoplasm of lung Low dose CT lung screening [facility] [employer] Phone: Start: 11-23-2018 Influenza vaccination Flu vaccine (# 1) [place], [place] Start: 2008 Breast cancer screen Breast cancer s creen [place], [place] Start: 2008 Colon cancer screen colonoscopy Colon cancer screen colonoscopy [place], [place] Start: 2008 Screening for malign ant neoplasm of breast Breast cancer screen [facility] [employer] Phone: Start: 2008 Screening for malign ant neoplasm of colon Colon cancer screen colonoscopy [facility] [employer] Phone: Start: 2008 Shingles Vaccine (1 of 2) Lee gles Vaccine (1 of 2) [place] Start: 2003 Screening for malign ant neoplasm of colon Colon cancer screen colonoscopy [facility] [employer] Phone: Start: 1979 Cervical cancer screen Cervical canc er screen [place] Start: 1979 Screening for malign ant neoplasm of cervix Cervical cancer screen [facility] [employer] Phone: Start: 1977 DTaP/Tdap/Td vaccine (1 - Tdap) DTaP/Tdap/Td vaccine (1 - Tdap) [facility] [employer] Phone: Start: 1973 HIV screen HIV screen [place], [place] Start: 1973 HIV screening HIV screen [facility] Work Phone: Start: 1970 COVID-19 Vaccine (1) COVID-19 Vaccin e (1) [facility] [employer] Phone: Start: 1969 DTaP/Tdap/Td vaccine (1 - Tdap) DTaP/Tdap/Td vaccine (1 - Tdap) [place] Start: 1968 Lipid screen Lipid screen [place] Start: 1964 Pneumococcal 0-64 ye ars Vaccine (1 of 1 - PPSV23) Pneumococcal 0-64 years Vaccine (1 of 1 - PPSV23) [place] Start: 1964 Pneumococcal 0-64 ye ars Vaccine (1 of 2 - PPSV23) Pneumococcal 0-64 years Vaccine (1 of 2 - PPSV23) [facility] [employer] Phone: Start: 1958 Hepatitis C screen Hepatitis C scree n [place], [place] Start: 1958 Hepatitis C screening Hepatitis C sc reen [facility] Phone: End: 05-21-2019 Blood occult stool #1 Blood occult stool #1 Lab Routine One Time for 1 Occurrences starting 05/21/2019 until 05/21/2019 [place] Comment on above: One Time for 1 Occur rences starting 05/21/2019 until 05/21/2019 CPAP CPAP Respiratory Care Routine Every 4hr until discontinued starting 05/21/2019 [place] Comment on above: Every 4hr until disc ontinued starting 05/21/2019 CTA HEAD NECK W CONTRAST CTA HEA D NECK W CONTRAST Imaging STAT 11/11/2020 12:32 PM EDT [facility] [employer] Phone: EKG 12 Lead EKG 12 Lead ECG STAT 11/11/2020 11:[address] [facility]: Initiate Oxygen Ther apy Protocol Initiate Oxygen Therapy Protocol Respiratory Care Routine Daily until discontinued starting 05/21/2019 [place] Comment on above: Daily until disconti nued starting 05/21/2019 Payers Date Payer Category Payer Unknown BCBS BC[place] - [place] [employer] xxxxxxxxx 2014-Present [address] [place] [address] xxxxxxxxx [id number] 1959 Unknown [id number] 1958 Unknown [id number] 1958 Unknown [id number] 1958 Unknown [id number] 1958 Unknown [id number] 1958 Unknown [id number] 1958 Unknown [id number] 1958 Unknown [id number] 9 Unknown Social History Date Type Detail Facility Start: 05-21-2019 End: 11-11-2020 Tobacco smoking status NHIS Current every day smoker [place] History of tobacco use Cigarette Smoker [place] Start: 05-21-2019 End: 11-11-2020 Cigarettes smoked current (pack per day) - Reported [place], [place] Start: 1960 Sex Assigned At Not on file [place] Start: 06-15-2019 End: 11-11-2020 Tobacco use and exposure Never used [facility] Start: 11-11-2020 Alcohol intake Ex-drinker (finding) [employer] Work Phone: Evaluation note Note Date & Type Note Facility Evaluation note Diagnosis Vertigo- Primary Dizziness and giddiness documented in this encounter [employer] Phone: Hospital Discharge instructions Attachments Note Date & Type Note Facility Hospital Discharge instructions The following attachments cannot be sent through Care Everywhere.Vertigo (Vincentian)Dizziness (Vincentian)documented in this encounter [employer] Phone: Summary Purpose Family History No Family History Records FoundNo Family History Records FoundNo Family History Records FoundNo Family History Records FoundNo Family History Records Found Advance Directives No Advanced Directives Records FoundDocuments on File Type Date Recorded Patient Sales Planning Coordinator Expl anation Advance Directives and Living Will Power of Size Stamper Latest Code Status on File Code Status Date Activated Date Inactivated Comments Full Code 05/21/2019 1:13 PM Documents on File Type Date Recorded Patient Sales Planning Coordinator Expl anation ACP-Advance Directive ACP-Power of Size Stamper Latest Code Status on File Code Status Date Activated Date Inactivated Comments Full Code 05/21/2019 1:13 PM 05/22/2019 5:52 PM Hospital Course * Deidre Garza, CARLI - STORE PERSON - 05/22/2019 2:15 PM EST Discharge Summary Rubén Aparicio : 1960 Admit date: 05/21/2019 Discharge date: 05/22/2019 Admitting Physician: Kash Cedeno MD Consultants: Dr. Caldera, cardiology Procedures: Stress Test Complications: none Discharge Condition: stable Hospital Course: Rubén Aparicio is a 59 y.o. female admitted with chest pain and abdominal pain located in the epigastric region and radiates across her abdomen. She states that for the last few weeks she has had a bloating sensation to her abdomen that is more prominent when she stands up. She denies constipation or diarrhea. She denies melana or hematochezia. She received a GI cocktail in the ER that subside that feeling. She stated it was a 'sharp' constant pain. She stated that she is passing gas. She stated that she was nauseated with the pain. She stated the chest pain was in the left chest while the abdominal pain was occurring and was a buring feeling. She stated the pain wasworse lying down and was better when up moving around She denied arm, neck, jaw, or back pain. She denied any diaphoresis. She denied SOB or Wheezing. She is a smoker of 1ppd. She continues to complain of epigastric discomfort but tolerates diet and activity well. She did have a stress test that was normal per cardiology. I will send her out on Omeprazole and recommend that she follow up with a GI workup as an outpatient that will be followed by her PCP. We will also continue ASA, Metoprolol, and Lipitor per cardiology. Exam: GEN: alert and oriented to person, place and time, well-developed and well- nourished, in no acute distress EYES: No gross abnormalities., PERRL and EOMI NECK: normal, supple, no lymphadenopathy, no carotid bruits PULM: clear to auscultation bilaterally- no wheezes, rales or rhonchi, normal air movement, no respiratory distress COR: regular rate & rhythm, no murmurs, no gallops, S1 normal and S2 normal ABD: soft, non-tender, non-distended, normal bowel sounds, no masses or organomegaly EXT: no cyanosis, clubbing or edema present NEURO: follows commands, W[place]ATT, no deficits SKIN: no rashes or significant lesions Significant Diagnostic Studies: Lab Results Component Value Date WBC 8.1 05/22/2019 HGB 13.1 05/22/2019 PLT 323 05/22/2019 Lab Results Component Value Date BUN 15 05/21/2019 CREATININE 0.54 05/21/2019 NA 143 05/21/2019 K 3.7 05/21/2019 CALCIUM 8.8 05/21/2019 CL 104 05/21/2019 CO2 24 05/21/2019 LABGLOM >60 05/21/2019 Lab Results Component Value Date WBCUA 0 TO 2 05/21/2019 RBCUA None 05/21/2019 EPITHUA 0 TO 2 05/21/2019 LEUKOCYTESUR NEGATIVE 05/21/2019 SPECGRAV 1.020 05/21/2019 GLUCOSEU NEGATIVE 05/21/2019 KETUA NEGATIVE 05/21/2019 PROTEINU NEGATIVE 05/21/2019 HGBUR NEGATIVE 05/21/2019 CASTUA NOT REPORTED 05/21/2019 CRYSTUA NOT REPORTED 05/21/2019 BACTERIA NOT REPORTED 05/21/2019 YEAST NOT REPORTED 05/21/2019 Xr Chest Portable Result Date: 05/21/2019 EXAMINATION: ONE XRAY VIEW OF THE CHEST 05/21/2019 8:52 am COMPARISON: None. HISTORY: ORDERING SYSTEM PROVIDED HISTORY: CP TECHNOLOGIST PROVIDED HISTORY: CP FINDINGS: AP portable view of the chest time stamped at 851 hours demonstrates overlying cardiac monitoring electrodes. Heart size is normal. No vascular congestion, focal consolidation, effusion, or pneumothorax is noted. Mild chronic interstitial changes noted. The patient has scoliotic curvature in the dorsal spine and degenerative changes. Mediastinal contours are unremarkable. No acute cardiopulmonary process. Chronic interstitial change, relatively stable. Discharge Diagnoses: Principal Problem: Acute coronary syndrome (HCC) Active Problems: Epigastric pain Tobacco abuse disorder Depression Resolved Problems: * No resolved hospital problems. * Active Hospital Problems Diagnosis Date Noted Epigastric pain [R10.13] 05/21/2019 Priority: High Class: Acute Acute coronary syndrome (HCC) [I24.9] 05/21/2019 Tobacco abuse disorder [Z72.0] 05/21/2019 Depression [F32.9] 05/21/2019 Discharge Medications: Rubén Aparicio Home Medication Instructions ROLAND:[id number] Printed on:05/22/19 2066 Medication Information acetaminophen-codeine (TYLENOL/CODEINE #3) 300-30 MG per tablet Take 1 tablet by mouth every 6 hours as needed for Pain.. ARIPiprazole (ABILIFY) 5 MG tablet Take 5 mg by mouth daily aspirin 81 MG chewable tablet Take 1 tablet by mouth daily ptablxw-opkiuegdgmeqf-firvxtsp (EXCEDRIN MIGRAINE) 250-250-65 MG per tablet Take 2 tablets by mouth every 6 hours as needed for Headaches (Migraine) atorvastatin (LIPITOR) 40 MG tablet Take 1 tablet by mouth nightly desvenlafaxine succinate (PRISTIQ) 25 MG TB24 extended release tablet Take 25 mg by mouth daily metoprolol tartrate (LOPRESSOR) 25 MG tablet Take 1 tablet by mouth 2 times daily omeprazole (PRILOSEC) 20 MG delayed release capsule Take 1 capsule by mouth 2 times daily (before meals) Patient Instructions: Activity: activity as tolerated Diet: regular diet Wound Care: none needed Other: None Disposition: Discharge to Home Follow up: Patient will be followed by Cesar Paulino MD in 1-2 weeks [facility] MEASURES on Discharge (if applicable) ARGELIA/ARB in CHF: NA Statin in CT: NA ASA in CT: NA Statin in CVA: NA Antiplatelet in CVA: NA Total time spent on discharge services: 45 minutes Including the following activities: Evaluation and Management of patient Discussion with patient and/or surrogate about current care plan Coordination with Case Management and/or Slat Basket Maker Machine Coordination of care with Consultants (if applicable) Coordination of care with Receiving Facility Physician (if applicable) Completion of DME forms (if applicable) Preparation of Discharge Summary Preparation of Medication Reconciliation Preparation of Discharge Prescriptions Signed: Deidre Garza APRN, CULTURAL CENTRE MANAGER-C 05/22/2019, 2:16 PM Associated attestation - Kash Cedeno MD - 05/22/2019 3:52 PM EST Patient ID: Rubén Aparicio [id number] Admission date: 05/21/2019 Discharge date: 05/22/2019 Admitting Physician: Kash Cedeno MD Primary Care Physician: Cesar Paulino MD Primary Discharge Diagnoses: Patient Active Problem List Diagnosis Date Noted Epigastric pain 05/21/2019 Priority: High Class: Acute Acute coronary syndrome (HCC) 05/21/2019 Tobacco abuse disorder 05/21/2019 Depression 05/21/2019 Additional Diagnoses: Diagnosis Date Back pain Depression Physical exam: Exam: GEN: A & O x3, no apparent distress EYES: No gross abnormalities. NECK: normal, supple, no lymphadenopathy, no carotid bruits PULM: clear to auscultation bilaterally- no wheezes, rales or rhonchi, normal air movement, no respiratory distress COR: regular rate & rhythm, no murmurs, and no gallops ABD: tenderness present- epigastrium, without rebound and guarding EXT: no cyanosis, clubbing or edema present NEURO: negative SKIN: no rashes or significant lesions Hospital Course: The patient was admitted for the above. She was treated with asa,betablokers,oxygen and ppi. Her stress test was neg and improved over the course of her hospitalization. Consultants: cardiology Procedures: Complications: none Significant Diagnostic Studies: Xr Chest Portable Result Date: 05/21/2019 EXAMINATION: ONE XRAY VIEW OF THE CHEST 05/21/2019 8:52 am COMPARISON: None. HISTORY: ORDERING SYSTEM PROVIDED HISTORY: CP TECHNOLOGIST PROVIDED HISTORY: CP FINDINGS: AP portable view of the chest time stamped at 851 hours demonstrates overlying cardiac monitoring electrodes. Heart size is normal. No vascular congestion, focal consolidation, effusion, or pneumothorax is noted. Mild chronic interstitial changes noted. The patient has scoliotic curvature in the dorsal spine and degenerative changes. Mediastinal contours are unremarkable. No acute cardiopulmonary process. Chronic interstitial change, relatively stable. Recent Results (from the past 96 hour(s)) EKG 12 Lead Collection Time: 05/21/19 8:40 AM Result Value Ref Range Ventricular Rate 110 BPM Atrial Rate 110 BPM P-R Interval 132 ms QRS Duration 72 ms Q-T Interval 338 ms QTc Calculation (Bazett) 457 ms P [place] 65 degrees R [place] 15 degrees T [place] 53 degrees CBC Auto Differential Collection Time: 05/21/19 8:42 AM Result Value Ref Range WBC 8.8 3.5 - 11.3 k/uL RBC 4.34 3.95 - 5.11 m/uL Hemoglobin 14.2 11.9 - 15.1 g/dL Hematocrit 44.2 36.3 - 47.1 % MCV 101.8 82.6 - 102.9 fL MCH 32.7 25.2 - 33.5 pg MCHC 32.1 28.4 - 34.8 g/dL RDW 12.9 11.8 - 14.4 % Platelets 354 138 - 453 k/uL MPV 8.9 8.1 - 13.5 fL NRBC Automated 0.0 0.0 per 100 WBC Differential Type NOT REPORTED Seg Neutrophils 59 36 - 65 % Lymphocytes 28 24 - 43 % Monocytes 9 3 - 12 % Eosinophils % 3 1 - 4 % Basophils 1 0 - 2 % Immature Granulocytes 0 0 % Segs Absolute 5.19 1.50 - 8.10 k/uL Absolute Lymph # 2.46 1.10 - 3.70 k/uL Absolute [place] # 0.76 0.10 - 1.20 k/uL Absolute Eos # 0.27 0.00 - 0.44 k/uL Basophils Absolute 0.09 0.00 - 0.20 k/uL Absolute Immature Granulocyte <0.03 0.00 - 0.30 k/uL WBC Morphology NOT REPORTED RBC Morphology NOT REPORTED Platelet Estimate NOT REPORTED Comprehensive Metabolic Panel w/ Reflex to MG Collection Time: 05/21/19 8:42 AM Result Value Ref Range Glucose 123 (H) 70 - 99 mg/dL BUN 15 8 - 23 mg/dL CREATININE 0.54 0.50 - 0.90 mg/dL Bun/Cre Ratio 28 (H) 9 - 20 Calcium 8.8 8.6 - 10.4 mg/dL Sodium 143 135 - 144 mmol/L Potassium 3.7 3.7 - 5.3 mmol/L Chloride 104 98 - 107 mmol/L CO2 24 20 - 31 mmol/L Anion Gap 15 9 - 17 mmol/L Alkaline Phosphatase 59 35 - 104 U/L ALT 16 5 - 33 U/L AST 21 <32 U/L Total Bilirubin 0.20 (L) 0.3 - 1.2 mg/dL Total Protein 7.0 6.4 - 8.3 g/dL Alb 4.4 3.5 - 5.2 g/dL Albumin/Globulin Ratio 1.7 1.0 - 2.5 GFR Non- >60 >60 mL/min GFR >60 >60 mL/min GFR Comment GFR Staging Lipase Collection Time: 05/21/19 8:42 AM Result Value Ref Range Lipase 19 13 - 60 U/L Troponin Collection Time: 05/21/19 8:42 AM Result Value Ref Range Troponin, High Sensitivity 67 (HH) 0 - 14 ng/L Troponin T NOT REPORTED <0.03 ng/mL Troponin Interp NOT REPORTED Protime-INR Collection Time: 05/21/19 8:42 AM Result Value Ref Range Protime 10.0 9.7 - 12.2 sec INR 1.0 0.9 - 1.2 D-Dimer, Quantitative Collection Time: 05/21/19 8:42 AM Result Value Ref Range D-Dimer, Quant 0.26 0.19 - 0.50 mg/L FEU Brain Natriuretic Peptide Collection Time: 05/21/19 8:42 AM Result Value Ref Range Pro-BNP 152 <300 pg/mL BNP Interpretation Pro-BNP Reference Range: Urinalysis Reflex to Culture Collection Time: 05/21/19 8:50 AM Result Value Ref Range Color, UA YELLOW YELLOW Turbidity UA CLEAR CLEAR Glucose, Ur NEGATIVE NEGATIVE Bilirubin Urine NEGATIVE NEGATIVE Ketones, Urine NEGATIVE NEGATIVE Specific [place], UA 1.020 1.010 - 1.020 Urine Hgb NEGATIVE NEGATIVE pH, UA 6.0 5.0 - 9.0 Protein, UA NEGATIVE NEGATIVE Urobilinogen, Urine Normal Normal Nitrite, Urine NEGATIVE NEGATIVE Leukocyte Esterase, Urine NEGATIVE NEGATIVE Urinalysis Comments NOT REPORTED Microscopic Urinalysis Collection Time: 05/21/19 8:50 AM Result Value Ref Range - WBC, UA 0 TO 2 0 - 5 /HPF RBC, UA None 0 - 2 /HPF Casts UA NOT REPORTED /LPF Crystals, UA NOT REPORTED None /HPF Epithelial Cells UA 0 TO 2 0 - 25 /HPF Renal Epithelial, UA NOT REPORTED 0 /HPF Bacteria, UA NOT REPORTED None Mucus, UA NOT REPORTED None Trichomonas, UA NOT REPORTED None Amorphous, UA NOT REPORTED None Other Observations UA NOT REPORTED NOT REQ. Yeast, UA NOT REPORTED None Troponin Collection Time: 05/21/19 10:30 AM Result Value Ref Range Troponin, High Sensitivity 66 (HH) 0 - 14 ng/L Troponin T NOT REPORTED <0.03 ng/mL Troponin Interp NOT REPORTED Lipid panel - fasting Collection Time: 05/22/19 5:40 AM Result Value Ref Range Cholesterol 154 <200 mg/dL HDL 51 >40 mg/dL LDL Cholesterol 82 0 - 130 mg/dL Chol/HDL Ratio 3.0 <5 Triglycerides 106 <150 mg/dL VLDL NOT REPORTED 1 - 30 mg/dL CBC Collection Time: 05/22/19 5:40 AM Result Value Ref Range WBC 8.1 3.5 - 11.3 k/uL RBC 4.05 3.95 - 5.11 m/uL Hemoglobin 13.1 11.9 - 15.1 g/dL Hematocrit 42.7 36.3 - 47.1 % MCV 105.4 (H) 82.6 - 102.9 fL MCH 32.3 25.2 - 33.5 pg MCHC 30.7 28.4 - 34.8 g/dL RDW 13.0 11.8 - 14.4 % Platelets 323 138 - 453 k/uL MPV 8.8 8.1 - 13.5 fL NRBC Automated 0.0 0.0 per 100 WBC Discharge Condition: stable Disposition: home Discharge Medications: Rubén Aparicio Home Medication Instructions ROLAND:[id number] Printed on:05/22/19 7917 Medication Information acetaminophen-codeine (TYLENOL/CODEINE #3) 300-30 MG per tablet Take 1 tablet by mouth every 6 hours as needed for Pain.. ARIPiprazole (ABILIFY) 5 MG tablet Take 5 mg by mouth daily aspirin 81 MG chewable tablet Take 1 tablet by mouth daily bthqsds-miixvfzhvvmbj-kfaprgee (EXCEDRIN MIGRAINE) 250-250-65 MG per tablet Take 2 tablets by mouth every 6 hours as needed for Headaches (Migraine) atorvastatin (LIPITOR) 40 MG tablet Take 1 tablet by mouth nightly desvenlafaxine succinate (PRISTIQ) 25 MG TB24 extended release tablet Take 25 mg by mouth daily metoprolol tartrate (LOPRESSOR) 25 MG tablet Take 1 tablet by mouth 2 times daily omeprazole (PRILOSEC) 20 MG delayed release capsule Take 1 capsule by mouth 2 times daily (before meals) Resume all home medications unless otherwise directed Add as above Stop smoking Patient Instructions: Activity: activity as tolerated Diet: regular diet Wound Care: none needed Other: needs upper gi w/u as out pt Follow up with PCP in 1 wk as directed Time Spent on discharge services is 25 minutes in the examination, evaluation, counseling and review of medications and discharge plan. Signed: Kash Cedeno M.D. 05/22/2019 3:49 PM I reviewed and agree with the findings and plan documented in her note . Kash Cedeno MD documented in this encounter Discharge Instructions * Discharge Instr - Activity* Gina Kahn RN - 05/22/2019 2:35 PM EST Activity as tolerated * Discharge Instr - Diet* Gina Kahn RN - 05/22/2019 2:36 PM EST ? Good nutrition is important when healing from an illness, injury, or surgery. Follow any nutrition recommendations given to you during your hospital stay. ? If you were given an oral nutrition supplement while in the hospital, continue to take this supplement at home. You can take it with meals, in-between meals, and/or before bedtime. These supplements can be purchased at most local grocery stores, pharmacies, and chain super-stores. ? If you have any questions about your diet or nutrition, call the hospital and ask for the dietitian. Follow a low fat/low sodium diet, limit/avoid caffeine * Attachments The following attachments cannot be sent through Care Everywhere. * Abdominal Pain (Vincentian) * Smoking: Stopping (Vincentian) documented in this encounter History of Present Illness * Gina Kahn RN - 05/22/2019 3:45 PM EST Discharge instructions given to pt. No questions, pt verbalized understanding all instructions. Pt aware of follow up appointments as listed on AVS. Pt informed senior underwriter that she drove her and was going to drive herself home. SABRINA Jiang, informed and okayed pt to drive self home. Pt d/c'd off unit at this time, via wheelchair, alone, to home. Belongings in hand. No issues noted. * Gina Kahn RN - 05/22/2019 3:00 PM EST Informed SABRINA Jiang, that pt is having numerous episodes of diarrhea. Noted brown watery stool inhat in toilet, there was no formed stool noted. N.O. for Immodium, see Mar. Pt is discharging and was instructed to obtain OTC Immodium and follow package directions for administration. * Gina Kahn RN - 05/22/2019 10:15 AM EST Pt returned from Radiology at this time, via wheelchair. * Deidre Garza APRN - CNP - 05/22/2019 10:06 AM EST Progress Note SUBJECTIVE: F/u abdominal pain and chest pain OBJECTIVE: Resting in bed with spouse at side. No complaints of chest pain. Continues to complain of epigastric discomfort. No arrhythmias. Denies SOB or dyspnea. Denies dizziness or syncope. Denies CP or palpitations. Vitals: Vitals: 05/22/19 0800 BP: 127/79 Pulse: 86 Resp: 20 Temp: 97.8 F (36.6 C) SpO2: Weight: 126 lb 11.2 oz (57.5 kg) Height: 5' (152.4 cm) Exam: CONSTITUTIONAL: awake, alert, cooperative, no apparent distress, and appears stated age EYES: Lids and lashes normal, pupils equal, round and reactive to light, extra ocular muscles intact, sclera clear, conjunctiva normal ENT: normocepalic, without obvious abnormality NECK: supple, symmetrical, trachea midline, skin normal and no stridor HEMATOLOGIC/LYMPHATICS: no cervical lymphadenopathy and no supraclavicular lymphadenopathy LUNGS: No increased work of breathing, good air exchange, clear to auscultation bilaterally, no crackles or wheezing CARDIOVASCULAR: Normal apical impulse, regular rate and rhythm, normal S1 and S2, no S3 or S4, and no murmur noted ABDOMEN: No scars, normal bowel sounds, soft, non-distended,tender to epigastric area, no masses palpated, no hepatosplenomegally MUSCULOSKELETAL: there is no redness, warmth, or swelling of the joints full range of motion noted tone is normal NEUROLOGIC: Mental Status Exam: Level of Alertness: awake Orientation: person, place, time Memory: normal SKIN: no bruising or bleeding, normal skin color, texture, turgor, no redness, warmth, or swelling,no rashes and no lesions EXT: no cyanosis, clubbing or edema present Diagnostic Data: Reviewed ASSESSMENT: Principal Problem: Acute coronary syndrome (HCC) Active Problems: Epigastric pain Tobacco abuse disorder Depression Resolved Problems: * No resolved hospital problems. * PLAN: Stress test and echo today Discharge pending results of Stress Hemoccult stool to still be collected GI work up as an outpatient Deidre Garza APRN, CULTURAL CENTRE MANAGER-C Associated attestation - Kash Cedeno MD - 05/22/2019 12:56 PM EST Attestation 05/22/19 I personally evaluated and examined the patient [id number] in conjunction with the CULTURAL CENTRE MANAGER and agree with the management and dispostition of the patient. Please see CULTURAL CENTRE MANAGER's progress note for full details. My candelaria findings are: SUBJECTIVE: Patient seen for follow up of Acute coronary syndrome (HCC). She has some epigastric pain OBJECTIVE: Vitals: Temp: 97.8 F (36.6 C) BP: 127/79 Resp: 20 Pulse: 86 SpO2: 95 % 24HR INTAKE/OUTPUT: Intake/Output Summary (Last 24 hours) at 05/22/2019 1256 Last data filed at 05/22/2019 0800 Gross per 24 hour Intake 1855 ml Output 800 ml Net 1055 ml Exam: GEN: Awake, alert and oriented x 3. no acute distress EYES: EOMI, pupils equal NECK: Supple. No lymphadenopathy. No carotid bruit CVS: RRR, no murmur, rub or gallop PULM: CTA, no wheezes, rales or rhonchi ABD: Bowels sounds normal. Abdomen is soft. No distention. No tenderness. EXT: no edema bilaterally . No calf tenderness. NEURO: Motor and sensory are intact SKIN: No rashes. No skin lesions. Diagnostic Data: All available data reviewed Lab Results Component Value Date WBC 8.1 05/22/2019 HGB 13.1 05/22/2019 MCV 105.4 (H) 05/22/2019 PLT 323 05/22/2019 Lab Results Component Value Date GLUCOSE 123 (H) 05/21/2019 BUN 15 05/21/2019 CREATININE 0.54 05/21/2019 NA 143 05/21/2019 K 3.7 05/21/2019 CALCIUM 8.8 05/21/2019 CL 104 05/21/2019 CO2 24 05/21/2019 ASSESSMENT: Principal Problem: Acute coronary syndrome (HCC) Active Problems: Epigastric pain Tobacco abuse disorder Depression Resolved Problems: * No resolved hospital problems. * PLAN: I agree with the plan as outlined in the CULTURAL CENTRE MANAGER's note Principal Problem: Acute coronary syndrome (HCC) Active Problems: Epigastric pain Tobacco abuse disorder Depression Resolved Problems: * No resolved hospital problems. * * Marleny Viveros - 05/22/2019 9:25 AM EST Explained policies and procedures of an echocardiogram/Doppler study. * Daisy Lr LSW - 05/22/2019 8:38 AM EST Discussed discharge plans with the patient. Patient is a 59 year old female here with Acute coronary syndrome . She is alert and oriented. Patient is and lives at home with her and son. She uses a C-pap machine. Patient does the cleaning and her does the cooking. She is independent with her ADL's. She manages herown medications and drives. Her PCP is Dr. Cesar Paulino. She has medical insurance that helps with medication costs. The discharge plan is home with no services at this time. She does have advance directives but not on file. SEAFOOD TEAM MEMBER to monitor and assist with any needs or concerns as they arise. LINDSAY Marc * Gina Kahn RN - 05/22/2019 8:10 AM EST Pt to Radiology, via wheelchair, for ordered testing * Devan Lamas RD, LD - 05/22/2019 6:53 AM EST Nutrition Assessment Type and Reason for Visit: Initial, Patient Education Nutrition Recommendations: Heart healthy diet Nutrition Assessment: Food and nutrition related knowledge deficit r/t cardiac dysfunction, AEB c/ochest pains, not previously following a heart heatlhy eating plan. Lower oral intakes noted mercerizing range feeder. Weight appears on increase per historical data. Will provide patient with educational materials. Malnutrition Assessment: Malnutrition Status: No malnutrition Context: Acute illness or injury Findings of the 6 clinical characteristics of malnutrition (Minimum of 2 out of 6 clinical characteristics is required to make the diagnosis of moderate or severe Protein Calorie Malnutrition based on AND/ASPEN Guidelines): 1. Energy Intake-Greater than 75% of estimated energy requirement, 2. Weight Loss-No significant weight loss, 3. Fat Loss-No significant subcutaneous fat loss, 4. Muscle Loss-No significant muscle mass loss, 5. Fluid Accumulation-No significant fluid accumulation, 6. Tankage Grinder Strength-Not measured Nutrition Risk Level: Low, Moderate Nutrition Diagnosis: Problem: Food and nutrition-related knowledge deficit Etiology: related to Cardiac dysfunction ? Signs and symptoms: as evidenced by Patient report of(chest pains) Objective Information: Nutrition-Focused Physical Findings: no malnutrition indices Wound Type: None Current Nutrition Therapies: Oral Diet Orders: Cardiac(NPO currently) Oral Diet intake: 76-100% Oral Nutrition Supplement (ONS) Orders: None Anthropometric Measures: Ht: 5' (152.4 cm) Current Body Wt: 126 lb 11.2 oz (57.5 kg) Admission Body Wt: 123 lb (55.8 kg) Usual Body Wt: (states creeping up) % Weight Change: , 3% acute gain [place] Body Wt: 100 lb (45.4 kg), % [place] Body 126% BMI Classification: BMI 18.5 - 24.9 Normal Weight Lab Results Component Value Date NA 143 05/21/2019 K 3.7 05/21/2019 CL 104 05/21/2019 CO2 24 05/21/2019 BUN 15 05/21/2019 CREATININE 0.54 05/21/2019 GLUCOSE 123 (H) 05/21/2019 CALCIUM 8.8 05/21/2019 PROT 7.0 05/21/2019 LABALBU 4.4 05/21/2019 BILITOT 0.20 (L) 05/21/2019 ALKPHOS 59 05/21/2019 AST 21 05/21/2019 ALT 16 05/21/2019 LABGLOM >60 05/21/2019 GFRAA >60 05/21/2019 Nutrition Interventions: Continue current diet Continued Inpatient Monitoring, Education Initiated, Coordination of Care Nutrition Evaluation: Evaluation: Goals set Goals: PO>75% meals with heart healthy choices Monitoring: Meal Intake, Pertinent Labs, Weight, I&O, Patient/Family Education Contact Number: [phone] * Chelsea Hopkins RN - 05/22/2019 1:07 AM EST Called respiratory again to inquire about the CPAP that was supposed to be set up for patient. Spoke with Tania who informed senior underwriter that she came up, and patient was sleeping. Pt told Tania she didn't need it and that she hardly uses hers at home. Pt currently resting comfortably with eyes closed. EIDA * Chelsea Hopkins RN - 05/21/2019 8:52 PM EST Entered patients room to administer nightly medications and to reassess pain. Patient was found to be lying on right side asleep. Response to pain intervention also documented in flow sheet.PO medications taken with no issue. EIDA * Chelsea Hopkins RN - 05/21/2019 7:46 PM EST Patient assessed, introduced self to patient. Patient is alert, oriented x4 and her only complaint at this time is pain that she reports is at a 9, describes as acute, continuous, stabbing and is located in the epigastric region. Bedside tablet set up, paper signed and in chart, PHI paper signed and in chart as well. Switchboard was called to inform them of patient's info restrictions, and respiratory was called to set up C-pap for patient as well. * Gina Kahn RN - 05/21/2019 2:05 PM EST Pt sitting tongan style in bed, denies chest pain, c/o upper abdomen pain, states her stomach is full, Deidre, SABRINA, aware. at bedside. Pt appears calm, is pleasant and talkative, eating lunch at this time. Will continue to monitor. * Gina Kahn RN - 05/21/2019 1:00 PM EST Pt admitted to room 303, from ER, at this time Report received from ANAMARIA Carrington. Pt is A&Ox4, calm and cooperative, rates pain 5/10 to upper abdomen. Pt transfers from stretcher to bed independently, without Incident. Admission assmt to be completed. Will continue to monitor. documented in this encounter Assessments Diagnosis Acute coronary syndrome (HCC)- Primary Intermediate coronary syndrome Epigastric pain Abdominal pain, epigastric Tobacco abuse disorder Tobacco use disorder Depression Depressive disorder, not elsewhere classified Additional Source Comments INFORMATION SOURCE (unrecogn ized section and content) DATE CREATED AUTHOR 09/17/2017 [facility] DATE CREATED AUTHOR AUTHOR'S ORGANIZ ATION 04/07/2020 [facility] DATE CREATED AUTHOR AUTHOR'S ORGANIZ ATION 11/18/2020 [facility] DATE CREATED AUTHOR AUTHOR'S ORGANIZ ATION 08/31/2022 [facility] DATE CREATED AUTHOR AUTHOR'S ORGANIZ ATION 04/10/2023 [facility] EPIC Reason for Visit (unrecogniz ed section and content) Reason Comments Chest Pain Left, onset 0100, co ntiuous Abdominal Pain Diffuse with bloatin g, onset 1 week ago Status Reason Specialty Diagnoses / Procedures Referred By Contact Referred To Contact Diagnoses Acute coronary syndrome (HCC) Kash Cedeno MD [address] [place] [id number] [facility] Reason Comments Dizziness onset last evening a round 2030 Emesis with onset of dizzin ess Ordered Prescriptions (unrec ognized section and content) Prescription Sig Dispensed Refills Start Date End Da te meclizine (ANTIVERT) 25 MG tablet Take 1 tablet by mouth 3 times daily as needed for Dizziness 15 tablet 0 11/11/2020 11/21/2020 Scheduled Active and Recently Administ ered Medications (unrecognized section and content) Medication Order 11/09/2020 11/10/2020 11/11/2020 diazePAM (VALIUM) tablet 5 mg (COMPLETED) 5 mg, Oral, ONCE, On Sat11/11/20 at 1200, For 1 dose 1217 (Given - Provid er: Sanjuana Vázquez RN) ondansetron (ZOFRAN) injection 4 mg (COMPLETED) 4 mg, Intravenous, ONCE, On Sat11/11/20 at 1200, For 1 dose 1217 (Given - Provid er: Sanjuana Vázquez RN) Continuous Medication Order 11/09/2020 11/10/2020 11/11/2020 0.9 % sodium chloride infusion 1,000 mL, Intravenous, at 125 mL/hr, Administer over 8 Hours, CONTINUOUS, Starting on Sat11/11/20 at 1145 1217 (New Bag - Prov ider: Sanjuana Vázquez RN)1518 (Stopped - Provider: Kayley Iverson RN) PRN Medication Order 11/09/2020 11/10/2020 11/11/2020 iopamidol (ISOVUE-370) 76 % injection 75 mL (COMPLETED) 75 mL, Intravenous, IMG ONCE PRN, Other, Starting on Sat11/11/20 at 1222, For 1 dose 1223 (Given - Provid er: Osiel Hernandez) FOR RECORDS PERTAINING TO PATIENTS WHO ARE OR HAVE BEEN ENROLLED IN A CHEMICAL DEPENDENCY/SUBSTANCEABUSE PROGRAM, SOME INFORMATION MAY BE OMITTED. This clinical summary was aggregated from multiple sources. Caution should be exercised in using it in the provision of clinical care. This summary normalizes information from multiple sources, and as a consequence, information in this document may materially change the coding, format and clinical context of patient data. In addition, data may be omitted in some cases. CLINICAL DECISIONS SHOULD BE BASED ON THE PRIMARY CLINICAL RECORDS. [facility]. provides no warranty or guarantee of the accuracy or completeness of information in this document.
--- NOTE | 2023-05-16 08:44 | CT_ITS ---
[address] [address] Patient Name: RUBÉN APARICIO MRN: [id number] date: 1960 Sex: F Assigned Patient Location: CT Current Patient Location: CT Accession/Order Number: [id number] Exam Date: 05/16/2023 08:37 Report Date: 05/16/2023 09:50 At the request of: CESAR PAULINO Procedure: CT lung screening low-dose EXAM: CT lung screening low-dose HISTORY: Acute Bronchiolitis J21.9 ; technologist notes state screening for lung cancer and current smoker. COMPARISON: None. TECHNIQUE: Routine low-dose CT lung screen without intravenous contrast. FINDINGS: Cardiovascular: Mild multivessel coronary calcifications. Moderate atheromatous calcification thoracic and abdominal aorta. Mild atheromatous calcification brachiocephalic trunk and both subclavian arteries. Mild atheromatous calcification splenic and superior mesenteric arteries. Duplicated left innominate vein. Lungs: Centrilobular emphysema with a a few paraseptal bulla. Mild right middle lobe and lingular atelectasis. Linear focus of atelectasis or parenchymal scar left lower lobe. Small fat-containing Bochdalek hernia posterior left lung base. Nodules: There is a 0.2 cm noncalcified right upper lobe pleural-based nodule (series 3 image 59). There is a small calcified granuloma within each lower lobe. Lymphadenopathy: There are no pathologically enlarged axillary, mediastinal or hilar lymph nodes. Other: The trachea, esophagus and thyroid gland are unremarkable. Upper abdomen: Atherosclerotic disease as described. Osseous: The bony structures appear osteopenic. There is slight dextroscoliosis and kyphosis of the thoracic spine. There are endplate spurs at several levels along the spine. CT/CT lung screening low-dose IMPRESSION: Centrilobular emphysema with a few paraseptal bulla. There is a 0.2 cm noncalcified right upper lobe pleural-based nodule (series 3 image 59). There are no pathologically enlarged lymph nodes. Atherosclerotic disease as described. Lung rads score 2. A low-dose CT lung screen examination in 12 months is recommended. Electronically authenticated by: TREVIN ROYAL Date: 05/16/2023 09:50
== END 2023-05-16 08:29 | disposition home or self-care (01) ==
LOC: CT 08:28
PROVIDERS: PCP Family Medicine; Visit Provider Family Medicine
DX: F17.210 Nicotine dependence, cigarettes, uncomplicated (principal); J43.2 Centrilobular emphysema; R91.1 Solitary pulmonary nodule; Z12.2 Encounter for screening for malignant neoplasm of respiratory organs
CPT/HCPCS: 71271

== ENCOUNTER 2023-08-23 11:22 | Outpatient (OUT) | payer MEDICARE, BC, SELFPAY ==
[2023-08-23 11:53] LABS: Basophils Absolute Auto 0.1 10^3/uL (0.0-0.1); Basophils Percent Auto 0.7 % (0.2-2.0); Eosinophils Absolute Auto 0.2 10^3/uL (0.0-0.7); Hematocrit 44.1 % (36.0-48.0); Hemoglobin 14.6 g/dL (12.0-16.0); Immature Granulocytes Abs Auto 0.03 10^3/uL (0.00-0.03); Immature Granulocytes Pct Auto 0.3 % (0.0-0.5); Lymphocytes Absolute Auto 3.9 10^3/uL (1.2-3.8); Lymphocytes Percent Auto 35.4 % (20.5-60.0); Mean Corpuscular HGB Conc 33.1 g/dL (29.9-35.2); Mean Corpuscular Volume 99.8 fL (81.0-99.0); Mean Platelet Volume 9.6 fL (9.5-13.5); Monocytes Absolute Auto 0.5 10^3/uL (0.3-0.8); Monocytes Percent Auto 4.9 % (1.7-12.0); Neutrophils Absolute Auto 6.2 10^3/uL (1.4-6.5); Neutrophils Percent Auto 56.7 % (43.0-75.0); Platelet Count 319 10^3/uL (150-450); Red Blood Count 4.42 10^6/uL (4.20-5.40); Red Cell Distribution Width 12.8 % (11.0-15.0)
[2023-08-23 12:20] LABS: Alanine Aminotransferase 36 U/L (14-59); Albumin Globulin Ratio 1.3; Albumin Level 3.9 g/dL (3.4-5.0); Alkaline Phosphatase 51 U/L (46-116); Anion Gap 10.6; Aspartate Amino Transferase 19 U/L (15-37); BUN Creatinine Ratio 20.3; Bilirubin Total 0.4 mg/dL (0.2-1.0); Calcium 8.6 mg/dL (8.5-10.1); Carbon Dioxide 29.4 mmol/L (21.0-32.0); Chloride 102 mmol/L (98-107); Chol HDL Ratio 2.2; Cholesterol 114 mg/dL (<=200); Estimated GFR (African America >60 (>=60); Estimated GFR (Non-African Ame >60 (>=60); Free T3 2.69 pg/mL (2.18-3.98); Globulin 3.1 g/dL; Glucose 102 mg/dL (74-106); HDL Cholesterol 52 mg/dL (40-60); Sodium 138 mmol/L (136-145); Thyroid Stimulating Hormone 1.002 uIU/mL (0.358-3.740); Triglycerides 70 mg/dL (<=150)
[2023-08-23 12:31] LABS: Estimated Average Glucose 114 mg/dL; Glycohemoglobin A1C 5.6 % (4.5-6.2)
== END 2023-08-23 11:23 | disposition home or self-care (01) ==
LOC: LAB 11:24
PROVIDERS: PCP Family Medicine; Visit Provider Family Medicine
DX: Z00.00 Encounter for general adult medical examination without abnormal findings (principal)
CPT/HCPCS: 36415; 80053; 80061; 83036; 84436; 84439; 84443; 84481; 85025

== ENCOUNTER 2024-07-03 09:14 | Outpatient (OUT) | payer MEDICARE, BC, SELFPAY ==
--- NOTE | 2024-07-03 09:19 | MM_ITS ---
Patient Name: RUBÉN APARICIO MR#: [id number] : 1960 Exam Date: 07/03/2024 Ordering Doctor: DR Hakan Leyva . RADIOLOGY REPORT PROCEDURE: MM TOMOSYNTHESIS SCREENING BI COMPARISON: MG MAMM SCREEN 3D SHELLY CAD, 12/29/2021. INDICATIONS: Screening Calculator Name NCI Breast Cancer Risk Assessment Tool 5 Year Breast Cancer Risk 1.10% Lifetime Breast Cancer Risk 4.00% Personal Breast Cancer No Personal Ovarian Cancer No Treatments None Family Cancers None LOCATION: [facility] BREAST COMPOSITION: There are scattered areas of fibroglandular density. FINDINGS: RIGHT BREAST: No significant suspicious finding. LEFT BREAST: No significant suspicious finding. DIAGNOSTIC CATEGORY 1--NEGATIVE. RECOMMENDATIONS: ROUTINE MAMMOGRAM AND CLINICAL EVALUATION IN 12 MONTHS. PLEASE NOTE: A NORMAL MAMMOGRAM DOES NOT EXCLUDE THE POSSIBILITY OF BREAST CANCER. A CLINICALLY SUSPICIOUS PALPABLE LUMP SHOULD BE BIOPSIED. Dictated by: Adal Mead DO on 07/03/2024 at 12:29 Approved by: Adal Mead DO on 07/03/2024 at 12:33
--- OUTSIDE RECORDS SUMMARY | 2024-07-03 09:30 | XMS_ITS | CCD ---
Author Organization [facility] Care Team Providers Care Pattern Chain Builder Name Role Phone PHYSICIAN, DEFAULT Unavailable Unavailable PHYSICIAN, DEFAULT Unavailable Unavailable Cesar Paulino Primary Care Provider Cesar Paulino MD Primary Care Provider [phone] CESAR PAULINO Primary Care Unavailable SAMY HUNTLEY Referring Unavailable CESAR PAULINO Primary Care Unavailable JEFFERSON ., DR GUERRERO Consulting Unavailable HOY ., DR GUERRERO Primary Care Unavailable HOY ., DR GUERRERO Admitting Unavailable HOY ., DR GUERRERO Attending Unavailable MCCOOL JUNCTION, DR RAMA Liang Consulting Unavailable HOY ., [...] every six hours as needed for headache qpntcfi-sksuvyoeuejzq-zxhiodzy (EXCEDRIN MIGRAINE) 250-250-65 MG per tablet Take [...] EVERY 5 MIN PRN, Chest pain, Starting Judit 05/21/19 at 1312, For [address] [...] capsule 5 05/22/2019 Active polyethylene glycol 3350 96716 mg powder for oral solution (1 source) [...] 07-15-2019 Episodic Other aftercare (1 source) Other senior care (current) drug therapy; Translations: [OTH LONG-TERM CURRENT DRUG THERAPY] Onset: 09-20-2021 Episodic Other [...] 08-21-2022 BASO # 0.1 103/ul Normal 0.0-0.1 [facility] Comment on above: Performed By: #### C BC #### [facility] [address] [place] [address] Dr. Georgia Rhoades Basophils/100 WBC (Bld) 0.8 % Normal 0.2-2.0 [facility] Comment on above: Performed By: #### C BC #### [facility] [address] [place] [address] Dr. Georgia Rhoades EO # 0.3 103/ul Normal 0.0-0.7 [facility] Comment on above: Performed By: #### C BC #### [facility] [address] [place] [address] Dr. Georgia Rhoades Eosinophils/100 WBC (Bld) 3.1 % Normal 0.9-7.0 [facility] Comment on above: Performed By: #### C BC #### [facility] [address] [place] [address] Dr. Georgia Rhoades Erythrocyte distribution width (RBC) [Ratio] 13.2 % Normal 11.0-15.0 [facility] Comment on above: Performed By: #### C BC #### [facility] [address] [place] [address] Dr. Georgia Rhoades Hematocrit (Bld) [Volume fraction] 45.8 % Normal 36.0-48.0 [facility] Comment on above: Performed By: #### C BC #### [facility] [address] [place] [address] Dr. Georgia Rhoades Hemoglobin (Bld) [Mass/Vol] 15.1 g/dL Normal 12.0-16.0 [facility] Comment on above: Performed By: #### C BC #### [facility] [address] [place] [address] Dr. Georgia Rhoades IG # 0.02 10e3/ul Normal 0.00-0.03 [facility] Comment on above: Performed By: #### C BC #### [facility] [address] [place] [address] Dr. Georgia Rhoades IG % 0.2 % Normal 0.0-0.5 [facility] Comment on above: Performed By: #### C BC #### [facility] [address] [place] [address] Dr. Georgia Rhoades LYMPH # 3.6 103/ul Normal 1.2-3.8 [facility] Comment on above: Performed By: #### C BC #### [facility] [address] [place] [address] Dr. Georgia Rhoades Lymphocytes/100 WBC (Bld) 37.1 % Normal 20.5-60.0 [facility] Comment on above: Performed By: #### C BC #### [facility] [address] [place] [address] Dr. Georgia Rhoades MANUAL DIFF REQ NO Normal [facility] Comment on above: Performed By: #### C BC #### [facility] [address] [place] [address] Dr. Georgia Rhoades MCH (RBC) [Entitic mass] 32.8 pg Normal 26.7-34.0 [facility] Comment on above: Performed By: #### C BC #### [facility] [address] [address] [address] Georgia Rhoades MCHC (RBC) [Mass/Vol] 33.0 g/dL Normal 29.9-35.2 [facility] Comment on above: Performed By: #### C BC #### [facility] [address] [place] [address] Dr. Georgia Rhoades MCV (RBC) [Entitic vol] 99.3 fL Critically high 81.0-99.0 [facility] Comment on above: Performed By: #### C BC #### [facility] [address] [place] [address] Dr. Georgia Rhoades MONO # 0.8 103/ul Normal 0.3-0.8 [facility] Comment on above: Performed By: #### C BC #### [facility] [address] [place] [address] Dr. Georgia Rhoades Monocytes/100 WBC (Bld) 8.3 % Normal 1.7-12.0 [facility] Comment on above: Performed By: #### C BC #### [facility] [address] [place] [address] Dr. Georgia Rhoades NEUT # 4.9 103/ul Normal 1.4-6.5 [facility] Comment on above: Performed By: #### C BC #### [facility] [address] [place] [address] Dr. Georgia Rhoades Neutrophils/100 WBC (Bld) 50.5 % Normal 43.0-75.0 [facility] Comment on above: Performed By: #### C BC #### [facility] [address] [place] [address] Dr. Georgia Rhoades Platelet mean volume (Bld) [Entitic vol] 9.3 fL Critically low 9.5-13.5 [facility] Comment on above: Performed By: #### C BC #### [facility] [address] [place] [address] Dr. Georgia Rhoades PLT 313 103/ul Normal 150-450 [facility] Comment on above: Performed By: #### C BC #### [facility] [address] [place] [address] Dr. Georgia Rhoades RBC 4.61 106/ul Normal 4.20-5.40 [facility] Comment on above: Performed By: #### C BC #### [facility] [address] [address] [address] Georgia Rhoades WBC 9.7 103/ul Normal 4.0-11.0 [facility] Comment on above: Performed By: #### C BC #### [facility] [address] [address] [address] Georgia Rhoades FREE T3on 08-21-2022 FREE T3 2.96 pg/mlL Normal 2.18-3.98 [facility] Comment on above: Performed By: #### F T3, CMP, T4, TSH, LIPID ####[facility] [address] [phone]. Georgia Rhoades GLYCOHEMOGLOBIN A1Con 2022 ADA RECOMMENDATION SEE BELOW Normal [facility] Comment on above: Result Comment: ADA RECOMMENDED LIMIT 4.0 - 6.0 ADA THERAPEUTIC TARGET < 7.0 ACTION SUGGESTED > 7.0 Performed By: #### A 1C ####[facility] [address] [address]Dr. Georgia Rhoades Glucose [Mass/Vol] 114 mg/dL Normal [facility] Comment on above: Performed By: #### A 1C ####[facility] [address] [address]Dr. Georgia Rhoades HbA1c (Bld) [Mass fraction] 5.6 % Normal 4.5-6.2 [facility] Comment on above: Performed By: #### A 1C ####[facility] [address] [address]Dr. Georgia Rhoades IRONon 08-21-2022 Iron [Mass/Vol] 66.0 ug/dL Normal 50.0-170.0 [facility] Comment on above: Performed By: #### V ITAD, IRON #### [facility] [address] [address] [address] Georgia Rhoades LIPID PROFILEon 08-21-2022 CHOL-HDL RATIO NORM SEE BELOW Normal [facility] Comment on above: Result Comment: 3.3 - 4.4 LOW RISK 4.4 - 7.1 AVERAGE RISK 7.1 - 11.0 MODERATE RISK >11.0 HIGH RISK Performed By: #### F T3, CMP, T4, TSH, LIPID ####[facility] [address] [id number]. Lucysnow Rhoades Cholesterol [Mass/Vol] 120 mg/dL Normal <=200 [facility] Comment on above: Performed By: #### F T3, CMP, T4, TSH, LIPID ####[facility] [address] [phone]. Georgia Rhoades Cholesterol in HDL [Mass/Vol] 57 mg/dL Normal 40-60 [facility] Comment on above: Performed By: #### F T3, CMP, T4, TSH, LIPID ####[facility] [address] [phone]. Georgia Rhoades Cholesterol in LDL [Mass/Vol] 46.2 mg/dL Normal [facility] Comment on above: Performed By: #### F T3, CMP, T4, TSH, LIPID ####[facility] [address] [phone]. Georgia Rhoades Cholesterol.total/Chol esterol in HDL [Mass ratio] 2.1 {ratio} Normal [facility] Comment on above: Performed By: #### F T3, CMP, T4, TSH, LIPID ####[facility] [address] [phone]. Georgia Rhoades HDL NORMAL > or = 60 mg/dl - LO W CARDIOVASCULAR RISK <40 mg/dl - HIGH CARDIOVASCULAR RISK Normal [facility] Comment on above: Performed By: #### F T3, CMP, T4, TSH, LIPID ####[facility] [address] [phone]. Georgia Rhoades LDL CALC NORMAL SEE BELOW Normal [facility] Comment on above: Result Comment: <100 mg/dl OPTIMAL 100 - 129 mg/dl NEAR OR ABOVE OPTIMAL 130 - 159 mg/dl BORDERLINE HIGH 160 - 189 mg/dl HIGH >190 mg/dl VERY HIGH Performed By: #### F T3, CMP, T4, TSH, LIPID ####[facility] [address] [phone]. Georgia Rhoades Triglyceride [Mass/Vol] 84 mg/dL Normal <=150 [facility] Comment on above: Performed By: #### F T3, CMP, T4, TSH, LIPID ####[facility] [address] [address]Dr. Georgia Rhoades VLDL CALC 16.8 mg/dL Normal [facility] Comment on above: Performed By: #### F T3, CMP, T4, TSH, LIPID ####[facility] [address] [phone]. Georgia Rhoades PROF 14(COMP METB)on 023 Albumin [Mass/Vol] 3.9 g/dL Normal 3.4-5.0 [facility] Comment on above: Performed By: #### F T3, CMP, T4, TSH, LIPID ####[facility] [address] [phone]. Georgia Rhoades Albumin/Globulin [Mass ratio] 1.1 {ratio} Normal [facility] Comment on above: Performed By: #### F T3, CMP, T4, TSH, LIPID ####[facility] [address] [phone]. Georgia Rhoades ALP [Catalytic activity/Vol] 44 U/L Critically low 46-116 [facility] Comment on above: Performed By: #### F T3, CMP, T4, TSH, LIPID ####[facility] [address] [phone]. Georgia Rhoades ALT [Catalytic activity/Vol] 35 U/L Normal 14-59 [facility] Comment on above: Performed By: #### F T3, CMP, T4, TSH, LIPID ####[facility] [address] [phone]. Georgia Rhoades Anion gap [Moles/Vol] 12.6 mmol/L Normal [facility] Comment on above: Performed By: #### F T3, CMP, T4, TSH, LIPID ####[facility] [address] [phone]. Georgia Rhoades AST [Catalytic activity/Vol] 18 U/L Normal 15-37 [facility] Comment on above: Performed By: #### F T3, CMP, T4, TSH, LIPID ####[facility] [address] [address]Dr. Georgia Rhoades Bilirubin [Mass/Vol] 0.3 mg/dL Normal 0.2-1.0 [facility] Comment on above: Performed By: #### F T3, CMP, T4, TSH, LIPID ####[facility] [address] [address]Dr. Georgia Rhoades Calcium [Mass/Vol] 8.9 mg/dL Normal 8.5-10.1 [facility] Comment on above: Performed By: #### F T3, CMP, T4, TSH, LIPID ####[facility] [address] [phone]. Georgia Rhoades Chloride [Moles/Vol] 105 mmol/L Normal 98-107 [facility] Comment on above: Performed By: #### F T3, CMP, T4, TSH, LIPID ####[facility] [address] [place], [place] [address]Dr. Georgia Rhoades CO2 [Moles/Vol] 29.3 mmol/L Normal 21.0-32.0 [facility] Comment on above: Performed By: #### F T3, CMP, T4, TSH, LIPID ####[facility] [address] [place], [place] [address]Dr. Georgia Rhoades Creatinine [Mass/Vol] 0.88 mg/dL Normal 0.55-1.02 [facility] Comment on above: Performed By: #### F T3, CMP, T4, TSH, LIPID ####[facility] [address] [place], [place] [address]Dr. Georgia Rhoades EGFR-AF PANAMANIAN >60 Normal >=60 [facility] Comment on above: Performed By: #### F T3, CMP, T4, TSH, LIPID ####[facility] [address] [place], [place] [address]Dr. Georgia Rhoades EGFR-NON AF PANAMANIAN >60 Normal >=60 [facility] Comment on above: Performed By: #### F T3, CMP, T4, TSH, LIPID ####[facility] [address] [phone]. Georgia Rhoades Globulin (S) [Mass/Vol] 3.5 g/dL Normal [facility] Comment on above: Performed By: #### F T3, CMP, T4, TSH, LIPID ####[facility] [address] [address]Dr. Georgia Rhoades Glucose [Mass/Vol] 95 mg/dL Normal 74-106 [facility] Comment on above: Performed By: #### F T3, CMP, T4, TSH, LIPID ####[facility] [address] [address]Dr. Georgia Rhoades Potassium [Moles/Vol] 3.9 mmol/L Normal 3.5-5.1 [facility] Comment on above: Performed By: #### F T3, CMP, T4, TSH, LIPID ####[facility] [address] [phone]. Georgia Rhoades Protein [Mass/Vol] 7.4 g/dL Normal 6.4-8.2 [facility] Comment on above: Performed By: #### F T3, CMP, T4, TSH, LIPID ####[facility] [address] [address]Dr. Georgia Rhoades Sodium [Moles/Vol] 143 mmol/L Normal 136-145 [facility] Comment on above: Performed By: #### F T3, CMP, T4, TSH, LIPID ####[facility] [address] [phone]. Georgia Rhoades Urea nitrogen [Mass/Vol] 16.0 mg/dL Normal 7.0-18.0 [facility] Comment on above: Performed By: #### F T3, CMP, T4, TSH, LIPID ####[facility] [address] [phone]. Georgia Rhoades Urea nitrogen/Creatinine [Mass ratio] 18.2 mg/mg Normal [facility] Comment on above: Performed By: #### F T3, CMP, T4, TSH, LIPID ####[facility] [address] [phone] Rhoades T4on 08-21-2022 T4 [Mass/Vol] 7.30 ug/dL Normal 4.80-13.90 [facility] Comment on above: Performed By: #### F T3, CMP, T4, TSH, LIPID ####[facility] [address] [address]DrMalorie Rhoades TSHon 08-21-2022 TSH 1.824 uIU/mL Normal 0.358-3.740 [facility] Comment on above: Performed By: #### F T3, CMP, T4, TSH, LIPID ####[facility] [address] [phone]. Georgia Rhoades VITAMIN D 25 OHon 08-21-2022 VIT D 25-OH 35.9 ng/mL Normal [facility] Comment on above: Performed By: #### V BINU, IRON #### [facility] [address] [place] [address] Dr. Georgia Rhoades VIT D RANGES SEE BELOW Normal [facility] Comment on above: Result Comment: <20 ng/mL Vit D deficient 20 - <30 ng/mL Vit D insufficient 30 - 100 ng/mL Vit D sufficient >100 ng/mL Potential Toxicity Performed By: #### Azul SCHMID IRON #### [facility] [address] [address] [address] Georgia Rhoades PAP ACOG PANEL 2: 30 to 65on 01-19-2022 . . Normal [facility] Comment on above: Result Comment: Perf ormed at: WB Performed By: #### 4 [id number] ####[facility] [address] [phone]. Georgia Rhoades Age Gdln ACOG Testing 30-65 Normal [facility] Comment on above: Performed By: #### 4 [id number] ####[facility] [address] [address]Dr. Georgia Rhoades DIAGNOSIS: Comment Abnormal [facility] Comment on above: Result Comment: EPIT HELIAL CELL ABNORMALITY. ATYPICAL SQUAMOUS CELLS OF UNDETERMINED SIGNIFICANCE (ASC-US). Performed at: WB Performed By: #### 4 [id number] ####[facility] [address] [phone]. Georgia Rhoades Electronically signed by: Comment Normal [facility] Comment on above: Result Comment: Humera Bingham MD, Pathologist Performed at: WB Performed By: #### 4 [id number] ####[facility] [address] [phone]. Georgia Rhoades HPV Aptima Positive Abnormal Negative [facility] Comment on above: Result Comment: This nucleic acid amplification test detects fourteen high-risk HPV types (16,18,31,33,35,39,45,51,52,56,58,59,66,68) without differentiation. Performed at: =G Performed By: #### 4 [id number] ####[facility] [address] [place], [place] [address]Dr. Georgia Rhoades HPV Genotype Reflex Comment Normal [facility] Comment on above: Result Comment: Crit eria not met, HPV Genotype not performed. Performed at: WB Performed By: #### 4 [id number] ####[facility] [address] [place], [place] [address]Dr. Georgia Rhoades Methodology: Comment Normal [facility] Comment on above: Result Comment: This liquid based ThinPrep(R) pap test was screened with the use of an image guided system. Performed at: WB Performed By: #### 4 [id number] ####[facility] [address] [place], [place] [id number]. Georgia Rhoades Note: Comment Normal [facility] Comment on above: Result Comment: The Pap smear is a screening test designed to aid in the detection of premalignant and malignant conditions of the uterine cervix. It is not a diagnostic procedure and should not be used as the sole means of detecting cervical cancer. Both false-positive and false-negative reports do occur. . Performed at: WB Performed By: #### 4 [id number] ####[facility] [address] [place], [place] [id number]. Georgia Rhoades Pathologist Provided ICD10 Comment Normal [facility] Comment on above: Result Comment: [id number]. [id number] Performed at: WB Performed By: #### 4 [id number] ####[facility] [address] [address]Dr. Georgia Rhoades Performed by: Comment Normal [facility] Comment on above: Result Comment: Kandice Patten, Rock Picker (ASCP) Performed at: WB Performed By: #### 4 [id number] ####[facility] [address] [id number]. Georgia Rhoades Recommendation: Comment Abnormal [facility] Comment on above: Result Comment: Sugg est follow up as clinically appropriate. Performed at: WB Performed By: #### 4 [id number] ####[facility] [address] [address]Dr. Georgia Rhoades Specimen adequacy: Comment Normal [facility] Comment on above: Result Comment: Sati sfactory for evaluation. Endocervical and/or squamous metaplastic cells (endocervical component) are present. Performed at: WB Performed By: #### 4 [id number] ####[facility] [address] [phone]. Georgia Rhoades MG MAMM SCREEN 3D SHELLY CADon 12-29-2021 MG MAMM SCREEN 3D SHELLY CAD Patient: RUBÉN APARICIO Exam Date: 12/29/2021 : 1960 Gender:F Ordering : DR CESAR PAULINO . Admission #: [id number] Family : Order #: [id number] CLICK HERE TO VIEW EXAM RADIOLOGY REPORT PROCEDURE: MAMMOGRAM SCREENING 3D BILATERAL CAD COMPARISON: None. INDICATIONS: Screening mammography Calculator Name NCI Breast Cancer Risk Assessment Tool 5 Year Breast Cancer Risk 1.00% Lifetime Breast Cancer Risk 4.40% Personal Breast Cancer No Personal Ovarian Cancer No Treatments None Family Cancers None LOCATION: [facility] BREAST COMPOSITION: Scattered areas fibroglandular density. FINDINGS: [...] MD on 12/29/2021 at 09:21 Normal [facility] Covid-19 PCR (CVDTBH)on 08-24 SARS-CoV-2 (COVID-19) RNA YAMINI+probe Ql (Unsp spec) Detected Critically abnormal NOT DETECTED [facility] Comment on above: Result Comment: This test is not yet approved or cleared by the [place] FDA. When there are no FDA-approved or cleared tests available, and other criteria are met, FDA can make tests available under an emergency access mechanism called an Emergency Use Authorization (EUA). The EUA for this test is supported by the [employer] Associate of Health and Human Service's declaration that [...] used). Performed By: #### C VDTBH #### [facility] [address] [place] [address] Dr. Georgia Rhoades CBC AUTO DIFFon 09-16-2021 BASO # 0.1 103/ul Normal 0.0-0.1 [facility] Comment on above: Performed By: #### C BC #### [facility] [address] [place] [address] Dr. Georgia Rhoades Basophils/100 WBC (Bld) 0.7 % Normal 0.2-2.0 [facility] Comment on above: Performed By: #### C BC #### [facility] [address] [place] [address] Dr. Georgia Rhoades EO # 0.3 103/ul Normal 0.0-0.7 [facility] Comment on above: Performed By: #### C BC #### [facility] [address] [place] [address] Dr. Georgia Rhoades Eosinophils/100 WBC (Bld) 2.8 % Normal 0.9-7.0 [facility] Comment on above: Performed By: #### C BC #### [facility] [address] [place] [address] Dr. Georgia Rhoades Erythrocyte distribution width (RBC) [Ratio] 13.0 % Normal 11.0-15.0 [facility] Comment on above: Performed By: #### C BC #### [facility] [address] [place] [address] Dr. Georgia Rhoades Hematocrit (Bld) [Volume fraction] 42.3 % Normal 36.0-48.0 [facility] Comment on above: Performed By: #### C BC #### [facility] [address] [place] [address] Dr. Georgia Rhoades Hemoglobin (Bld) [Mass/Vol] 13.9 g/dL Normal 12.0-16.0 [facility] Comment on above: Performed By: #### C BC #### [facility] [address] [place] [address] Dr. Georgia Rhoades IG # 0.03 10e3/ul Normal 0.00-0.03 [facility] Comment on above: Performed By: #### C BC #### [facility] [address] [place] [address] Dr. Georgia Rhoades IG % 0.3 % Normal 0.0-0.5 [facility] Comment on above: Performed By: #### C BC #### [facility] [address] [place] [address] Dr. Georgia Rhoades LYMPH # 2.4 103/ul Normal 1.2-3.8 [facility] Comment on above: Performed By: #### C BC #### [facility] [address] [place] [address] Dr. Georgia Rhoades Lymphocytes/100 WBC (Bld) 24.2 % Normal 20.5-60.0 [facility] Comment on above: Performed By: #### C BC #### [facility] [address] [place] [address] Dr. Georgia Rhoades MANUAL DIFF REQ NO Normal [facility] Comment on above: Performed By: #### C BC #### [facility] [address] [place] [address] Dr. Georgia Rhoades MCH (RBC) [Entitic mass] 33.1 pg Normal 26.7-34.0 [facility] Comment on above: Performed By: #### C BC #### [facility] [address] [place] [address] Dr. Georgia Rhoades MCHC (RBC) [Mass/Vol] 32.9 g/dL Normal 29.9-35.2 [facility] Comment on above: Performed By: #### C BC #### [facility] [address] [place] [address] Dr. Georgia Rhoades MCV (RBC) [Entitic vol] 100.7 fL Critically high 81.0-99.0 [facility] Comment on above: Performed By: #### C BC #### [facility] [address] [place] [address] Dr. Georgia Rhoades MONO # 0.7 103/ul Normal 0.3-0.8 [facility] Comment on above: Performed By: #### C BC #### [facility] [address] [place] [address] Dr. Georgia Rhoades Monocytes/100 WBC (Bld) 7.3 % Normal 1.7-12.0 [facility] Comment on above: Performed By: #### C BC #### [facility] [address] [place] [address] Dr. Georgia Rhoades NEUT # 6.3 103/ul Normal 1.4-6.5 [facility] Comment on above: Performed By: #### C BC #### [facility] [address] [place] [address] Dr. Georgia Rhoades Neutrophils/100 WBC (Bld) 64.7 % Normal 43.0-75.0 [facility] Comment on above: Performed By: #### C BC #### [facility] [address] [place] [address] Dr. Georgia Rhoades Platelet mean volume (Bld) [Entitic vol] 9.1 fL Critically low 9.5-13.5 [facility] Comment on above: Performed By: #### C BC #### [facility] [address] [address] [address] Georgia Rhoades PLT 269 103/ul Normal 150-450 [facility] Comment on above: Performed By: #### C BC #### [facility] [address] [address] [address] Georgia Rhoades RBC 4.20 106/ul Normal 4.20-5.40 [facility] Comment on above: Performed By: #### C BC #### [facility] [address] [address] [address] Georgia Rhoades WBC 9.8 103/ul Normal 4.0-11.0 [facility] Comment on above: Performed By: #### C BC #### [facility] [address] [address] [address] Georgia Rhoades FREE T3on 09-16-2021 FREE T3 2.90 pg/mlL Normal 2.18-3.98 [facility] Comment on above: Performed By: #### T 4, LIPID, FT3, TSH, CMP #### [facility] [address] [address] [address] Georgia Rhoades GLYCOHEMOGLOBIN A1Con 2021 ADA RECOMMENDATION SEE BELOW Normal [facility] Comment on above: Result Comment: ADA RECOMMENDED LIMIT 4.0 - 6.0 ADA THERAPEUTIC TARGET < 7.0 ACTION SUGGESTED > 7.0 Performed By: #### A 1C ####[facility] [id number] [address]Dr. Georgia Rhoades Glucose [Mass/Vol] 117 mg/dL Normal [facility] Comment on above: Performed By: #### A 1C ####[facility] [id number] [address]Dr. Georgia Rhoades HbA1c (Bld) [Mass fraction] 5.7 % Normal 4.5-6.2 [facility] Comment on above: Performed By: #### A 1C ####[facility] [id number] [address]Dr. Georgia Rhoades LIPID PROFILEon 09-16-2021 CHOL-HDL RATIO NORM SEE BELOW Normal [facility] Comment on above: Result Comment: 3.3 - 4.4 LOW RISK 4.4 - 7.1 AVERAGE RISK 7.1 - 11.0 MODERATE RISK >11.0 HIGH RISK Performed By: #### T 4, LIPID, FT3, TSH, CMP #### [facility] [address] [place] [address] Dr. Georgia Rhoades Cholesterol [Mass/Vol] 116 mg/dL Normal <=200 [facility] Comment on above: Performed By: #### T 4, LIPID, FT3, TSH, CMP #### [facility] [address] [place] [address] Dr. Georgia Rhoades Cholesterol in HDL [Mass/Vol] 55 mg/dL Normal 40-60 [facility] Comment on above: Performed By: #### T 4, LIPID, FT3, TSH, CMP #### [facility] [address] [place] [address] Dr. Georgia Rhoades Cholesterol in LDL [Mass/Vol] 45.8 mg/dL Normal [facility] Comment on above: Performed By: #### T 4, LIPID, FT3, TSH, CMP #### [facility] [address] [place] [address] Dr. Georgia Rhoades Cholesterol.total/Chol esterol in HDL [Mass ratio] 2.1 {ratio} Normal [facility] Comment on above: Performed By: #### T 4, LIPID, FT3, TSH, CMP #### [facility] [address] [place] [address] Dr. Georgia Rhoades HDL NORMAL > or = 60 mg/dl - LO W CARDIOVASCULAR RISK <40 mg/dl - HIGH CARDIOVASCULAR RISK Normal [facility] Comment on above: Performed By: #### T 4, LIPID, FT3, TSH, CMP #### [facility] [address] [place] [address] Dr. Georgia Rhoades LDL CALC NORMAL SEE BELOW Normal [facility] Comment on above: Result Comment: <100 mg/dl OPTIMAL 100 - 129 mg/dl NEAR OR ABOVE OPTIMAL 130 - 159 mg/dl BORDERLINE HIGH 160 - 189 mg/dl HIGH >190 mg/dl VERY HIGH Performed By: #### T 4, LIPID, FT3, TSH, CMP #### [facility] [address] [address] [address] Georgia Rhoades Triglyceride [Mass/Vol] 76 mg/dL Normal <=150 [facility] Comment on above: Performed By: #### T 4, LIPID, FT3, TSH, CMP #### [facility] [address] [address] [address] Georgia Rhoades VLDL CALC 15.2 mg/dL Normal [facility] Comment on above: Performed By: #### T 4, LIPID, FT3, TSH, CMP #### [facility] [address] [address] [address] Georgia Rhoades PROF 14(COMP METB)on 022 Albumin [Mass/Vol] 3.7 g/dL Normal 3.4-5.0 [facility] Comment on above: Performed By: #### T 4, LIPID, FT3, TSH, CMP #### [facility] [address] [place] [address] Dr. Georgia Rhoades Albumin/Globulin [Mass ratio] 1.2 {ratio} Normal [facility] Comment on above: Performed By: #### T 4, LIPID, FT3, TSH, CMP #### [facility] [address] [place] [address] Dr. Georgia Rhoades ALP [Catalytic activity/Vol] 54 U/L Normal 46-116 [facility] Comment on above: Performed By: #### T 4, LIPID, FT3, TSH, CMP #### [facility] [address] [place] [address] Dr. Georgia Rhoades ALT [Catalytic activity/Vol] 52 U/L Normal 14-59 [facility] Comment on above: Performed By: #### T 4, LIPID, FT3, TSH, CMP #### [facility] [address] [place] [address] Dr. Georgia Rhoades Anion gap [Moles/Vol] 10.7 mmol/L Normal [facility] Comment on above: Performed By: #### T 4, LIPID, FT3, TSH, CMP #### [facility] [address] [place] [address] Dr. Georgia Rhoades AST [Catalytic activity/Vol] 21 U/L Normal 15-37 [facility] Comment on above: Performed By: #### T 4, LIPID, FT3, TSH, CMP #### [facility] [address] [place] [address] Dr. Georgia Rhoades Bilirubin [Mass/Vol] 0.4 mg/dL Normal 0.2-1.0 [facility] Comment on above: Performed By: #### T 4, LIPID, FT3, TSH, CMP #### [facility] [address] [place] [address] Dr. Georgia Rhoades Calcium [Mass/Vol] 8.8 mg/dL Normal 8.5-10.1 [facility] Comment on above: Performed By: #### T 4, LIPID, FT3, TSH, CMP #### [facility] [address] [place] [address] Dr. Georgia Rhoades Chloride [Moles/Vol] 104 mmol/L Normal 98-107 [facility] Comment on above: Performed By: #### T 4, LIPID, FT3, TSH, CMP #### [facility] [address] [place] [address] Dr. Georgia Rhoades CO2 [Moles/Vol] 30.5 mmol/L Normal 21.0-32.0 [facility] Comment on above: Performed By: #### T 4, LIPID, FT3, TSH, CMP #### [facility] [address] [place] [address] Dr. Georgia Rhoades Creatinine [Mass/Vol] 0.81 mg/dL Normal 0.55-1.02 [facility] Comment on above: Performed By: #### T 4, LIPID, FT3, TSH, CMP #### [facility] [address] [place] [address] Dr. Georgia Rhoades EGFR-AF PANAMANIAN >60 Normal >=60 [facility] Comment on above: Performed By: #### T 4, LIPID, FT3, TSH, CMP #### [facility] [address] [place] [address] Dr. Georgia Rhoades EGFR-NON AF PANAMANIAN >60 Normal >=60 [facility] Comment on above: Performed By: #### T 4, LIPID, FT3, TSH, CMP #### [facility] [address] [place] [address] Dr. Georgia Rhoades Globulin (S) [Mass/Vol] 3.0 g/dL Normal [facility] Comment on above: Performed By: #### T 4, LIPID, FT3, TSH, CMP #### [facility] [address] [place] [address] Dr. Georgia Rhoades Glucose [Mass/Vol] 95 mg/dL Normal 74-106 [facility] Comment on above: Performed By: #### T 4, LIPID, FT3, TSH, CMP #### [facility] [address] [place] [address] Dr. Georgia Rhoades Potassium [Moles/Vol] 4.2 mmol/L Normal 3.5-5.1 [facility] Comment on above: Performed By: #### T 4, LIPID, FT3, TSH, CMP #### [facility] [address] [place] [address] Dr. Georgia Rhoades Protein [Mass/Vol] 6.7 g/dL Normal 6.4-8.2 [facility] Comment on above: Performed By: #### T 4, LIPID, FT3, TSH, CMP #### [facility] [address] [place] [address] Dr. Georgia Rhoades Sodium [Moles/Vol] 141 mmol/L Normal 136-145 [facility] Comment on above: Performed By: #### T 4, LIPID, FT3, TSH, CMP #### [facility] [address] [place] [address] Dr. Georgia Rhoades Urea nitrogen [Mass/Vol] 16.0 mg/dL Normal 7.0-18.0 [facility] Comment on above: Performed By: #### T 4, LIPID, FT3, TSH, CMP #### [facility] [address] [address] [address] Georgia Rhoades Urea nitrogen/Creatinine [Mass ratio] 19.8 mg/mg Normal [facility] Comment on above: Performed By: #### T 4, LIPID, FT3, TSH, CMP #### [facility] [address] [address] [address] Georgia Rhoades T4on 09-16-2021 T4 [Mass/Vol] 8.50 ug/dL Normal 4.80-13.90 [facility] Comment on above: Performed By: #### T 4, LIPID, FT3, TSH, CMP ####[facility] [id number] [address]Dr. Georgia Rhoades TSHon 09-16-2021 TSH 1.011 uIU/mL Normal 0.358-3.740 [facility] Comment on above: Performed By: #### T 4, LIPID, FT3, TSH, CMP #### [facility] [address] [address] [address] Georgia Rhoades VITAMIN D 25 OHon 09-16-2021 VIT D 25-OH 40.1 ng/mL Normal [facility] Comment on above: Performed By: #### V ITAD ####[facility] [id number] [address]Dr. Georgia Rhoades VIT D RANGES SEE BELOW Normal [facility] Comment on above: Result Comment: <20 ng/mL Vit D deficient 20 - <30 ng/mL Vit D insufficient 30 - 100 ng/mL Vit D sufficient >100 ng/mL Potential Toxicity Performed By: #### V ITAD ####[facility] [id number] [address]Dr. Georgia Rhoades CBC Auto DifferentialOrdered By: Abimael Peace on 11-11-2020 Absolute Eos # 0.08 [employer] Phone: Absolute Immature Granulocyte 0.04 [employer] Phone: Absolute Lymph # 1.96 [employer] Phone: Absolute [place] # 0.37 [employer] Phone: Basophils (Bld) [#/Vol] 0.07 10*3/uL [employer] Phone: Basophils/100 WBC (Bld) 1 % 0 - 2 % [employer] Phone: Differential Type NOT REPORTED [employer] Phone: Eosinophils/100 WBC (Bld) 1 % 1 - 4 % [employer] Phone: Hematocrit (Bld) [Volume fraction] 45.4 % 36.3 - 47.1 % [employer] Phone: Hemoglobin.gastrointes tinal spec 1 Ql (Stl) 14.5 g/dL 11.9 - 15.1 g/dL [employer] Phone: Immature granulocytes/100 WBC (Bld) 0 % 0 [employer] Phone: Interpretation and review of laboratory results Abnormal [employer] Phone: Lymphocytes/100 WBC (Bld) 21 % Low 24 - 43 % [employer] Phone: MCH (RBC) [Entitic mass] 32.0 pg 25.2 - 33.5 pg [employer] Phone: MCHC (RBC) [Mass/Vol] 31.9 g/dL 28.4 - 34.8 g/dL [employer] Phone: MCV (RBC) [Entitic vol] 100.2 fL 82.6 - 102.9 fL [employer] Phone: Monocytes/100 WBC (Bld) 4 % 3 - 12 % [employer] Phone: NRBC Automated 0.0 0.0 per 100 WBC [employer] Phone: Platelet distribution width (Bld) [Ratio] 13.0 % 11.8 - 14.4 % [employer] Phone: Platelet Estimate NOT REPORTED [employer] Phone: Platelet mean volume (Bld) [Entitic vol] 9.1 fL 8.1 - 13.5 fL [employer] Phone: Platelets (Bld) [#/Vol] 339 10*3/uL [employer] Phone: RBC (Bld) [#/Vol] 4.53 10*6/uL 3.95 - 5.1 1 m/uL [employer] Phone: RBC (Bld) [#/Vol] NOT REPORTED [employer] Phone: Segmented neutrophils/100 WBC (Bld) 73 % High 36 - 65 % [employer] Phone: Segs Absolute 7.03 [employer] Phone: WBC (Bld) [#/Vol] 9.6 10*3/uL [employer] Phone: WBC (Bld) [#/Vol] NOT REPORTED [employer] Phone: [employer] Phone: CBC with Diffon 11-11-2020 Abs. Basophil 0.07 k/uL Normal 0.00-0.20 [facility] Comment on above: Performed By: #### C AKI WALTERS TROPI #### [facility] [address] [place] [address] [place] [address] Matlab Developer: Rama Givens MD Abs.Imm.Granulocyte 0.04 k/uL Normal 0.00-0.30 [facility] Comment on above: Performed By: #### C AKI WALTERS TROPI #### [facility] [address] [place] [address] Matlab Developer: Rama Givens MD Abs.Neutrophil (Seg) 7.03 k/uL Normal 1.50-8.10 [facility] Comment on above: Performed By: #### C AKI WALTERS TROPI #### [facility] [address] [place], [facility]83 Matlab Developer: Rama Givens MD Basophils/100 WBC (Bld) 1 % Normal 0-2 [facility] Comment on above: Performed By: #### C DP, CP, TROPI #### [facility] [address] [place], [facility]83 Matlab Developer: Rama Givens MD Eosinophils (Bld) [#/Vol] 0.08 10*3/uL Normal 0.00-0.44 [facility] Comment on above: Performed By: #### C DP, CP, TROPI #### [address] [place], [place] [address] Matlab Developer: Rama Givens MD Eosinophils/100 WBC (Bld) 1 % Normal 1-4 [facility] Comment on above: Performed By: #### C DP, CP, TROPI #### [address] [place], [place] [address] Matlab Developer: Rama Givens MD Erythrocyte distribution width (RBC) [Ratio] 13.0 % Normal 11.8-14.4 [facility] Comment on above: Performed By: #### C DP, CP, TROPI #### [address] [place], [facility]83 Matlab Developer: Rama Givens MD Hematocrit (Bld) [Volume fraction] 45.4 % Normal 36.3-47.1 [facility] Comment on above: Performed By: #### C DP, CP, TROPI #### [address] [place], [facility]83 Matlab Developer: Rama Givens MD Hemoglobin (Bld) [Mass/Vol] 14.5 g/dL Normal 11.9-15.1 [facility] Comment on above: Performed By: #### C DP, CP, TROPI #### [facility] [address] [place], [place] [id number] Matlab Developer: Rama Givens MD Immature granulocytes/100 WBC (Bld) 0 % Normal 0 [facility] Comment on above: Performed By: #### C DP, CP, TROPI #### [facility] [address] [place], [facility]83 Matlab Developer: Rama Givens MD Lymphocytes (Bld) [#/Vol] 1.96 10*3/uL Normal 1.10-3.70 [facility] Comment on above: Performed By: #### C DP, CP, TROPI #### [address] [place], [facility]83 Matlab Developer: Rama Givens MD Lymphocytes/100 WBC (Bld) 21 % Low 24-43 [facility] Comment on above: Performed By: #### C DP, CP, TROPI #### [address] [place], [facility]83 Matlab Developer: Rama Givens MD MCH (RBC) [Entitic mass] 32.0 pg Normal 25.2-33.5 [facility] Comment on above: Performed By: #### C DP, CP, TROPI #### [address] [place], [facility]83 Matlab Developer: Rama Givens MD MCHC (RBC) [Mass/Vol] 31.9 g/dL Normal 28.4-34.8 [facility] Comment on above: Performed By: #### C DP, CP, TROPI #### [address] [place] [id number] Matlab Developer: Rama Givens MD MCV (RBC) [Entitic vol] 100.2 fL Normal 82.6-102.9 [facility] Comment on above: Performed By: #### C DP, CP, TROPI #### [address] [place], [place] [id number] Matlab Developer: Rama Givens MD Monocytes (Bld) [#/Vol] 0.37 10*3/uL Normal 0.10-1.20 [facility] Comment on above: Performed By: #### C DP, CP, TROPI #### [facility] [address] [place] [address] Matlab Developer: Rama Givens MD Monocytes/100 WBC (Bld) 4 % Normal 3-12 [facility] Comment on above: Performed By: #### C DP, CP, TROPI #### [facility] [address] [place], [place] [address] Matlab Developer: Rama Givens MD Neutrophil (Seg) 73 % High 36-65 [facility] Comment on above: Performed By: #### C DP, CP, TROPI #### [address] [place], [facility]83 Matlab Developer: Rama Givens MD NRBC Automated 0.0 per 100 WBC Normal 0.0 [facility] Comment on above: Performed By: #### C DP, CP, TROPI #### [address] [place], [facility]83 Matlab Developer: Rama Givens MD Platelet mean volume (Bld) [Entitic vol] 9.1 fL Normal 8.1-13.5 [facility] Comment on above: Performed By: #### C DP, CP, TROPI #### [facility] [address] [place] [address] Dr. [place], [place] [id number] Matlab Developer: Rama Givens MD Platelets (Bld) [#/Vol] 339 10*3/uL Normal 138-453 [facility] Comment on above: Performed By: #### C DP, CP, TROPI #### [facility] [address] [place], [facility]83 Matlab Developer: Rama Givens MD RBC (Bld) [#/Vol] 4.53 10*6/uL Normal 3.95-5.11 [facility] Comment on above: Performed By: #### C DP, CP, TROPI #### [facility] [address] [place] [address] Matlab Developer: Rama Givens MD WBC (Bld) [#/Vol] 9.6 10*3/uL Normal 3.5-11.3 [facility] Comment on above: Performed By: #### C DP, CP, TROPI #### [address] [place], [facility]83 Matlab Developer: Rama Givens MD Auto Diff Performed NOT REPORTED Normal [facility] Comment on above: Performed By: #### C DP, CP, TROPI #### [address] [place], [place] [address] Matlab Developer: Rama Givens MD Platelet Estimate NOT REPORTED Normal [facility] Comment on above: Performed By: #### C DP, CP, TROPI #### [address] [place] [address] Matlab Developer: Rama Givens MD RBC morphology finding Nom (Bld) NOT REPORTED Normal [facility] Comment on above: Performed By: #### C DP, CP, TROPI #### [address] [place], [facility]83 Matlab Developer: Rama Givens MD WBC Morphology NOT REPORTED Normal [facility] Comment on above: Performed By: #### C DP, CP, TROPI #### [address] [place] [id number] Matlab Developer: Rama Givens MD CT HEAD WO CONTRASTon [...] Mohinder Gonzalez MD 11/11/20 Final result Normal [facility] CT Head WO ContrastOrdered B y: Jose Iqbal on 11-11-2020 No acute intracrania l hemorrhage. Findings suggestive of subacute to remote infarct involving the left frontal lobe. MRI may be obtained for further evaluation if clinically indicated. 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 [facility] Work Phone: EXAMINATION: CT OF T [...] of the visualized skull or soft tissues. [employer] Phone: Levon, pn Incoming R adiant Results From [email or web address] - 11/11/2020 12:54 PM EDT EXAMINATION: CT [...] the left thalamus and adjacent centrum semiovale. [employer] Phone: [employer] Phone: CTA HEAD NECK W CONTRASTon 0 [...] Sondra Dixon MD 11/11/20 Final result Normal [facility] Comp Metabolic Profon 2020 (cont.) Normal [facility] Comment on above: Result Comment: Aver age GFR for 60-69 years old: 85 mL/min/1.73sq m Chronic Kidney Disease: <60 mL/min/1.73sq m Kidney failure: <15 mL/min/1.73sq m eGFR calculated using average adult body mass. Additional eGFR calculator available at: http://www.[employer]/multiple_crcl_2011.htm Performed By: #### C AKI WALTERS, TROPI #### [address] [place] [address] Matlab Developer: Rama Givens MD Albumin [Mass/Vol] 4.6 g/dL Normal 3.5-5.2 [facility] Comment on above: Performed By: #### C AKI WALTERS, TROPI #### [address] [place] [address] Matlab Developer: Rama Givens MD Albumin/Glob Ratio 1.7 Normal 1.0-2.5 [facility] Comment on above: Performed By: #### C AKI WALTERS, TROPI #### [address] [place], [facility]83 Matlab Developer: Rama Givens MD Alkaline Phos 67 U/L Normal 35-104 [facility] Comment on above: Performed By: #### C AKI WALTERS, TROPI #### [facility] [address] [place] [address] Matlab Developer: Rama Givens MD ALT [Catalytic activity/Vol] 18 U/L Normal 5-33 [facility] Comment on above: Performed By: #### C SELENA CP, TROPI #### [facility] [address] [place], [place] [id number] Matlab Developer: Rama Givens MD Anion gap [Moles/Vol] 11 mmol/L Normal 9-17 [facility] Comment on above: Performed By: #### C DP, CP, TROPI #### [facility] [address] [place], [place] [id number] Matlab Developer: Rama Givens MD AST [Catalytic activity/Vol] 18 U/L Normal <32 [facility] Comment on above: Performed By: #### C DP, CP, TROPI #### [facility] [address] [place], [place] [id number] Matlab Developer: Rama Givens MD Bilirubin [Mass/Vol] 0.41 mg/dL Normal 0.3-1.2 [facility] Comment on above: Performed By: #### C DP, CP, TROPI #### [facility] [address] [place], [place] [id number] Matlab Developer: Rama Givens MD BUN/CRE Ratio 29 High 9-20 [facility] Comment on above: Performed By: #### C DP, CP, TROPI #### [facility] [address] [place], [place] [phone] Matlab Developer: Rama Givens MD Calcium [Mass/Vol] 9.5 mg/dL Normal 8.6-10.4 [facility] Comment on above: Performed By: #### C DP, CP, TROPI #### [facility] [address] [place], [place] [id number] Matlab Developer: Rama Givens MD Chloride [Moles/Vol] 104 mmol/L Normal 98-107 [facility] Comment on above: Performed By: #### C DP, CP, TROPI #### [facility] [address] [place], [place] [id number] Matlab Developer: Rama Givens MD CO2 [Moles/Vol] 26 mmol/L Normal 20-31 [facility] Comment on above: Performed By: #### C DP, CP, TROPI #### [facility] [address] [place], [place] [id number] Matlab Developer: Rama Givens MD Creatinine [Mass/Vol] 0.52 mg/dL Normal 0.50-0.90 [facility] Comment on above: Performed By: #### C DP, CP, TROPI #### [facility] [address] [place], [place] [id number] Matlab Developer: Rama Givens MD GFR, Amer >60 Normal >60 [facility] Comment on above: Performed By: #### C DP, CP, TROPI #### [facility] [address] [place], [place] [id number] Matlab Developer: Rama Givens MD GFR,non Amer >60 Normal >60 [facility] Comment on above: Performed By: #### C DP, CP, TROPI #### [facility] [address] [place], [place] [phone] Matlab Developer: Rama Givens MD Glucose [Mass/Vol] 99 mg/dL Normal 70-99 [facility] Comment on above: Performed By: #### C DP, CP, TROPI #### [facility] [address] [place], [place] 508[address] Matlab Developer: Rama Givens MD Potassium [Moles/Vol] 4.3 mmol/L Normal 3.7-5.3 [facility] Comment on above: Performed By: #### C DP, CP, TROPI #### [facility] [address] [place], [place] [phone] Matlab Developer: Rama Givens MD Protein [Mass/Vol] 7.3 g/dL Normal 6.4-8.3 [facility] Comment on above: Performed By: #### C DP, CP, TROPI #### [facility] [address] [place] [address] Matlab Developer: Rama Givens MD Sodium [Moles/Vol] 141 mmol/L Normal 135-144 [facility] Comment on above: Performed By: #### C DP, CP, TROPI #### [facility] [address] [place] [address] Matlab Developer: Rama Givens MD Staging: Normal [facility] Comment on above: Result Comment: Stag e 1: Some kidney damage normal GFR Stage 2: Mild kidney damage GFR 60-89 Stage 3: Moderate kidney damage GFR 30-59 Stage 4: Severe kidney damage GFR 15-29 Stage 5: Severe kidney damage GFR <15 ESRD - chronic treatment by dialysis or transplant Performed By: #### C DP, CP, TROPI #### [facility] [address] [place] [address] [place] [address] Matlab Developer: Rama Givens MD Urea nitrogen [Mass/Vol] 15 mg/dL Normal 8-23 [facility] Comment on above: Performed By: #### C DP, CP, TROPI #### [address] [place] [address] Matlab Developer: Rama Givens MD Comprehensive Metabolic Pane lOrdered By: Abimael Peace on 11-11-2020 Albumin [Mass/Vol] 4.6 g/dL 3.5 - 5.2 g/dL [facility] [employer] Phone: Albumin/Globulin [Mass ratio] 1.7 {ratio} [facility] [employer] Phone: ALP (Bld) [Catalytic activity/Vol] 67 U/L 35 - 104 U/L [facility] Phone: ALT [Catalytic activity/Vol] 18 U/L 5 - 33 U/L [facility] Phone: Anion gap [Moles/Vol] 11 mmol/L 9 - 17 mmol/L [employer] Phone: AST [Catalytic activity/Vol] 18 U/L <32 [employer] Phone: Bilirubin [Mass/Vol] 0.41 mg/dL 0.3 - 1 .2 mg/dL [employer] Phone: Calcium [Mass/Vol] 9.5 mg/dL 8.6 - 10. 4 mg/dL [employer] Phone: Chloride [Moles/Vol] 104 mmol/L 98 - 10 7 mmol/L [employer] Phone: CO2 [Moles/Vol] 26 mmol/L 20 - 31 mmol/L [employer] Phone: Creatinine [Mass/Vol] 0.52 mg/dL 0.50 - 0.90 mg/dL [employer] Phone: Free PSA/Total PSA [Mass fraction] 7.3 g/dL 6.4 - 8.3 g/dL [employer] Phone: GFR >60 >60 mL/min [employer] Phone: GFR Non- >60 >60 mL/min [employer] Phone: Glucose [Mass/Vol] 99 mg/dL 70 - 99 mg/dL [employer] Phone: Interpretation and review of laboratory results Abnormal [employer] Phone: Potassium [Moles/Vol] 4.3 mmol/L 3.7 - 5.3 mmol/L [employer] Phone: Sodium [Moles/Vol] 141 mmol/L 135 - 144 mmol/L [employer] Phone: Urea nitrogen (BldV) [Mass/Vol] 15 mg/dL 8 - 23 mg/dL [employer] Phone: Urea nitrogen/Creatinine (Bld) [Mass ratio] 29 High [employer] Phone: [employer] Phone: EKG Rhythm StripOrdered By: Unknown Result on 11-11-2020 re-labeled to Sinus Rhythm [employer] Phone: [employer] Phone: Laboratory - Chemistry and C hemistry - challengeOrdered By: Abimael Peace on 11-11-2020 GFR/1.73 sq M.predicted MDRD (S/P/Bld) [Vol rate/Area] [employer] Phone: Comment on above: Average GFR for 60-6 9 years old: 85 mL/min/1.73sq m Chronic Kidney Disease: <60 mL/min/1.73sq m Kidney failure: <15 mL/min/1.73sq m eGFR calculated using average adult body mass. Additional eGFR calculator available at: http://www.[employer]/multiple_crcl_2012.htm Stage 1: Some kidney damage normal GFR Stage 2: Mild kidney damage GFR 60-89 Stage 3: Moderate kidney damage GFR 30-59 Stage 4: Severe kidney damage GFR 15-29 Stage 5: Severe kidney damage GFR <15 ESRD - chronic treatment by dialysis or transplant Lactic Acidon 11-11-2020 Lactate [Moles/Vol] 0.8 mmol/L Normal 0.5-2.2 [facility] Comment on above: Performed By: #### L AC #### [facility] [address] [place] [address] [place] [address] Matlab Developer: Rama Givens MD Lactic AcidOrdered By: Barney Iqbal on 11-11-2020 Lactate [Moles/Vol] 0.8 mmol/L 0.5 - 2. 2 mmol/L [employer] Phone: [employer] Phone: Microscopic UrinalysisOrdere d By: Jose Iqbal on 11-11-2020 - [employer] Phone: Amorphous, UA NOT REPORTED None [employer] Work Phone: Bacteria, UA NOT REPORTED None [facility] [employer] Work Phone: Casts UA NOT REPORTED /LPF [facility] [employer] Work Phone: Crystals, UA NOT REPORTED None /HPF [facility] [employer] Work Phone: Epithelial Cells UA None [employer] Work Phone: Mucus, UA NOT REPORTED None [employer] Work Phone: Other Observations UA NOT REPORTED NOT REQ. [facility] [employer] Work Phone: RBC, UA 0 TO 2 [employer] Work Phone: Renal Epithelial, UA NOT REPORTED 0 /HPF Me y [employer] Work Phone: Trichomonas, UA NOT REPORTED None [employer] Work Phone: WBC, UA 0 TO 2 [employer] Work Phone: Yeast, UA NOT REPORTED None [employer] Work Phone: [facility] [employer] Work Phone: PTon 11-11-2020 INR Coag (PPP) [Relative time] 0.9 {INR} Normal [facility] Comment on above: Result Comment: Non-therapeutic Range: INR = 0.9-1.2 Therapeutic Range: Moderate Anticoagulant Intensity: INR = 2.0-3.0 High Anticoagulant Intensity: INR = 2.5-3.5 Performed By: #### P T #### [facility] [address] [place] [address] [place] [address] Matlab Developer: Rama Givens MD PT Coag (PPP) [Time] 12.4 s Normal 11.5-14.2 [facility] Comment on above: Performed By: #### P T #### [facility] [address] [place] [address] Matlab Developer: Rama Givens MD Protime-INROrdered By: Barney Iqbal on 11-11-2020 INR Coag (Bld) [Relative time] 0.9 {INR} [facility] Phone: Comment on above: Non-therapeutic Range: INR = 0.9-1.2 Therapeutic Range: Moderate Anticoagulant Intensity: INR = 2.0-3.0 High Anticoagulant Intensity: INR = 2.5-3.5 PT Coag (PPP) [Time] 12.4 s [employer] Phone: [employer] Phone: Troponinon 11-11-2020 Troponin, High Sens <6 Normal 0-14 [facility] Comment on above: Result Comment: High Sensitivity Troponin values cannot be compared with other Troponin methodologies. Patients with high levels of Biotin oral intake (i.e >5mg/day) may have falsely decreased Troponin levels. Samples collected within 8 hours of biotin intake may require additional information for diagnosis. Performed By: #### C DP, CP, TROPI #### [facility] [address] [place] [address] [place] [place], [place] [phone] Matlab Developer: Rama Givens MD Troponin Interp. NOT REPORTED Normal [facility] Comment on above: Performed By: #### C DP, CP, TROPI #### [facility] [address] [place] [address] [place] [place], [place] [phone] Matlab Developer: Rama Givens MD Troponin T NOT REPORTED Normal <0.03 [facility] Comment on above: Performed By: #### C DP, CP, TROPI #### [facility] [address] [place] [address] [place], [place] [address]83 Matlab Developer: Rama Givens MD TroponinOrdered By: Abimael Peace on 11-11-2020 Troponin Interp NOT REPORTED [facility] Phone: Troponin T NOT REPORTED <0.03 ng/mL [employer] Phone: Troponin, High Sensitivity <6 0 - 14 ng/L [employer] Phone: Comment on above: High Sensitivity Troponin values cannot be compared with other Troponin methodologies. Patients with high levels of Biotin oral intake (i.e >5mg/day) may have falsely decreased Troponin levels. Samples collected within 8 hours of biotin intake may require additional information for diagnosis. [facility] [employer] Phone: UA w/Reflex Cultureon 2020 Bilirubin, SemiQt,Ur Negative Normal NEG [facility] Comment on above: Performed By: #### U AX, UMICAO #### [facility] [address] [place] [address] Matlab Developer: Rama Givens MD Blood, Urine Negative Normal NEG [facility] Comment on above: Performed By: #### U AX, UMICAO #### [facility] [address] [place], [place] [phone] Matlab Developer: Rama Givens MD Clarity (U) CLEAR Normal CLEAR [facility] Comment on above: Performed By: #### U AX, UMICAO #### [facility] [address] [place] [address] Matlab Developer: Rama Givens MD Color (U) YELLOW Normal YEL [facility] Comment on above: Performed By: #### U AX, UMICAO #### [facility] [address] [place] [address] Matlab Developer: Rama Givens MD Glucose Ql (U) Negative Normal NEG [facility] Comment on above: Performed By: #### U AX, UMICAO #### [facility] [address] [place] [address] Matlab Developer: Rama Givens MD Ketones Ql (U) Negative Normal NEG [facility] Comment on above: Performed By: #### U AX, UMICAO #### [facility] [address] [place] [address] Matlab Developer: Rama Givens MD Leukocyte esterase Test strip Ql (U) Negative Normal NEG [facility] Comment on above: Performed By: #### U AX, UMICAO #### [facility] [address] [place], [place] 02[address] Matlab Developer: Rama Givens MD Nitrite,Ur Negative Normal NEG [facility] Comment on above: Performed By: #### U AX, UMICAO #### [facility] [address] [place], [place] 4[address] Matlab Developer: Rama Givens MD PH,Ur 7.0 Normal 5.0-9.0 [facility] Comment on above: Performed By: #### U AX, UMICAO #### [facility] [address] [place], [place] 2850483 Matlab Developer: Rama Givens MD Protein Ql (U) Negative Normal NEG [facility] Comment on above: Performed By: #### U AX, UMICAO #### [facility] [address] [place], [place] 2[address] Matlab Developer: Rama Givens MD Spec. Cornish,Ur <1.005 Low 1.010-1.020 [facility] Comment on above: Performed By: #### U AX, UMICAO #### [facility] [address] [place] [address] Matlab Developer: Rama Givens MD Urobilinogen,Ur Normal Normal NORM [facility] Comment on above: Performed By: #### U AX, UMICAO #### [facility] [address] [place], [place] [address] Matlab Developer: Rama Givens MD Comment NOT REPORTED Normal [facility] Comment on above: Performed By: #### U AX, UMICAO #### [facility] [address] [place], [place] 365[address]483 Matlab Developer: Rama Givens MD Urinalysis Reflex to Culture Ordered By: Jose Iqbal on 11-11-2020 Bilirubin Urine Negative NEGATIVE [employer] Phone: Color, UA YELLOW YELLOW [employer] Work Phone: Glucose, Ur Negative NEGATIVE [employer] Phone: Interpretation and review of laboratory results Abnormal [employer] Phone: Ketones Ql (U) Negative NEGATIVE [employer] Phone: Leukocyte esterase Test strip Ql (U) Negative NEGATIVE [employer] Phone: Nitrite, Urine Negative NEGATIVE [employer] Phone: pH, UA 7.0 [employer] Phone: Protein, UA Negative NEGATIVE [employer] Phone: Specific Cornish, UA <1.005 Low [employer] Phone: Turbidity UA CLEAR CLEAR [employer] Phone: Urinalysis Comments NOT REPORTED [facility] [employer] Work Phone: Urine Hgb Negative NEGATIVE [employer] Phone: Urobilinogen, Urine Normal Normal [employer] Phone: [employer] Phone: Urinalysis,Microon 1 ----- Normal [facility] Comment on above: Performed By: #### U AX, UMICAO #### [facility] [address] [place] [address] Matlab Developer: Rama Givens MD Epithelial cells LM Ql (Urine sed) None Normal 0-25 [facility] Comment on above: Performed By: #### U AX, UMICAO #### [facility] [address] [place] [address] Matlab Developer: Rama Givens MD Urine RBC's 0 TO 2 Normal 0-2 [facility] Comment on above: Performed By: #### U AX, UMICAO #### [facility] [address] [place] [address] Matlab Developer: Rama Givens MD Urine WBC's 0 TO 2 Normal 0-5 [facility] Comment on above: Performed By: #### U AX, UMICAO #### [facility] [address] [place] [address] Matlab Developer: Rama Givens MD Amorphous sediment LM Ql (Urine sed) NOT REPORTED Normal [facility] Comment on above: Performed By: #### U AX, UMICAO #### [facility] [address] [place] [address] Matlab Developer: Rama Givens MD Bacteria NOT REPORTED Normal [facility] Comment on above: Performed By: #### U AX, UMICAO #### [facility] [address] [place] [address] Matlab Developer: Rama Givens MD Casts NOT REPORTED Normal [facility] Comment on above: Performed By: #### U AX, UMICAO #### [facility] [address] [place] [address] [place] [address] Matlab Developer: Rama Givens MD Crystals LM Nom (Urine sed) NOT REPORTED Normal [facility] Comment on above: Performed By: #### U AX, UMICAO #### [facility] [address] [place] [address] Matlab Developer: Rama Givens MD Epithelial, Renal NOT REPORTED Normal 0 [facility] Comment on above: Performed By: #### U AX, UMICAO #### [facility] [address] [place], [place] [phone] Matlab Developer: Rama Givens MD Mucus Strands NOT REPORTED Normal [facility] Comment on above: Performed By: #### U AX, UMICAO #### [facility] [address] [place], [place] 8[address]83 Matlab Developer: Rama Givens MD Other Observations NOT REPORTED Normal NREQ [facility] Comment on above: Performed By: #### U AX, UMICAO #### [facility] [address] [place], [facility]83 Matlab Developer: Rama Givens MD Trichomonas NOT REPORTED Normal NONE [facility] Comment on above: Performed By: #### U AX, UMICAO #### [facility] [address] [place], [place] [address]83 Matlab Developer: Rama Givens MD Yeast NOT REPORTED Normal [facility] Comment on above: Performed By: #### U AX, UMICAO #### [facility] [address] [place], [facility]83 Matlab Developer: Rama Givens MD XR CHEST PORTABLEon 11-12-19 [...] Fallon Weinstein MD 11/11/20 Final result Normal [facility] XR CHEST PORTABLEOrdered By: Jose Iqbal on 11-11-2020 No acute cardiopulmo nary findings [facility] Work Phone: EXAMINATION: ONE XRA Y [...] no acute pleural, parenchymal or mediastinal findings [employer] Phone: Levon, Mhpn Incoming R adiant Results From [facility]acs - 11/11/2020 12:06 PM EDT EXAMINATION: ONE [...] mediastinal findings IMPRESSION: No acute cardiopulmonary findings [employer] Phone: [employer] Phone: Lipid PanelOrdered By: Samy Huntley on 09-20-2020 Cholesterol [Mass/Vol] 179 mg/dL <200 [employer] Phone: Comment on above: Cholesterol Guidelines: <200 Desirable 200-240 Borderline >240 Undesirable Cholesterol in HDL [Mass/Vol] 50 mg/dL >40 [employer] Phone: Comment on above: HDL Guidelines: <40 Undesirable 40-59 Borderline >59 Desirable Cholesterol in LDL [Mass/Vol] 112 mg/dL 0 - 130 mg/dL [employer] Phone: Comment on above: LDL Guidelines: <100 Desirable 100-129 Near to/above Desirable 130-159 Borderline >159 Undesirable Direct (measured) LDL and calculated LDL are not interchangeable tests. Cholesterol in VLDL [Mass/Vol] NOT REPORTED 1 - 30 mg/dL [employer] Phone: Cholesterol.total/Chol esterol in HDL [Mass ratio] 3.6 {ratio} <5 [employer] Phone: Triglyceride [Mass/Vol] 87 mg/dL <150 [facility] Phone: Comment on above: Triglyceride Guidelines: <150 Desirable 150-199 Borderline 200-499 High >499 Very high Based on AHA Guidelines for fasting triglyceride, December 2011. [employer] Phone: Lipid Profileon 09-20-2020 Cholesterol [Mass/Vol] 179 mg/dL Normal <200 [facility] Comment on above: Result Comment: Cholesterol Guidelines: <200 Desirable 200-240 Borderline >240 Undesirable Performed By: #### L IPR #### [facility] [employer] [address] [place] [address] Matlab Developer: Marv Gillis MD Cholesterol in HDL [Mass/Vol] 50 mg/dL Normal >40 [facility] Comment on above: Result Comment: HDL Guidelines: <40 Undesirable 40-59 Borderline >59 Desirable Performed By: #### L IPR #### [facility] [employer] [address] [place] [address] Matlab Developer: Marv Gillis MD Cholesterol in LDL [Mass/Vol] 112 mg/dL Normal 0-130 [facility] Comment on above: Result Comment: LDL Guidelines: <100 Desirable 100-129 Near to/above Desirable 130-159 Borderline >159 Undesirable Direct (measured) LDL and calculated LDL are not interchangeable tests. Performed By: #### L IPR #### [facility] [employer] [address] [place] [id number] Matlab Developer: Marv Gillis MD Cholesterol.total/Chol esterol in HDL [Mass ratio] 3.6 {ratio} Normal <5 [facility] Comment on above: Performed By: #### L IPR #### [facility] [employer] [address] [place] [id number] Matlab Developer: Marv Gillis MD Triglyceride [Mass/Vol] 87 mg/dL Normal <150 [facility] Comment on above: Result Comment: Triglyceride Guidelines: <150 Desirable 150-199 Borderline 200-499 High >499 Very high Based on AHA Guidelines for fasting triglyceride, December 2011. Performed By: #### L IPR #### [facility] [address] [place], [place] [id number] Matlab Developer: Marv Gillis MD Cholesterol,VLDL NOT REPORTED Normal - [facility] Comment on above: Performed By: #### L IPR #### [facility] [address] [place], [place] [phone] Matlab Developer: Marv Gillis MD Provider Letteron 02-24-2020 Provider Letter (Inserted Image. Lynn ble to display) February 24, 2020 RUBÉN APARICIO [address] [id number] RUBÉN APARICIO 1960 To Whom It May Concern, Please excuse above patient from work. Date of Illness: From: _01/11/2020 To: _03/05/2020 May Return to Work On: 03/05/2020 Restrictions: _ Comments: _ Sincerely, Abimael Mcdermott MD General Surgery Normal [facility] Ambulatory Clinical Summaryo n 02-16-2020 Ambulatory Clinical Summary {[id number]}CD: [id number] Normal [facility] General Surgery Office/Clini c Noteon 02-16-2020 General [...] Abimael Celestin if needed [address] [place] [address]- Additional Instructions: Problem List/Past Medical [...] and Father. Stroke: Mother and Father. Normal [facility] Comment on above: Result Comment: Jodi pangally Signed By: BALDEMAR GARZA, Abimael Metcalf\Date and Time Signed: 02/16/20 16:58 EST Ambulatory Clinical Summaryo n 02-02-2020 Ambulatory Clinical Summary {[id number]}CD: [id number] Normal [facility] General Surgery Office/Clini c Noteon 02-02-2020 General [...] and Father. Stroke: Mother and Father. Normal [facility] Comment on above: Result Comment: Elec tronically Signed By: BALDEMAR GARZA, Abimael Metcalf\Date and Time Signed: 02/02/20 14:01 EST [employer] 01-22-2020 Forms [id number]:127 Normal [facility] Ambulatory Clinical Summaryo n 01-19-2020 Ambulatory Clinical Summary {[id number]}CD: [id number] Normal [facility] General Surgery Office/Clini c Noteon 01-19-2020 General Surgery Office/Clinic Note Chief Complaint post operative follow up HPI Staff 8 day post operative follow up post robotic assisted epigastric hernia repair with mesh. Minimal discomfort. Minimal use of Souris. Denies nausea or vomiting. Bowels moving well. Urinating without difficulty. No drainage from incision sites. Wearing abdominal binder. History of Present Illness 8 days s/p robotic-assisted epigastric hernia repair with mesh; doing well, mild soreness, no fevers, no N/V; no drainage from incisions; eating well, normal bms; taking occasional Souris for pain. Physical Exam Vitals & Measurements [...] Mother and Father. Stroke: Mother and Father. [facility] Comment on above: Result Comment: Elec tronically Signed By: BALDEMAR GARZA, Abimael Alexandra\.br\Date and Time Signed: 01/19/20 13:45 EDT IntraOperative Documentson 1 IntraOperative Documents [id number]:127 [facility] Coding Summary.on 01-18-2020 Coding Summary. CODING DATE: 020 [facility] STATUS: Home (Routine DC) PAYOR: [place] [facility] DESCRIPTION 5361 Level 1 Laparoscopy and Related Services ADMIT [...] PROC APC STAT DESCRIPTION DOCTOR NAME DATE [id number] Laparoscopy, surgical, Abimael MCDERMOTT MD 01/11/2020 repair, ventral, umbilical, spigelian or epigastric hernia (includes mesh insertion, when performed); incarcerated or strangulated [id number] Transversus abdominis Blaise Lee Jr., DO 01/11/2020 plane (TAP) block (abdominal plane block, rectus sheath block) bilateral; by injections (includes imaging guidance, when performed) XP Separate practitioner, a service that is distinct because it was performed by a different practitioner [id number] Anesthesia for hernia Blaise Lee Jr., DO [...] Revised Date Saved: 01/14/2020 01:16 pm Normal [facility] Main OR Intraoperative Recor don 01-18-2020 Main OR Intraoperative Record IntraOp Document Type FT Summary Primary Physician: Abimael MCDERMOTT MD Finalized Date/Time: 01/18/20 09:52:15 Pt. Name: ALESSANDRARUBÉN/Sex: 1960 Female Med Rec #: [id number] Physician: Abimael MCDERMOTT MD Financial #: [id number] Pt. Type: A Room/Bed: [place] [address] Admit/Disch: 01/11/20 07:25:52 - 01/11/20 14:50:00 Institution: [...] area prepped with chlorprep prior to block. Lexa giles press setup operator/sa assisting dr. lee with block and patient under constant observation. - terrell rn 1033- robot docked at bedside by this RN. - terrell rn 1039- surgeon back to surgeon console at this time. - terrell rn 01/18/2020 Chart opened to review and send charges. Ervin Braswell IT QUALITY ANALYST. Case Attendance FT Entry 1 Entry 2 Entry 3 Case Attendee Rafita Aguirre DO, Blaise MCDERMOTT MD, Abimael Giles CST, Xiang Role Performed Anesthesiologist of Surgeon - Primary IT QUALITY ANALYST/SA Record Time In 01/11/20 09:44:00 01/11/20 09:44:00 01/11/20 09:44:00 Time Out 01/11/20 12:00:00 01/11/20 12:00:00 01/11/20 12:00:00 Procedure HERNIA REPAIR, ROBOT HERNIA REPAIR, ROBOT HERNIA REPAIR, ROBOT ASSISTED(.) ASSISTED(.) ASSISTED(.) Comments Last Modified By: Yosvany CONRAD, Osiel Bar RN, Osiel Bar RN, Osiel Albert 01/11/20 12:01:02 01/11/20 12:01:02 01/11/20 12:01:02 Entry 4 Entry 5 Entry 6 Case Attendee Milton CONRAD, Melyssa Foster RN, Anum Simon Role Performed Biofuels Plant Operations Engineer - Primary Biofuels Plant Operations Engineer - Primary Scrub - Primary Time In 01/11/20 09:46:00 01/11/20 09:46:00 01/11/20 09:44:00 Time Out 01/11/20 11:33:00 01/11/20 11:33:00 01/11/20 12:00:00 Procedure HERNIA REPAIR, ROBOT HERNIA REPAIR, ROBOT HERNIA REPAIR, ROBOT ASSISTED(.) ASSISTED(.) ASSISTED(.) Comments orientation orientation - out fo room from [phone] Last Modified By: Yosvany CONRAD, Osiel Bar RN, Osiel Henry RN 01/11/20 12:01:02 01/11/20 12:03:57 01/11/20 12:03:57 Entry 7 Entry 8 Entry 9 Case Attendee Manish BROWN, Ivonne Montilla RN, Roxanna Braswell CST, Cedric Henry Role Performed Scrub - Primary Biofuels Plant Operations Engineer - Relief Scrub - Relief Time In 01/11/20 09:44:00 01/11/20 09:44:00 01/11/20 10:57:00 Time Out 01/11/20 12:00:00 01/11/20 09:50:00 01/11/20 11:34:00 Procedure HERNIA REPAIR, ROBOT HERNIA REPAIR, ROBOT HERNIA REPAIR, ROBOT ASSISTED(.) ASSISTED(.) ASSISTED(.) Comments preceptor - out of room from [phone] Last Modified By: Osiel Bar RN, RN, Osiel Henry RN 01/11/20 12:01:02 01/11/20 12:01:02 01/11/20 12:01:02 Entry 10 Case Attendee Osiel Bar RN Role Performed Biofuels Plant Operations Engineer - Relief Time In 01/11/20 11:32:00 Time [...] Lee Jr., DO Given Participants GBALDEMAR MD, Manish Montilla CST, Milton Otoole RN, Cristian Salas [...] and tissue Entry 1 Skin Integrity Intact, Bibo, Warm, and Skin Abnormality No Dry Outcomes [...] DO, BALDEMAR Hand MD, Eladia Montilla RN, Manish Breen CST, Benjamin Last Modified By: Melyssa Rose RN 01/11/20 [...] Yes Yes Yes Last Modified By: Milton RN, Melyssa Rsoe RN, Melyssa Vegas RN 01/11/20 10:09:15 01/11/20 [...] or transport Entry 1 Via Cart By Roxanna Montilla RN Safety Precautions Side Rails Up Outcomes Met? [...] Condition Condition Grounding Pad Cristian CONRAD, Marija Blount By Outcomes Met? Yes Last Modified By: [...] Correct Correct Correct Time 01/11/20 11:46:00 By Milton CONRAD, Faviola Salas Coy RN, Faviola Salas Wilhelm CST, Anum Mcconnell, Manish BROWN, Anum Albert, [facility], Anum Salmeron, Michaelle Mullen CST, RN, Osiel Henry Outcomes Met? Yes Yes Yes Last Modified By: Melyssa Rose RN RN, Melyssa Bar RN, Osiel Albert 01/11/20 [...] to transfer/transport General Comments: report given to architect internship. anamaria rodriguez Dressing/Packing FT Pre-Care Text: Administers care to wound sites Entry 1 Entry 2 Type Dressing Immobilization Devices Items ADHESIVE SKIN AFFIX BINDER ABDOMINAL 3-PNL SURGICAL .4ML LG/XLG [[id number]][F] [[id number]][F] Site and Details skin affix to abdominal [...] safely administered during the perioperative period For Mast-Simpson please see scanned medication reconcilliation form for medications used at the field during the procedure. Implant Log FT Pre-Care Text: Records devices implanted during the operative or invasive procedure Entry 1 Procedure HERNIA REPAIR, ROBOT Implant/Explant Implant ASSISTED(.) Implant Identification FT Description MESH STEX ROUND 9CM Lot Number [id number] (3.6 ) [SYM9][F] Wall And Floor Tiler FT-OPE [employer] Catalog ?# SYM9 [F] Size 9cm Expiration Date 04/24/24 Unique Device [id number] Human Readable {[id number] Identifier (ARCELIA) Barcode {[id number]{10 [id number] Machine Readable [id number] Barcode [id number] Usage Data FT Implant Site Abdomen Implant [...] Present Upon Arrival No Inserted LF 16FR [[id number]][F] Insertion Date/Time 01/11/20 10:00:00 Urine Residual 35 Insertion Site Uretheral Urine clear yellow urine Characteristics Inserted By Melyssa Rose RN Discontinued? Yes When was the Discontinued at end of DC'd By Xiang Giles CST catheter case discontinued? Outcomes Met? Yes [...] BLANKET MISTRAL AIR Quantity 1 Aid TORSO [[id number]][F] Fluid/Howe Unit Mistral warming system Setting high/43 Body Site Upper anterior torso Last Modified By: Melyssa Rose RN 01/11/20 10:50:28 Case Comments Finalized By: Cedric Braswell CST Document Signatures Signed By: Oseil Bar RN 01/11/20 12:07 Cedric Braswell CST 01/18/20 09:52 [facility] Coding Summary.on 01-13-2020 Coding Summary. CODING DATE: 020 FINAL [facility] STATUS: Home (Routine DC) PAYOR: [place] ADMIT DX: REASON FOR VISIT DX: Z01.810 [...] Sharyn Rose Date Saved: 01/13/2020 04:12 pm [facility] Consent for Anesthesiaon Consent for Anesthesia [id number]#1.00CD:127 [facility] Discharge Instructionson Discharge Instructions [id number]#1.00CD:127 Normal [facility] IntraOperative Documentson 1 IntraOperative Documents [id number]#1.00CD:127 [facility] IntraOperative Documents [id number]#1.00CD:127 [facility] Preoperative Documentson Preoperative Documents [id number]#1.00CD:127 [facility] Preoperative Documents [id number]#1.00CD:127 Normal [facility] Stress EKG Tracingson 2019 Stress EKG Tracings [id number]#1.00CD:127 Normal [facility] Coding Summary.on 01-11-2020 Coding Summary. CODING DATE: 020 FINAL [facility] STATUS: Home (Routine DC) PAYOR: Yunier [...] result in slightly different terminology. Coded By: Tiffnay Mckenzie CphT Date Saved: 01/11/2020 09:06 am [facility] Consent for Treatmenton 12-23 Consent for Treatment [id number]#1.00CD:127 Normal [facility] History and Physicalon 01-10 History and Physical Patient: RUBÉN APARICIO Age: 59 years Sex: Female : 1960 Associated Diagnoses: None Author: Abimael MCDERMOTT MD Subjective no changes to H & P Normal [facility] Comment on above: Result Comment: Elec tronically Signed By: Abimael MCDERMOTT MD\.br\Date and Time Signed: 01/11/20 09:18 EDT Inpatient Patient Summaryon 01-11-2020 Inpatient Patient Summary [address] [address] [facility] Clinical Discharge Instructions PERSON INFORMATION Name: RUBÉN APARICIO PHYSICIANS Admitting Physician: Abimael MCDERMOTT MD Attending Physician: Abimael MCDERMOTT MD PCP: Hoy MD, Cesar Discharge Diagnosis: Complicated incarcerated epigastric hernia Comment: PATIENT EDUCATION INFORMATION Instructions: How to Use an Incentive Spirometer; Post Op Patient Instructions - FT (CUSTOM) Medication Leaflets: Follow up: With: Address: When: Abimael BALDEMAR [address], [address], [facility] [address] [place] [address] Business (1) Within 7 to 10 days MEDICATION LIST New Medications [address] [place], [place] [id number], [phone] acetaminophen-hydrocodone (Souris 325 mg-5 mg oral tablet) 1 Tablets [...] Capsules By Mouth every day. Comment: Mario Mast [facility] Main OR PACU I Recordon 12-23 Main OR PACU I Record PACU Phase I Docum ent Type FT Summary Primary Physician: Abimael MCDERMOTT MD Finalized Date/Time: 01/11/20 13:37:08 Pt. Name: RUBÉN APARICIO Guru /Sex: 1960 Female Med Rec #: [id number] Physician: Abimael MCDERMOTT MD Financial #: [id number] Pt. Type: A Room/Bed: Admit/Disch: 01/11/20 07:25:52 [...] Signed By: Lupe Muniz RN 01/11/20 13:37 [facility] Main OR PACU II Recordon Main OR PACU II Record PACU Phase II Doc ument Type FT Summary Primary Physician: Abimael MCDERMOTT MD Finalized Date/Time: 01/11/20 15:11:26 Pt. Name: ALESSANDRARUBÉN D.O.B./Sex: 1960 Female Med Rec #: [id number] Physician: Abimael MCDERMOTT MD Financial #: [id number] Pt. Type: A Room/Bed: [facility] Admit/Disch: 01/11/20 07:25:52 - Institution: Case Times [...] By: Toma Rhodes RN 01/11/20 15:11 Normal [facility] Main OR Preoperative Recordo n 01-11-2020 Main OR Preoperative Record PreOp Document Type FT Summary Primary Physician: Abimael MCDERMOTT MD Finalized Date/Time: 01/11/20 10:41:28 Pt. Name: RUBÉN APARICIO /Sex: 1960 Female Med Rec #: [id number] Physician: Abimael MCDERMOTT MD Financial #: [id number] Pt. Type: A Room/Bed: Admit/Disch: 01/11/20 07:25:52 [...] By: Melyssa Rose RN 01/11/20 10:41 Normal [facility] Monitor Recordon 01-11-2020 Monitor Record [id number]#1.00CD:127 Normal [facility] Operative Reporton 0 Operative Report Date of [...] the right upper quadrant. The additional needle transit mixer driver was removed. The robot was undocked. I then scrubbed back into the field. I examined the repair. It was noted to be intact with good hemostasis. All port sites were examined. Upon withdrawal of the ports there was noted to be good hemostasis. The subxiphoid port site fascia was then closed with a 0 Vicryl [id number]-[id number] sutures. All port sites were infiltrated with 0.5% Marcaine. The skin was then closed with interrupted 4-0 subcuticular Monocryl sutures. Skin glue, sterile pressure dressing was applied to the hernia site as well as an abdominal binder. Patel catheter was removed. The patient was extubated and sent to Recovery Room in good condition. Jerrica Moseley Dictated: 01/11/2020 #[id number] Typed: 01/11/2020 #[id number] cc: Jerrica Corrales M.D. [facility] Comment on above: Result Comment: Elec tronically Signed By: Abimael MCDERMOTT MDbr\Date and Time Signed: 01/11/20 13:37 EDT Operative Report Patient: Zohra APARICIO [facility]: [id number] Age: 59 years Sex: Female : 1960 [...] block, preparations continued for the proposed operation.. [facility] Comment on above: Result Comment: Elec tronically Signed By: Blaise Lee Jr., DO.kayce\Date and Time Signed: 01/11/20 10:30 EDT Outpatient Surgery Discharge Instructionon 01-11-2020 Outpatient Surgery Discharge Instruction [place] [id number] Patient Discharge Instructions PERSON INFORMATION Name: RUBÉN APARICIO Date of : 1960 Current Date: 01/11/2020 13:09:51 PHYSICIANS Admitting Physician: BALDEMAR GARZA, Abimael Alexandra Discharge Diagnosis: Complicated incarcerated epigastric hernia RUBÉN [...] 10 lbs no driving while taking the Souris IF UNABLE TO CONTACT YOUR PHYSICIAN AND YOU FEEL IT IS AN EMERGENCY, GO TO THE NEAREST EMERGENCY ROOM OR CALL 911 I, RUBÉN APARICIO, have received the attached patient education materials/instructions and have verbalized understanding: May we do a follow up call? Yes No I was present when discharge instructions were given ____ Patient Signature _ Date Clinican/Nurse Signature Date Follow up: With: Address: When: Abim[address], [address], [facility] [address] [place] [address] Business (1) Within 7 to 10 days Pharmacy Information: Thank you for choosing [facility] HERE ARE THE MEDICATION CHANGES THAT OCCURRED DURING YOUR HOSPITAL STAY New Medications [address], [address] [place], [place] [id number], [phone] acetaminophen-hydrocodone (Souris 325 mg-5 mg oral tablet) 1 Tablets [...] possible. ? If the spirometer includes a men's golf coach indicator, use this to guide you [...] 07/22/2007 Document Revised: 04/03/2018 Document Reviewed: 01/22/2018 ElseTempMine Patient Education ? 2019 [employer] - Informática. Normal [facility] Outside Recordson 01-11-2020 Outside Records [id number]#1.00CD:127 Normal [facility] Patient Education - Texton 1 Patient Education [...] possible. ? If the spirometer includes a men's golf coach indicator, use this to guide you [...] 07/22/2007 Document Revised: 04/03/2018 Document Reviewed: 01/22/2018 [employer]Ns[employer] Patient Education ? 2019 [employer] - Informática. [facility] Progress Note-Physicianon Progress Note-Physician Patient: RUBÉN [...] preparations continued for the proposed operation.. Normal [facility] Comment on above: Result Comment: Elec [...] arrest Father Mother Procedure history: Skin lesion ([id number]). Comments: 12/15/2019 13:32 EDT - Carmita Avery [...] January 01, 2020 7:16 EDT Encounter info: [id number], Pro Garcia, Outpatient, 12/30/2019 - 12/30/2019 ECG [...] Barber MD Transcribed by: rody Technologist: KAYLEE MCFARLAND REPORT This document has an image Result type: Echo Transthoracic Complete Result date: January 08, 2020 8:39 EDT Result status: Auth (Verified) Result title: Echo Transthoracic Complete Performed by: Samantha Welch RDCS on January 08, 2020 8:39 EDT Verified by: Marcel Barber MD on January 08, 2020 10:46 EDT Encounter info: [id number], Pro Garcia, Outpatient, 01/08/2020 - 01/08/2020, * [...] Barber MD Transcribed by: rody Technologist: KAYLEE MCFARLAND REPORT This document has an image Result type: EC Stress Echo Complete w/ Contrast Result date: January 08, 2020 11:06 EDT Result status: Auth (Verified) Result title: EC Stress Echo Complete w/ Contrast Performed by: Samantha Welch RDCS on January 08, 2020 11:06 EDT Verified by: Marcel Barber MD on January 08, 2020 17:01 EDT Encounter info: [id number], Pro Garcia, Outpatient, 01/08/2020 - 01/08/2020. Plan [place] [employer] Anesthesiologists (ASA) physical status classification: Class III. Anesthetic Preoperative Plan Anesthesia: General. . Anesthetic plan, risks, benefits, and alternatives discussed with the patient and/or family. Patient verbalized understanding. Adverse reactions, complications, and alternatives discujssed. Consent signed and on chart.. Normal [facility] Comment on above: Result Comment: Elec tronically Signed By: Blaise Lee Jr., DO.kayce\Date and Time Signed: 01/11/20 09:10 EDT UA With Cult Reflexon 2019 Bacteria LM Ql (Urine sed) TRACE Normal Trace [facility] Comment on above: Performed By: #### 1 [id number] #### [facility] Laboratory [address] [place] [address] Bilirubin Ql (U) Negative Normal Negative [facility] Comment on above: Performed By: #### 1 [id number] #### [facility] [address] [place] [address] Clarity (U) SL CLOUDY Abnormal Clear [facility] Comment on above: Performed By: #### 1 [id number] #### [facility] [address] [place] [address] Color (U) YELLOW Normal Yellow [facility] Comment on above: Performed By: #### 1 [id number] #### [facility] [address] [place] [address] Crystals LM Ql (Urine sed) Present Normal [facility] Comment on above: Performed By: #### 1 [id number] #### [facility] [address] [place] [address] Epithelial cells.squamous LM.HPF (Urine sed) [#/Area] 0-2 Normal 0-2 [facility] Comment on above: Performed By: #### 1 [id number] #### [facility] [address] [place] [address] Glucose Test strip (U) [Mass/Vol] Negative Normal Negative [facility] Comment on above: Performed By: #### 1 [id number] #### [facility] [address] [place] [address] Hemoglobin Ql (U) Negative Normal Negative [facility] Comment on above: Performed By: #### 1 [id number] #### [facility] [address] [place] [address] Ketones (U) [Mass/Vol] Negative Normal Negative [facility] Comment on above: Performed By: #### 1 [id number] #### [facility] [address] [place] [address] [place].plasma/[place] .RBC (Bld) [Mass ratio] 0-3 Normal 0-3 [facility] Comment on above: Performed By: #### 1 [id number] #### [facility] [address] [place] [address] Mucus Ql (Urine sed) TRACE Normal [facility] Comment on above: Performed By: #### 1 [id number] #### [facility] [address] [place] [address] Nitrite Ql (U) Negative Normal Negative [facility] Comment on above: Performed By: #### 1 [id number] #### [facility] [address] [place] [address] pH (U) 7.0 [pH] 5.0-9.0 [facility] Comment on above: Performed By: #### 1 [id number] #### [facility] [address] [place] [address] Protein (U) [Mass/Vol] Negative Normal Negative [facility] Comment on above: Performed By: #### 1 [id number] #### [facility] [address] [place] [address] Specific gravity (U) [Rel density] 1.020 1.005-1.030 [facility] Comment on above: Performed By: #### 1 [id number] #### [facility] [address] [place] [address] UA Spec Desc Patel Normal [facility] Comment on above: Performed By: #### 1 [id number] #### [facility] [address] [place] [address] Urobilinogen Qn (U) 1.0 {Zheng'U}/dL Normal 0.0-1.0 [facility] Comment on above: Performed By: #### 1 [id number] #### [facility] [address] [place] [address] WBC Auto Ql (U) Negative Normal Negative [facility] Comment on above: Performed By: #### 1 [id number] #### [facility] [address] [place] [address] WBC LM.HPF (Urine sed) [#/Area] 0-5 Normal 0-5 [facility] Comment on above: Performed By: #### 1 [id number] #### [facility] [address] [place] [address] Consent for Treatmenton 12-23 Consent for Treatment [id number]#1.00CD:127 Normal [facility] Consultation Noteon 01-08-20 Consultation Note [id number]#1.00CD:127 Normal [facility] Echo Transthoracic Completeo n 01-08-2020 Echo Transthoracic Complete Echocardiology Procedure Exam Date/Time Accession # Ordering Echo Transthoracic 01/08/2020 08:39 EDT [id number] Sunil GARZA, Marcel Lynch Complete CPT code 59118 Reason for Exam (Echo Transthoracic Complete) CHEST [...] Barber MD Transcribed by: rody Technologist: KAYLEE Martin [facility] Referral Authorizationson Referral Authorizations [id number]#[id number]:127 Normal [facility] Coding Summary.on 01-07-2020 Coding Summary. CODING DATE: 020 FINAL [facility] STATUS: Home (Routine DC) PAYOR: Yunier [...] Mckenzie CphT Date Saved: 01/07/2020 05:21 pm [facility] Consent for Treatmenton 12-23 Consent for Treatment [id number]#1.00CD:127 Normal [facility] Heart and Vascular Office/Cl inic Noteon 01-06-2020 [...] ago and had a stress test at [facility] however we do not have those results. [...] and Father. Stroke: Mother and Father. Normal [facility] Comment on above: Result Comment: Elec tronically Signed By: Sunil GARZA, Marcel Lynch\.br\Date and Time Signed: 01/06/20 13:45 EDT History and Physicalon 01-04 History and Physical [id number]#1.00CD:127 Normal [facility] Priority Order-Gabino 2019 Priority Order-STAT Comment Zurdoe r [facility] Comment on above: Result Comment: Rece ived Performed at: [facility] [address] [facility], [place] [id number] MD Naomi Raymond Performed By: #### 2 [id number], SARS-CoV-2, YAMINI ####[facility] [address] [place] [address] SARS-CoV-2, NAAon 01-05-2020 SARS CORONAVIRUS 2 RNA:PRTHR:PT:RESPIRATO RY:ORD:PROBE.AMP.TAR Not Detected Not Detected [facility] Comment on above: Result Comment: This nucleic acid amplification test was developed and its performance characteristics determined by [employer]. Nucleic acid amplification tests include PCR and [...] detected) result in this assay. Performed at: [facility] [address] [facility] [place] [id number] MD Naomi Raymond Performed By: #### 2 [id number], SARS-CoV-2, YAMINI ####[facility] [address] [place] [address] XR Chest 2 Viewson 0 XR Chest [...] M.D. Transcribed by: SELENA Technologist: ALICIA Martin [facility] Coding Summary.on 12-31-2019 Coding Summary. CODING DATE: 020 FINAL [facility] STATUS: Home (Routine DC) PAYOR: Yunier [...] CphT Date Saved: 12/31/2019 01:49 pm Normal [facility] BUNon 12-30-2019 Urea nitrogen [Mass/Vol] 14 mg/dL Normal 5-21 [facility] Comment on above: Performed By: #### 2 672925, 4879816, 3338027, 4934937, 6571525, [id number] ####[facility] [address] [place] [address] CBC w/Indiceson 12-30-2019 Erythrocyte distribution width (RBC) [Ratio] 13.7 % Normal 10.9-14.2 [facility] Comment on above: Performed By: #### 2 669972, 8129644, 3544497, 6961174, 3609483, 75625225 ####[facility] [address] [place] [address] Hematocrit (Bld) [Volume fraction] 42.0 % Normal 34.0-46.0 [facility] Comment on above: Performed By: #### 2 597427, 8956393, 2987563, 3729830, 6017114, 87217473 ####[facility] [address] [place] [address] Hemoglobin (Bld) [Mass/Vol] 14.2 g/dL Normal 12.0-16.0 [facility] Comment on above: Performed By: #### 2 055104, 8330482, 1778945, 3257937, 2022219, 77491707 ####[facility] [address] [place] [address] MCH (RBC) [Entitic mass] 32.9 pg Normal 27.0-34.0 [facility] Comment on above: Performed By: #### 2 853220, 2438437, 4826205, 3950674, 9567759, 14796223 ####[address] [address] MCHC (RBC) [Mass/Vol] 33.8 g/dL Normal 31.4-36.0 [facility] Comment on above: Performed By: #### 2 432777, 2354151, 7456730, 2988541, 2441513, 81194209 ####[address] [address] MCV (RBC) [Entitic vol] 97.1 fL Normal 80.0-100.0 [facility] Comment on above: Performed By: #### 2 784987, 6870561, 7170435, 1190982, 2023628, 94120410 ####[address] [address] Platelet mean volume (Bld) [Entitic vol] 7.7 fL Normal 6.4-10.8 [facility] Comment on above: Performed By: #### 2 457331, 4578410, 8775403, [id number], [id number], [id number] ####[address] [address] Platelets (Bld) [#/Vol] 336.0 E9/L Normal 150.0-500.0 [facility] Comment on above: Performed By: #### 2 909262, 5668750, 6530718, 1083278, 9060825, [id number] ####[address] [place] [address] RBC (Bld) [#/Vol] 4.3 E12/L Normal 4.3-5.9 [facility] Comment on above: Performed By: #### 2 677265, 9600756, 0779685, 4463947, 8772553, [id number] ####[address] [address] WBC corrected for nucl RBC Auto (Bld) [#/Vol] 7.5 E9/L Normal 4.0-11.0 [facility] Comment on above: Performed By: #### 2 300933, 7453881, 9417220, 2421880, 1442541, [id number] ####[facility] [address] [place] [address] Consent for Treatmenton Consent for Treatment [id number]:127 Normal [facility] Creatinineon 12-30-2019 Creatinine [Mass/Vol] 0.6 mg/dL Normal 0.5-1.3 [facility] Comment on above: Performed By: #### 2 630299, 4911876, 3028090, 3396632, 3027586, 03862685 ####[facility] [address] [place] [address] Glucoseon 12-30-2019 Glucose [Mass/Vol] 87 mg/dL Normal 55-199 [facility] Comment on above: Performed By: #### 2 960195, 0167996, 8560061, 5934096, 1005114, 69529675 ####[facility] [address] [place] [address] Lyteson 12-30-2019 Anion gap [Moles/Vol] 12 mmol/L Normal 6-16 [facility] Comment on above: Performed By: #### 2 840938, 9751893, 8554454, 9758294, 7308339, 17806042 ####[facility] [address] [place] [address] Chloride [Moles/Vol] 108 mmol/L Normal 101-111 [facility] Comment on above: Performed By: #### 2 978329, 2315974, 3264675, 9821917, 6329307, 16294694 ####[facility] [address] [place] [address] CO2 [Moles/Vol] 24 mmol/L Normal 21-31 [facility] Comment on above: Performed By: #### 2 230559, 9391442, 2482921, 1415669, 4067642, 98734125 ####[facility] [address] [place] [address] Potassium [Moles/Vol] 3.5 mmol/L Normal 3.5-5.3 [facility] Comment on above: Performed By: #### 2 787915, 2283791, 1660954, 2070985, 1536389, 81450375 ####[facility] [address] [place] [address] Sodium [Moles/Vol] 140 mmol/L Normal 135-145 [facility] Comment on above: Performed By: #### 2 595923, 2843682, 4060498, 1952041, 5504096, 36209280 ####[facility] [address] [place] [address] eGFRon 12-30-2019 GFR/1.73 sq M predicted among blacks MDRD (S/P/Bld) [Vol rate/Area] mL/min/{1.73_m2} Normal >=59 [facility] Comment on above: Order Comment: Order added by Discern Expert. Result Comment: eGFR is race adjusted. AA=. Performed By: #### 2 029425, 6342900, 9415534, 5041388, 3431735, 36112963 ####[facility] [address] [place] [address] GFR/1.73 sq M predicted among non-blacks MDRD (S/P/Bld) [Vol rate/Area] mL/min/{1.73_m2} Normal >=59 [facility] Comment on above: Order Comment: Order added by Discern Expert. Result Comment: Hairspring Inspector kailash kidney disease could be indicated at eGFR's of less than 60 mL/min/1.73m2. Kidney failure is indicated at less than 15 mL/min/1.73m2. Performed By: #### 2 633519, 7183399, 4703395, 7517876, 9431247, [id number] ####[facility] [address] [place] [address] Consent for Procedure/Surger yon 12-28-2019 Consent for Procedure/Surgery [id number]:127 Normal [facility] Physician Orderon 12-25-2019 Physician Order [id number]#[id number]:127 Normal [facility] Ambulatory Clinical Summaryo n 12-24-2019 Ambulatory Clinical Summary {[id number]}CD: [id number] Normal [facility] General Surgery Office/Clini c Noteon 12-24-2019 General [...] and Father. Stroke: Mother and Father. Normal [facility] Comment on above: Result Comment: Elec tronically Signed By: BALDEMAR GARZA, Abimael Heart.br\Date and Time Signed: 12/24/19 13:27 EDT Patient Educationon 12-24-19 20 Patient Education Procedures Hernia Repair with Laparoscope [...] TAKE ALL MEDICATIONS DIRECTED. ? Only take ksxr-tos-csjgfkh or prescription medicines for pain, discomfort, or [...] Document Reviewed: 02/08/2010 ExitCare? Patient Information ?2013 [employer]. [facility] Provider Letter FTMCon 12-23 Provider Letter [facility] [place]Inserted Image. Un able to display) December 24, 2019 RUBÉN APARICIO [address] [place] [id number] RUBÉN APARICIO 1960 To Whom It May Concern, Please excuse above patient from work on 12/24/2019 due to an appointment. Sincerely, Abimael Mcdermott MD General Surgery [facility] Lab Reportson 12-21-2019 Lab Reports [id number]#[id number]:127 [facility] Lab Reports [id number]:127 [facility] RAD - Ultrasound Reporton RAD - Ultrasound Report [id number]#[id number]:127 [facility] Provider Letter FTMCon 12-16 Provider Letter FT (Inserted Image. Un able to display) Cesar Paulino [address] [place] [address] Re: RUBÉN APARICIO Date of : 1960 Thank you for your referral of Rubén Aparicio who was seen on consultation on 12/15/2019 for cholelithiasis and abdominal pain. I have enclosed my consultation notes for your review. Sincerely, Abimael Mcdermott MD General Surgery [facility] Facesheeton 12-16-2019 Facesheet [id number]#[id number]:127 [facility] Ambulatory Clinical Summaryo n 12-15-2019 Ambulatory Clinical Summary {[id number]}CD: [id number] Normal rPo [facility] General Surgery Office/Clini c Noteon 12-15-2019 General [...] and Father. Stroke: Mother and Father. Normal [facility] Comment on above: Result Comment: Elec tronically Signed By: BALDEMAR GARZA, Abimael Metcalf\Date and Time Signed: 12/15/19 16:56 EDT Physician Referralon 020 Physician Referral [id number]:127 Normal [facility] CBCon 05-22-2019 Erythrocyte distribution width (RBC) [Ratio] 13.0 % 11.8 - 14.4 % [place] Hematocrit (Bld) [Volume fraction] 42.7 % 36.3 - 47.1 % [place] Hemoglobin (Bld) [Mass/Vol] 13.1 g/dL 11.9 - 15.1 g/dL [place] Interpretation and review of laboratory results Abnormal [place] MCH (RBC) [Entitic mass] 32.3 pg 25.2 - 33.5 pg [place] MCHC (RBC) [Mass/Vol] 30.7 g/dL 28.4 - 34.8 g/dL [place] MCV (RBC) [Entitic vol] 105.4 fL High 82.6 - 102.9 fL [place] Platelet mean volume (Bld) [Entitic vol] 8.8 fL 8.1 - 13.5 fL [place] Platelets (Bld) [#/Vol] 323 10*3/uL [place] RBC (Bld) [#/Vol] 4.05 10*6/uL 3.95 - 5.1 1 m/uL [place] WBC (Bld) [#/Vol] 0.0 10*3/uL 0.0 per 10 0 WBC [place] WBC (Bld) [#/Vol] 8.1 10*3/uL [place] Echocardiogram complete 2D w ith doppler with coloron 05-22-2019 [facility] Transthoracic Echocardiography Report (TTE) Patient Name ALESSANDRA Date of Study 05/22/2019 RUBÉN Garvey Date of 1960 Gender Female Age 59 year(s) Race Room Number 0303 Height: 60 inch, 152.4 cm Corporate ID [id number] Weight: 123 pounds, 55.8 kg # Patient Acct [id number] BSA: 1.52 m^2 BMI: 24.02 # kg/m^2 MR # [id number] Natural Resource Technician Marleny Viveros Interpreting Physician Jose Caldera Fellow Referring Nurse Deidre Garza CNP Practitioner Interpreting Referring Physician Fellow Type of Study TTE procedure:2D Echocardiogram, M-Mode, Doppler, Color Doppler. Procedure Date Date: 05/22/2019 Start: 08:59 AM Study Location: [facility] Indications:Chest pain. Patient Status: Inpatient Height: 60 [...] Wall E' velocity:0.09 m/s Lateral Wall E/E':8.89 [facility] [place], [place] Levon, Mhpn Incoming C ardio Results From [facility]/Ge - 05/22/2019 1:49 PM EST [facility] Transthoracic Echocardiography Report (TTE) Patient Name ALESSANDRA Date of Study 05/22/2019 RUBÉN S Date of 1960 Gender Female Age 59 year(s) Race Room Number 0303 Height: 60 inch, 152.4 cm Corporate ID [id number] Weight: 123 pounds, 55.8 kg # Patient Acct [id number] BSA: 1.52 m^2 BMI: 24.02 # kg/m^2 MR # [id number] Natural Resource Technician Work,Marleny Interpreting Physician Jose Caldera Fellow Referring Nurse Deidre Garza CNP Practitioner Interpreting Referring Physician Fellow Type of Study TTE procedure:2D Echocardiogram, M-Mode, Doppler, Color Doppler. Procedure Date Date: 05/22/2019 Start: 08:59 AM Study Location: [facility] Indications:Chest pain. Patient Status: Inpatient Height: 60 [...] Wall E' velocity:0.09 m/s Lateral Wall E/E':8.89 [place] Lipid panel - fastingon 04-26 Cholesterol [Mass/Vol] 154 mg/dL <200 [place] Comment on above: Cholesterol Guidelines: <200 Desirable 200-240 Borderline >240 Undesirable Cholesterol in HDL [Mass/Vol] 51 mg/dL >40 [place] Comment on above: HDL Guidelines: <40 Undesirable 40-59 Borderline >59 Desirable Cholesterol in LDL [Mass/Vol] 82 mg/dL 0 - 130 mg/dL [place] Comment on above: LDL Guidelines: <100 Desirable 100-129 Near to/above Desirable 130-159 Borderline >159 Undesirable Direct (measured) LDL and calculated LDL are not interchangeable tests. Cholesterol in VLDL [Mass/Vol] NOT REPORTED 1 - 30 mg/dL [place] Cholesterol.total/Chol esterol in HDL [Mass ratio] 3 {ratio} <5 [place] Triglyceride [Mass/Vol] 106 mg/dL <150 [place] Comment on above: Triglyceride Guidelines: <150 Desirable 150-199 Borderline 200-499 High >499 Very high Based on AHA Guidelines for fasting triglyceride, December 2011. Brain Natriuretic Peptideon 05-21-2019 Natriuretic peptide B (Bld) [Mass/Vol] 152 pg/mL <300 [place] Comment on above: Pro-BNP results moe ot be compared to BNP results. Natriuretic peptide B (Bld) [Mass/Vol] Pro-BNP Reference Range: [place] Comment on above: Rule Out: <300 Paez Zone: Age <50 300-450 Age 50-75 300-900 Age >75 300-1800 Usually represents mild to moderate HF but other cardiopulmonary causes cannot be ruled out. Rule In: Age <50 >450 Age 50-75 >900 Age >75 >1800 CBC Auto Differentialon 04-26 Basophils (Bld) [#/Vol] 0.09 10*3/uL [place] Basophils/100 WBC (Bld) 1 % 0 - 2 % [place] Differential Type NOT REPORTED [place] Eosinophils (Bld) [#/Vol] 0.27 10*3/uL [place] Eosinophils/100 WBC (Bld) 3 % 1 - 4 % [place] Erythrocyte distribution width (RBC) [Ratio] 12.9 % 11.8 - 14.4 % [place] Hematocrit (Bld) [Volume fraction] 44.2 % 36.3 - 47.1 % [place] Hemoglobin (Bld) [Mass/Vol] 14.2 g/dL 11.9 - 15.1 g/dL [place] Immature granulocytes (Bld) [#/Vol] 10*3/uL [place] Immature granulocytes (Bld) [#/Vol] 0 % 0 [place] Lymphocytes (Bld) [#/Vol] 2.46 10*3/uL [place] Lymphocytes/100 WBC (Bld) 28 % 24 - 43 % [place] MCH (RBC) [Entitic mass] 32.7 pg 25.2 - 33.5 pg [place] MCHC (RBC) [Mass/Vol] 32.1 g/dL 28.4 - 34.8 g/dL [place] MCV (RBC) [Entitic vol] 101.8 fL 82.6 - 102.9 fL [place] Monocytes (Bld) [#/Vol] 0.76 10*3/uL [place] Monocytes/100 WBC (Bld) 9 % 3 - 12 % [place] Platelet mean volume (Bld) [Entitic vol] 8.9 fL 8.1 - 13.5 fL [place] Platelets (Bld) [#/Vol] 354 10*3/uL [place] Platelets (Bld) [#/Vol] NOT REPORTED [place] RBC (Bld) [#/Vol] 4.34 10*6/uL 3.95 - 5.1 1 m/uL [place] RBC morphology finding Nom (Bld) NOT REPORTED [place] Segmented neutrophils/100 WBC (Bld) 59 % 36 - 65 % [place] Segs Absolute 5.19 [place] WBC (Bld) [#/Vol] 8.8 10*3/uL [place] WBC (Bld) [#/Vol] 0.0 10*3/uL 0.0 per 10 0 WBC [place] WBC Morphology NOT REPORTED [place] Comprehensive Metabolic Pane l w/ Reflex to MGon 05-21-2019 Albumin [Mass/Vol] 4.4 g/dL 3.5 - 5.2 g/dL [place] Albumin/Globulin [Mass ratio] 1.7 {ratio} [place] ALP [Catalytic activity/Vol] 59 U/L 35 - 104 U/L [place] ALT [Catalytic activity/Vol] 16 U/L 5 - 33 U/L [place] Anion gap [Moles/Vol] 15 mmol/L 9 - 17 mmol/L [place] AST [Catalytic activity/Vol] 21 U/L <32 [place] Bilirubin Ql (U) 0.20 mg/dL Low 0.3 - 1.2 mg/dL [place] Bun/Cre Ratio 28 High [place] Calcium [Mass/Vol] 8.8 mg/dL 8.6 - 10. 4 mg/dL [place] Chloride [Moles/Vol] 104 mmol/L 98 - 10 7 mmol/L [place] CO2 [Moles/Vol] 24 mmol/L 20 - 31 mmol/L [place] Creatinine [Mass/Vol] 0.54 mg/dL 0.5 - 0.9 mg/dL [place] GFR >60 >60 mL/min [place] GFR Non- >60 >60 mL/min [place] Glucose [Mass/Vol] 123 mg/dL High 70 - 99 mg/dL [place] Interpretation and review of laboratory results Abnormal [place] Potassium [Moles/Vol] 3.7 mmol/L 3.7 - 5.3 mmol/L [place] Protein [Mass/Vol] 7.0 g/dL 6.4 - 8.3 g/dL [place] Sodium [Moles/Vol] 143 mmol/L 135 - 144 mmol/L [place] Urea nitrogen [Mass/Vol] 15 mg/dL 8 - 23 mg/dL [place] D-Dimer, Quantitativeon 04-26 D-Dimer, Quant 0.26 [place] Comment on above: Elevated levels of [...] 12 Leadon 05-21-2019 Atrial Rate 110 BPM [place] P Flatgap 65 degrees [place] P-R Interval 132 ms [place] Q-T Interval 338 ms [place] QRS Duration 72 ms [place] QTc Calculation (Bazett) 457 ms [place] R Flat[place] 15 degrees [facility], [place] T Flatgap 53 degrees [place] Ventricular Rate 110 BPM [place], Mhpn Incoming E kg Results From [email or web address] [place] - 05/21/2019 11:57 AM EST Sinus tachycardia Possible Left atrial enlargement Borderline ECG When compared with ECG of 08-AUG-2018 16:00, Criteria for Inferior infarct are no longer Present Confirmed by LEXIE PEREZ ([id number]) on 05/21/2019 11:56:54 AM [place] Sinus tachycardia Po ssible Left atrial enlargement Borderline ECG When compared with ECG of 08-AUG-2018 16:00, Criteria for Inferior infarct are no longer Present Confirmed by LEXIE PEREZ ([id number]) on 05/21/2019 11:56:54 AM [place] Lipaseon 05-21-2019 Lipase [Catalytic activity/Vol] 19 U/L 13 - 60 U/L [place] Metabolic Panelon 05-21-2019 GFR/1.73 sq M predicted among non-blacks MDRD (S/P/Bld) [Vol rate/Area] [place] Comment on above: Average GFR for 60-6 9 years old: 85 mL/min/1.73sq m Chronic Kidney Disease: <60 mL/min/1.73sq m Kidney failure: <15 mL/min/1.73sq m eGFR calculated using average adult body mass. Additional eGFR calculator available at: http://www.[employer].Everloop/multiple_crcl_2011.htm Stage 1: Some kidney damage normal GFR Stage 2: Mild kidney damage GFR 60-89 Stage 3: Moderate kidney damage GFR 30-59 Stage 4: Severe kidney damage GFR 15-29 Stage 5: Severe kidney damage GFR <15 ESRD - chronic treatment by dialysis or transplant Microscopic Urinalysison Amorphous, UA NOT REPORTED None [place] Bacteria, UA NOT REPORTED None [place] Casts UA NOT REPORTED /LPF [place] Crystals, UA NOT REPORTED None /HPF [place] Epithelial Cells UA 0 TO 2 [place] Mucus, UA NOT REPORTED None [place] Other Observations UA NOT REPORTED NOT REQ. [place] RBC (U) [#/Vol] None [place] Renal Epithelial, UA NOT REPORTED 0 /HPF [place] Trichomonas, UA NOT REPORTED None [place] WBC, UA 0 TO 2 [place] Yeast, UA NOT REPORTED None [place] - [place] Protime-INRon 05-21-2019 INR Coag (PPP) [Relative time] 1.0 {INR} [place] PT Coag (PPP) [Time] 10 s [place] Troponinon 05-21-2019 Interpretation and review of laboratory results Abnormal [place] Troponin I.cardiac [Mass/Vol] NOT REPORTED [place] Troponin T.cardiac [Mass/Vol] NOT REPORTED <0.03 ng/mL [place] Troponin, High Sensitivity 66 ng/L Critically high 0 - 14 ng/L [place] Comment on above: High Sensitivity Troponin values cannot be compared with other Troponin methodologies. Patients with high levels of Biotin oral intake (i.e >5mg/day) may have falsely decreased Troponin levels. Samples collected within 8 hours of biotin intake may require additional information for diagnosis. RESULTS CONFIRMED BY REPEAT TESTING Interpretation and review of laboratory results Abnormal [place] Troponin I.cardiac [Mass/Vol] NOT REPORTED [place] Troponin T.cardiac [Mass/Vol] NOT REPORTED <0.03 ng/mL [place] Troponin, High Sensitivity 67 ng/L Critically high 0 - 14 ng/L [place] Comment on above: High Sensitivity Troponin values cannot be compared with other Troponin methodologies. Patients with high levels of Biotin oral intake (i.e >5mg/day) may have falsely decreased Troponin levels. Samples collected within 8 hours of biotin intake may require additional information for diagnosis. Urinalysis Reflex to Culture on 05-21-2019 Bilirubin Urine Negative NEGATIVE [place] Color, UA YELLOW YELLOW [place] Glucose, Ur Negative NEGATIVE [place] Ketones Ql (U) Negative NEGATIVE [place] Leukocyte esterase Test strip Ql (U) Negative NEGATIVE [place] Nitrite, Urine Negative NEGATIVE [place] pH, UA 6.0 [place] Protein (U) [Mass/Vol] Negative NEGATIVE [place] Specific [place], UA 1.020 [place] Turbidity UA CLEAR CLEAR [place] Urinalysis Comments NOT REPORTED [place] Urine Hgb Negative NEGATIVE [place] Urobilinogen, Urine Normal Normal [place] XR CHEST PORTABLEon 05-21-19 20 No acute cardiopulmo nary process. Chronic interstitial change, relatively stable. [place] EXAMINATION: ONE XRA Y VIEW OF [...] and degenerative changes. Mediastinal contours are unremarkable. [place], Mhpn Incoming R adiant Results From [email or web address] - 05/21/2019 9:28 AM EST EXAMINATION: ONE [...] cardiopulmonary process. Chronic interstitial change, relatively stable. [facility] [place] Vital Signs Date Time Vital Sign Value Performing Clinician Jose masters 11-11-2020 13:45-0400 Diastolic blood pressure 82 mm[Hg] Cesar Paulino MD Work Phone: [employer] Work Phone: 11-11-2020 13:45-0400 Heart rate 95 /min Cesar Paulino MD Work Phone: [employer] Work Phone: 11-11-2020 13:45-0400 Respiratory rate 19 /min Cesar Paulino MD Work Phone: [employer] Work Phone: 11-11-2020 13:45-0400 SaO2% (BldA) [Mass fraction] 93 % Cesar Paulino MD Work Phone: [employer] Work Phone: 11-11-2020 13:45-0400 Systolic blood pressure 136 mm[Hg] Cesar Paulino MD Work Phone: [employer] Work Phone: 11-11-2020 10:59-0400 Body height 152.4 cm Cesar Paulino MD Work Phone: [employer] Work Phone: 11-11-2020 10:59-0400 Body mass index (BMI) [Ratio] 23.44 kg/m2 Cesar Paulino MD Work Phone: [employer] Work Phone: 11-11-2020 10:59-0400 Body temperature 96.4 [degF] Cesar Paulino MD Work Phone: [employer] Work Phone: 11-11-2020 10:59-0400 Body weight 54.43 kg Cesar Paulino MD Work Phone: [facility] Work Phone: 05-22-2019 08:00-0500 Body Temperature 97.81 [degF] [facility] [place] 05-22-2019 08:00-0500 BP Diastolic 79 mm[Hg] Jesus [facility] , [place] 05-22-2019 08:00-0500 BP Systolic 127 mm[Hg] Jesus [facility] , [place] 05-22-2019 08:00-0500 Pulse (Heart Rate) 86 /min Jesus [place] 05-22-2019 08:00-0500 Respiratory Rate 20 /min Jesus [facility] 05-22-2019 06:57-0500 Height 152.4 cm [place] 05-22-2019 04:58-0500 BMI (Body Mass Index) 24.74 kg/m2 [place] 05-22-2019 04:58-0500 Body weight 57.47 kg Jesus [place], [place] 05-21-2019 23:51-0500 Pulse Oximetry 95 % [place] Encounters Encounter Date Encounter Type Care [...] abnormal findings DR CESAR PAULINO . [facility] Start: 09-17-2021 End: 09-17-[address] CESAR PAULINO . Facility:[facility] Start: 09-16-2021 End: 09-17-[address] CESAR PAULINO . Facility:[facility] Start: 09-16-2021 End: 09-17-2021 Encounter for general adult medical examination without abnormal findings DR CESAR PAULINO . Facility: Start: 11-11-2020 Emergency department patient visit CESAR [facility] Start: 11-11-2020 End: 11-11-2020 Emergency department patient visit Cesar Paulino MD Work Phone: [facility] ED Comment on above: Vertigo (Primary Dx) Start: 09-20-2020 End: 09-21-2020 ambulatory CESAR [facility] Start: 09-20-2020 End: 09-20-2020 Subsequent hospital visit by physician Cesar Paulino MD Work Phone: [facility] Laboratory Start: 05-21-2019 End: 05-22-2019 Evaluation and management of inpatient Jesus Bond Work Phone: [facility] Start: 01-22-2017 End: 01-23-2017 Ambulatory DEFAULT PHYSICIAN Facility:[facility] Procedures Date Procedure Procedure Detail Performing Clinician Start: 11-11-2020 Urinalysis microscop ic only Jose Gallardoiss PA[facility] Work Phone: Start: 11-11-2020 Urnls dip stick/tabl et rgnt auto w/o microscopy Jose العلي Cognio PA-C Work Phone: Start: 11-11-2020 Ct angiography neck w/contrast/noncontrast Jose العلي [employer] Work Phone: Start: 11-11-2020 Ct head/brain w/o co ntrast material Jose العلي Cognio PA[employer] Work Phone: Start: 11-11-2020 Lactate [Moles/volum e] in Serum or Plasma Jose العلي Cognio PA-C Work Phone: Start: 11-11-2020 Radiologic exam ches t single view Jose العلي Cognio PA-C Work Phone: Start: 11-11-2020 Comprehensive metabo [...] stick/tabl et rgnt auto w/o microscopy Jesus Ronda Work Phone: Start: 05-21-2019 Assay of lipase Jesus W eese Work Phone: Start: 05-21-2019 Assay of troponin [...] Author Start: 09-20-2021 Lipid panel Lipid screen [facility] Work Phone: Start: 11-23-2020 Influenza vaccination M [facility] [employer] Phone: Start: 05-22-2020 Lipid panel Lipid screen [facility] Work Phone: Start: 07-18-2019 Screening for malign ant neoplasm of lung Low dose CT lung screening [facility] [employer] Phone: Start: 11-23-2018 Influenza vaccination Flu vaccine (# 1) [place] Start: 2008 Breast cancer screen Breast cancer s creen [place] Start: 2008 Colon cancer screen colonoscopy Colon cancer screen colonoscopy [place] Start: 2008 Screening for malign ant neoplasm of breast Breast cancer screen [facility] [employer] Phone: Start: 2008 Screening for malign ant neoplasm of colon Colon cancer screen colonoscopy [facility] [employer] Phone: Start: 2008 Shingles Vaccine (1 of 2) Lee gles Vaccine (1 of 2) [place] Start: 2003 Screening for malign ant neoplasm of colon Colon cancer screen colonoscopy [facility] [employer] Phone: Start: 1979 Cervical cancer screen Cervical canc er screen [place] Start: 1979 Screening for malign ant neoplasm of cervix Cervical cancer screen [facility] [employer] Phone: Start: 1977 DTaP/Tdap/Td vaccine (1 - Tdap) DTaP/Tdap/Td vaccine (1 - Tdap) [facility] [employer] Phone: Start: 1973 HIV screen HIV screen [place] Start: 1973 HIV screening HIV screen [facility] Work Phone: Start: 1970 COVID-19 Vaccine (1) COVID-19 Vaccin e (1) [facility] Work Phone: Start: 1969 DTaP/Tdap/Td vaccine (1 - Tdap) DTaP/Tdap/Td vaccine (1 - Tdap) [place], [place] Start: 1968 Lipid screen Lipid screen [place], [place] Start: 1964 Pneumococcal 0-64 ye ars Vaccine (1 of 1 - PPSV23) Pneumococcal 0-64 years Vaccine (1 of 1 - PPSV23) [place] Start: 1964 Pneumococcal 0-64 ye ars Vaccine (1 of 2 - PPSV23) Pneumococcal 0-64 years Vaccine (1 of 2 - PPSV23) [facility] Phone: Start: 1958 Hepatitis C screen Hepatitis C scree n [place], [place] Start: 1958 Hepatitis C screening Hepatitis C sc reen [facility] Phone: End: 05-21-2019 Blood occult stool #1 Blood occult stool #1 Lab Routine One Time for 1 Occurrences starting 05/21/2019 until 05/21/2019 [place] Comment on above: One Time for 1 Occur rences starting 05/21/2019 until 05/21/2019 CPAP CPAP Respiratory Care Routine Every 4hr until discontinued starting 05/21/2019 [place] Comment on above: Every 4hr until disc ontinued starting 05/21/2019 CTA HEAD NECK W CONTRAST CTA HEA D NECK W CONTRAST Imaging STAT 11/11/2020 12:32 PM EDT [facility] Phone: EKG 12 Lead EKG 12 Lead ECG STAT 11/11/2020 11:14 [facility] Initiate Oxygen Ther apy Protocol Initiate Oxygen Therapy Protocol Respiratory Care Routine Daily until discontinued starting 05/21/2019 [place] Comment on above: Daily until disconti nued starting 05/21/2019 Payers Date Payer Category Payer Unknown BCBS BC[place] - [place] [employer] xxxxxxxxx 2014-Present [address] [place] [address] xxxxxxxxx [id number] 1959 Unknown [id number] 1958 Unknown [id number] 1958 Unknown [id number] 1958 Unknown [id number] 1958 Unknown [id number] 1958 Unknown [id number] 1958 Unknown [id number] 1958 Unknown [id number] 9 Unknown Social History Date Type Detail Facility Start: 05-21-2019 End: 11-11-2020 Tobacco smoking status NHIS Current every day smoker [place], [place] History of tobacco use Cigarette Smoker [place], [place] Start: 05-21-2019 End: 11-11-2020 Cigarettes smoked current (pack per day) - Reported [facility] [place] Start: 1960 Sex Assigned At Not on file [place], [place] Start: 06-15-2019 End: 11-11-2020 Tobacco use and exposure Never used [employer] Start: 11-11-2020 Alcohol intake Ex-drinker (finding) [employer] Phone: Evaluation note Note Date & Type Note Facility Evaluation note Diagnosis Vertigo- Primary Dizziness and giddiness documented in this encounter [employer] Phone: Hospital Discharge instructions Attachments Note Date & Type Note Facility Hospital Discharge instructions The following attachments cannot be sent through Care Everywhere.Vertigo (French)Dizziness (French)documented in this encounter [employer] Phone: Summary Purpose Family History No Family History Records FoundNo Family History Records FoundNo Family History Records FoundNo Family History Records FoundNo Family History Records Found Advance Directives No Advanced Directives Records FoundDocuments on File Type Date Recorded Patient Strategic Analyst Expl anation Advance Directives and Living Will Power of Hide Mill Worker Latest Code Status on File Code Status Date Activated Date Inactivated Comments Full Code 05/21/2019 1:13 PM Documents on File Type Date Recorded Patient Strategic Analyst Expl anation ACP-Advance Directive ACP-Power of Hide Mill Worker Latest Code Status on File Code Status Date Activated Date Inactivated Comments Full Code 05/21/2019 1:13 PM 05/22/2019 5:52 PM Hospital Course * Deidre Garza, RADIO FREQUENCY DESIGN ENGINEER - SOLUTIONS SALES EXECUTIVE - 05/22/2019 2:15 PM EST Discharge Summary [...] Discharge Medications: Rubén Aparicio Home Medication Instructions ROLAND:[id number] Printed on:05/22/19 2486 Medication Information acetaminophen-codeine (TYLENOL/CODEINE #3) 300-30 MG per tablet Take 1 tablet by mouth every 6 hours as needed for Pain.. ARIPiprazole (ABILIFY) 5 MG tablet Take 5 mg by mouth daily aspirin 81 MG chewable tablet Take 1 tablet by mouth daily jxwcwok-xbejilonpcdwo-flxddvbs (EXCEDRIN MIGRAINE) 250-250-65 MG per tablet Take [...] applicable) ARGELIA/ARB in CHF: NA Statin in MS: NA ASA in MS: NA Statin in CVA: NA Antiplatelet in CVA: NA Total time spent on discharge services: 45 minutes Including the following activities: Evaluation and Management of patient Discussion with patient and/or surrogate about current care plan Coordination with Case Management and/or Floor Installation Mechanic Coordination of care with Consultants (if applicable) Coordination of care with Receiving Facility Physician (if applicable) Completion of DME forms (if applicable) Preparation of Discharge Summary Preparation of Medication Reconciliation Preparation of Discharge Prescriptions Signed: Deidre Garza APRN, CUSTOMER COMPLAINT CLERK-C 05/22/2019, 2:16 PM Associated attestation - Kash Cedeno MD - 05/22/2019 3:52 PM EST Patient ID: Rubén Aparicio [id number] Admission date: 05/21/2019 Discharge date: 05/22/2019 [...] ms QTc Calculation (Bazett) 457 ms P [place] 65 degrees R [place] 15 degrees T [place] 53 degrees CBC Auto Differential Collection Time: [...] # 2.46 1.10 - 3.70 k/uL Absolute [place] # 0.76 0.10 - 1.20 k/uL Absolute [...] NEGATIVE NEGATIVE Ketones, Urine NEGATIVE NEGATIVE Specific [place], UA 1.020 1.010 - 1.020 Urine Hgb [...] Discharge Medications: Rubén Aparicio Home Medication Instructions ROLAND:[id number] Printed on:05/22/19 6802 Medication Information acetaminophen-codeine (TYLENOL/CODEINE #3) 300-30 MG per tablet Take 1 tablet by mouth every 6 hours as needed for Pain.. ARIPiprazole (ABILIFY) 5 MG tablet Take 5 mg by mouth daily aspirin 81 MG chewable tablet Take 1 tablet by mouth daily gkimhmt-liutlfqeocziv-hykmpwrn (EXCEDRIN MIGRAINE) 250-250-65 MG per tablet Take [...] and plan documented in her note . Ksah Cedeno MD documented in this encounter Discharge [...] sent through Care Everywhere. * Abdominal Pain (French) * Smoking: Stopping (French) documented in this encounter History of Present Illness * Gina Kahn RN - 05/22/2019 3:45 PM EST Discharge instructions given to pt. No questions, pt verbalized understanding all instructions. Pt aware of follow up appointments as listed on AVS. Pt informed video games storywriter that she drove her and was going [...] up as an outpatient Deidre Garza APRN, CUSTOMER COMPLAINT CLERK-C Associated attestation - Kash Cedeno MD - 05/22/2019 12:56 PM EST Attestation 05/22/19 I personally evaluated and examined the patient fmpz-ze-pdro in conjunction with the CUSTOMER COMPLAINT CLERK and agree with the management and dispostition of the patient. Please see CUSTOMER COMPLAINT CLERK's progress note for full details. My candelaria [...] with the plan as outlined in the CUSTOMER COMPLAINT CLERK's note Principal Problem: Acute coronary syndrome (HCC) [...] have advance directives but not on file. FILLER SPREADER to monitor and assist with any needs [...] heatlhy eating plan. 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 Weight appears on increase per historical data. [...] 5. Fluid Accumulation-No significant fluid accumulation, 6. First Responder Strength-Not measured Nutrition Risk Level: Low, Moderate [...] % Weight Change: , 3% acute gain [place] Body Wt: 100 lb (45.4 kg), % [place] Body 126% BMI Classification: BMI 18.5 - [...] Labs, Weight, I&O, Patient/Family Education Contact Number: [phone] * Chelsea Hopkins RN - 05/22/2019 1:07 AM EST Called respiratory again to inquire about the CPAP that was supposed to be set up for patient. Spoke with Tania who informed video games storywriter that she came up, and patient was [...] flow sheet.PO medications taken with no issue. EIAD * Chelsea Hopkins RN - 05/21/2019 7:46 [...] set up C-pap for patient as well. EIDA * Gina Kahn RN - 05/21/2019 2:05 PM EST Pt sitting faroese style in bed, denies chest pain, c/o upper abdomen pain, states her stomach is full, Deidre, SOLUTIONS SALES EXECUTIVE, aware. at bedside. Pt appears calm, is [...] section and content) DATE CREATED AUTHOR 09/17/2017 [facility] DATE CREATED AUTHOR AUTHOR'S ORGANIZ ATION 04/07/2020 [facility] DATE CREATED AUTHOR AUTHOR'S ORGANIZ ATION 11/18/[address] [facility] DATE CREATED AUTHOR AUTHOR'S ORGANIZ ATION 08/31/2022 [facility] DATE CREATED AUTHOR AUTHOR'S ORGANIZ ATION 04/10/2023 [facility] EPIC Reason for Visit (unrecogniz ed section and content) Reason Comments Chest Pain Left, onset 0100, co ntiuous Abdominal Pain Diffuse with bloatin g, onset 1 week ago Status Reason Specialty Diagnoses / Procedures Referred By Contact Referred To Contact Diagnoses Acute coronary syndrome (HCC) Kash Cedeno MD [address] [place] [id number] [facility] Reason Comments Dizziness onset last evening a round 2029 Emesis with onset of dizzin ess Ordered [...] BE BASED ON THE PRIMARY CLINICAL RECORDS. [facility]. provides no warranty or guarantee of the accuracy or completeness of information in this document.
== END 2024-07-03 09:15 | disposition home or self-care (01) ==
LOC: MAMMO 09:14
PROVIDERS: PCP Family Medicine; Visit Provider Family Medicine
DX: Z12.31 Encounter for screening mammogram for malignant neoplasm of breast (principal)
CPT/HCPCS: 77063; 77067